=== PATIENT | male | born 1930 | race Caucasian/White ===

== ENCOUNTER 2018-09-14 14:12 | Inpatient (IN) | payer OTHER, BC ==
--- NOTE | 2018-09-14 14:16 | PDOC ---
History of Present Illness - General Chief Complaint: Injury Stated Complaint: FALL - History of Present Illness Initial Comments: The pt is a 88M w/ a history of Parkinson's disease, HTN, hx of bladder cancer , HTN who presents s/p fall down stairs yesterday. The pt reports falling down a portion of flight of stairs yesterday. Per the son, he tried calling the pt last night and this AM and since there was not answer he drove over to investigate. The pt was found on the floor and has urinated on himself. 09/14/18 16:19 Past History - Past Medical History Allergies/Adverse Reactions: Allergies Allergy/AdvReac Type Severity Reaction Status Date / Time No Known Drug Allergies Allergy Verified 09/14/18 14:38 Home Medications: Ambulatory Orders Alpha Lipoic Acid 200 mg PO DAILY 09/14/18 Carbidopa/Levodopa [Carbidopa-Levodopa 25-250 Tab] 1 each PO QID 09/14/18 Cyanocobalamin [Vitamin B12 -] 1,000 mcg PO DAILY 09/14/18 Furosemide [Lasix] 20 mg PO DAILY 09/14/18 Gabapentin [Neurontin] 200 mg PO BID 09/14/18 Nabumetone 500 mg PO PRN 09/14/18 Tamsulosin HCl 0.4 mg PO DAILY 09/14/18 Ubidecarenone/Vit E Acet [Co Q-10 100 mg Softgel] 1 each PO DAILY 09/14/18 Anemia: No Asthma: No Cancer: Yes (bladder-SURGICAL REMOVAL) Cardiac Disorders: No CVA: No COPD: No CHF: No Dementia: No Diabetes: No GI Disorders: No Disorders: Yes (STARTED ON FLOMAX 2 WEEKS AGO) HTN: No Hypercholesterolemia: No Liver Disease: No Seizures: No Thyroid Disease: No - Surgical History Abdominal Surgery: No Appendectomy: No Cardiac Surgery: No Cholecystectomy: No Lung Surgery: No Neurologic Surgery: No Orthopedic Surgery: Yes (RIGHT TIBIA PLATEAU SX 1995) - Suicide/Smoking/Psychosocial Hx Smoking History: Never smoked Have you smoked in the past 12 months: No Hx Alcohol Use: Yes (OCCAS) Drug/Substance Use Hx: No Substance Use Type: Alcohol Hx Substance Use Treatment: No Review of Systems - Review of Systems Able to Perform ROS?: Yes Comments:: GENERAL/CONSTITUTIONAL: No fever or chills HEAD, EYES, EARS, NOSE AND THROAT: No change in vision. No ear pain or discharge. No sore throat CARDIOVASCULAR: No chest pain or shortness of breath RESPIRATORY: Denies cough, hemoptysis GASTROINTESTINAL: No nausea, vomiting, diarrhea or constipation GENITOURINARY: No dysuria, frequency, or change in urination MUSCULOSKELETAL: No joint or muscle swelling or pain. No neck or back pain SKIN: No rash NEUROLOGIC: No headache, vertigo, loss of consciousness, or change in strength/ sensation ENDOCRINE: No increased thirst. No abnormal weight change ALLERGIC/IMMUNOLOGIC: No hives or skin allergy 09/15/18 16:21 Is the patient limited Citizen Of [place] proficient: No *Physical Exam - Vital Signs Vital Signs Temp Pulse Resp BP Pulse Ox 98.5 F 77 20 120/69 100 09/14/18 14:15 09/14/18 16:34 09/14/18 16:34 09/14/18 16:34 09/14/18 16:34 09/14/18 16:35 - Physical Exam Comments: GENERAL: Awake, alert, and oriented to person/place/time, in no acute distress HEAD: No signs of trauma, normocephalic, atraumatic EYES: PERRLA, EOMI, sclera anicteric, conjunctiva clear ENT: Hearing grossly normal, nares patent, oropharynx clear without exudates. Moist mucosa LUNGS: No distress, speaks full sentences, clear to auscultation bilaterally HEART: Regular rate and rhythm, normal S1 and S2, no murmurs appreciated, peripheral pulses normal and equal bilaterally BACK: L lateral lumbar ecchymosis w/o underlying hematoma (approx 2.5cm x 1.5cm) ; No C/T/L spine TTP ABDOMEN: Soft, nontender, normoactive bowel sounds. No guarding, no rebound EXTREMITIES: LUE relative to RUE weakness; LLE > RLE weakness but reported BLE weakness at baseline; moves all extremities independently; R should pain with PROM NEUROLOGICAL: Cranial nerves II through XII grossly intact. Normal speech, no focal sensorimotor deficits SKIN: occipital abrasion; b/l elbow abrasion; b/l knee abrasions; R lateral ankle abrasion; L lateral lumbar ecchymosis w/o underlying hematoma 09/14/18 15:40 ED Treatment Course - LABORATORY CBC & Chemistry Diagram: 09/15/18 05:50 09/15/18 05:50 Medical Decision Making - Medical Decision Making The pt is an 88M w/ a history of Parkinson's disease, HTN, bladder cancer who presents for evaluation s/p fall from standing and being stuck on the floor for 1 day. ED Course Labs sent CXR CT head and c-spine Boostrix Troponinemia to 0.22 [address] CK pending 09/14/18 16:39 CK 2400s Plan for admission to Tele -Syncope v mechanical fall -Troponinemia -Will obtain CT A&P w/o contrast to evaluate for bony abnormality and gross intra-abdominal pathology 09/14/18 17:10 *DC/Admit/Observation/Transfer Diagnosis at time of Disposition: Elevated troponin Fall Qualifiers: Encounter type: initial encounter Qualified Code(s): W19.XXXA - Unspecified fall, initial encounter Syncope Qualifiers: Syncope type: unspecified Qualified Code(s): R55 - Syncope and collapse - Discharge Dispostion Condition at time of disposition: Good Decision to Admit order: Yes - Referrals - Patient Instructions - Post Discharge Activity
[2018-09-14 14:38] VITALS: BMI 30.1
--- NOTE | 2018-09-14 15:32 | PDOC ---
Documentation entered by Tash Bajwa SCRIBE, acting as scribe for Loreto Cueva MD. Loreto Ceuva MD: This documentation has been prepared by the Garett stein Daisy, SCRIBE, under my direction and personally reviewed by me in its entirety. I confirm that the documentation accurately reflects all work, treatment, procedures, and medical decision making performed by me. Attending Attestation - Resident Resident Name: Chau Martinez - ED Attending Attestation I have performed the following: I have examined & evaluated the patient, The case was reviewed & discussed with the resident, I agree w/resident's findings & plan - HPI HPI: 09/14/18 14:42 The patient is a 88 YOM with a PMH of Parkinson's disease, HTN, bladder cancer, spinal stenosis brought in for evaluation s/p fall yesterday. The patient was brought in by his son after calling the patient this morning and receiving no answer. Patient's son found him at the bottom of the stairs and soiled, which is not normal for him. Patient has abrasions to the posterior head, forehead, elbows, and knees as well as ecchymosis to the left mid upper back. Patient lives alone for the past 4 years. Patient remembers falling a third of the flight, but is unable to provide further history. Denies any prodromal symptoms. He states he also had another fall 2 days ago, but was able to stand up after that fall. Allergies: NKDA - Physicial Exam PE: 09/14/18 15:27 awake alert mild superficial abrasion right lateral forhead. posterior scalp superficial abrasions . moist mucous membranes. lungs clear bilaterally no chest wall tenderness. no crepitus no step off. heart rrr no mrg abd soft nt nd ext wwp . no edema. no calf tenderness. pelvis stable. nontender ext. from. right knee with superifical abrasion, already scabbed over. left knee inner side with superficial abrasions. nuero resting tremor, left upper ext rigidity, weakness noted 4/5. left leg 3/5 ( cant lift against gravity) . sensation intact. speech clear. 09/14/18 17:30 - Medical Decision Making 09/14/18 15:30 88 yo male ho parkinsons, htn bph ho right knee relacement, spinal stenosis here s/p fall down stairs, states he had fall 2 days ago, then a second fall yesterday down stairs, was stuck at bottom until son came from [place] because wasnt answering phone. differential mi synncope, cva ( unclear if h/o prior cva) infection such as uti , pna, rhabdo from fall. dehydration, anemia, electrolyte abnoramlity. plan ct head cervical spine. albs cxr ua iv hydration. due to ho recurrent falls pt lives alone will require admission for pt assessment and unsafe discharge. 09/14/18 15:43 Imaging: Head CT Impression: No evidence of acute intracranial pathology Reported by: Dr. Moeller Imaging: c-spine CT Impression: Moderately severe degenerative arthritis with no fracture or acute bony abnormalities Reported by: Dr. Moeller 09/14/18 17:30 pt with mild rhabdomyolisis. mild creatinine elevation. pt with nontender abdomen. ct ap lumbar spine ordered. held iv contrast due to low suspciion for intrabdominal injury and concerns for rhabdomyolysis and renal injury. repeat exam of abd remains nontender. cxr very rotated,no infiltrate. 09/14/18 18:23 Heart Score/ECG Review #1 General ECG Interpretation: Sinus Rhythm, Normal Rate (80), Normal Intervals, No acute ischemic changes Compared to previous ECG there are: No significant change (comparison 10/20/15 TWI III< AVF)
[2018-09-14 15:37] LABS: BASO % 0.2 % (0-2.0); HEMATOCRIT 39.6 % (35.4-49); HEMOGLOBIN 13.3 GM/dL (11.7-16.9); LYMPH % 5.9 % (8-40); MCH 35.8 pg (25.7-33.7); MCHC 33.5 g/dl (32.0-35.9); MEAN CELL VOLUME 106.7 fl (80-96); MEAN PLT VOLUME 7.1 fl (7.5-11.1); MONO % 8.3 % (3.8-10.2); NEUT % 85.6 % (42.8-82.8); PLATELET COUNT 308 K/MM3 (134-434); RBC 3.71 M/mm3 (4.00-5.60); RDW 13.4 % (11.9-15.9); WHITE BLOOD COUNT 13.5 K/mm3 (4.0-10.0)
[2018-09-14] MEDS ORDERED: DIPHTH,PERTUSS(ACELL),TET 0.5 ML DISP.SYRIN IM ONE ×2 (15:40→15:56)
[2018-09-14] MEDS ORDERED: BACITRACIN 0.9 GM PACKET ONE (15:42)
[2018-09-14 15:53] LABS: INR 1.26 (0.83-1.09); PROTHROMBIN TIME (PATIENT) 14.9 SEC (9.7-13.0)
[2018-09-14 15:56] LABS: ACTIVATED PTT 26.9 SECONDS (25.2-36.5)
[2018-09-14 16:08] LABS: ALK PHOS 133 U/L (45-117); ANION GAP 7 MMOL/L (8-16); BLOOD UREA NITROGEN 26 mg/dL (7-18); CALCIUM 8.8 mg/dL (8.5-10.1); CHLORIDE 102 mmol/L (98-107); CO2 24 mmol/L (21-32); CREATININE 1.5 mg/dL (0.55-1.3); GLUCOSE,RANDOM 115 mg/dL (74-106); POTASSIUM 4.8 mmol/L (3.5-5.1); SGOT/AST 113 U/L (15-37); SGPT/ALT 40 U/L (13-61); SODIUM 134 mmol/L (136-145); TOT PROT 7.4 g/dl (6.4-8.2)
[2018-09-14] MEDS ORDERED: SODIUM CHLORIDE 0.9% 500 ML INFUS.BAG IV ONE (16:12)
[2018-09-14] MEDS ORDERED: ASPIRIN 81 MG CHEWABLE TABLETS PO ONE (16:13)
[2018-09-14] MEDS ORDERED: ASPIRIN 81 MG CHEWABLE TABLETS ONE (16:21)
[2018-09-14] MEDS ORDERED: SODIUM CHLORIDE 0.9% 1000 ML INFUS.BAG IV ONE (17:23)
[2018-09-14 17:42] LABS: ANISOCYTOSIS 1+; MACROCYTOSIS 1+; OVALOCYTE 1+; PLATELET ESTIMATE NORMAL
--- NOTE | 2018-09-14 18:09 | HP ---
CHIEF COMPLAINT: fall down stairs, found on floor by son PCP: Dr. Blair HISTORY OF PRESENT ILLNESS: 88 yom with PMhx of Parkinson's disease, spinal stenosis, HTN, B12 deficiency, bladder ca, BPH, chronic leg weakness, using walker, living alone was in his [facility] yesterday when tried to get up the stair, had his shoe stuck on the carpet on the stairs, lost his balance and fell down the stairs (8-9 flight of stairs) . Denies any chest pain, palpitaitons, dizziness, dyspnea, visual or speech disturbances around the fall. Reports was able to get up and walk up the stairs , came down and had another fall from 2 flights of stairs. Reports got up and sat on couch to watch TV. Unsure of the events after that and if he had passed out or how he landed on the floor where the son found him. Per charts, son called the patient who did not respond and came over today, found on floor, and had urinated on himself, brought him to the ED. Currently patient reports some right shoulder pain, though able to move better than yesterday. Also able to move and lift his legs better than before. 12 point ROS done, neg for pain otherwise, no headache, visual or speech disturbances, abdominal or new back pain, urinary symptoms or new concerns. 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 Lives alone, uses a walker Family History: Allergies No Known Drug Allergies Allergy (Verified 09/14/18 14:38) HOME MEDICATIONS: Home Medications Medication Instructions Recorded Alpha Lipoic Acid 200 mg PO DAILY 09/14/18 Carbidopa/Levodopa 1 each PO QID 09/14/18 [Carbidopa-Levodopa 25-250 Tab] Cyanocobalamin [Vitamin B12 -] 1,000 mcg PO DAILY 09/14/18 Furosemide [Lasix] 20 mg PO DAILY 09/14/18 Gabapentin [Neurontin] 200 mg PO BID 09/14/18 Nabumetone 500 mg PO PRN 09/14/18 Tamsulosin HCl 0.4 mg PO DAILY 09/14/18 Ubidecarenone/Vit E Acet [Co Q-10 1 each PO DAILY 09/14/18 100 mg Softgel] REVIEW OF SYSTEMS 12 point ROS done, per HPI PHYSICAL EXAMINATION GENERAL: Awake, alert, and oriented to person/place/time, in no acute distress HEAD: occipital abrasion, normocephalic EYES: PERRLA, EOMI, sclera anicteric, conjunctiva clear ENT: Hearing grossly normal, nares patent, oropharynx clear without exudates. Moist mucosa LUNGS: No distress, speaks full sentences, clear to auscultation bilaterally HEART: Regular rate and rhythm, normal S1 and S2, no murmurs appreciated, BACK: L lateral lumbar ecchymosis w/o underlying hematoma (approx 2.5cm x 1.5cm) ; No C/T/L spine TTP ABDOMEN: Soft, nontender, normoactive bowel sounds. No guarding, no rebound, no CVA tenderness EXTREMITIES:able to raise Left shoulder upto 50 degrees, Left shoulder movements limited by pain, no point tenderness, peripheral pules, Right knee surgical scar, swelling and skin discoloration MUSCULOSKELETAL: no spinal tenderness, SLR bilateral LE upt 30 degrees (reports able to move better than yesterday), no pain on passive movements bilateral hips /knees, Right shoulder movements limited by pain, no visible swelling or point tenderness NEUROLOGICAL: AAOX3, exam limited given pain as above, moves all extremities except RUE limited by pain, LLE weakness (Charted in 2013), increased tone, normal speech, sensation grossly intact and symmetric to light touch, Cranial nerves II through XII grossly intact. SKIN: occipital abrasion; b/l elbow abrasion; b/l knee abrasions; R lateral ankle abrasion; L lateral lumbar ecchymosis w/o underlying hematoma Vital Signs - 24 hr 09/14/18 09/14/18 09/14/18 14:15 15:00 16:34 Temperature 98.5 F Pulse Rate 88 Pulse Rate [ 68 77 Apical] Respiratory 18 18 20 Rate Blood Pressure 136/110 H Blood Pressure 127/67 120/69 [Right Arm] O2 Sat by Pulse 98 99 100 Oximetry (%) Laboratory Results - last 24 hr 09/14/18 09/14/18 09/14/18 15:15 15:15 15:15 WBC 13.5 H RBC 3.71 L Hgb 13.3 Hct 39.6 MCV 106.7 H MCH 35.8 H MCHC 33.5 RDW 13.4 Plt Count 308 D MPV 7.1 L D Absolute Neuts (auto) 11.6 H Neutrophils % 85.6 H D Lymphocytes % 5.9 L D Monocytes % 8.3 Eosinophils % 0.0 D Basophils % 0.2 Nucleated RBC % 0 Hypochromia 0 Platelet Estimate Normal Platelet Comment Present Polychromasia 0 Poikilocytosis 1+ Anisocytosis 1+ Microcytosis 1+ Macrocytosis 1+ Spherocytes 1+ Ovalocytes 1+ PT with INR 14.90 H INR 1.26 H PTT (Actin FS) 26.9 Sodium 134 L Potassium 4.8 Chloride 102 Carbon Dioxide 24 Anion Gap 7 L BUN 26 H Creatinine 1.5 H Creat Clearance w eGFR 44.37 Random Glucose 115 H Calcium 8.8 Total Bilirubin 2.0 H AST 113 H ALT 40 Alkaline Phosphatase 133 H Creatine Kinase Creatine Kinase Index CK-MB (CK-2) Troponin I Total Protein 7.4 Albumin 3.0 L 09/14/18 15:15 WBC RBC Hgb Hct MCV MCH MCHC RDW Plt Count MPV Absolute Neuts (auto) Neutrophils % Lymphocytes % Monocytes % Eosinophils % Basophils % Nucleated RBC % Hypochromia Platelet Estimate Platelet Comment Polychromasia Poikilocytosis Anisocytosis Microcytosis Macrocytosis Spherocytes Ovalocytes PT with INR INR PTT (Actin FS) Sodium Potassium Chloride Carbon Dioxide Anion Gap BUN Creatinine Creat Clearance w eGFR Random Glucose Calcium Total Bilirubin AST ALT Alkaline Phosphatase Creatine Kinase 2480 H Creatine Kinase Index 1.7 CK-MB (CK-2) 42.8 H Troponin I 0.22 H Total Protein Albumin EKG: NSR, artifactual baseline, RBBB(present on prior EKG), no acute ST-T changes but limited CT brain and C-spine results reviewed Right shoulder xray/CT A/P/CT L spine results pending ASSESSMENT/PLAN: 88 yom with PMHx of Parkinson's disease, spinal stenosis, HTN, B12 deficiency, bladder ca, BPH, chronic leg weakness admitted with fall down the stairs, rhabdomyolysis, and elevated trop. -Mechanical fall down the stairs, -?Syncope post event -Traumatic rhabdomyolysis -Elevated troponin, suspect demand type II MS given absence of symptoms or EKG changes, r/o ACS -HALEY, suspect from hypovolumia -Leucocytosis, suspect from stress/hemeconcentration, r/o infection -Parkinson's disease -HTN -SPinal stenosis -Osteoarthritis -HTN -B12 deficiency -BPH -h/o Bladder cancer Plan: Follow up right shoulder xray/CT A/P/CT LS Spine Orthopedic input and PT eval accordingly. Pain control with tylenol. Telemetry, cycle trop, 2D echo. Low suspicion for syncope. ASA Neuro checks. Fall precautions. IVF, hold lasix, trend CPK Fields cath x 24 hours, Screen for infection, check ua. Continue sinemet/gabapentin DVTPPX heparin pending above studies. Anticipate will need SNF, Dispo admit to inpatient tele Plan discussed with patient in detail, all questions answered Care co-ordination with ED Total admit time spent 65 min. Visit type - Emergency Visit Emergency Visit: Yes ED Registration Date: 09/14/18 Care time: The patient presented to the Emergency Department on the above date and was hospitalized for further evaluation of their emergent condition. - New Patient This patient is new to me today: Yes Date on this admission: 09/14/18 - Critical Care Critical Care patient: No
[2018-09-14] MEDS ORDERED: ACETAMINOPHEN 325 MG TABLET (FP) PO PRN (18:32)
[2018-09-14] MEDS ORDERED: SODIUM CHLORIDE 1,000 ML IV SCH (18:45)
[2018-09-14] MEDS ORDERED: NABUMETONE 500 MG TABLET PO SCH (18:45)
[2018-09-14] MEDS ORDERED: GABAPENTIN 100 MG CAPSULE (FP) ONE (22:21)
[2018-09-14] MEDS: GABAPENTIN 100 MG CAPSULE (FP) PO SCH (22:33)
[2018-09-14] MEDS: CARBIDOPA/LEVODOPA 25/250 TABLET (FP) PO SCH (23:23)
[2018-09-15] MEDS ORDERED: HEPARIN NA (PORCINE) 5,000 UNITS/ML 1ML VIAL ONE (06:20)
[2018-09-15] MEDS: HEPARIN NA (PORCINE) 5,000 UNITS/ML 1ML VIAL SQ SCH ×3 (06:24→22:27)
[2018-09-15 06:51] LABS: BASO % 0.3 % (0-2.0); EOS % 0.5 % (0-4.5); HEMATOCRIT 36.2 % (35.4-49); HEMOGLOBIN 12.3 GM/dL (11.7-16.9); LYMPH % 7.9 % (8-40); MCH 36.4 pg (25.7-33.7); MEAN CELL VOLUME 107.1 fl (80-96); MEAN PLT VOLUME 7.1 fl (7.5-11.1); MONO % 7.9 % (3.8-10.2); NEUT % 83.4 % (42.8-82.8); PLATELET COUNT 269 K/MM3 (134-434); RBC 3.38 M/mm3 (4.00-5.60)
[2018-09-15 07:39] LABS: ALBUMIN 2.6 g/dl (3.4-5.0); ALK PHOS 111 U/L (45-117); ANION GAP 9 MMOL/L (8-16); BILIRUBIN,TOTAL 1.2 mg/dL (0.2-1); BLOOD UREA NITROGEN 27 mg/dL (7-18); CHLORIDE 110 mmol/L (98-107); CHOLESTEROL 107 mg/dL (50-200); CO2 22 mmol/L (21-32); CREATININE 1.3 mg/dL (0.55-1.3); GLUCOSE,RANDOM 99 mg/dL (74-106); HDL CHOLESTEROL 40 mg/dL (40-60); MAGNESIUM 1.8 mg/dL (1.8-2.4); PHOSPHOROUS 2.9 mg/dL (2.5-4.9); POTASSIUM 4.4 mmol/L (3.5-5.1); SGOT/AST 97 U/L (15-37); SGPT/ALT 12 U/L (13-61); SODIUM 141 mmol/L (136-145); TOT PROT 6.2 g/dl (6.4-8.2); TRIGLYCERIDES 61 mg/dL (0-150)
[2018-09-15 08:08] LABS: PH,URINE 5.5 (5.0-8.0); URINE APPEARANCE Clear; URINE BILIRUBIN 1+ (NEGATIVE); URINE COLOR Yellow; URINE GLUCOSE (UA) Negative (NEGATIVE); URINE KETONE 1+ (NEGATIVE); URINE LEUK ESTERASE Negative (NEGATIVE); URINE NITRITE Negative (NEGATIVE); URINE PROTEIN 1+ (NEGATIVE)
--- NOTE | 2018-09-15 08:28 | PN ---
Physical Exam: SUBJECTIVE: Patient seen and examined, forgetful, denies pain. reports some right shoulder discomfort while moving the arm. No chest pain, dizziness. Does recall falling from 8-9 flight of stairs and being on a it 'for a long time' before his son came and brought him to the hospital, unsure if passed out. OBJECTIVE: Vital Signs Period Temp Pulse Resp BP Sys/Velazco Pulse Ox Last 24 Hr 98.5 F 68-88 18-20 120-139/65-110 97-100 Intake & Output 09/12/18 09/13/18 09/14/18 09/15/18 23:59 23:59 23:59 23:59 Weight 204 lb GENERAL: Awake, alert, and oriented to person/place, forgetful, in no acute distress HEAD: occipital abrasion, normocephalic EYES: PERRLA, EOMI, sclera anicteric, conjunctiva clear ENT: Hearing grossly normal, nares patent, oropharynx clear without exudates. Moist mucosa LUNGS: No distress, speaks full sentences, clear to auscultation bilaterally HEART: Regular rate and rhythm, normal S1 and S2, no murmurs appreciated, BACK: L lateral lumbar ecchymosis w/o underlying hematoma (approx 2.5cm x 1.5cm) ; No C/T/L spine TTP ABDOMEN: Soft, nontender, normoactive bowel sounds. No guarding, no rebound, no CVA tenderness EXTREMITIES:able to raise right shoulder upto 50 degrees, Left shoulder movements limited by pain, no point tenderness, peripheral pules, Right knee surgical scar, swelling and skin discoloration MUSCULOSKELETAL: no spinal tenderness, SLR bilateral LE upt 30 degrees (reports able to move better than yesterday), no pain on passive movements bilateral hips /knees, Right shoulder movements limited by pain, no visible swelling or point tenderness NEUROLOGICAL: AAOX2, exam limited given pain as above, moves all extremities except RUE limited by pain, LLE weakness (Charted in 2013), increased tone, normal speech, sensation grossly intact and symmetric to light touch, Cranial nerves II through XII grossly intact. SKIN: occipital abrasion; b/l elbow abrasion; b/l knee abrasions; R lateral ankle abrasion; L lateral lumbar ecchymosis w/o underlying hematoma Laboratory Results - last 24 hr 09/14/18 09/14/18 09/14/18 15:15 15:15 15:15 WBC 13.5 H RBC 3.71 L Hgb 13.3 Hct 39.6 MCV 106.7 H MCH 35.8 H MCHC 33.5 RDW 13.4 Plt Count 308 D MPV 7.1 L D Absolute Neuts (auto) 11.6 H Neutrophils % 85.6 H D Lymphocytes % 5.9 L D Monocytes % 8.3 Eosinophils % 0.0 D Basophils % 0.2 Nucleated RBC % 0 Hypochromia 0 Platelet Estimate Normal Platelet Comment Present Polychromasia 0 Poikilocytosis 1+ Anisocytosis 1+ Microcytosis 1+ Macrocytosis 1+ Spherocytes 1+ Ovalocytes 1+ PT with INR 14.90 H INR 1.26 H PTT (Actin FS) 26.9 Sodium 134 L Potassium 4.8 Chloride 102 Carbon Dioxide 24 Anion Gap 7 L BUN 26 H Creatinine 1.5 H Creat Clearance w eGFR 44.37 Random Glucose 115 H Calcium 8.8 Phosphorus Magnesium Total Bilirubin 2.0 H AST 113 H ALT 40 Alkaline Phosphatase 133 H Creatine Kinase Creatine Kinase Index CK-MB (CK-2) Troponin I Total Protein 7.4 Albumin 3.0 L Triglycerides Cholesterol Total LDL Cholesterol HDL Cholesterol Urine Color Urine Appearance Urine pH Ur Specific [place] Urine Protein Urine Glucose (UA) Urine Ketones Urine Blood Urine Nitrite Urine Bilirubin Urine Urobilinogen Ur Leukocyte Esterase 09/14/18 09/15/18 09/15/18 15:15 02:17 05:50 WBC 14.0 H RBC 3.38 L Hgb 12.3 Hct 36.2 MCV 107.1 H MCH 36.4 H MCHC 34.0 RDW 13.0 Plt Count 269 MPV 7.1 L Absolute Neuts (auto) 11.7 H Neutrophils % 83.4 H Lymphocytes % 7.9 L D Monocytes % 7.9 Eosinophils % 0.5 D Basophils % 0.3 Nucleated RBC % 0 Hypochromia Platelet Estimate Platelet Comment Polychromasia Poikilocytosis Anisocytosis Microcytosis Macrocytosis Spherocytes Ovalocytes PT with INR INR PTT (Actin FS) Sodium Potassium Chloride Carbon Dioxide Anion Gap BUN Creatinine Creat Clearance w eGFR Random Glucose Calcium Phosphorus Magnesium Total Bilirubin AST ALT Alkaline Phosphatase Creatine Kinase 2480 H Creatine Kinase Index 1.7 CK-MB (CK-2) 42.8 H Troponin I 0.22 H 0.20 H Total Protein Albumin Triglycerides Cholesterol Total LDL Cholesterol HDL Cholesterol Urine Color Urine Appearance Urine pH Ur Specific [place] Urine Protein Urine Glucose (UA) Urine Ketones Urine Blood Urine Nitrite Urine Bilirubin Urine Urobilinogen Ur Leukocyte Esterase 09/15/18 09/15/18 05:50 06:37 WBC RBC Hgb Hct MCV MCH MCHC RDW Plt Count MPV Absolute Neuts (auto) Neutrophils % Lymphocytes % Monocytes % Eosinophils % Basophils % Nucleated RBC % Hypochromia Platelet Estimate Platelet Comment Polychromasia Poikilocytosis Anisocytosis Microcytosis Macrocytosis Spherocytes Ovalocytes PT with INR INR PTT (Actin FS) Sodium 141 Potassium 4.4 Chloride 110 H Carbon Dioxide 22 Anion Gap 9 BUN 27 H Creatinine 1.3 Creat Clearance w eGFR 52.34 Random Glucose 99 Calcium 8.0 L Phosphorus 2.9 Magnesium 1.8 Total Bilirubin 1.2 H AST 97 H ALT 12 L Alkaline Phosphatase 111 Creatine Kinase 1577 H Creatine Kinase Index CK-MB (CK-2) Troponin I 0.16 H Total Protein 6.2 L Albumin 2.6 L Triglycerides 61 Cholesterol 107 Total LDL Cholesterol 65 HDL Cholesterol 40 Urine Color Yellow Urine Appearance Clear Urine pH 5.5 Ur Specific [place] 1.025 Urine Protein 1+ H Urine Glucose (UA) Negative Urine Ketones 1+ H Urine Blood Trace-lysed Urine Nitrite Negative Urine Bilirubin 1+ H Urine Urobilinogen 1.0 Ur Leukocyte Esterase Negative Active Medications Generic Name Dose Route Start Last Admin Trade Name Freq PRN Reason Stop Dose Admin Acetaminophen 650 mg 09/14/18 18:32 Tylenol - PO Q6H PRN PAIN LEVEL 1-5 Carbidopa/Levodopa 1 each 09/14/18 23:00 09/14/18 23:23 Sinemet 25/250 - PO 1 each 0900,1300,1800,2300 MIKE Administration Cyanocobalamin 1,000 mcg 09/15/18 10:00 Vitamin B12 - PO DAILY MIKE Gabapentin 200 mg 09/14/18 22:00 09/14/18 22:33 Neurontin - PO 200 mg BID MIKE Administration Heparin Sodium (Porcine) 5,000 unit 09/15/18 06:00 09/15/18 06:24 Heparin - SQ 5,000 unit TID MIKE Administration Sodium Chloride 1,000 mls @ 100 mls/hr 09/14/18 18:45 09/14/18 20:36 Normal Saline - IV 100 mls/hr ASDIR MIKE Administration Nabumetone 500 mg 09/14/18 18:45 Relafen - PO PRN MIKE Tamsulosin HCl 0.4 mg 09/15/18 08:30 Flomax - PO DAILY@0830 [facility] ASSESSMENT/PLAN: 88 yom with PMHx of Parkinson's disease, spinal stenosis, HTN, B12 deficiency, bladder ca, BPH, chronic leg weakness admitted with fall down the stairs, rhabdomyolysis, and elevated trop. -Mechanical fall down the stairs, -?Syncope post event -Traumatic rhabdomyolysis -Elevated troponin, suspect demand type II MO given absence of symptoms or EKG changes, unlikely ACS -HALEY, suspect from hypovolumia -Leucocytosis, suspect from stress/hemeconcentration, r/o infection -?pancreatic mass -1.4 Cm obstructive stone with hydronephrosis -Parkinson's disease -HTN -SPinal stenosis -Osteoarthritis -HTN -B12 deficiency -BPH -h/o Bladder cancer Plan: Telemetry with no events, tn flat, follow up 2D echo/cardiology input. CT A/P prelim with incidental findings of ?pancreatic mass and obstructive uropathy. GI/Urology consult. Renal function improved, Monitor for retention. Renal/bladder US. Continue IVF, trend CPK PT eval. Pain control with tylenol No focal evidence concerning for infection, trend WBC. Continue sinemet/gabapentin DVTPPX heparin Anticipate will need SNF, Dispo pending clinical improvement. Plan discussed with patient in detail, oriented again about the hospital admission and events overnight, all questions answered Visit type - Emergency Visit Emergency Visit: Yes ED Registration Date: 09/14/18 Care time: The patient presented to the Emergency Department on the above date and was hospitalized for further evaluation of their emergent condition. - New Patient This patient is new to me today: No - Critical Care Critical Care patient: No - Discharge Referral Referred to [facility] Med [facility] No
[2018-09-15 08:48] LABS: URINE RBC 2.4 /hpf (0-4); URINE WBC 2.5 /hpf (0-5)
[2018-09-15 08:49] LABS: EPI CELLS 0.3 /HPF (0-5/HPF); URINE BACTERIA 0.3 /hpf (NEGATIVE); URINE CASTS 0.35 /lpf (0-8)
--- NOTE | 2018-09-15 09:30 | CON.CARD ---
Consult Consult Specialty:: cardio - History of Present Illness Chief Complaint: fall History of Present Illness: 88 M here with falls, and ? syncope. per ER notes: pt lives alone. at home he tried to walk up the stairs and his shoe stuck on the carpet on the stairs, lost his balance and fell down the stairs. Reports was able to get up and walk up the stairs, came down and had another fall down stairs. Reports got up and sat on couch to watch TV. Unsure of the events after that and if he had passed out or how he landed on the floor where the son found him. Per charts, son called the patient who did not respond and came over today, found on floor, and had urinated on himself, brought him to the ED. currently appears mildly disoriented. "probably" passed out at some point. but also providing unreliable history and not following commands briskly at all times PMH: Parkinson's disease, spinal stenosis, HTN, B12 deficiency, bladder ca, BPH , chronic leg weakness using walker - Past Medical History Gastrointestinal: Yes: Other (? recent dysphagia) Renal/: Yes: Cancer (Bladder Ca RX in past; Saw MD recently Also BPH) Musculoskeletal: Yes: Chronic low back pain, Other (weakness both legs) - Alcohol/Substance Use Hx Alcohol Use: Yes (OCCAS) - Smoking History Smoking history: Never smoked Have you smoked in the past 12 months: No - Social History Occupation: retired History of Recent Travel: No Home Medications - Allergies Allergies/Adverse Reactions: Allergies Allergy/AdvReac Type Severity Reaction Status Date / Time No Known Drug Allergies Allergy Verified 09/14/18 14:38 - Home Medications Home Medications: Ambulatory Orders Alpha Lipoic Acid 200 mg PO DAILY 09/14/18 Carbidopa/Levodopa [Carbidopa-Levodopa 25-250 Tab] 1 each PO QID 09/14/18 Cyanocobalamin [Vitamin B12 -] 1,000 mcg PO DAILY 09/14/18 Furosemide [Lasix] 20 mg PO DAILY 09/14/18 Gabapentin [Neurontin] 200 mg PO BID 09/14/18 Nabumetone 500 mg PO PRN 09/14/18 Tamsulosin HCl 0.4 mg PO DAILY 09/14/18 Ubidecarenone/Vit E Acet [Co Q-10 100 mg Softgel] 1 each PO DAILY 09/14/18 Family Disease History - Family Disease History Family Disease History: CA: Father (Gall bladder), Other: Mother (old age 96) Review of Systems Unable to obtain ROS, reason: pt disorientation Vital Signs: Vital Signs Temperature 98.5 F 09/14/18 14:15 Pulse Rate 86 09/15/18 07:37 Respiratory Rate 18 09/15/18 07:37 Blood Pressure 124/65 09/15/18 07:37 O2 Sat by Pulse Oximetry (%) 98 09/15/18 07:37 - Other Data Labs, Other Data: CBC, BMP 09/15/18 05:50 09/15/18 05:50 INR, PTT INR 1.26 (0.83-1.09) H 09/14/18 15:15 Troponin, BNP 09/14/18 09/15/18 09/15/18 15:15 02:17 05:50 Troponin I 0.22 H 0.20 H 0.16 H Troponin, BNP 09/14/18 09/15/18 09/15/18 15:15 02:17 05:50 Troponin I 0.22 H 0.20 H 0.16 H Laboratory Tests 09/14/18 09/15/18 09/15/18 15:15 02:17 05:50 WBC 14.0 H Hgb 12.3 Plt Count 269 Sodium Potassium Carbon Dioxide BUN Creatinine AST ALT Creatine Kinase 2480 H Troponin I 0.22 H 0.20 H 09/15/18 05:50 WBC Hgb Plt Count Sodium 141 Potassium 4.4 Carbon Dioxide 22 BUN 27 H Creatinine 1.3 AST 97 H ALT 12 L Creatine Kinase 1577 H Troponin I 0.16 H Assessment/Plan ECG: NSR, RBBB, nonsp ST-T inferior leads--no change vs prior CXR: clear lungs, slight blunting R c-p angle falls, ? syncope, elevated skeletal muscle CPK: -parkinson's and spinal stenosis--? mechanical falls -pt unable to provide meaningful history--cannot exclude syncope (possibly multifactorial) -telemetry monitoring -echo, carotids -r/o sandy fabian autonomic insufficiency: check orthostatic VSs once pt can stand elevated trop: -indeterminate range, flat trend (0.2 x 2-->0.1) not c/w ACS -no ischemia signs/sx's, ecg unremarkable -check echo -no further ischemia w/u indicated if echo ok HTN: -bp's controlled -same plan renal insuff -creat 1.5, improving -fluids per hospitalist
[2018-09-15] MEDS: CYANOCOBALAMIN 1,000 MCG TABLET (FP) PO SCH (11:00)
[2018-09-15] MEDS: CARBIDOPA/LEVODOPA 25/250 TABLET (FP) PO SCH ×4 (11:00→22:27)
--- NOTE | 2018-09-15 11:00 | EKG ---
Test Reason : Blood Pressure : / mmHG Vent. Rate : 080 BPM Atrial Rate : 080 BPM P-R Int : 178 ms QRS Dur : 126 ms QT Int : 430 ms P-R-T Axes : 017 005 -16 degrees QTc Int : 495 ms NORMAL SINUS RHYTHM WITH SINUS ARRHYTHMIA RIGHT BUNDLE BRANCH BLOCK ABNORMAL ECG WHEN COMPARED WITH ECG OF 20-OCT-2015 08:57, NO SIGNIFICANT CHANGE WAS FOUND Confirmed by MELODY MCCALLUM MD ([id number]) on 09/15/2018 10:59:29 AM Referred By: Confirmed By:MELODY MCCALLUM MD
[2018-09-15] MEDS: TAMSULOSIN HCL 0.4 MG CAP PO SCH (11:05)
[2018-09-15] MEDS: GABAPENTIN 100 MG CAPSULE (FP) PO SCH ×2 (11:05→22:27)
[2018-09-15] MEDS ORDERED: CARBIDOPA/LEVODOPA 25/250 TABLET (FP) ONE (15:45)
--- NOTE | 2018-09-15 16:11 | ECHO ---
Name: CARLOTTARONNELL Exam:Adult Echocardiogram Study Date: 09/15/2018 11:55 AM Age: 88 yrs Reason For Study: LV Function Height: 69 in Weight: 204 lb BSA: 2.1 m2 MMode/2D Measurements & Calculations Ao root diam: 3.9 cm LVOT diam: 2.0 cm Doppler Measurements & Calculations MV E max grayson: 69.8 cm/sec Ao V2 max: 211.7 cm/sec MV A max grayson: 113.0 cm/sec Ao max P.9 mmHg MV E/A: 0.62 Ao V2 mean: 120.7 cm/sec MV dec time: 0.15 sec Ao mean P.7 mmHg Ao V2 VTI: 32.3 cm RIVERA(V,D): 2.0 cm2 LV V1 max P.8 mmHg PA V2 max: 93.7 cm/sec LV V1 max: 130.0 cm/sec PA max P.5 mmHg Med Peak E' Grayson: 3.5 cm/sec Med E/e': 20.1 Lat Peak E' Grayson: 5.8 cm/sec Lat E/e': 12.1 Procedure A complete two-dimensional transthoracic echocardiogram was performed (2D, M-mode, Doppler and color flow Doppler). Technically limited study. Left Ventricle The left ventricle is normal in size. Left ventricular systolic function is normal. Diastolic dysfunc tion, Grade II, consistent with elevated left atrial pressure. Ratio E/E'= 20. No regional wall motion abno rmalities noted. Right Ventricle The right ventricle is not well visualized. Atria The left atrial size is normal. Right atrium not well visualized. Mitral Valve There is mild mitral annular calcification. There is no mitral regurgitation noted. Tricuspid Valve The tricuspid valve is not well visualized. Aortic Valve There is moderate aortic sclerosis.;. Mild aortic regurgitation. Pulmonic Valve The pulmonic valve is not well visualized. Great Vessels Mild aortic root dilatation. Pericardium/Pleura There is no pericardial effusion. Interpretation Summary Technically limited study The left ventricle is normal in size. Left ventricular systolic function is normal. No regional wall motion abnormalities noted. Diastolic dysfunction, Grade II, consistent with elevated left atrial pressure. Ratio E/E'= 20 The right ventricle is not well visualized. The left atrial size is normal. Right atrium not well visualized. There is mild mitral annular calcification. There is moderate aortic sclerosis. Mild aortic regurgitation. Mild aortic root dilatation. There is no pericardial effusion. Previous study is not available for comparison Masood Fajardo MD 09/15/2018 04:11 PM
--- NOTE | 2018-09-15 16:13 | CON.GI ---
Consult Consult Specialty:: GI , Pancreatic mass Referred by:: DR Kristian Del Rio Reason for Consultation:: Pancreatic mass - History of Present Illness Chief Complaint: S.p Fall History of Present Illness: 88 yom with PMhx of Parkinson's disease, spinal stenosis, B12 deficiency, BPH, chronic leg weakness, using walker, living alone was in his [facility] yesterday when tried to get up the stair, had his shoe stuck on the carpet on the stairs, lost his balance and fell down the stairs (8-9 flight of stairs). Denies any chest pain, palpitaitons, dizziness, dyspnea, visual or speech disturbances around the fall. Reports was able to get up and walk up the stairs , came down and had another fall from 2 flights of stairs. Reports got up and sat on couch to watch TV. Unsure of the events after that and if he had passed out or how he landed on the floor where the son found him. Per charts, son called the patient who did not respond and came over today, found on floor, and had urinated on himself, brought him to the ED. Currently patient reports some right shoulder pain, though able to move better than yesterday. Also able to move and lift his legs better than before. pt son reports 20 pound weight loss during last year but state that his father was trying to loose some weight after his knee surgery pt son reports decrease appetite but pt live on his own. pt denies any fever , chills, N/V/D/C , he usually has daily BM denies any abdominal pain or GERD denies any dypepsia or difficulty swallowing . family history positive for lung cancer in his mother and colon cancer in his son. 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 recent dysphagia) Renal/: Yes: BPH, Cancer (Bladder Ca RX in past; Saw MD recently Also BPH) , Renal Calculi Heme/Onc: Yes: B12 Deficiency Psych: Yes: Other (some agitation and is asking to go home ) Musculoskeletal: Yes: Chronic low back pain, Other (weakness both legs) - Past Surgical History Additional Surgical History: knee replacement - Alcohol/Substance Use Hx Alcohol Use: No (OCCAS) History of Substance Use: reports: None - Smoking History Smoking history: Never smoked Have you smoked in the past 12 months: No - Social History Usual Living Arrangement: Alone ADL: Independent Occupation: retired Place of : [facility] History of Recent Travel: No <Bebo Gloria - Last Filed: 09/15/18 18:18> Home Medications <Bebo Gloria - Last Filed: 09/15/18 18:18> <Neema Mao - Last Filed: 09/15/18 19:12> - Allergies Allergies/Adverse Reactions: Allergies Allergy/AdvReac Type Severity Reaction Status Date / Time No Known Drug Allergies Allergy Verified 09/14/18 14:38 - Home Medications Home Medications: Ambulatory Orders Alpha Lipoic Acid 200 mg PO DAILY 09/14/18 Carbidopa/Levodopa [Carbidopa-Levodopa 25-250 Tab] 1 each PO QID 09/14/18 Cyanocobalamin [Vitamin B12 -] 1,000 mcg PO DAILY 09/14/18 Furosemide [Lasix] 20 mg PO DAILY 09/14/18 Gabapentin [Neurontin] 200 mg PO BID 09/14/18 Nabumetone 500 mg PO PRN 09/14/18 Tamsulosin HCl 0.4 mg PO DAILY 09/14/18 Ubidecarenone/Vit E Acet [Co Q-10 100 mg Softgel] 1 each PO DAILY 09/14/18 Family Disease History - Family Disease History Family Disease History: CA: Father (Gall bladder), Other: Mother (old age 96) Other Family History: mother lung cancer. son colon cancer <Bebo Gloria - Last Filed: 09/15/18 18:18> Review of Systems - Review of Systems Constitutional: reports: Lethargy, Loss of Appetite, Weakness HENT: denies: Difficult Swallowing, Gingival Bleeding, Mouth Swelling Neck: reports: Pain on Movement Cardiovascular: denies: Chest Pain, Palpitations Gastrointestinal: denies: Abdominal Pain, Bloating, Constipation, Diarrhea, Dysphagia, Melena, Nausea, Rectal Bleeding, Vomiting Genitourinary: denies: Burning, Discharge, Dysuria Neurological: reports: Change in LOC, Confusion Endocrine: reports: Unexplained Weight Loss (20 pound within one year) <Bebo Gloria - Last Filed: 09/15/18 18:18> Physical Exam-GI Vital Signs: Vital Signs Temperature 98.5 F 09/14/18 14:15 Pulse Rate 94 H 09/15/18 15:38 Respiratory Rate 18 09/15/18 15:38 Blood Pressure 158/83 09/15/18 15:38 O2 Sat by Pulse Oximetry (%) 96 09/15/18 15:38 Constitutional: Yes: Well Nourished, No Distress, Anxious Eyes: Yes: Conjunctiva Clear, EOM Intact HENT: Yes: Other (head trauma on parietal side withut laceration) Neck: Yes: Supple Cardiovascular: Yes: Regular Rate and Rhythm, Murmur (2/6 systolic murmure RUSB) , S1, S2 Respiratory: Yes: CTA Bilaterally Gastrointestinal Inspection: Yes: Other (+BS ALl 4 Q). No: Ascites, Distention , Scars ...Auscultate: Yes: Normoactive Bowel Sounds ...Palpate: Yes: Soft. No: Tenderness, Tenderness, Rebound ...Rectal Exam: Yes: Deferred (pt refuse) Musculoskeletal: Yes: Muscle Weakness Edema: LUE: Trace, RUE: Trace Labs: CBC, [facility] 09/15/18 05:50 09/15/18 05:50 INR, PTT INR 1.26 (0.83-1.09) H 09/14/18 15:15 <Dedrick Gloriai - Last Filed: 09/15/18 18:18> Vital Signs: Vital Signs Temperature 98.7 F 09/15/18 17:30 Pulse Rate 100 H 09/15/18 17:30 Respiratory Rate 18 09/15/18 17:30 Blood Pressure 158/91 09/15/18 17:30 O2 Sat by Pulse Oximetry (%) 98 09/15/18 17:30 Labs: CBC, [facility] 09/15/18 05:50 09/15/18 05:50 INR, PTT INR 1.26 (0.83-1.09) H 09/14/18 15:15 <Neema Mao - Last Filed: 09/15/18 19:12> Assessment/Plan # Pancreatic mass , Asymptomatic , noticed incidentally on CT A/P , denies any fever, night sweats but reports loss of appetite and 20 pound weight loss within one year , will follow up MRCP and dicuss goal of care with the family , . pt health care proxy is his daughter Selma Portillo [phone] wants pt to be full code for now and will meet with family after MRCP and discuss further diagnosis test and treatment. cont fluids and pain control lfts , Bili direct and CK trending doen will cont to monitor pt was seen with Dr Mayco Baker and agree with the plan. 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 <Bebo Gloria - Last Filed: 09/15/18 18:18> I have seen/examined this patient with Dr. Gloria and agree with the above assessment and plan. 88 yo male h/o parkinsons disease presenting after a fall with CT imaging revealing a pancreatic head mass. Pt denies abdominal pain though 20lb weight loss noted over 1 year. Recommend MRCP for further evaluation. Pts son is planning to discuss further with their family. Pending results and goals of care discussion, pt may require EGD/EUS for definitive diagnosis. <Neema Mao - Last Filed: 09/15/18 19:12>
[2018-09-15] MEDS ORDERED: SODIUM CHLORIDE 1,000 ML IV SCH (16:47)
--- NOTE | 2018-09-15 18:19 | PN ---
Progress Note (short form) - Note Progress Note: I contacted his neurology MD's office today. They reported he is on his Sinemet generic tid; order changed. It might be of benefit to ask Dr. Moran to consult on the patient for his Parkinson's and his fall.
--- NOTE | 2018-09-15 19:17 | PN ---
Progress Note (short form) - Note Progress Note: Please refer to full GI consult note per Dr. Gloria. Briefly, 88 yo male h/o Parkinsons disease presenting after a fall with CT imaging incidentally revealing a pancreatic head mass. Pt denies complaints, no abdominal pain, n/v, though 20lb weight loss noted over 1 year. No jaundice or fever/chills. On examination: Pt slightly agitated, asking to leave Abd soft, nt, nd Labs reviewed. LFTs mildly elevated, downtrending T bili 1.2 Recommendations: -Obtain MRCP for further evaluation -Continue to monitor LFT trend -Syncope workup per cardio -Pending results and goals of care discussion pt would require EGD/EUS for more definitive diagnosis. Pts son states he will be discussing further amongst their family. Further recommendations pending above.
[2018-09-15] MEDS ORDERED: PT OWN MED DRAWER 7, Y5N ONE (20:49)
[2018-09-16] MEDS: HEPARIN NA (PORCINE) 5,000 UNITS/ML 1ML VIAL SQ SCH ×3 (05:37→22:19)
[2018-09-16 05:52] LABS: BASO % 0.6 % (0-2.0); EOS % 0.1 % (0-4.5); HEMATOCRIT 34.4 % (35.4-49); HEMOGLOBIN 11.5 GM/dL (11.7-16.9); LYMPH % 5.4 % (8-40); MCH 35.7 pg (25.7-33.7); MCHC 33.6 g/dl (32.0-35.9); MEAN CELL VOLUME 106.4 fl (80-96); NEUT % 88.9 % (42.8-82.8); PLATELET COUNT 295 K/MM3 (134-434); RBC 3.23 M/mm3 (4.00-5.60); RDW 13.2 % (11.9-15.9); WHITE BLOOD COUNT 22.2 K/mm3 (4.0-10.0)
[2018-09-16 06:34] LABS: ALBUMIN 2.3 g/dl (3.4-5.0); ALK PHOS 109 U/L (45-117); ANION GAP 8 MMOL/L (8-16); BILIRUBIN,TOTAL 1.4 mg/dL (0.2-1); BLOOD UREA NITROGEN 33 mg/dL (7-18); CALCIUM 7.9 mg/dL (8.5-10.1); CHLORIDE 108 mmol/L (98-107); CO2 21 mmol/L (21-32); CREATININE 1.4 mg/dL (0.55-1.3); GLUCOSE,RANDOM 109 mg/dL (74-106); MAGNESIUM 1.8 mg/dL (1.8-2.4); POTASSIUM 4.2 mmol/L (3.5-5.1); SGOT/AST 161 U/L (15-37); SGPT/ALT 23 U/L (13-61); SODIUM 138 mmol/L (136-145); TOT PROT 5.8 g/dl (6.4-8.2)
[2018-09-16] MEDS ORDERED: SODIUM CHLORIDE 500 ML IV STA (07:43)
[2018-09-16] MEDS: TAMSULOSIN HCL 0.4 MG CAP PO SCH (09:22)
[2018-09-16] MEDS: CARBIDOPA/LEVODOPA 25/250 TABLET (FP) PO SCH ×3 (09:30→22:19)
[2018-09-16 09:42] LABS: ANISOCYTOSIS 1+; MACROCYTOSIS 1+; PLATELET ESTIMATE NORMAL
[2018-09-16] MEDS ORDERED: PT OWN MED DRAWER 7, Y5N ONE ×2 (10:17→22:08)
[2018-09-16] MEDS: CYANOCOBALAMIN 1,000 MCG TABLET (FP) PO SCH (10:22)
[2018-09-16] MEDS: GABAPENTIN 100 MG CAPSULE (FP) PO SCH ×2 (10:22→22:19)
--- NOTE | 2018-09-16 10:56 | CONSULT ---
Admitting History and Physical - Primary Care Physician PCP: Nancy Townsend - Admission History of Present Illness: 88 yo male h/o parkinsons disease presenting after a fall . He had fall 2 days before admission, then a second fall again the next day, down the stairs, was stuck at bottom until son came from [place] because wasnt answering phone. Patient with some difficulty swallowing, cough noted post med administration. He reports coughing occasionally while drinking at home, tolerating reg diet. He denies h/o PNA. 20lb weight loss noted over [address] imaging revealing a pancreatic head mass. MRCP rec by GI Selected Entries 09/15/18 09/15/18 09/15/18 17:30 19:00 22:00 Diet Tolerated Poor Poor Supper 25% Temperature 98.7 F 97.8 F 98.0 F 09/16/18 09/16/18 01:27 06:00 Diet Tolerated Supper Temperature 99.4 F 98.4 F Laboratory Tests 09/14/18 09/15/18 09/16/18 15:15 05:50 05:30 WBC 13.5 H 14.0 H 22.2 H Patient with some difficulty swallowing, cough noted post med administration. Pt on reg diet/thin liquids, unable to bring hand to mouth and feed himself. Premorbidy to fall, he was ambulatory with a cane, and said he cooked and shopped for himself. 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 recent dysphagia) Renal/: Yes: BPH, Cancer (Bladder Ca RX in past; Saw MD recently Also BPH) , Renal Calculi Heme/Onc: Yes: B12 Deficiency Psych: Yes: Other (some agitation and is asking to go home ) Musculoskeletal: Yes: Chronic low back pain, Other (weakness both legs) - Smoking History Smoking history: Never smoked Have you smoked in the past 12 months: No - Alcohol/Substance Use Hx Alcohol Use: No (OCCAS) History of Substance Use: reports: None - Social History ADL: Independent Occupation: retired History of Recent Travel: No History - Admission Reason For Visit: SYNCOPE/ELEVATED TROPONIN LEVEL/PARKINSON'S - Diagnostics X-ray: Report Reviewed CT Scan: Report Reviewed - General Mental Status: Alert and Oriented, Awake and Alert, Able to Follow Commands Attention: Intact Ability to Follow Directions: Excellent Head/Neck Control: WFL - Hearing Hearing: Normal Hearing Aide: No With Patient: No Speech Evaluation - Communication Primary Language: MALAGASY Communication: Yes: Within Normal Limits - Speech Production Dysarthria: Yes: Hypokinetic (Mild with occasional difficulty initiating speech. ) Able to Make Needs Known: Yes: WNL Intelligibility: Yes: WNL - Speech Characteristics Voice Loudness: Normal Voice Pitch: Yes: Normal Voice Phonatory-based Quality: Yes: Normal Speech Pattern: Normal Speech Clarity: < 100% Nasal Resonance: Normal Articulation: Yes: Precise Dysfluency: Yes: Clonic - Language/Auditory Comprehension Follows: Yes: 1 Stage Simple Commands Observation: Able to respond to yes/no queries: Yes, Yes/No Confusion: No, Comprehends Conversational Speech: Yes - Language/Verbal Expression Able to Communicate Wants and Needs: Yes: WNL Functional Communication Status: Yes: WNL - Swallow Evaluation/Bedside Assessment Current Nutritional Intake: Regular, Thin Liquids Oral Secretions: Yes: Pooling (saliva. slight) Dentition: Yes: Adequate Facial Symmetry at Rest: Symmetrical Facial Symmetry on Retraction: Symmetrical (weak/reduced excursion. Masked facies) Against Resistance Opening: Weak Against Resistance Closing: Weak Pucker Lips: Weak Smile: Weak (weak/reduced excursion. Masked facies) Lingual Movement: Symmetric Lingual Speed of Movement: Normal Lingual Movement Strgth Against Opposition: Reduced Velopharyngeal Movement: Normal Laryngeal Movement: Labored,delay initiation Rate of Intake: Slow/Holding Bolus Size: Small Labial Seal: WFL Chewing: Impaired (Reduced efficiency) Oral Prep Time: Increased Timing of Swallow: Delayed Coughing/Throat Clear: Yes (on water and small piece of bread) Recommendations - Speech Evaluation, Impression/Plan Impression: Pt with h/o Parkinson's and s/p fall, hit his head. CT head (-). Aspiration on thin water, possibly bread. Case reviewed with Dr. Hale, his PMD. Change in functional status. - Disposition Discharge to: Rehabilitation Center, Detention Facility, To be Determined - Dysphagia Impressions/Plan Swallowing Skills: Impaired Dysphagia Impressions: Moderate Impairment, Suspect Aspiration *Silent aspiration: cannot be R/O at bedside Dysphagia Treatment Plan: Small Bites, Clear Pocket Food, Safe Rate, 1/2 tsp. at a time, Elevate HOB during feed, Other (Assist with meals) Recommendations: Neuro Consult (As discussed with Dr. Hale. Pt is known to Dr. Galvez.), Modified Barium Swallow, Other (Monitor tolerance) - Recommendations Diet Consistency: Dysphagia Minced Medication Administration: Crushed with applesauce Liquids: [place] Thick (Pt prefers Cranberry and water. Dislikes milk and OJ.) Supplement: Magic Cup, Ensure Pudding
--- NOTE | 2018-09-16 11:57 | PN ---
Teaching Attending Note Name of Resident: Sharyn Nazario ATTENDING PHYSICIAN STATEMENT I saw and evaluated the patient. I reviewed the resident's note and discussed the case with the resident. I agree with the resident's findings and plan as documented with exceptions below. SUBJECTIVE: patient seen and examined, opens eyes, minimal conversation, falls back to sleep. c/o right shoulder pain. Daughter at bedside, concerned about poor oral intake without assistance. OBJECTIVE: Vital Signs Period Temp Pulse Resp BP Sys/Velazco Pulse Ox Last 24 Hr 97.8 F-99.4 F 81-100 18-20 121-158/67-91 96-98 Intake & Output 09/13/18 09/14/18 09/15/18 09/16/18 23:59 23:59 23:59 23:59 Intake Total 485 Output Total 1000 300 Balance -515 -300 Weight 204 lb 204 lb General: lying in bed, in no acute distress Chest; basilar rales, poor effort, Extermities: decreased ROM right shoulder, no point tenderness or swelling noted unable to lift both lower extremities at hip, power at feet 5/5, Abdomen:Soft, NT throughout, pos albarran's sign. HEENT: occipital abrasion Musculoskeletal: extremities as above, no spinal tenderness, left lateral lumbar abrasion Neuro: Awake, minimal participation, oriented to place, person, facial symmetry , RUE movement limited by pain, Bilateral lower extremities above, patient not fully participatory in the sensory exam Home Medications Medication Instructions Recorded Alpha Lipoic Acid 200 mg PO DAILY 09/14/18 Carbidopa/Levodopa 1 each PO QID 09/14/18 [Carbidopa-Levodopa 25-250 Tab] Cyanocobalamin [Vitamin B12 -] 1,000 mcg PO DAILY 09/14/18 Furosemide [Lasix] 20 mg PO DAILY 09/14/18 Gabapentin [Neurontin] 200 mg PO BID 09/14/18 Nabumetone 500 mg PO PRN 09/14/18 Tamsulosin HCl 0.4 mg PO DAILY 09/14/18 Ubidecarenone/Vit E Acet [Co Q-10 1 each PO DAILY 09/14/18 100 mg Softgel] Active Medications Acetaminophen (Tylenol -) 650 mg PO Q6H PRN PRN Reason: PAIN LEVEL 1-5 Carbidopa/Levodopa (Sinemet 25/250 -) 1 each PO 0900,1300,2000 [facility] Last Admin: 09/15/18 22:27 Dose: 1 each Cyanocobalamin (Vitamin B12 -) 1,000 mcg PO DAILY [facility] Last Admin: 09/16/18 10:22 Dose: 1,000 mcg Gabapentin (Neurontin -) 200 mg PO BID [facility] Last Admin: 09/16/18 10:22 Dose: 200 mg Heparin Sodium (Porcine) (Heparin -) 5,000 unit SQ TID [facility] Last Admin: 09/16/18 05:37 Dose: 5,000 unit Sodium Chloride (Normal Saline -) 1,000 mls @ 125 mls/hr IV ASDIR [facility] Azithromycin 500 mg/ Dextrose 250 mls @ 250 mls/hr IVPB DAILY [facility] Ceftriaxone Sodium 1 gm/ (Dextrose) 100 mls @ 200 mls/hr IVPB DAILY [facility]; Protocol Tamsulosin HCl (Flomax -) 0.4 mg PO DAILY@0830 [facility] Last Admin: 09/16/18 09:22 Dose: 0.4 mg Laboratory Results - last 24 hr 09/16/18 09/16/18 05:30 05:30 WBC 22.2 H RBC 3.23 L Hgb 11.5 L Hct 34.4 L MCV 106.4 H MCH 35.7 H MCHC 33.6 RDW 13.2 Plt Count 295 MPV 7.0 L Absolute Neuts (auto) 19.7 H Neutrophils % 88.9 H Neutrophils % (Manual) 85.7 H Band Neutrophils % 0.9 Lymphocytes % 5.4 L D Lymphocytes % (Manual) 4.8 L Monocytes % 5.0 Monocytes % (Manual) 9 Eosinophils % 0.1 Eosinophils % (Manual) 0.0 Basophils % 0.6 Basophils % (Manual) 0.0 Myelocytes % (Man) 0 Promyelocytes % (Man) 0 Blast Cells % (Manual) 0 Nucleated RBC % 0 Metamyelocytes 0 Hypochromia 0 Platelet Estimate Normal Polychromasia 0 Poikilocytosis 0 Anisocytosis 1+ Microcytosis 0 Macrocytosis 1+ Sodium 138 Potassium 4.2 Chloride 108 H Carbon Dioxide 21 Anion Gap 8 BUN 33 H Creatinine 1.4 H Creat Clearance w eGFR 48.05 Random Glucose 109 H Calcium 7.9 L Phosphorus 3.0 Magnesium 1.8 Total Bilirubin 1.4 H AST 161 H ALT 23 Alkaline Phosphatase 109 Creatine Kinase 3054 H Creatine Kinase Index 0.5 CK-MB (CK-2) 17.2 H Total Protein 5.8 L Albumin 2.[address] chest/Abdominal US results reviewed ASSESSMENT AND PLAN: 88 yom with PMHx of Parkinson's disease, spinal stenosis, HTN, B12 deficiency, bladder ca, BPH, chronic leg weakness admitted with fall down the stairs, rhabdomyolysis, and elevated trop. -Mechanical fall down the stairs, -?Syncope post event -Traumatic rhabdomyolysis -Traumatic right 6th/7th rib fracture -Elevated troponin, suspect demand type II HI given absence of symptoms or EKG changes, unlikely ACS -HALEY, suspect from hypovolumia -Leucocytosis, suspect from stress/hemeconcentration, vs PNA -Bibasilar/LML atelectasis vs aspiration, r/o PNA -Right shoulder pain -?pancreatic mass -1.4 Cm obstructive stone with hydronephrosis -Parkinson's disease -HTN -Spinal stenosis -Osteoarthritis -HTN -B12 deficiency -BPH -h/o Bladder cancer Plan: CPK rising, increase IVF. Trend. patient with poor participation with PT today. Unclear if from deconditioning/rhabdomyolysis. Right shoulder ROM limited, Orthopedic input. CT chest rib fracture. Pain control Incentive spirometry. Known spinal stenosis, minimal LE movements at the hip. Dr. Pollard consult recommends, MRI LS Spine. Given rising WBC, emperic Ceftriaxone/azithromycin for now. Blood cx. Telemetry with no events, tn flat, follow up 2D echo/cardiology input. GI input noted, for MRCP. Urology consult. Renal function improved, Monitor for retention. Renal/bladder US noted. PT eval. Pain control with tylenol, add tramadol prn. Continue sinemet/gabapentin DVTPPX heparin Anticipate will need SNF, Dispo pending clinical improvement. Current findings and plan of care discussed in detail with daughter at bedside, all questions answered Plan discussed with patient in detail, oriented again about the hospital admission and events overnight, all questions answered
--- NOTE | 2018-09-16 12:03 | PN ---
Physical Exam: SUBJECTIVE: Patient seen and examined, felling good. No overnight events. OBJECTIVE: Vital Signs Period Temp Pulse Resp BP Sys/Velazco Pulse Ox Last 24 Hr 97.8 F-99.4 F 81-100 18-20 121-158/67-91 96-98 GENERAL: The patient is awake, alert, and fully oriented, in no acute distress, lying in bed. HEAD: abrasionans and ecchymosis on the top of his scalp, no active bleeding, no tenderness to palpation. EYES: PERRL, extraocular movements intact. ENT: Oropharynx clear without exudates, moist mucous membranes. NECK: Trachea midline, full range of motion, supple. LUNGS: Breath sounds equal, clear to auscultation bilaterally, no wheezes, no crackles. HEART: Regular rate and rhythm, S1, S2 without murmur, rub or gallop. ABDOMEN: Soft, nontender, normoactive bowel sounds. EXTREMITIES: 2+ pulses, warm, no edema. NEUROLOGICAL: Non focal. Normal speech, gait not observed. PSYCH: Normal mood, normal affect. SKIN: Warm, dry, normal turgor, no rashes, abrasions and bruising in multiple locations, elbows, left shoulder. Laboratory Results - last 24 hr 09/16/18 09/16/18 05:30 05:30 WBC 22.2 H RBC 3.23 L Hgb 11.5 L Hct 34.4 L MCV 106.4 H MCH 35.7 H MCHC 33.6 RDW 13.2 Plt Count 295 MPV 7.0 L Absolute Neuts (auto) 19.7 H Neutrophils % 88.9 H Neutrophils % (Manual) 85.7 H Band Neutrophils % 0.9 Lymphocytes % 5.4 L D Lymphocytes % (Manual) 4.8 L Monocytes % 5.0 Monocytes % (Manual) 9 Eosinophils % 0.1 Eosinophils % (Manual) 0.0 Basophils % 0.6 Basophils % (Manual) 0.0 Myelocytes % (Man) 0 Promyelocytes % (Man) 0 Blast Cells % (Manual) 0 Nucleated RBC % 0 Metamyelocytes 0 Hypochromia 0 Platelet Estimate Normal Polychromasia 0 Poikilocytosis 0 Anisocytosis 1+ Microcytosis 0 Macrocytosis 1+ Sodium 138 Potassium 4.2 Chloride 108 H Carbon Dioxide 21 Anion Gap 8 BUN 33 H Creatinine 1.4 H Creat Clearance w eGFR 48.05 Random Glucose 109 H Calcium 7.9 L Phosphorus 3.0 Magnesium 1.8 Total Bilirubin 1.4 H AST 161 H ALT 23 Alkaline Phosphatase 109 Creatine Kinase 3054 H Creatine Kinase Index 0.5 CK-MB (CK-2) 17.2 H Total Protein 5.8 L Albumin 2.3 L Active Medications Generic Name Dose Route Start Last Admin Trade Name Freq PRN Reason Stop Dose Admin Acetaminophen 650 mg 09/14/18 18:32 Tylenol - PO Q6H PRN PAIN LEVEL 1-5 Carbidopa/Levodopa 1 each 09/15/18 20:00 09/15/18 22:27 Sinemet 25/250 - PO 1 each 0900,1300,2000 [facility] Administration Cyanocobalamin 1,000 mcg 09/15/18 10:00 09/16/18 10:22 Vitamin B12 - PO 1,000 mcg DAILY [facility] Administration Gabapentin 200 mg 09/14/18 22:00 09/16/18 10:22 Neurontin - PO 200 mg BID [facility] Administration Heparin Sodium (Porcine) 5,000 unit 09/15/18 06:00 09/16/18 05:37 Heparin - SQ 5,000 unit TID [facility] Administration Sodium Chloride 1,000 mls @ 125 mls/hr 09/16/18 08:59 Normal Saline - IV ASDIR [facility] Azithromycin 500 mg/ Dextrose 250 mls @ 250 mls/hr 09/16/18 12:00 IVPB DAILY [facility] Ceftriaxone Sodium 1 gm/ 100 mls @ 200 mls/hr 09/16/18 12:00 Dextrose IVPB DAILY [facility] Protocol Tamsulosin HCl 0.4 mg 09/15/18 08:30 09/16/18 09:22 Flomax - PO 0.4 mg DAILY@0830 [facility] Administration ASSESSMENT/PLAN: The patient is a 88 year old with PMHx of Parkinson's disease, spinal stenosis, HTN, B12 deficiency, bladder ca, BPH, chronic leg weakness admitted s/p fall, rhabdomyolysis, and elevated troponin. s/p fall: -most likely mechanical fell down the stairs, less likely acs -imaging positive for rib fracture on right side -pain control with Tylenol -fall risk precautions, bed alarm -continue cardiac monitoring rhabdomyolysis -CPK levated, continue IVF NS at 125 cc/hr -Elevated troponin, -likely demand ischemia HALEY -suspect from hypovolumia Leukocytosis r/o infection, stress induced blood cultures, urine cultures continue empiric Azithromycin and Ceftriaxone Parkinson's disease -cont Sinemet HTN -cont home meds Pancreatic mass: -f/u as outpatient -GI consulted BPH -cont Flomax DVT PPX; Heparin sq Dispo: telemetry monitoring Problem List - Problems (1) Fall Code(s): W19.XXXA - UNSPECIFIED FALL, INITIAL ENCOUNTER (2) Elevated troponin Code(s): R74.8 - ABNORMAL LEVELS OF OTHER SERUM ENZYMES (3) B12 deficiency Code(s): E53.8 - DEFICIENCY OF OTHER SPECIFIED B GROUP VITAMINS (4) Back pain Code(s): M54.9 - DORSALGIA, UNSPECIFIED (5) Bladder malignancy Code(s): C67.9 - MALIGNANT NEOPLASM OF BLADDER, UNSPECIFIED Visit type - Emergency Visit Emergency Visit: Yes ED Registration Date: 09/14/18 Care time: The patient presented to the Emergency Department on the above date and was hospitalized for further evaluation of their emergent condition. - New Patient This patient is new to me today: Yes Date on this admission: 09/16/18 - Critical Care Critical Care patient: No - Discharge Referral Referred to [facility] Med P.C.: No
[2018-09-16] MEDS ORDERED: cefTRIAXone SODIUM 1 GM VIAL ONE (14:10)
[2018-09-16] MEDS ORDERED: DEXTROSE 5%-WATER - 50 ML IVPB ONE (14:10)
[2018-09-16] MEDS: CEFTRIAXONE 1 GM in DEXTROSE 5%-WATER - 50 ML IVPB SCH (14:24)
[2018-09-16] MEDS: AZITHROMYCIN IVPB 500 MG/250 ML BAG IVPB SCH (15:15)
--- NOTE | 2018-09-16 16:01 | PN ---
Progress Note (short form) - Note Progress Note: NEUROSURGERY CONSULT DICTATED Chart reviewed CT reviewed h/o Parkinson's disease, lumbar spinal stenosis, HTN, B12 deficiency, bladder CA ,BPH using walker at baseline, fell down stairs (8-9 flight of stairs). Denies any chest pain, dyspnea, H/A, visual or speech disturbances. Son reportedly called the patient who did not respond and son found him on floor with urinary incontinence. Now with prox > distal LE weakness PE: AF, VSS HEENT-some abrasions;Neck-supple; Cor- RRR; Lungs- CTA;Abd- benign; Ext- edema and abrasion CN- intact; Motor- increased tone with rigidity throughout, UE and distal LE 2-3 ; proximally L 1/5 and R 2/5; Sensory- intact to LT; DTR- hyporeflexia WBC 22.2, INR 1.26, Cr 1.4, BUN 33; CK 3054; UA- leuckocyte esterase negative; blood culture pending Head CT- mild atrophy, calcified falx, no bleed or fx, no obvious ischemia LS spine CT- multilevel DDD, L2-3 and L3-4 moderate stenosis and moderate to marked L4-5 stenosis, mild T12 wedging Known moderate to marked lumbar stenosis, previously responded to EPSI MRI LS spine to assess upper lumbar and T12 level given prox LE weakness Leukocytosis, on ceftriaxone prophylactically Rhabdomyolysis s/p fall Maintain adequate hydration and nutritional support Prox weakness likely combination of trauma/fall, rhabdomyolysis, ? infection, Parkinsonism and not acute spine pathology
--- NOTE | 2018-09-16 16:38 | PN ---
Progress Note (short form) - Note Progress Note: s: no cp sob palps dizzy o: Vital Signs Period Temp Pulse Resp BP Sys/Velazco Pulse Ox Last 24 Hr 97.8 F-99.4 F 81-100 18-20 121-158/67-91 96-98 nad no jvd rrr s1s2 no mrg cta bl nl eff awake alert abd nt nd pos bs no jaundice diaphoreis pos dp pt Current Medications Generic Name Dose Route Start Last Admin Trade Name Freq PRN Reason Stop Dose Admin Acetaminophen 650 mg 09/14/18 18:32 Tylenol - PO Q6H PRN PAIN LEVEL 1-5 Carbidopa/Levodopa 1 each 09/15/18 20:00 09/16/18 14:30 Sinemet 25/250 - PO 1 each 0900,1300,2000 [facility] Administration Cyanocobalamin 1,000 mcg 09/15/18 10:00 09/16/18 10:22 Vitamin B12 - PO 1,000 mcg DAILY [facility] Administration Gabapentin 200 mg 09/14/18 22:00 09/16/18 10:22 Neurontin - PO 200 mg BID [facility] Administration Heparin Sodium (Porcine) 5,000 unit 09/15/18 06:00 09/16/18 14:15 Heparin - SQ 5,000 unit TID [facility] Administration Sodium Chloride 1,000 mls @ 125 mls/hr 09/16/18 08:59 Normal Saline - IV ASDIR [facility] Azithromycin 500 mg in 250 mls @ 250 mls/hr 09/16/18 12:00 09/16/18 15:15 Zithromax 500mg Ivpb (Pre-Docked) IVPB 250 mls/hr DAILY [facility] Administration Ceftriaxone Sodium 1 gm/ 50 mls @ 100 mls/hr 09/16/18 12:00 09/16/18 14:24 Dextrose IVPB 100 mls/hr DAILY [facility] Administration Protocol Tamsulosin HCl 0.4 mg 09/15/18 08:30 09/16/18 09:22 Flomax - PO 0.4 mg DAILY@0830 [facility] Administration CBC, BMP 09/16/18 05:30 09/16/18 05:30 Assessment/Plan ECG: NSR, RBBB, nonsp ST-T inferior leads--no change vs prior CXR: clear lungs, slight blunting R c-p angle tele: sr echo 08/2018: nl lv, rv tds, mild ar, mild ao root dil carotids 08/2018: no sig stenosis falls, ? syncope, elevated skeletal muscle CPK: -parkinson's and spinal stenosis--? mechanical falls -pt unable to provide meaningful history--cannot exclude syncope (possibly multifactorial) -telemetry, echo, carotids all unremarkable -r/o sandy fabian autonomic insufficiency: check orthostatic VSs once pt can stand elevated trop: -indeterminate range, flat trend (0.2 x 2-->0.1) not c/w ACS -no ischemia signs/sx's, ecg unremarkable -echo benign -no further ischemia w/u indicated at this time HTN: -cont current meds renal insuff -creat improving -fluids per hospitalist
--- NOTE | 2018-09-16 17:59 | CONSULT ---
Consult - text type - Consultation Consultation Note: ORTHOPEDIC SURGERY CONSULTATION NOTE Department of Orthopedic Surgery HISTORY OF PRESENT ILLNESS Mr. Wells is an 88 year old left-hand dominant male with a pmhx of Parkinson' s disease, spinal stenosis, HTN, B12 deficiency, bladder ca, BPH, chronic leg weakness, who presents to [facility] with right shoulder pain after his shoe got stuck on the carpet on the stairs, he lost his balance and fell down the stairs (8-9 flight of stairs). The patient was found by his son at the bottom of the stairs, and the patient was brought to the hospital. The orthopedic service was consulted for right shoulder pain. The patient states he did not have right shoulder pain before the injury. The patient notes difficulty raising his shoulder or moving it in external or internal rotation. Denies any other injuries, but cannot be sure he didn't lose consciousness during his fall. Denies numbness, tingling or other constitutional complaints. The patient lives at his home alone. Denies tobacco use, drug use, alcohol abuse. He uses a walker as assistive devices at baseline. FAMILY HISTORY non-contributory REVIEW OF SYMPTOMS A twelve-point review of systems was performed and was negative except as noted in HPI. PHYSICAL EXAM Constitutional: Alert and oriented to person, place, and time. Appears well- developed and well-nourished. No acute distress, appropriate mood and affect. Right Upper Extremity: Skin warm, dry, and intact; no lesions, rashes or ulcers noted. Muscle mass equal and symmetric to contralateral side. No atrophy noted. No masses or effusions noted. Tender to palpation at greater tuberosity; nontender throughout rest of extremity. LROM of the shoulder in active and passive flexion, external, and internal rotation secondary to pain. All other joints otherwise stable with no pathologic laxity. M/R/U/MSK/AX motor intact; SILT distally; 2+ radial pulses; Cap refill brisk. Left Upper Extremity: Skin warm, dry, and intact; no lesions, rashes or ulcers noted. Muscle mass equal and symmetric to contralateral side. No atrophy noted. No masses or effusions noted. No tenderness to palpation of the shoulder, elbow , or wrist.; nontender throughout rest of extremity. Full passive ROM of the shoulder, elbow and wrist, free from pain. LROM (active) of the left shoulder, however passively he is able to flex to approximately 120 degrees, ER with elbow at side to 30 degrees, and internal rotation to neutral with no pain. Joints otherwise stable with no pathologic laxity. M/R/U/MSK/AX motor intact; SILT distally; 2+ radial pulses; Cap refill brisk. Tone and reflexes normal. Right Lower Extremity: Skin warm, dry, and intact; no lesions, rashes or ulcers noted. Muscle mass equal and symmetric to contralateral side. No atrophy noted. No masses or effusions noted. No tenderness to palpation all joints; nontender throughout rest of extremity. No cords or calf tenderness No significant calf/ankle edema. Full passive ROM of the knee and hip, free from pain. Unable to SLR secondary to weakness. Joints stable with no pathologic laxity. EHL/TA/GS motor firing; SILT distally; 2+ DP pulses; Cap refill brisk. Tone and reflexes normal. No calf tenderness. Left Lower Extremity: Skin warm, dry, and intact; no lesions, rashes or ulcers noted. Muscle mass equal and symmetric to contralateral side. No atrophy noted. No masses or effusions noted. No tenderness to palpation all joints; nontender throughout rest of extremity. No cords or calf tenderness No significant calf/ankle edema. Full passive ROM of knee and hip in flexion and extension, free from pain. Unable to SLR secondary to weakness. Joints stable with no pathologic laxity. EHL/TA/GS motor firing; SILT distally; 2+ DP pulses; Cap refill brisk. Tone and reflexes normal. Compartments soft and compressible. Active Problems Problem Status Category Onset Adrenal mass Acute Medical Elevated troponin Acute Medical Fall Acute Medical Fall Acute Medical Syncope Acute Medical Past Medical History [employer] Parkinson's Cardio/Vascular Murmur Gastrointestinal Other Renal/ BPH,Cancer,Renal Calculi Heme/Onc B12 Deficiency Psych Other Social History Smoking history Never smoked Hx Alcohol Use No: OCCAS History of Substance Use None Usual Living Arrangement Alone ADL Independent Occupation retired History of Recent Travel No Allergies Allergy/AdvReac Type Severity Reaction Status Date / Time No Known Drug Allergies Allergy Verified 09/14/18 14:38 Active Medications Generic Name Dose Route Start Last Admin Trade Name Freq PRN Reason Stop Dose Admin Acetaminophen 650 mg 09/14/18 18:32 Tylenol - PO Q6H PRN PAIN LEVEL 1-5 Carbidopa/Levodopa 1 each 09/15/18 20:00 09/16/18 14:30 Sinemet 25/250 - PO 1 each 0900,1300,2000 [facility] Administration Cyanocobalamin 1,000 mcg 09/15/18 10:00 09/16/18 10:22 Vitamin B12 - PO 1,000 mcg DAILY [facility] Administration Gabapentin 200 mg 09/14/18 22:00 09/16/18 10:22 Neurontin - PO 200 mg BID [facility] Administration Heparin Sodium (Porcine) 5,000 unit 09/15/18 06:00 09/16/18 14:15 Heparin - SQ 5,000 unit TID [facility] Administration Sodium Chloride 1,000 mls @ 125 mls/hr 09/16/18 08:59 Normal Saline - IV ASDIR [facility] Azithromycin 500 mg in 250 mls @ 250 mls/hr 09/16/18 12:00 09/16/18 15:15 Zithromax 500mg Ivpb (Pre-Docked) IVPB 250 mls/hr DAILY [facility] Administration Ceftriaxone Sodium 1 gm/ 50 mls @ 100 mls/hr 09/16/18 12:00 09/16/18 14:24 Dextrose IVPB 100 mls/hr DAILY [facility] Administration Protocol Tamsulosin HCl 0.4 mg 09/15/18 08:30 09/16/18 09:22 Flomax - PO 0.4 mg DAILY@0830 [facility] Administration Vital Signs (last) Temp Pulse Resp BP Pulse Ox 98.4 F 81 20 129/71 96 09/16/18 06:00 09/16/18 06:00 09/16/18 06:00 09/16/18 06:00 09/15/18 21:00 Intake and Output 09/14/18 09/15/18 09/16/18 23:59 23:59 23:59 Intake Total 485 200 Output Total 1000 500 Balance -515 -300 Intake: IV 375 Normal Saline - 1,000 ml 375 @ 75 mls/hr IV ASDIR [facility] Rx#:[id number] Oral 60 200 Oral Supplement 50 Output: Urine 1000 500 Fields 1000 500 Other: Voiding Method Indwelling Catheter Indwelling Catheter Bowel Movement No Yes # Bowel Movements 1 Weight 204 lb 204 lb Height 5 ft 9 in 5 ft 9 in Body Mass Index (BMI) 30.1 30.1 Laboratory 09/16/18 05:30 09/16/18 05:30 PT with INR 14.90 SEC (9.7-13.0) H 09/14/18 15:15 PTT (Actin FS) 26.9 SECONDS (25.2-36.5) 09/14/18 15:15 IMAGING I personally reviewed all radiographs, CT, and other imaging. They demonstrate no fractures or dislocations of the right shoulder. There is rotator cuff arthropathy of the right shoulder. ASSESSMENT AND PLAN Mr. Wells is an 88 year old male presenting status post unwitnessed fall at home with right shoulder rotator cuff arthropathy. We have reviewed the imaging and clinical findings in detail, as well as their potential implications. We agreed on the following plan: - Pain Control - DVT Prophylaxis - Physical therapy - Appreciate Neurology and Neurosurgery consults for further spine workup. - Continue medical / cardiology treatment - No further orthopedic surgical intervention at this time. All questions were answered. Thank you for involving our team in the care of this patient. Please have patient follow up in our office in 1-2 weeks [phone].
--- NOTE | 2018-09-16 18:07 | CON.NEURO ---
Consult Consult Specialty:: Dean Referred by:: Alexia Reason for Consultation:: Fall - History of Present Illness History of Present Illness: Fantasma is a very pleasant 88-year-old right-handed man Douglas with history of coronary artery disease, osteoarthritis, chronic low back pain, spinal stenosis and Parkinson's disease who presents to the hospital status post fall. No report of any loss of consciousness seizure-like activity chest pain palpitation. Patient lost his balance and fell down the stairs. Patient is very independent for the degree and the advancement of his Parkinson's disease patient has been complaining of lower back pain patient received trigger point injection in my office with mild relief patient completed courses of physical therapy. No report of any hallucination on the carbidopa. 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 recent dysphagia) Renal/: Yes: BPH, Cancer (Bladder Ca RX in past; Saw MD recently Also BPH) , Renal Calculi Psych: Yes: Other (some agitation and is asking to go home ) Musculoskeletal: Yes: Chronic low back pain, Other (weakness both legs) - Past Surgical History Additional Surgical History: knee replacement - Alcohol/Substance Use Hx Alcohol Use: No (OCCAS) History of Substance Use: reports: None - Smoking History Smoking history: Never smoked Have you smoked in the past 12 months: No - Social History Usual Living Arrangement: Alone ADL: Independent Occupation: retired History of Recent Travel: No Home Medications - Allergies Allergies/Adverse Reactions: Allergies Allergy/AdvReac Type Severity Reaction Status Date / Time No Known Drug Allergies Allergy Verified 09/14/18 14:38 - Home Medications Home Medications: Ambulatory Orders Alpha Lipoic Acid 200 mg PO DAILY 09/14/18 Carbidopa/Levodopa [Carbidopa-Levodopa 25-250 Tab] 1 each PO QID 09/14/18 Cyanocobalamin [Vitamin B12 -] 1,000 mcg PO DAILY 09/14/18 Furosemide [Lasix] 20 mg PO DAILY 09/14/18 Gabapentin [Neurontin] 200 mg PO BID 09/14/18 Nabumetone 500 mg PO PRN 09/14/18 Tamsulosin HCl 0.4 mg PO DAILY 09/14/18 Ubidecarenone/Vit E Acet [Co Q-10 100 mg Softgel] 1 each PO DAILY 09/14/18 Family Disease History - Family Disease History Family History: Denies (CVA) Family Disease History: CA: Father (Gall bladder), Other: Mother (old age 96) Other Family History: mother lung cancer. son colon cancer Review of Systems - Review of Systems Constitutional: reports: No Symptoms Eyes: reports: No Symptoms Neurological: reports: No Symptoms, Headache, Incoordination Physical Exam-Neuro Vital Signs: Vital Signs Temperature 98.4 F 09/16/18 06:00 Pulse Rate 81 09/16/18 06:00 Respiratory Rate 20 09/16/18 06:00 Blood Pressure 129/71 09/16/18 06:00 O2 Sat by Pulse Oximetry (%) 96 09/15/18 21:00 Constitutional: Yes: Well Nourished Neck: Yes: WNL Labs: CBC, BMP 09/16/18 05:30 09/16/18 05:30 INR, PTT INR 1.26 (0.83-1.09) H 09/14/18 15:15 - Neuro Exam Level Of Consciousness: Yes: Oriented to Person, Oriented to Place, Oriented to Time Eyes: Yes: PERRLA Speech: WNL Dominant Hand: Right Cranial Nerves II-XII Intact: Yes Gag: Present DTR's: 1+ Left Bicep, 1+ Right Bicep, 1+ Left Brachioradialis, 1+ Right Brachioradialis Response to light touch: Normal Response to pain prick: Normal Response to temperature: Normal Motor Strength: 3/5: Left Arm, Right Arm, Left Leg, Right Leg Gait: Deferred Imaging - Results Cat Scan: Image Reviewed Problem List - Problems (1) Fall Assessment/Plan: questionable syncope associated with autonomic dysfunction with Parkinson's disease Rule out cardiac arrhythmia Spinal stenosis Mechanical fall 1. Continue carbidopa the same. 2. Physical therapy. 3. Fall precautions. 4. Increase by mouth fluid intake. 5. Check orthostasis every shift. 6. DVT prophylaxis. 7. Add [place] trial 8. CT C Spine Thank you for allowing me to be part of this patient's neurological care Code(s): W19.XXXA - UNSPECIFIED FALL, INITIAL ENCOUNTER Qualifiers: Encounter type: initial encounter Qualified Code(s): W19.XXXA - Unspecified fall, initial encounter
--- NOTE | 2018-09-16 19:49 | PN.GI ---
GI Progress Note Subjective: Denies abdominal pain No acute events - Objective Vital Signs: Vital Signs Temperature 98.3 F 09/16/18 10:00 Pulse Rate 83 09/16/18 10:00 Respiratory Rate 18 09/16/18 10:00 Blood Pressure 125/71 09/16/18 10:00 O2 Sat by Pulse Oximetry (%) 94 L 09/16/18 09:00 Constitutional: Calm Eyes: No: Sclera Icterus Cardiovascular: Yes: Regular Rate and Rhythm, Murmur Respiratory: Yes: Diminished (at bases bilaterally with poor insp effort) Gastrointestinal Inspection: No: Distention ...Auscultate: Yes: Normoactive Bowel Sounds ...Palpate: Yes: Soft. No: Hepatomegaly, Splenomegaly, Tenderness Edema: No (No LE edema) Neurological: Yes: Alert Labs: CBC, BMP 09/16/18 05:30 09/16/18 05:30 INR, PTT INR 1.26 (0.83-1.09) H 09/14/18 15:15 Hepatic Panel Total Bilirubin 1.4 mg/dL (0.2-1) H 09/16/18 05:30 AST 161 U/L (15-37) H 09/16/18 05:30 ALT 23 U/L (13-61) 09/16/18 05:30 Alkaline Phosphatase 109 U/L (45-117) 09/16/18 05:30 Albumin 2.3 g/dl (3.4-5.0) L 09/16/18 05:30 Problem List - Problems (1) Pancreatic mass Assessment/Plan: Awaiting MRCP. Stable LFTs with ehabdomyolysis likely contributing to elevated transaminases Code(s): K86.9 - DISEASE OF PANCREAS, UNSPECIFIED
--- NOTE | 2018-09-16 20:55 | CONS ---
DATE OF CONSULTATION: DATE OF DICTATION: 09/16/2018 REQUESTING PHYSICIAN: Nancy Townsend MD HOSPICE CARE TRANSITIONS COORDINATOR: Paul Zambrano MD, Neurosurgery CHIEF COMPLAINT: Lower extremity weakness. HISTORY OF PRESENT ILLNESS: The patient is an 88-year-old, right-handed male with history of idiopathic Parkinson disease, lumbar spinal stenosis with neurogenic claudication, hypertension, vitamin B12 deficiency, bladder CA, and BPH, who sustained a fall at home 2 days ago. He had fallen down 8-9 flights of stairs after he lost footing. He did not lose consciousness. He has increasing generalized pain. He denies headache, nausea, vomiting. No visual disturbance. The patient's son had called and could not get ahold of him and came to the house and found him down with urinary incontinence. Presently, the patient is found to have lower extremity weakness, proximal greater than distal. He has Fields catheter in place. He has some pain of his joints throughout. He denies headache at this time. PAST MEDICAL HISTORY: Significant for idiopathic Parkinson disease, lumbar spinal stenosis status post prior lumbar epidural steroid injection, hypertension, vitamin B12 deficiency, bladder CA, and BPH. CURRENT MEDICATIONS: Include Flomax, Tylenol, Zithromax, ceftriaxone, subcutaneous heparin, Neurontin, Sinemet. ALLERGIES: There is no known drug allergy. FAMILY HISTORY: Noncontributory. SOCIAL HISTORY: He does not smoke or drink. He lives alone at home. He is retired. REVIEW OF SYSTEMS: Otherwise negative for major constitutional, head and neck, cardiovascular, pulmonary, gastrointestinal, genitourinary, endocrinological, neurological, and psychological problems except for the above. PHYSICAL EXAMINATION: Vital Signs: Temperature is 98.4. Blood pressure is 129/71. Pulse rate of 81. O2 saturation is 96% on 2 L. HEENT: Examination shows him to have facial and scalp abrasions. Neck: Supple. Coronary: Examination demonstrated a regular rhythm. Lungs: Clear bilaterally. Abdomen: Benign. Extremities: Examination shows edema of bilateral lower extremities. It is 1+ to 2+ and symmetric. Neurologic: He is drowsy, but easily arousable. Cranial nerve examination is nonfocal. Motor examination shows upper extremity strength to be 2/5. He has increased rigidity. Proximal lower extremity strength is 2/5 and 1 on the left. Distal lower extremity strength is 2-3/5. Sensory examination is intact to light touch. The deep tendon reflexes are hyporeflexic throughout. Gait cannot be tested for safety reasons. LABORATORY: Examination shows white blood cell count 22.2, initially was 13.5. Hemoglobin is 11.5, and platelet count is 295,000. INR is 1.26 and PTT 26.9. Serum sodium is 138, and potassium is 4.2. BUN is 33 and creatinine 1.4. Initially, it was 26 and 1.5. Alkaline phosphatase is 109. Creatinine kinase is 3054. Initially, it was 2480. Troponin is 0.22, 0.20, and 0.16. Albumin was 2.3. Urinalysis shows 1+ ketones and 1+ protein. There are 2.5 wbc's and 2.4 rbc's. Leukocyte esterase was negative. Blood cultures are pending. CT scan of the head shows mild cerebral atrophy. There is no skull fracture or bleed. CT scan of the cervical spine showed the rpxeazhx-jg-[id number] degenerative disk disease with bridging osteophytes. There is facet hypertrophy. There is no acute fracture or dislocation. CT scan of the lumbar spine demonstrated multi-level marked degenerative disk disease with spondylosis. There is xilhocnp-tc-dlysmz stenosis at L4-5 and moderate stenosis at L3-4 and L2-3. There is facet hypertrophy at multiple levels. There is no fracture or dislocation. IMPRESSION: 1. History of lumbar spinal stenosis, toeaevoj-wi-spsijd at L4-5 and moderate at L3-4. 2. Idiopathic Parkinson disease. 3. Probable rhabdomyolysis. 4. Hypertension. 5. Vitamin B12 deficiency. 6. Bladder cancer. 7. Benign prostatic hypertrophy. 8. Rule out bacteremia/urinary tract infection. RECOMMENDATIONS: The patient presents with a mechanical fall 2 days ago. He has baseline Parkinson disease with gait difficulty. He also has increased rigidity. The patient has known trnhiwla-bo-zcyela L4-5 spinal stenosis and moderate stenosis at L3-4 level. He had previously undergone epidural steroid injection with some improvement in his symptoms. Presently, he exhibits upper extremity and proximal lower extremity weakness. There is no significant new lumbar spine pathology. There might be a T12 vertebral compression deformity, but the canal does not appear to be involved at that level. An MRI of the lumbar spine is recommended to assess the lumbar stenosis which is known to be present, but this is also to rule out acute T12 fracture. The weakness is likely the combination of Parkinson disease, recent trauma, and rhabdomyolysis, and possible concurrent infection. I doubt there is significant compressive pathology. Additionally, at his age and with his associated medical conditions, any surgical intervention would not be appropriate anyway. The above was discussed with the patient at bedside. All questions were answered. PAUL ZAMBRANO M.D. KELVIN/[id number]
[2018-09-16] MEDS: AMANTADINE HCL 100 MG TABLET PO SCH (22:19)
[2018-09-16] MEDS: SODIUM CHLORIDE 1,000 ML IV SCH (22:19)
[2018-09-17] MEDS: SODIUM CHLORIDE 1,000 ML IV SCH ×2 (05:16→12:27)
[2018-09-17] MEDS: HEPARIN NA (PORCINE) 5,000 UNITS/ML 1ML VIAL SQ SCH ×3 (05:30→21:24)
[2018-09-17 06:12] LABS: BASO % 0.6 % (0-2.0); EOS % 3.1 % (0-4.5); HEMATOCRIT 29.7 % (35.4-49); LYMPH % 12.4 % (8-40); MCH 35.6 pg (25.7-33.7); MCHC 33.7 g/dl (32.0-35.9); MEAN CELL VOLUME 105.8 fl (80-96); MEAN PLT VOLUME 7.1 fl (7.5-11.1); MONO % 7.1 % (3.8-10.2); NEUT % 76.8 % (42.8-82.8); PLATELET COUNT 274 K/MM3 (134-434); RDW 13.2 % (11.9-15.9); WHITE BLOOD COUNT 13.4 K/mm3 (4.0-10.0)
[2018-09-17 06:55] LABS: ALK PHOS 95 U/L (45-117); ANION GAP 8 MMOL/L (8-16); BILIRUBIN,DIRECT 0.4 mg/dL (0.0-0.2); BILIRUBIN,TOTAL 0.8 mg/dL (0.2-1); BLOOD UREA NITROGEN 32 mg/dL (7-18); CALCIUM 7.1 mg/dL (8.5-10.1); CHLORIDE 113 mmol/L (98-107); CO2 23 mmol/L (21-32); CREATININE 1.4 mg/dL (0.55-1.3); GLUCOSE,RANDOM 98 mg/dL (74-106); SGOT/AST 95 U/L (15-37); SGPT/ALT 16 U/L (13-61); SODIUM 143 mmol/L (136-145)
[2018-09-17] MEDS ORDERED: ACETAMINOPHEN 1000 MG/100 ML VIAL (NON FORMULARY) IVPB PRN (08:49)
--- NOTE | 2018-09-17 08:54 | PN ---
Progress Note (short form) - Note Progress Note: Hospitalist to document today. Pain increased right chest wall: 2 new Fxs. To order IV Tylenol for better relief without DIRECTOR OF FIELD COORDINATION effects.
[2018-09-17] MEDS ORDERED: cefTRIAXone SODIUM 1 GM VIAL ONE (09:45)
[2018-09-17] MEDS ORDERED: DEXTROSE 5%-WATER - 50 ML IVPB ONE (09:46)
[2018-09-17] MEDS: TAMSULOSIN HCL 0.4 MG CAP PO SCH (10:02)
[2018-09-17] MEDS: CYANOCOBALAMIN 1,000 MCG TABLET (FP) PO SCH (10:02)
[2018-09-17] MEDS: CARBIDOPA/LEVODOPA 25/250 TABLET (FP) PO SCH ×3 (10:02→21:23)
[2018-09-17] MEDS: GABAPENTIN 100 MG CAPSULE (FP) PO SCH ×2 (10:02→21:24)
[2018-09-17] MEDS: AMANTADINE HCL 100 MG TABLET PO SCH ×2 (10:03→21:24)
[2018-09-17] MEDS: CEFTRIAXONE 1 GM in DEXTROSE 5%-WATER - 50 ML IVPB SCH (10:03)
[2018-09-17 10:21] LABS: ANISOCYTOSIS 0; MACROCYTOSIS 0; PLATELET ESTIMATE NORMAL
--- NOTE | 2018-09-17 11:01 | PN.GI ---
GI Progress Note Subjective: Pt seen/examined at bedside, reporting pain at right anterior chest wall at site of rib fracture, primary team ordering analgesia. Pt denies abdominal pain , n/v, fever/chills. Tolerating diet. - Objective Vital Signs: Vital Signs Temperature 97.8 F 09/17/18 06:00 Pulse Rate 62 09/17/18 06:00 Respiratory Rate 20 09/17/18 06:00 Blood Pressure 129/62 09/17/18 06:00 O2 Sat by Pulse Oximetry (%) 94 L 09/16/18 21:00 Constitutional: Well Nourished, No Distress Cardiovascular: Yes: WNL, Regular Rate and Rhythm Respiratory: Yes: WNL, CTA Bilaterally Gastrointestinal Inspection: Yes: WNL ...Palpate: Yes: Other (Abd soft, nt, nd) Labs: CBC, BMP 09/17/18 05:30 09/17/18 05:30 INR, PTT INR 1.26 (0.83-1.09) H 09/14/18 15:15 Problem List - Problems (1) Pancreatic mass Assessment/Plan: 88yo male h/o parkinsons disease presents after a fall with CT imaging revealing a pancreatic head mass. AST and CK elevated in setting of rhabdo, now improving. T bili normal. -Await MRCP today -Further discussion regarding additional testing and GOC pending results Code(s): K86.9 - DISEASE OF PANCREAS, UNSPECIFIED
--- NOTE | 2018-09-17 12:10 | PN ---
Teaching Attending Note Name of Resident: Sharyn Nazario ATTENDING PHYSICIAN STATEMENT I saw and evaluated the patient. I reviewed the resident's note and discussed the case with the resident. I agree with the resident's findings and plan as documented with exceptions below. SUBJECTIVE: Patient seen and examined. Reports is sore, and not able to move much. Denies any chest pain, dyspnea, abdominal or urinary symptoms. OBJECTIVE: Vital Signs Period Temp Pulse Resp BP Sys/Velazco Pulse Ox Last 24 Hr 97.4 F-98.6 F 62-82 18-20 111-129/53-71 94 Intake & Output 09/14/18 09/15/18 09/16/18 09/17/18 23:59 23:59 23:59 23:59 Intake Total 485 3565 875 Output Total 1000 900 Balance -515 2665 875 Weight 204 lb 204 lb General:lying in bed in no acute distress, oriented, appropriate and conversant HEENT: occipital abrasion CVS:S1S2 regular Chest: decreased effort, no rales or wheezing appreciated, but limited exam Abdomen:Soft, obese, NT Extremities: bilateral abrasions, right knee/tibia, left knee area Musculoskeletal: right shoulder ROM improved, still with proximal weakness bilateral lower extremities, able to move knee and both ankles better, no spinal tenderness, left lumbar ecchymosis Neuro: AA, oriented, appropriate, mask like face, extremities movements as above limiting exam, no new change today Home Medications Medication Instructions Recorded Alpha Lipoic Acid 200 mg PO DAILY 09/14/18 Carbidopa/Levodopa 1 each PO QID 09/14/18 [Carbidopa-Levodopa 25-250 Tab] Cyanocobalamin [Vitamin B12 -] 1,000 mcg PO DAILY 09/14/18 Furosemide [Lasix] 20 mg PO DAILY 09/14/18 Gabapentin [Neurontin] 200 mg PO BID 09/14/18 Nabumetone 500 mg PO PRN 09/14/18 Tamsulosin HCl 0.4 mg PO DAILY 09/14/18 Ubidecarenone/Vit E Acet [Co Q-10 1 each PO DAILY 09/14/18 100 mg Softgel] Active Medications Acetaminophen (Tylenol -) 650 mg PO Q6H PRN PRN Reason: PAIN LEVEL 1-5 Acetaminophen (Ofirmev Injection -) 1,000 mg IVPB Q6H PRN PRN Reason: FOR CHEST PAIN Last Admin: 09/17/18 09:27 Dose: 1,000 mg Amantadine HCl (Symmetrel -) 100 mg PO BID [facility] Last Admin: 09/17/18 10:03 Dose: 100 mg Carbidopa/Levodopa (Sinemet 25/250 -) 1 each PO 0900,1300,2000 [facility] Last Admin: 09/17/18 10:02 Dose: 1 each Cyanocobalamin (Vitamin B12 -) 1,000 mcg PO DAILY [facility] Last Admin: 09/17/18 10:02 Dose: 1,000 mcg Gabapentin (Neurontin -) 200 mg PO BID [facility] Last Admin: 09/17/18 10:02 Dose: 200 mg Heparin Sodium (Porcine) (Heparin -) 5,000 unit SQ TID [facility] Last Admin: 09/17/18 05:30 Dose: 5,000 unit Azithromycin (Zithromax 500mg Ivpb (Pre-Docked)) 500 mg in 250 mls @ 250 mls/ hr IVPB DAILY [facility] Last Admin: 09/16/18 15:15 Dose: 250 mls/hr Ceftriaxone Sodium 1 gm/ (Dextrose) 50 mls @ 100 mls/hr IVPB DAILY [facility]; Protocol Last Admin: 09/17/18 10:03 Dose: 100 mls/hr Sodium Chloride (Normal Saline -) 1,000 mls @ 75 mls/hr IV ASDIR [facility] Tamsulosin HCl (Flomax -) 0.4 mg PO DAILY@0830 [facility] Last Admin: 09/17/18 10:02 Dose: 0.4 mg Laboratory Results - last 24 hr 09/17/18 09/17/18 05:30 05:30 WBC 13.4 H RBC 2.80 L Hgb 10.0 L Hct 29.7 L MCV 105.8 H MCH 35.6 H MCHC 33.7 RDW 13.2 Plt Count 274 MPV 7.1 L Absolute Neuts (auto) 10.3 H Neutrophils % 76.8 Neutrophils % (Manual) 74.0 Band Neutrophils % 0.0 Lymphocytes % 12.4 D Lymphocytes % (Manual) 10.0 D Monocytes % 7.1 Monocytes % (Manual) 8 Eosinophils % 3.1 D Eosinophils % (Manual) 5.0 H D Basophils % 0.6 Basophils % (Manual) 1.0 D Myelocytes % (Man) 1 D Promyelocytes % (Man) 0 Blast Cells % (Manual) 0 Nucleated RBC % 0 Metamyelocytes 0 Hypochromia 0 Platelet Estimate Normal Polychromasia 0 Poikilocytosis 0 Anisocytosis 0 Microcytosis 0 Macrocytosis 0 Sodium 143 Potassium 4.0 Chloride 113 H Carbon Dioxide 23 Anion Gap 8 BUN 32 H Creatinine 1.4 H Creat Clearance w eGFR 48.05 Random Glucose 98 Calcium 7.1 L Total Bilirubin 0.8 Direct Bilirubin 0.4 H AST 95 H ALT 16 Alkaline Phosphatase 95 Creatine Kinase 1407 H Creatine Kinase Index 0.2 CK-MB (CK-2) 3.8 H Total Protein 5.0 L Albumin 2.0 L ASSESSMENT AND PLAN: 88 yom with PMHx of Parkinson's disease, spinal stenosis, HTN, B12 deficiency, bladder ca, BPH, chronic leg weakness admitted with fall down the stairs, rhabdomyolysis, and elevated trop. -Mechanical fall down the stairs, -?Syncope post event -Traumatic rhabdomyolysis -Traumatic right 6th/7th rib fracture -Elevated troponin, suspect demand type II WV given absence of symptoms or EKG changes, unlikely ACS -HALEY, suspect from hypovolumia -Leucocytosis, suspect from stress/hemeconcentration, vs PNA -Bibasilar/LML atelectasis vs aspiration, r/o PNA -Right shoulder arthropathy/pain post fall -Spinal stenosis with LE proximal muscle weakness/inability to ambulate -?pancreatic mass -1.4 Cm obstructive stone with hydronephrosis -Parkinson's disease -HTN -Osteoarthritis -HTN -B12 deficiency -BPH -h/o Bladder cancer Plan: CPK improved, decreased IVF. WBC better, emperic Ceftriaxone/Azithromycin day [address] chest[address] repeat CXR in 24 hours, stop abx if no new concerns over 24-48 hours. Poor participation with PT, Unclear if from deconditioning/rhabdomyolysis.. LE proximal muscle weakness with known spinal stenosis. Dr. Pollard input appreciated, follow up MRI LS Spine, PT as girma. Right shoulder symptoms improved, orthopedic input appreciated Incentive spirometry/Pain control. Telemetry with no events, Tn flat, 2D echo results/Cardiology input noted. D/c tele. GI input noted, for MRCP. Further plan based on patient/family wishes and MRCP findings. Renal bladder US noted, Cr stable, await urology input. neurology consulted by PCP, recs noted. Ongoing PT, pain control with tylenol, add tramadol prn. Continue sinemet/gabapentin. Amantadine added. Speech/swallow input noted, MBS, and aspiration precautions. DVTPPX heparin Anticipate will need SNF, Dc tele Dispo pending clinical improvement. Plan discussed with patient in detail,and nursing in detail, all questions answered.
--- NOTE | 2018-09-17 12:24 | PN ---
Progress Note (short form) - Note Progress Note: - Note Progress Note: s: no cp sob palps dizzy o: Vital Signs Period Temp Pulse Resp BP Sys/Velazco Pulse Ox Last 24 Hr 97.4 F-98.6 F 62-82 18-20 111-129/53-71 94 nad no jvd rrr s1s2 no mrg cta bl nl eff awake alert abd nt nd pos bs no jaundice diaphoreis pos dp pt Current Medications Acetaminophen (Tylenol -) 650 mg PO Q6H PRN PRN Reason: PAIN LEVEL 1-5 Acetaminophen (Ofirmev Injection -) 1,000 mg IVPB Q6H PRN PRN Reason: FOR CHEST PAIN Last Admin: 09/17/18 09:27 Dose: 1,000 mg Amantadine HCl (Symmetrel -) 100 mg PO BID [facility] Last Admin: 09/17/18 10:03 Dose: 100 mg Carbidopa/Levodopa (Sinemet 25/250 -) 1 each PO 0900,1300,2000 [facility] Last Admin: 09/17/18 10:02 Dose: 1 each Cyanocobalamin (Vitamin B12 -) 1,000 mcg PO DAILY [facility] Last Admin: 09/17/18 10:02 Dose: 1,000 mcg Gabapentin (Neurontin -) 200 mg PO BID [facility] Last Admin: 09/17/18 10:02 Dose: 200 mg Heparin Sodium (Porcine) (Heparin -) 5,000 unit SQ TID [facility] Last Admin: 09/17/18 05:30 Dose: 5,000 unit Azithromycin (Zithromax 500mg Ivpb (Pre-Docked)) 500 mg in 250 mls @ 250 mls/ hr IVPB DAILY [facility] Last Admin: 09/16/18 15:15 Dose: 250 mls/hr Ceftriaxone Sodium 1 gm/ (Dextrose) 50 mls @ 100 mls/hr IVPB DAILY [facility]; Protocol Last Admin: 09/17/18 10:03 Dose: 100 mls/hr Sodium Chloride (Normal Saline -) 1,000 mls @ 75 mls/hr IV ASDIR [facility] Tamsulosin HCl (Flomax -) 0.4 mg PO DAILY@0830 [facility] Last Admin: 09/17/18 10:02 Dose: 0.4 mg Assessment/Plan ECG: NSR, RBBB, nonsp ST-T inferior leads--no change vs prior CXR: clear lungs, slight blunting R c-p angle tele: sr echo 08/2018: nl lv, rv tds, mild ar, mild ao root dil carotids 08/2018: no sig stenosis falls, ? syncope, elevated skeletal muscle CPK: -parkinson's and spinal stenosis--? mechanical falls -pt unable to provide meaningful history--cannot exclude syncope (possibly multifactorial) -telemetry, echo, carotids all unremarkable -r/o shy drager autonomic insufficiency: check orthostatic VSs once pt can stand - dc tele elevated trop: -indeterminate range, flat trend (0.2 x 2-->0.1) not c/w ACS -no ischemia signs/sx's, ecg unremarkable -echo benign -no further ischemia w/u indicated at this time HTN: -cont current meds renal insuff -creat improving -fluids per hospitalist pancreatic mass - workup per GI
[2018-09-17] MEDS ORDERED: traMADol HCL 50 MG TABLET PO PRN ×2 (12:25→12:26)
[2018-09-17] MEDS: AZITHROMYCIN IVPB 500 MG/250 ML BAG IVPB SCH (12:31)
--- NOTE | 2018-09-17 12:35 | PN ---
Progress Note, Physician History of Present Illness: events noted chart reviewed just came back from the MRI Alert awake oriented follows commands normally Complains of chest pain on the right side Blood work showed the creatinine 1.4 and the white count is 13 - Current Medication List Current Medications: Active Medications Acetaminophen (Tylenol -) 650 mg PO Q6H PRN PRN Reason: PAIN LEVEL 1-5 Amantadine HCl (Symmetrel -) 100 mg PO BID [facility] Last Admin: 09/17/18 10:03 Dose: 100 mg Carbidopa/Levodopa (Sinemet 25/250 -) 1 each PO 0900,1300,2000 [facility] Last Admin: 09/17/18 10:02 Dose: 1 each Cyanocobalamin (Vitamin B12 -) 1,000 mcg PO DAILY [facility] Last Admin: 09/17/18 10:02 Dose: 1,000 mcg Gabapentin (Neurontin -) 200 mg PO BID [facility] Last Admin: 09/17/18 10:02 Dose: 200 mg Heparin Sodium (Porcine) (Heparin -) 5,000 unit SQ TID [facility] Last Admin: 09/17/18 05:30 Dose: 5,000 unit Azithromycin (Zithromax 500mg Ivpb (Pre-Docked)) 500 mg in 250 mls @ 250 mls/ hr IVPB DAILY [facility] Last Admin: 09/17/18 12:31 Dose: 250 mls/hr Ceftriaxone Sodium 1 gm/ (Dextrose) 50 mls @ 100 mls/hr IVPB DAILY [facility]; Protocol Last Admin: 09/17/18 10:03 Dose: 100 mls/hr Sodium Chloride (Normal Saline -) 1,000 mls @ 75 mls/hr IV ASDIR [facility] Last Admin: 09/17/18 12:27 Dose: 75 mls/hr Tamsulosin HCl (Flomax -) 0.4 mg PO DAILY@0830 [facility] Last Admin: 09/17/18 10:02 Dose: 0.4 mg Tramadol HCl (Ultram -) 50 mg PO Q6H PRN PRN Reason: PAIN LEVEL 6-10 - Objective Vital Signs: Vital Signs Temperature 97.6 F 09/17/18 10:00 Pulse Rate 86 09/17/18 10:00 Respiratory Rate 20 09/17/18 10:00 Blood Pressure 101/56 L 09/17/18 10:00 O2 Sat by Pulse Oximetry (%) 94 L 09/17/18 09:00 Constitutional: Yes: Well Nourished Eyes: Yes: WNL Neurological: Yes: Alert, Oriented, Babinski negative ...Motor Strength: WNL Labs: CBC, BMP 09/17/18 05:30 09/17/18 05:30 INR, PTT INR 1.26 (0.83-1.09) H 09/14/18 15:15 Problem List - Problems (1) Fall Assessment/Plan: 1. physical therapy. 2. DVT prophylaxis. 3. Continue the combination of the carbidopa and the amantadine. 4. Follow-up with gastroenterology regarding the MRI results. 5. Follow-up the Holter monitor results. Code(s): W19.XXXA - UNSPECIFIED FALL, INITIAL ENCOUNTER Qualifiers: Encounter type: initial encounter Qualified Code(s): W19.XXXA - Unspecified fall, initial encounter
--- NOTE | 2018-09-17 13:20 | PN ---
Progress Note, CASTINGS DRAFTER - Note Progress Note: Selected Entries 09/17/18 09/17/18 09/17/18 02:00 06:00 10:00 Breakfast 50% Diet Tolerated Fair Lunch Temperature 98.6 F 97.8 F 97.6 F 09/17/18 12:41 Breakfast Diet Tolerated Fair Lunch 50% Temperature Laboratory Tests 09/14/18 09/15/18 09/16/18 15:15 05:50 05:30 WBC 13.5 H 14.0 H 22.2 H 09/17/18 05:30 WBC 13.4 H Pt on Dys chopped diet/nectar thick liquids. Delayed godfrey-pharyngeal transfer, with stasis, requiring repeat, effortful swallows 2-3 x's to clear residue. Alternate with sip of liquid, again with chin tuck, hard swallow x 2. Pt/Family educated on above. RD consult re dietary preferences (dislikes hot cereal, likes scr eggs-needs to be moist, maybe egg custard) Trial 2 calHN, magic cup. STR placement being considered- excellent candidate for rehab. Recalled my rec from yesterday. Motivated. Was somewhat independent premorbidly, walking with cane/driving. Consider [facility]?
--- NOTE | 2018-09-17 14:59 | PN ---
Progress Note (short form) - Note Progress Note: NEUROSURGERY CONSULT DICTATED Chart reviewed CT reviewed h/o Parkinson's disease, lumbar spinal stenosis, HTN, Vit B12 deficiency, bladder CA, BPH using walker at baseline, fell down stairs (8-9 flight of stairs ). Denies any chest pain, dyspnea, H/A, visual or speech disturbances. Now with prox > distal LE weakness PE: AF, VSS HEENT-some abrasions;Neck-supple; Cor- RRR; Lungs- CTA;Abd- benign; Ext- edema and abrasion CN- intact; Motor- increased tone with rigidity throughout, UE and distal LE 2-3 ; proximally L 1/5 and R 2/5; Sensory- intact to LT; DTR- hyporeflexia WBC 13.4; blood culture pending Head CT- mild atrophy, calcified falx, no bleed or fx, no obvious ischemia LS spine CT- multilevel DDD, L2-3 and L3-4 moderate stenosis and moderate to marked L4-5 stenosis, mild T12 wedging MRI LS spine- multiple DDD, facet hypertrophy, moderate canal and moderate- marked lateral recess stenosis L4-5 and L3-4 > L2-3, endplate sclerosis, degenerative spondylolisthesis L3-4; thoracic canal open up to T10 level Moderate to marked lumbar stenosis, previously responded to EPSI Leukocytosis, trending down on ceftriaxone Rhabdomyolysis s/p fall Maintain adequate hydration and nutritional support Prox weakness likely combination of trauma/fall, rhabdomyolysis, systemic infection, Parkinsonism and not from acute spine pathology DVT prophylaxis
--- NOTE | 2018-09-17 15:47 | PN ---
Physical Exam: SUBJECTIVE: Patient seen and examined, complaining of right shoulder pain. OBJECTIVE: Vital Signs Period Temp Pulse Resp BP Sys/Velazco Pulse Ox Last 24 Hr 97.4 F-98.6 F 62-87 18-20 101-148/53-71 94-94 GENERAL: The patient is awake, alert, and fully oriented, in no acute distress, lying in bed. HEAD: abrasions and and ecchymosis on the top of his scalp, no active bleeding, no tenderness to palpation. EYES: PERRL, extraocular movements intact. ENT: moist mucous membranes. NECK: Trachea midline, supple. LUNGS: Breath sounds equal, clear to auscultation bilaterally, no wheezes, no crackles. HEART: Regular rate and rhythm, S1, S2 without murmur, rub or gallop. ABDOMEN: Soft, non tender, normoactive bowel sounds. EXTREMITIES: 2+ pulses, warm, no edema, limited ROM in right shoulder NEUROLOGICAL: Non focal. Normal speech, gait not observed. PSYCH: Normal mood, normal affect. SKIN: Warm, dry, abrasions and bruising in multiple locations, elbows, left shoulder. Laboratory Results - last 24 hr 09/17/18 09/17/18 05:30 05:30 WBC 13.4 H RBC 2.80 L Hgb 10.0 L Hct 29.7 L MCV 105.8 H MCH 35.6 H MCHC 33.7 RDW 13.2 Plt Count 274 MPV 7.1 L Absolute Neuts (auto) 10.3 H Neutrophils % 76.8 Neutrophils % (Manual) 74.0 Band Neutrophils % 0.0 Lymphocytes % 12.4 D Lymphocytes % (Manual) 10.0 D Monocytes % 7.1 Monocytes % (Manual) 8 Eosinophils % 3.1 D Eosinophils % (Manual) 5.0 H D Basophils % 0.6 Basophils % (Manual) 1.0 D Myelocytes % (Man) 1 D Promyelocytes % (Man) 0 Blast Cells % (Manual) 0 Nucleated RBC % 0 Metamyelocytes 0 Hypochromia 0 Platelet Estimate Normal Polychromasia 0 Poikilocytosis 0 Anisocytosis 0 Microcytosis 0 Macrocytosis 0 Sodium 143 Potassium 4.0 Chloride 113 H Carbon Dioxide 23 Anion Gap 8 BUN 32 H Creatinine 1.4 H Creat Clearance w eGFR 48.05 Random Glucose 98 Calcium 7.1 L Total Bilirubin 0.8 Direct Bilirubin 0.4 H AST 95 H ALT 16 Alkaline Phosphatase 95 Creatine Kinase 1407 H Creatine Kinase Index 0.2 CK-MB (CK-2) 3.8 H Total Protein 5.0 L Albumin 2.0 L Active Medications Generic Name Dose Route Start Last Admin Trade Name Freq PRN Reason Stop Dose Admin Acetaminophen 650 mg 09/14/18 18:32 Tylenol - PO Q6H PRN PAIN LEVEL 1-5 Amantadine HCl 100 mg 09/16/18 22:00 09/17/18 10:03 Symmetrel - PO 100 mg BID MIKE Administration Bacitracin 1 applic 09/17/18 15:00 Bacitracin - TP DAILY MIKE Carbidopa/Levodopa 1 each 09/15/18 20:00 09/17/18 13:20 Sinemet 25/250 - PO 1 each 0900,1300,2000 MIKE Administration Cyanocobalamin 1,000 mcg 09/15/18 10:00 09/17/18 10:02 Vitamin B12 - PO 1,000 mcg DAILY MIKE Administration Gabapentin 200 mg 09/14/18 22:00 09/17/18 10:02 Neurontin - PO 200 mg BID MIKE Administration Heparin Sodium (Porcine) 5,000 unit 09/15/18 06:00 09/17/18 14:21 Heparin - SQ 5,000 unit TID MIKE Administration Azithromycin 500 mg in 250 mls @ 250 mls/hr 09/16/18 12:00 09/17/18 12:31 Zithromax 500mg Ivpb (Pre-Docked) IVPB 250 mls/hr DAILY MIKE Administration Ceftriaxone Sodium 1 gm/ 50 mls @ 100 mls/hr 09/16/18 12:00 09/17/18 10:03 Dextrose IVPB 100 mls/hr DAILY MIKE Administration Protocol Sodium Chloride 1,000 mls @ 75 mls/hr 09/17/18 12:07 09/17/18 12:27 Normal Saline - IV 75 mls/hr ASDIR MIKE Administration Tamsulosin HCl 0.4 mg 09/15/18 08:30 09/17/18 10:02 Flomax - PO 0.4 mg DAILY@0830 MIKE Administration Tramadol HCl 50 mg 09/17/18 12:26 Ultram - PO Q6H PRN PAIN LEVEL 6-10 ASSESSMENT/PLAN: The patient is a 88 year old with PMHx of Parkinson's disease, spinal stenosis, HTN, B12 deficiency, bladder ca, BPH, chronic leg weakness admitted s/p fall, rhabdomyolysis, and elevated troponin. s/p fall: -most likely mechanical fell down the stairs but syncope can't be excluded -imaging positive for rib fracture on right side, MRI lumosacral spine noted -pain control with Tylenol, Ultram -fall risk precautions, bed alarm -continue cardiac monitoring -consulted Neurology, will f/u recommendations -Consulted also Neurosurgery, no need for surgical evaluation -will continue with PT everyday rhabdomyolysis -CPK levated, continue IVF NS at 75 cc/hr -Elevated troponin, -likely demand ischemia HALEY -suspect from hypovolumia Leukocytosis r/o infection, stress induced blood cultures, urine cultures continue empiric Azithromycin and Ceftriaxone Parkinson's disease -cont Sinemet and Amantadine -f/u Neurology recommendations HTN -cont home meds Pancreatic mass: -GI consulted -g/u MRI BPH -cont Flomax DVT PPX; Heparin sq Dispo: transferred to med surg Problem List - Problems (1) Fall Code(s): W19.XXXA - UNSPECIFIED FALL, INITIAL ENCOUNTER (2) Elevated troponin Code(s): R74.8 - ABNORMAL LEVELS OF OTHER SERUM ENZYMES (3) B12 deficiency Code(s): E53.8 - DEFICIENCY OF OTHER SPECIFIED B GROUP VITAMINS (4) Back pain Code(s): M54.9 - DORSALGIA, UNSPECIFIED (5) Bladder malignancy Code(s): C67.9 - MALIGNANT NEOPLASM OF BLADDER, UNSPECIFIED Visit type - Emergency Visit Emergency Visit: Yes ED Registration Date: 09/14/18 Care time: The patient presented to the Emergency Department on the above date and was hospitalized for further evaluation of their emergent condition. - New Patient This patient is new to me today: No - Critical Care Critical Care patient: No - Discharge Referral Referred to [facility] No
[2018-09-17] MEDS: BACITRACIN 15 GM TUBE TOPICAL OINTMENT TP SCH (17:30)
[2018-09-17] MEDS ORDERED: PT OWN MED DRAWER 7, Y5N ONE (21:19)
[2018-09-18 05:54] LABS: BASO % 0.6 % (0-2.0); EOS % 4.2 % (0-4.5); HEMATOCRIT 30.6 % (35.4-49); HEMOGLOBIN 10.2 GM/dL (11.7-16.9); LYMPH % 14.4 % (8-40); MCH 35.5 pg (25.7-33.7); MCHC 33.3 g/dl (32.0-35.9); MEAN CELL VOLUME 106.7 fl (80-96); MEAN PLT VOLUME 6.7 fl (7.5-11.1); MONO % 6.8 % (3.8-10.2); PLATELET COUNT 273 K/MM3 (134-434); RBC 2.87 M/mm3 (4.00-5.60); RDW 13.2 % (11.9-15.9); WHITE BLOOD COUNT 12.1 K/mm3 (4.0-10.0)
[2018-09-18] MEDS: HEPARIN NA (PORCINE) 5,000 UNITS/ML 1ML VIAL SQ SCH ×3 (05:58→21:10)
[2018-09-18 06:26] LABS: ALBUMIN 1.9 g/dl (3.4-5.0); ALK PHOS 113 U/L (45-117); ANION GAP 5 MMOL/L (8-16); BILIRUBIN,TOTAL 0.6 mg/dL (0.2-1); BLOOD UREA NITROGEN 28 mg/dL (7-18); CALCIUM 7.4 mg/dL (8.5-10.1); CHLORIDE 112 mmol/L (98-107); CO2 23 mmol/L (21-32); CREATININE 1.3 mg/dL (0.55-1.3); GLUCOSE,RANDOM 104 mg/dL (74-106); SGOT/AST 79 U/L (15-37); SGPT/ALT 17 U/L (13-61); SODIUM 140 mmol/L (136-145); TOT PROT 5.1 g/dl (6.4-8.2)
--- NOTE | 2018-09-18 08:47 | PN ---
Progress Note (short form) - Note Progress Note: Hospitalist to document today. More aware and trying to exercise his arms on his own. CA19-9 :25 WNL.
[2018-09-18 09:58] LABS: BASO % 0.5 % (0-2.0); EOS % 2.5 % (0-4.5); HEMATOCRIT 32.6 % (35.4-49); HEMOGLOBIN 10.9 GM/dL (11.7-16.9); LYMPH % 12.5 % (8-40); MCH 35.6 pg (25.7-33.7); MCHC 33.5 g/dl (32.0-35.9); MEAN CELL VOLUME 106.4 fl (80-96); MEAN PLT VOLUME 6.9 fl (7.5-11.1); MONO % 6.2 % (3.8-10.2); NEUT % 78.3 % (42.8-82.8); PLATELET COUNT 282 K/MM3 (134-434); RBC 3.06 M/mm3 (4.00-5.60); RDW 13.6 % (11.9-15.9); WHITE BLOOD COUNT 12.2 K/mm3 (4.0-10.0)
[2018-09-18] MEDS ORDERED: cefTRIAXone SODIUM 1 GM VIAL ONE (10:15)
[2018-09-18] MEDS ORDERED: PT OWN MED DRAWER 7, Y5N ONE ×2 (10:15→21:02)
[2018-09-18] MEDS ORDERED: DEXTROSE 5%-WATER - 50 ML IVPB ONE (10:15)
[2018-09-18] MEDS: AZITHROMYCIN IVPB 500 MG/250 ML BAG IVPB SCH (10:32)
[2018-09-18] MEDS: AMANTADINE HCL 100 MG TABLET PO SCH ×2 (10:32→21:10)
[2018-09-18] MEDS: CARBIDOPA/LEVODOPA 25/250 TABLET (FP) PO SCH ×3 (10:33→21:13)
[2018-09-18] MEDS: BACITRACIN 15 GM TUBE TOPICAL OINTMENT TP SCH (10:33)
[2018-09-18] MEDS: TAMSULOSIN HCL 0.4 MG CAP PO SCH (10:33)
[2018-09-18] MEDS: GABAPENTIN 100 MG CAPSULE (FP) PO SCH ×2 (10:33→21:09)
[2018-09-18] MEDS: CEFTRIAXONE 1 GM in DEXTROSE 5%-WATER - 50 ML IVPB SCH (10:33)
[2018-09-18] MEDS: CYANOCOBALAMIN 1,000 MCG TABLET (FP) PO SCH (10:33)
[2018-09-18 11:06] LABS: ANISOCYTOSIS 0; MACROCYTOSIS 1+; PLATELET ESTIMATE NORMAL
[2018-09-18 11:31] LABS: ANISOCYTOSIS 1+; MACROCYTOSIS 1+; PLATELET ESTIMATE NORMAL
--- NOTE | 2018-09-18 11:32 | PN ---
Teaching Attending Note Name of Resident: Sharyn Nazario ATTENDING PHYSICIAN STATEMENT I saw and evaluated the patient. I reviewed the resident's note and discussed the case with the resident. I agree with the resident's findings and plan as documented. SUBJECTIVE: Mr Wells says he is feeling good and is without complaint. Denies cp, sob, n/v. OBJECTIVE: Last Vital Signs Temp Pulse Resp BP Pulse Ox 37.2 C 58 L 20 126/54 L 96 09/18/18 17:52 09/18/18 17:52 09/18/18 17:52 09/18/18 17:52 09/18/18 10:00 Gen: nad Pulm: ctab w/o w/r/r CV: rrr w/o m/r/g Abd: +bs, s/nt/nd Ext: no c/c/e CBC, BMP 09/18/18 09:40 09/18/18 05:30 ASSESSMENT AND PLAN: Problem List - Problems (1) Rhabdomyolysis Assessment/Plan: -continue IVF -check CPK in am -? if can transition to oral fluid if improved Code(s): M62.82 - RHABDOMYOLYSIS Qualifiers: Rhabdomyolysis type: traumatic Encounter type: initial encounter Qualified Code(s): T79.6XXA - Traumatic ischemia of muscle, initial encounter (2) Pancreatic mass Assessment/Plan: -appreciate GI assistance -MRCP pending -CEA normal Code(s): K86.9 - DISEASE OF PANCREAS, UNSPECIFIED (3) Elevated troponin Assessment/Plan: -cardiology note reviewed -not ACS -stable Code(s): R74.8 - ABNORMAL LEVELS OF OTHER SERUM ENZYMES (4) Fall Assessment/Plan: -PT following -will need SNF placement Code(s): W19.XXXA - UNSPECIFIED FALL, INITIAL ENCOUNTER Qualifiers: Encounter type: initial encounter Qualified Code(s): W19.XXXA - Unspecified fall, initial encounter (5) Syncope Assessment/Plan: -ECHO and carotid ultrasound performed -? fall vs syncope -worked up, has not recurred -SNF placement Code(s): R55 - SYNCOPE AND COLLAPSE Qualifiers: Syncope type: unspecified Qualified Code(s): R55 - Syncope and collapse (6) HALEY (acute kidney injury) Assessment/Plan: -resolved Code(s): N17.9 - ACUTE KIDNEY FAILURE, UNSPECIFIED (7) HTN (hypertension) Assessment/Plan: -well controlled Code(s): I10 - ESSENTIAL (PRIMARY) HYPERTENSION (8) BPH (benign prostatic hyperplasia) Assessment/Plan: -continue flomax Code(s): N40.0 - BENIGN PROSTATIC HYPERPLASIA WITHOUT LOWER URINRY TRACT SYMP (9) Pneumonia Assessment/Plan: -? if has pneumonia -with atelectasis and leukocytosis, will continue treatment -can change to po on discharge Code(s): J18.9 - PNEUMONIA, UNSPECIFIED ORGANISM
--- NOTE | 2018-09-18 11:56 | PN ---
Progress Note (short form) - Note Progress Note: s: no cp sob palps dizzy o: Vital Signs Period Temp Pulse Resp BP Sys/Velazco Pulse Ox Last 24 Hr 98.6 F-99 F 60-87 18-20 114-148/63-66 97 nad no jvd rrr s1s2 no mrg cta bl nl eff awake alert abd nt nd pos bs no jaundice diaphoreis pos dp pt Current Medications Generic Name Dose Route Start Last Admin Trade Name Freq PRN Reason Stop Dose Admin Acetaminophen 650 mg 09/14/18 18:32 Tylenol - PO Q6H PRN PAIN LEVEL 1-5 Amantadine HCl 100 mg 09/16/18 22:00 09/18/18 10:32 Symmetrel - PO 100 mg BID MIKE Administration Bacitracin 1 applic 09/17/18 15:00 09/18/18 10:33 Bacitracin - TP 1 applic DAILY MIKE Administration Carbidopa/Levodopa 1 each 09/15/18 20:00 09/18/18 10:33 Sinemet 25/250 - PO Not Given 0900,1300,2000 MIKE Cyanocobalamin 1,000 mcg 09/15/18 10:00 09/18/18 10:33 Vitamin B12 - PO 1,000 mcg DAILY MIKE Administration Gabapentin 200 mg 09/14/18 22:00 09/18/18 10:33 Neurontin - PO 200 mg BID MIKE Administration Heparin Sodium (Porcine) 5,000 unit 09/15/18 06:00 09/18/18 05:58 Heparin - SQ 5,000 unit TID MIKE Administration Azithromycin 500 mg in 250 mls @ 250 mls/hr 09/16/18 12:00 09/18/18 10:32 Zithromax 500mg Ivpb (Pre-Docked) IVPB 250 mls/hr DAILY MIKE Administration Ceftriaxone Sodium 1 gm/ 50 mls @ 100 mls/hr 09/16/18 12:00 09/18/18 10:33 Dextrose IVPB 100 mls/hr DAILY MIKE Administration Protocol Sodium Chloride 1,000 mls @ 75 mls/hr 09/17/18 12:07 09/17/18 12:27 Normal Saline - IV 75 mls/hr ASDIR MIKE Administration Tamsulosin HCl 0.4 mg 09/15/18 08:30 09/18/18 10:33 Flomax - PO 0.4 mg DAILY@0830 MIKE Administration Tramadol HCl 50 mg 09/17/18 12:26 Ultram - PO Q6H PRN PAIN LEVEL 6-10 CBC, BMP 09/18/18 09:40 09/18/18 05:30 Assessment/Plan ECG: NSR, RBBB, nonsp ST-T inferior leads--no change vs prior CXR: clear lungs, slight blunting R c-p angle echo 08/2018: nl lv, rv tds, mild ar, mild ao root dil carotids 08/2018: no sig stenosis falls, ? syncope, elevated skeletal muscle CPK: -parkinson's and spinal stenosis--? mechanical falls -pt unable to provide meaningful history--cannot exclude syncope (possibly multifactorial) -telemetry, echo, carotids all unremarkable -r/o shalex fabian autonomic insufficiency: check orthostatic VSs once pt can stand elevated trop: -indeterminate range, flat trend (0.2 x 2-->0.1) not c/w ACS -no ischemia signs/sx's, ecg unremarkable -echo benign -no further ischemia w/u indicated at this time HTN: -cont current meds renal insuff -creat improving -fluids per hospitalist cardiac barillas remains stable
--- NOTE | 2018-09-18 12:19 | PN ---
Progress Note, SOFTWARE TEST MANAGER - Note Progress Note: Selected Entries 09/17/18 09/17/18 09/17/18 02:00 06:00 10:00 Breakfast 50% Lunch Supper Temperature 98.6 F 97.8 F 97.6 F 09/17/18 09/17/18 09/17/18 12:41 14:00 17:28 Breakfast Lunch 50% Supper Temperature 98.6 F 99 F 09/17/18 09/17/18 09/18/18 21:00 21:58 05:45 Breakfast Lunch Supper 50% Temperature 98.6 F 98.6 F 09/18/18 08:45 Breakfast 75% Lunch Supper Temperature Laboratory Tests 09/17/18 09/18/18 05:30 05:30 WBC 13.4 H 12.1 H Did well with breakfast this am. Had two magic cup yesterday and Ensure pudding this am. Picky about lunch received. Will try 2cal HN afterwards. Swallowing exercises reviewed withb pt and daughter for self practice b/n meals Suggested they purchase EMST for improved and maintained speech and swallowing function. Pt's daughter was appreciative and will follow through.
[2018-09-18] MEDS: SODIUM CHLORIDE 1,000 ML IV SCH (15:12)
--- NOTE | 2018-09-18 17:43 | PN ---
Physical Exam: SUBJECTIVE: Patient seen and examined. He is feeling better, working with PT. OBJECTIVE: Vital Signs Period Temp Pulse Resp BP Sys/Velazco Pulse Ox Last 24 Hr 97.8 F-98.6 F 58-83 18-18 99-133/50-68 96-97 GENERAL: The patient is awake, alert, and fully oriented, in no acute distress, lying in bed. HEAD: abrasions and and ecchymosis on the top of his scalp, no active bleeding, no tenderness to palpation. EYES: PERRL, extraocular movements intact. ENT: moist mucous membranes. NECK: Trachea midline, supple. LUNGS: Breath sounds equal, clear to auscultation bilaterally, no wheezes, no crackles. HEART: Regular rate and rhythm, S1, S2 without murmur, rub or gallop. ABDOMEN: Soft, non tender, normoactive bowel sounds. EXTREMITIES: 2+ pulses, warm, no edema, limited ROM in right shoulder NEUROLOGICAL: Non focal. Normal speech, gait not observed. PSYCH: Normal mood, normal affect. SKIN: Warm, dry, abrasions and bruising in multiple locations, elbows, left shoulder. Laboratory Results - last 24 hr 09/17/18 09/18/18 09/18/18 05:30 05:30 05:30 WBC 12.1 H RBC 2.87 L Hgb 10.2 L Hct 30.6 L MCV 106.7 H MCH 35.5 H MCHC 33.3 RDW 13.2 Plt Count 273 MPV 6.7 L Absolute Neuts (auto) 8.9 H Neutrophils % 74.0 Neutrophils % (Manual) 73.0 Band Neutrophils % 0.0 Lymphocytes % 14.4 Lymphocytes % (Manual) 15.0 D Monocytes % 6.8 Monocytes % (Manual) 5 Eosinophils % 4.2 Eosinophils % (Manual) 5.0 H Basophils % 0.6 Basophils % (Manual) 0.0 Myelocytes % (Man) 1 Promyelocytes % (Man) 0 Blast Cells % (Manual) 0 Nucleated RBC % 0 Metamyelocytes 0 Hypochromia 0 Platelet Estimate Normal Polychromasia Poikilocytosis Anisocytosis 0 Microcytosis Macrocytosis 1+ Sodium 140 Potassium 4.0 Chloride 112 H Carbon Dioxide 23 Anion Gap 5 L BUN 28 H Creatinine 1.3 Creat Clearance w eGFR 52.34 Random Glucose 104 Calcium 7.4 L Total Bilirubin 0.6 AST 79 H ALT 17 Alkaline Phosphatase 113 Total Protein 5.1 L Albumin 1.9 L CA 19-9 Antigen 25 09/18/18 09:40 WBC 12.2 H RBC 3.06 L Hgb 10.9 L Hct 32.6 L MCV 106.4 H MCH 35.6 H MCHC 33.5 RDW 13.6 Plt Count 282 MPV 6.9 L Absolute Neuts (auto) 9.6 H Neutrophils % 78.3 Neutrophils % (Manual) 79.2 Band Neutrophils % 0.0 Lymphocytes % 12.5 Lymphocytes % (Manual) 10.9 Monocytes % 6.2 Monocytes % (Manual) 3 L Eosinophils % 2.5 Eosinophils % (Manual) 2.0 Basophils % 0.5 Basophils % (Manual) 0.0 Myelocytes % (Man) 1 Promyelocytes % (Man) 0 Blast Cells % (Manual) 0 Nucleated RBC % 0 Metamyelocytes 1 D Hypochromia 0 Platelet Estimate Normal Polychromasia 0 Poikilocytosis 0 Anisocytosis 1+ Microcytosis 0 Macrocytosis 1+ Sodium Potassium Chloride Carbon Dioxide Anion Gap BUN Creatinine Creat Clearance w eGFR Random Glucose Calcium Total Bilirubin AST ALT Alkaline Phosphatase Total Protein Albumin CA 19-9 Antigen Active Medications Generic Name Dose Route Start Last Admin Trade Name Freq PRN Reason Stop Dose Admin Acetaminophen 650 mg 09/14/18 18:32 Tylenol - PO Q6H PRN PAIN LEVEL 1-5 Amantadine HCl 100 mg 09/16/18 22:00 09/18/18 10:32 Symmetrel - PO 100 mg BID MIKE Administration Bacitracin 1 applic 09/17/18 15:00 09/18/18 10:33 Bacitracin - TP 1 applic DAILY MIKE Administration Carbidopa/Levodopa 1 each 09/15/18 20:00 09/18/18 12:08 Sinemet 25/250 - PO 1 each 0900,1300,2000 MIKE Administration Cyanocobalamin 1,000 mcg 09/15/18 10:00 09/18/18 10:33 Vitamin B12 - PO 1,000 mcg DAILY MIKE Administration Gabapentin 200 mg 09/14/18 22:00 09/18/18 10:33 Neurontin - PO 200 mg BID MIKE Administration Heparin Sodium (Porcine) 5,000 unit 09/15/18 06:00 09/18/18 15:12 Heparin - SQ Not Given TID MIKE Azithromycin 500 mg in 250 mls @ 250 mls/hr 09/16/18 12:00 09/18/18 10:32 Zithromax 500mg Ivpb (Pre-Docked) IVPB 250 mls/hr DAILY MIKE Administration Ceftriaxone Sodium 1 gm/ 50 mls @ 100 mls/hr 09/16/18 12:00 09/18/18 10:33 Dextrose IVPB 100 mls/hr DAILY MIKE Administration Protocol Sodium Chloride 1,000 mls @ 75 mls/hr 09/17/18 12:07 09/18/18 15:12 Normal Saline - IV Not Given ASDIR MIKE Tamsulosin HCl 0.4 mg 09/15/18 08:30 09/18/18 10:33 Flomax - PO 0.4 mg DAILY@0830 MIKE Administration Tramadol HCl 50 mg 09/17/18 12:26 Ultram - PO Q6H PRN PAIN LEVEL 6-10 ASSESSMENT/PLAN: The patient is a 88 year old with PMHx of Parkinson's disease, spinal stenosis, HTN, B12 deficiency, bladder ca, BPH, chronic leg weakness admitted s/p fall, rhabdo, and elevated troponin. s/p fall: -most likely mechanical fell down the stairs but syncope can't be excluded -imaging positive for rib fracture on right side, MRI lumosacral spine noted -pain control with Tylenol, Ultram -fall risk precautions, bed alarm -continue cardiac monitoring -consulted Neurology, will f/u recommendations -Consulted also Neurosurgery, no need for surgical evaluation -will continue with PT everyday rhabdomyolysis -CPK levated, continue IVF NS at 75 cc/hr -Elevated troponin, -likely demand ischemia HALEY -resolved Leukocytosis r/o infection, stress induced blood cultures, urine cultures continue empiric Azithromycin and Ceftriaxone Parkinson's disease -cont Sinemet and Amantadine -f/u Neurology recommendations HTN -cont home meds Pancreatic mass: -GI consulted -f/u MRI with contrast BPH -cont Flomax DVT PPX; Heparin sq Dispo: med surg, waiting for SNFapproval Problem List - Problems (1) Fall Code(s): W19.XXXA - UNSPECIFIED FALL, INITIAL ENCOUNTER (2) Elevated troponin Code(s): R74.8 - ABNORMAL LEVELS OF OTHER SERUM ENZYMES (3) B12 deficiency Code(s): E53.8 - DEFICIENCY OF OTHER SPECIFIED B GROUP VITAMINS (4) Back pain Code(s): M54.9 - DORSALGIA, UNSPECIFIED (5) Bladder malignancy Code(s): C67.9 - MALIGNANT NEOPLASM OF BLADDER, UNSPECIFIED Visit type - Emergency Visit Emergency Visit: Yes ED Registration Date: 09/14/18 Care time: The patient presented to the Emergency Department on the above date and was hospitalized for further evaluation of their emergent condition. - New Patient This patient is new to me today: No - Critical Care Critical Care patient: No - Discharge Referral Referred to [facility] No
--- NOTE | 2018-09-18 19:21 | PN ---
Progress Note, Physician History of Present Illness: Events noted Chart revowed Alert awake Confused rolandoiut jovana ,eds oN AB Started PT On puree - Current Medication List Current Medications: Active Medications Acetaminophen (Tylenol -) 650 mg PO Q6H PRN PRN Reason: PAIN LEVEL 1-5 Amantadine HCl (Symmetrel -) 100 mg PO BID [facility] Last Admin: 09/18/18 10:32 Dose: 100 mg Bacitracin (Bacitracin -) 1 applic TP DAILY [facility] Last Admin: 09/18/18 10:33 Dose: 1 applic Carbidopa/Levodopa (Sinemet 25/250 -) 1 each PO 0900,1300,2000 [facility] Last Admin: 09/18/18 12:08 Dose: 1 each Cyanocobalamin (Vitamin B12 -) 1,000 mcg PO DAILY [facility] Last Admin: 09/18/18 10:33 Dose: 1,000 mcg Gabapentin (Neurontin -) 200 mg PO BID [facility] Last Admin: 09/18/18 10:33 Dose: 200 mg Heparin Sodium (Porcine) (Heparin -) 5,000 unit SQ TID [facility] Last Admin: 09/18/18 15:12 Dose: Not Given Azithromycin (Zithromax 500mg Ivpb (Pre-Docked)) 500 mg in 250 mls @ 250 mls/ hr IVPB DAILY [facility] Last Admin: 09/18/18 10:32 Dose: 250 mls/hr Ceftriaxone Sodium 1 gm/ (Dextrose) 50 mls @ 100 mls/hr IVPB DAILY [facility]; Protocol Last Admin: 09/18/18 10:33 Dose: 100 mls/hr Sodium Chloride (Normal Saline -) 1,000 mls @ 75 mls/hr IV ASDIR [facility] Last Admin: 09/18/18 15:12 Dose: Not Given Tamsulosin HCl (Flomax -) 0.4 mg PO DAILY@0830 [facility] Last Admin: 09/18/18 10:33 Dose: 0.4 mg Tramadol HCl (Ultram -) 50 mg PO Q6H PRN PRN Reason: PAIN LEVEL 6-10 - Objective Vital Signs: Vital Signs Temperature 99 F 09/18/18 17:52 Pulse Rate 58 L 09/18/18 17:52 Respiratory Rate 20 09/18/18 17:52 Blood Pressure 126/54 L 09/18/18 17:52 O2 Sat by Pulse Oximetry (%) 96 09/18/18 10:00 Constitutional: Yes: Well Nourished Eyes: Yes: WNL HENT: Yes: WNL Neurological: Yes: Alert, Oriented, Babinski negative ...Motor Strength: WNL Labs: CBC, BMP 09/18/18 09:40 09/18/18 05:30 INR, PTT INR 1.26 (0.83-1.09) H 09/14/18 15:15 Problem List - Problems (1) Fall Assessment/Plan: 1. Subacutre PT 2. Amanttadine 3. Carbidopa jovana same four times a day 4. Fall precautions Code(s): W19.XXXA - UNSPECIFIED FALL, INITIAL ENCOUNTER Qualifiers: Encounter type: initial encounter Qualified Code(s): W19.XXXA - Unspecified fall, initial encounter
[2018-09-19] MEDS: HEPARIN NA (PORCINE) 5,000 UNITS/ML 1ML VIAL SQ SCH ×2 (05:57→14:18)
[2018-09-19 05:59] LABS: BASO % 1.1 % (0-2.0); EOS % 3.4 % (0-4.5); HEMOGLOBIN 10.4 GM/dL (11.7-16.9); LYMPH % 16.7 % (8-40); MCH 35.8 pg (25.7-33.7); MCHC 33.5 g/dl (32.0-35.9); MEAN CELL VOLUME 106.9 fl (80-96); MEAN PLT VOLUME 6.8 fl (7.5-11.1); MONO % 6.3 % (3.8-10.2); NEUT % 72.5 % (42.8-82.8); PLATELET COUNT 281 K/MM3 (134-434); RDW 13.3 % (11.9-15.9); WHITE BLOOD COUNT 10.6 K/mm3 (4.0-10.0)
[2018-09-19] MEDS: SODIUM CHLORIDE 1,000 ML IV SCH ×2 (06:00→14:19)
[2018-09-19 06:51] LABS: ALBUMIN 1.9 g/dl (3.4-5.0); ALK PHOS 117 U/L (45-117); ANION GAP 6 MMOL/L (8-16); BILIRUBIN,TOTAL 0.5 mg/dL (0.2-1); BLOOD UREA NITROGEN 25 mg/dL (7-18); CALCIUM 7.2 mg/dL (8.5-10.1); CHLORIDE 112 mmol/L (98-107); CO2 24 mmol/L (21-32); CREATININE 1.3 mg/dL (0.55-1.3); GLUCOSE,RANDOM 104 mg/dL (74-106); POTASSIUM 4.1 mmol/L (3.5-5.1); SGOT/AST 57 U/L (15-37); SGPT/ALT 19 U/L (13-61); SODIUM 143 mmol/L (136-145); TOT PROT 5.1 g/dl (6.4-8.2)
--- NOTE | 2018-09-19 08:59 | PN ---
Progress Note, Physician Chief Complaint: seen/ examined No CP or SOB TELE: SR, APCs - Current Medication List Current Medications: Active Medications Acetaminophen (Tylenol -) 650 mg PO Q6H PRN PRN Reason: PAIN LEVEL 1-5 Amantadine HCl (Symmetrel -) 100 mg PO BID [facility] Last Admin: 09/18/18 21:10 Dose: 100 mg Bacitracin (Bacitracin -) 1 applic TP DAILY [facility] Last Admin: 09/18/18 10:33 Dose: 1 applic Carbidopa/Levodopa (Sinemet 25/250 -) 1 each PO 0900,1300,2000 [facility] Last Admin: 09/18/18 21:13 Dose: 1 each Cyanocobalamin (Vitamin B12 -) 1,000 mcg PO DAILY [facility] Last Admin: 09/18/18 10:33 Dose: 1,000 mcg Gabapentin (Neurontin -) 200 mg PO BID [facility] Last Admin: 09/18/18 21:09 Dose: 200 mg Heparin Sodium (Porcine) (Heparin -) 5,000 unit SQ TID [facility] Last Admin: 09/19/18 05:57 Dose: 5,000 unit Azithromycin (Zithromax 500mg Ivpb (Pre-Docked)) 500 mg in 250 mls @ 250 mls/ hr IVPB DAILY [facility] Last Admin: 09/18/18 10:32 Dose: 250 mls/hr Ceftriaxone Sodium 1 gm/ (Dextrose) 50 mls @ 100 mls/hr IVPB DAILY [facility]; Protocol Last Admin: 09/18/18 10:33 Dose: 100 mls/hr Sodium Chloride (Normal Saline -) 1,000 mls @ 75 mls/hr IV ASDIR [facility] Last Admin: 09/19/18 06:00 Dose: 75 mls/hr Tamsulosin HCl (Flomax -) 0.4 mg PO DAILY@0830 [facility] Last Admin: 09/18/18 10:33 Dose: 0.4 mg Tramadol HCl (Ultram -) 50 mg PO Q6H PRN PRN Reason: PAIN LEVEL 6-10 - Objective Vital Signs: Vital Signs Temperature 97.6 F 09/19/18 05:00 Pulse Rate 58 L 09/19/18 05:00 Respiratory Rate 18 09/19/18 05:00 Blood Pressure 122/57 L 09/19/18 05:00 O2 Sat by Pulse Oximetry (%) 96 09/18/18 21:00 Constitutional: Yes: No Distress Cardiovascular: Yes: Regular Rate and Rhythm Respiratory: Yes: Other (decreased basilar breath sounds, no wheezing.) Gastrointestinal: Yes: Soft Edema: No Neurological: Yes: Alert, Oriented ...Motor Strength: WNL Labs: CBC, BMP 09/19/18 05:30 INR, PTT INR 1.26 (0.83-1.09) H 09/14/18 15:15 Laboratory Tests 09/18/18 09/19/18 09/19/18 09:40 05:30 05:30 WBC 12.2 H Pending Hgb 10.9 L Pending Plt Count 282 Pending Sodium 143 Potassium 4.1 BUN 25 H Creatinine 1.3 - ....Imaging EKG: Image Reviewed Assessment/Plan Assessment/Plan ECG: NSR, RBBB, nonsp ST-T inferior leads--no change vs prior CXR: clear lungs, slight blunting R c-p angle echo 08/2018: nl lv, rv tds, mild ar, mild ao root dil carotids 08/2018: no sig stenosis 1. Falls, ? syncope, elevated skeletal muscle CPK: -parkinson's and spinal stenosis--? mechanical falls -pt unable to provide meaningful history--cannot exclude syncope (possibly multifactorial) -telemetry, echo, carotids all unremarkable -r/o shy drager autonomic insufficiency: check orthostatic VSs once pt can stand 2. Elevated trop: -indeterminate range, flat trend (0.2 x 2-->0.1) not c/w ACS, patient without chest pain -no ischemia signs/sx's, ecg unremarkable -echo benign -no further ischemia w/u indicated at this time 3. HTN: -cont current meds 4. Renal insuff: -creat improving
[2018-09-19] MEDS ORDERED: PT OWN MED DRAWER 7, Y5N ONE (09:47)
[2018-09-19] MEDS ORDERED: DEXTROSE 5%-WATER - 50 ML IVPB ONE (09:48)
[2018-09-19] MEDS ORDERED: cefTRIAXone SODIUM 1 GM VIAL ONE (09:48)
[2018-09-19] MEDS: CEFTRIAXONE 1 GM in DEXTROSE 5%-WATER - 50 ML IVPB SCH (10:30)
[2018-09-19] MEDS: AMANTADINE HCL 100 MG TABLET PO SCH (10:32)
[2018-09-19] MEDS: TAMSULOSIN HCL 0.4 MG CAP PO SCH ×2 (10:32→10:50)
[2018-09-19] MEDS: GABAPENTIN 100 MG CAPSULE (FP) PO SCH (10:32)
[2018-09-19] MEDS: CYANOCOBALAMIN 1,000 MCG TABLET (FP) PO SCH (10:32)
[2018-09-19] MEDS: BACITRACIN 15 GM TUBE TOPICAL OINTMENT TP SCH (10:32)
[2018-09-19] MEDS: CARBIDOPA/LEVODOPA 25/250 TABLET (FP) PO SCH (10:36)
[2018-09-19 10:47] VITALS: PULSE 75
[2018-09-19] MEDS: AZITHROMYCIN IVPB 500 MG/250 ML BAG IVPB SCH (10:48)
--- NOTE | 2018-09-19 11:14 | PN ---
Progress Note (short form) - Note Progress Note: Hospitalist to document today. Dr. Moran's office had said he was on Sinemet TID but Dr. Moran wrote in today's note QID so the order was changed. CK still high and yesterday's PT note was noted that he is still struggling.
[2018-09-19 11:32] LABS: ANISOCYTOSIS 0; MACROCYTOSIS 1+; OVALOCYTE 1+; PLATELET ESTIMATE NORMAL
--- NOTE | 2018-09-19 12:45 | PN ---
Progress Note, [employer] - Note Progress Note: Selected Entries 09/18/18 09/18/18 09/18/18 05:45 08:45 10:00 Breakfast 75% Lunch Supper Temperature 98.6 F 97.8 F 09/18/18 09/18/18 09/18/18 14:35 17:52 21:00 Breakfast Lunch 75% Supper Temperature 97.8 F 99 F 98.3 F 09/18/18 09/19/18 09/19/18 21:55 05:00 10:45 Breakfast Lunch Supper 50% Temperature 97.6 F 97.8 F Laboratory Tests 09/17/18 09/18/18 09/19/18 05:30 05:30 05:30 WBC 13.4 H 12.1 H 10.6 H Pt sleeping. Pending decision regarding Dino. Accepted by Jinny.
[2018-09-19] MEDS ORDERED: CARBIDOPA/LEVODOPA 25/250 TABLET (FP) PO SCH (13:00)
--- NOTE | 2018-09-19 15:07 | DS ---
Physical Exam: SUBJECTIVE: Patient seen and examined, feelin much better today. No overnight events. OBJECTIVE: Vital Signs Period Temp Pulse Resp BP Sys/Velazco Pulse Ox Last 24 Hr 97.6 F-99 F 58-75 18-20 113-126/54-70 96-97 PHYSICAL EXAM GENERAL: The patient is awake, alert, and fully oriented, in no acute distress, lying in bed. HEAD: abrasions and and ecchymosis on the top of his scalp, no active bleeding, no tenderness to palpation. EYES: Extraocular movements intact. ENT: moist mucous membranes. NECK: Trachea midline, supple. LUNGS: Breath sounds equal, clear to auscultation bilaterally, no wheezes, no crackles. HEART: Regular rate and rhythm, S1, S2 without murmur, rub or gallop. ABDOMEN: Soft, non tender, normoactive bowel sounds. EXTREMITIES: 2+ pulses, warm, no edema, limited ROM in right shoulder NEUROLOGICAL: Non focal. Normal speech, gait not observed. PSYCH: Normal mood, normal affect. SKIN: Warm, dry, abrasions and bruising in multiple locations, elbows, left shoulder. LABS Laboratory Results - last 24 hr 09/19/18 09/19/18 05:30 05:30 WBC 10.6 H RBC 2.90 L Hgb 10.4 L Hct 31.0 L MCV 106.9 H MCH 35.8 H MCHC 33.5 RDW 13.3 Plt Count 281 MPV 6.8 L Absolute Neuts (auto) 7.7 Neutrophils % 72.5 Neutrophils % (Manual) 67.6 Band Neutrophils % 0.9 Lymphocytes % 16.7 D Lymphocytes % (Manual) 19.0 D Monocytes % 6.3 Monocytes % (Manual) 5 Eosinophils % 3.4 Eosinophils % (Manual) 3.8 D Basophils % 1.1 Basophils % (Manual) 0.0 Myelocytes % (Man) 2 D Promyelocytes % (Man) 0 Blast Cells % (Manual) 0 Nucleated RBC % 0 Metamyelocytes 1 Hypochromia 0 Platelet Estimate Normal Polychromasia 0 Poikilocytosis 0 Anisocytosis 0 Microcytosis 0 Macrocytosis 1+ Ovalocytes 1+ Sodium 143 Potassium 4.1 Chloride 112 H Carbon Dioxide 24 Anion Gap 6 L BUN 25 H Creatinine 1.3 Creat Clearance w eGFR 52.34 Random Glucose 104 Calcium 7.2 L Total Bilirubin 0.5 AST 57 H ALT 19 Alkaline Phosphatase 117 Creatine Kinase 493 H Creatine Kinase Index 0.3 CK-MB (CK-2) 1.9 Total Protein 5.1 L Albumin 1.9 L Vitamin B12 1958 H Serum Folate 8 HOSPITAL COURSE: 88 year old male with PMHx of Parkinson's disease, spinal stenosis, HTN, B12 deficiency, bladder ca, BPH, chronic leg weakness, using walker, living alone lost his balance and fell down the stairs (8-9 flight of stairs). Denies any chest pain, palpitaitons, dizziness, dyspnea, visual or speech disturbances around the fall. Reports was able to get up and walk up the stairs, came down and had another fall from 2 flights of stairs. Reports got up and sat on couch to watch TV. Unsure of the events after that and if he had passed out or how he landed on the floor where the son found him. Patient reports some right shoulder pain and not able to move and lift his legs better than before. 12 point ROS done, neg for pain otherwise, no headache, visual or speech disturbances, abdominal or new back pain, urinary symptoms or new concerns. The patient was admitted to telemetry for possible syncope. During the hospital course he was seen by cardiology, had ECHO and we trended his troponins. He was found to have leukocytosis, rhabdomyolysis and also complaining of back pain and shoulder pain. We consulted Neurosurgery and Orthopedic surgery. No surgical intervention was recommended. We also found pancreatic head mass on abdominal CT. GI was consulted and recommended MRCP. The patient was also found to have renal calculus and Urology was consulted. We treated the patient with IV fluids, empiric antibiotics. Cardiology followed the patient, no acute events were noted, he remained stable, we DC telemetry. Neurology started Amantadine and recommended to cont Sinemet. He was working with physical therapy and clinically improved. We discharged the patient to rehab with recommendation to follow up with Urology, GI, Neurology, do physical therapy and use fall risk precautions. He was given Augumentin for three more days. Date of Admission:09/14/18 Date of Discharge: 09/19/18 Minutes to complete discharge: 35 Discharge Summary Reason For Visit: SYNCOPE/ELEVATED TROPONIN LEVEL/PARKINSON'S Current Active Problems HALEY (acute kidney injury) (Acute) Adrenal mass (Acute) BPH (benign prostatic hyperplasia) (Acute) Elevated troponin (Acute) Fall (Acute) Fall (Acute) HTN (hypertension) (Acute) Pancreatic mass (Acute) Pneumonia (Acute) Rhabdomyolysis (Acute) Syncope (Acute) Condition: Good - Instructions Diet, Activity, Other Instructions: Mr Wells, lisa were admitted to the hospital after you fell. We monitored you on telemetry for possible syncope. You were seen by Neurology, Neurosurgery, Cardiology and Urology, GI. We treated you with empirically with antibiotics. You were also treated with fluids and medications for Parkinson's. We also found pancreatic mass and recommend follow up with GI doctor and possible MRCP. You were also found to have kidney stone, please see Urologist after the discharge. MEDICATIONS: Please continue to Augumentin twice a day for 3 more days. Please continue to take Amantadine (Symmetrel) 100 mg twice a day. Please continue to take Sinemet 4 times a day as prescribed. Continue to take all other medications as you were taking before coming to the hospital. REFERRAL: Please see your primary care physician in a week. Please see Neurologist in 1-2 weeks. Please follow up with [facility] in 1-2 weeks. Please follow up with Urologist in 1-2 weeks. DIET: Dysphagia chopped diet/nectar thick liquids. Please swallow 2-3 times to clear residue. Alternate with sip of liquid, again with chin tuck. Please work with physical therapy and use support like cane/walker when ambulating. If you have dizziness, gait instability, chest pain, shortness of breath or worsening of any of your symptoms, call 911 or come to Emergency Room as soon as possible. Referrals: Basilio Concepcion DO [Staff Physician] - Kleber Garcia MD [Staff Physician] - Paul Hale MD [Primary Care Provider] - Brittani Moran MD [Staff Physician] - Disposition: [facility] - Home Medications Comprehensive Discharge Medication List: Ambulatory Orders Alpha Lipoic Acid 200 mg PO DAILY 09/14/18 Carbidopa/Levodopa [Carbidopa-Levodopa 25-250 Tab] 1 each PO QID 09/14/18 Cyanocobalamin [Vitamin B12 -] 1,000 mcg PO DAILY 09/14/18 Furosemide [Lasix] 20 mg PO DAILY 09/14/18 Gabapentin [Neurontin] 200 mg PO BID 09/14/18 Nabumetone 500 mg PO PRN 09/14/18 Tamsulosin HCl 0.4 mg PO DAILY 09/14/18 Ubidecarenone/Vit E Acet [Co Q-10 100 mg Softgel] 1 each PO DAILY 09/14/18 Acetaminophen [Tylenol .Regular Strength -] 650 mg PO Q6H PRN tablet 09/19/18 Amantadine HCl [Symmetrel -] 100 mg PO BID 30 Days #60 tab 09/19/18 Amoxicillin/Potassium Clav [Augmentin 875-125 Tablet] 1 each PO BID 3 Days #6 tablet 09/19/18 Problem List - Problems (1) Fall Code(s): W19.XXXA - UNSPECIFIED FALL, INITIAL ENCOUNTER (2) Elevated troponin Code(s): R74.8 - ABNORMAL LEVELS OF OTHER SERUM ENZYMES (3) B12 deficiency Code(s): E53.8 - DEFICIENCY OF OTHER SPECIFIED B GROUP VITAMINS (4) Back pain Code(s): M54.9 - DORSALGIA, UNSPECIFIED (5) Bladder malignancy Code(s): C67.9 - MALIGNANT NEOPLASM OF BLADDER, UNSPECIFIED This patient is new to me today: No Emergency Visit: Yes ED Registration Date: 09/14/18 Care time: The patient presented to the Emergency Department on the above date and was hospitalized for further evaluation of their emergent condition. Critical Care patient: No - Discharge Referral Referred to [facility] No
[2018-09-19 15:36] VITALS: BP 109/60; TEMP 98.3
== END 2018-09-19 15:43 | DRG 56 ==
LOC: JER 14:12 → JERBED 16:14 → J4S 09-15 17:03
PROVIDERS: ADMIT Hospitalist; ATTEND Internal Medicine
DX: G20 Parkinson's disease (principal); J18.9 Pneumonia, unspecified organism; S22.41XA Multiple fractures of ribs, right side, initial encounter for closed fracture; M62.82 Rhabdomyolysis; N17.9 Acute kidney failure, unspecified; N13.2 Hydronephrosis with renal and ureteral calculous obstruction; J98.11 Atelectasis; R55 Syncope and collapse; I10 Essential (primary) hypertension; S00.01XA Abrasion of scalp, initial encounter; M48.00 Spinal stenosis, site unspecified; N40.0 Benign prostatic hyperplasia without lower urinary tract symptoms; M12.811 Other specific arthropathies, not elsewhere classified, right shoulder; E53.8 Deficiency of other specified B group vitamins; Z96.659 Presence of unspecified artificial knee joint; S50.312A Abrasion of left elbow, initial encounter; S50.311A Abrasion of right elbow, initial encounter; S80.212A Abrasion, left knee, initial encounter; S80.211A Abrasion, right knee, initial encounter; S90.511A Abrasion, right ankle, initial encounter; S30.0XXA Contusion of lower back and pelvis, initial encounter; M54.9 Dorsalgia, unspecified; I25.10 Atherosclerotic heart disease of native coronary artery without angina pectoris; I45.10 Unspecified right bundle-branch block; M48.061 Spinal stenosis, lumbar region without neurogenic claudication; R01.1 Cardiac murmur, unspecified; M51.37 Other intervertebral disc degeneration, lumbosacral region; N28.9 Disorder of kidney and ureter, unspecified; R74.8 Abnormal levels of other serum enzymes; E27.9 Disorder of adrenal gland, unspecified; K86.9 Disease of pancreas, unspecified; M54.5 Low back pain; D72.829 Elevated white blood cell count, unspecified; Y92.098 Other place in other non-institutional residence as the place of occurrence of the external cause; W17.89XA Other fall from one level to another, initial encounter; Z85.51 Personal history of malignant neoplasm of bladder
CPT/HCPCS: 36415; 70450-TC; 71045-TC-FY; 71250-TC; 72125-TC; 72131-TC; 72148-TC; 73030-TC-RT-FY; 74176-TC; 74230-TC-FY; 76705-TC; 76775-TC; 76856-TC; 80053; 80061; 80076; 81003; 82550; 82553; 82607; 82746; 83721; 83735; 84100; 84484; 85025; 85610; 85730; 86301; 87040; 87899; 90715; 92611-GN; 93005; 93010; 93306-TC; 93880-TC; 93971-TC; 97116-GP; 97161-GP; 99284-25; J0131; J1644; J7030

== ENCOUNTER 2019-02-10 12:15 | Day surgery (SDC) | payer OTHER, BC ==
[2019-02-09 18:56] VITALS: BMI 27.3
[~2019-02-10 12:15] MED LIST: ceFAZolin SODIUM 1 GM VIAL IVPB ONE
--- NOTE | 2019-02-10 13:36 | HP ---
History & Physical Update - History History: No Change - Physical Physical: No Change - Assessment Assessment: No Change - Plan Plan: No Change
[2019-02-10] MEDS ORDERED: ACETAMINOPHEN 1000 MG/100 ML VIAL (NON FORMULARY) IVPB ONE (13:37)
[2019-02-10] MEDS ORDERED: DEXTROSE 5%-0.45% SALINE 1,000 ML IV SCH (13:45)
[2019-02-10] MEDS ORDERED: IBUPROFEN 800 MG/8 ML IJ IVPB SCH (13:45)
[2019-02-10] MEDS ORDERED: ceFAZolin SODIUM 1 GM VIAL IVPB ONE (14:07)
[2019-02-10] MEDS ORDERED: KETOROLAC TROMETHAMINE 30 MG/1 ML VIAL ONE (14:14)
[2019-02-10 15:29] VITALS: TEMP 97.5
[2019-02-10 16:28] VITALS: BP 123/65; PULSE 61
--- NOTE | 2019-02-10 21:15 | OP ---
DATE OF OPERATION: 02/10/2019 PREOPERATIVE DIAGNOSIS: Left renal calculus. POSTOPERATIVE DIAGNOSIS: Left renal calculus. PROCEDURE: Left extracorporeal shock wave lithotripsy. SURGEON: Paul Huerta MD QI SPECIALIST: None. SPECIMEN: None. DRAINS: None. FINDINGS: A 12 x 10 mm stone in the left renal pelvis. PREOPERATIVE INDICATIONS: Patient is an 88-year-old male with chronic kidney stone disease. On most recent exam, he was found to have a 12 x 10 mm stone in the renal pelvis. He comes for ESWL. OPERATION: Patient brought to the OR, placed on table in the supine position. Stone was then localized in 3 planes with fluoroscopy and ultrasound. He was given anesthesia, and 2400 shocks were applied to the stone. Patient was then woken up. PAUL HUERTA M.D. [id number]
== END 2019-02-10 16:15 | disposition home or self-care (01) ==
LOC: JASU-SURG 12:15
PROVIDERS: ATTEND Urology
PROC: 0TF4XZZ Fragmentation in Left Kidney Pelvis, External Approach (ICD-10-PCS; principal; 2019-02-10 13:45)
DX: N20.0 Calculus of kidney (principal); N40.0 Benign prostatic hyperplasia without lower urinary tract symptoms; G20 Parkinson's disease

== ENCOUNTER 2020-02-12 18:07 | Inpatient (IN) | payer OTHER, BC ==
[2020-02-12 18:40] VITALS: BMI 27.6
--- OUTSIDE RECORDS SUMMARY | 2020-02-12 18:53 | XMS ---
:1930 Author Organization [facility] Care Team Providers Name Role Phone NESHEIWAT, OGLEH Unavailable NESHEIWAT, OGLEH Unavailable NESHEIWAT, OGLEH Unavailable NESHEIWAT, OGLEH Unavailable NESHEIWAT, OGLEH Unavailable NESHEIWAT, OGLEH Unavailable NESHEIWAT, OGLEH Unavailable NESHEIWAT, OGLEH Unavailable NESHEIWAT, OGLEH Unavailable NESHEIWAT, OGLEH Unavailable NESHEIWAT, OGLEH Unavailable NESHEIWAT, OGLEH Unavailable NESHEIWAT, OGLEH Unavailable NESHEIWAT, OGLEH Unavailable NESHEIWAT, OGLEH Unavailable NESHEIWAT, OGLEH Unavailable NESHEIWAT, OGLEH Unavailable NESHEIWAT, OGLEH Unavailable NESHEIWAT, OGLEH Unavailable NESHEIWAT, OGLEH Unavailable NESHEIWAT, OGLEH Unavailable NESHEIWAT, OGLEH Unavailable NESHEIWAT, OGLEH Unavailable SUAREZ, DEEPESH Unavailable Unavailable SUAREZ, DEEPESH Unavailable SUAREZ, DEEPESH Unavailable SUAREZ, DEEPESH Unavailable SUAREZ, DEEPESH Unavailable SUAREZ, DEEPESH Unavailable SUAREZ, DEEPESH Unavailable SUAREZ, DEEPESH Unavailable SUAREZ, DEEPESH Unavailable SUAREZ, DEEPESH Unavailable SUAREZ, DEEPESH Unavailable SUAREZ, DEEPESH Unavailable SUAREZ, DEEPESH Unavailable SUAREZ, DEEPESH Unavailable SUAREZ, DEEPESH Unavailable SUAREZ, DEEPESH Unavailable SUAREZ, DEEPESH Unavailable SUAREZ, DEEPESH Unavailable SUAREZ, DEEPESH Unavailable Ishkanian, Uziel Unavailable Unavailable Ishkanian, Uziel Unavailable Unavailable Ishkanian, Uziel Unavailable Unavailable Ishkanian, Uziel Unavailable Unavailable Ishkanian, Uziel Unavailable Unavailable Re-disclosure Warning The records that you are about to access may contain information from federally- assisted alcohol or drug abuse programs. If such information is present, then the following federally mandated warning applies: This information has been disclosed to you from records protected by federal confidentiality rules (42 CFR part 2). The federal rules prohibit you from making any further disclosure of this information unless further disclosure is expressly permitted by the written consent of the person to whom it pertains or as otherwise permitted by 42 CFR part 2. A general authorization for the release of medical or other information is NOT sufficient for this purpose. The Federal rules restrict any use of the information to criminally investigate or prosecute any alcohol or drug abuse patient.The records that you are about to access may contain highly sensitive health information, the redisclosure of which is protected by Article 27-F of the [facility] Public Health law. If you continue you may haveaccess to information: Regarding HIV / AIDS; Provided by facilities licensed or operated by the [facility] Office of Mental Health; or Provided by the [facility] Office for People With Developmental Disabilities. If such information is present, then the following [facility] mandated warning applies: This information has been disclosed to you from confidential records which are protected by state law. State law prohibits you from making any further disclosure of this information without the specific written consent of the person to whom it pertains, or as otherwise permitted by law. Any unauthorized further disclosure in violation of state law may result in a fine or longterm sentence or both. A general authorization for the release of medical or other information is NOT sufficient authorization for further disclosure. 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 Observation Data S ource(s) Description CPR Yazidism Care [facility] ed) Allergies and Adverse Reactions Type Description Substance Reaction Status Data Source(s ) 9 N/A N/A SIGMACARE ([facility] [place] [facility]) 9 N/A N/A SIGMACARE ([place] [facility]) Encounters Encounter Providers Location Date Indications Data Source(s ) Outpatient Attender: MALIKA 11/21/2018 [facility] SUAREZ 06:34:00 AM Hospital - [facility] EDT [facility] [place] 11/11/2018 SIGM ACARE (Yazidism NESHEIWATAttender 11:50:00 AM Center at : MALIKA SUAREZ EDT - [place] 11/24/2018 [employer]) 12:31:00 PM EDT Patient admitted. Inpatient Attender: Uziel Berger [address] 09/19/2018 05:00:00 SIGMACARE ([facility]T - 10/23/2018 [place] [facility] the 12:28:00 PM EDT [facility]ido al [facility]) Patient discharged. Medications Medication Brand Start Product Dose Route Administrative Pharmacy [facility] Indications Reaction Description Data Name Date Form Instructions Instructions Source(s) ProMod 228096 complet ProMod SIGM ACARE Protein 76022 2019 ed Protein oral (Janett theran (protein 06:03: liquid Center at supplement) 12 AM [place] oral liquid EDT ie Incorporat ed) aspirin 81 Aspiri 11/12/ complet aspirin 81 SIGMACARE mg n 81 2019 ed mg (Yazidism tablet,nancy MG 07:30: tablet,nancy y Center at yed release Delaye 48 AM ed release [place] EDT ie Releas Incorporat e Oral ed) Tablet Solosite 337709 11/11/ complet Solosite SIGMACARE (gel 83901 2019 ed topical gel ([place] an dressing) 06:01: Center a t topical gel 24 AM [place] EDT ie Incorporat ed) Multiple 677503 11/11/ complet Multiple SIGMACARE Vitamin-Min 71169 2019 ed Vitamin-Mine (Yazidism erals 04:16: rals tablet Cente r at (multivitam 03 AM [place] in with EDT ie minerals) Incorporat tablet ed) gabapentin gabape 11/11/ complet gabapen tin SIGMACARE 100 mg ntin 2019 ed 100 mg (Yazidism capsule 100 MG 04:16: capsule Cente r at Oral 03 AM [place] Capsul EDT ie e Incorporat ed) carbidopa Carbid 11/11/ complet carbidop a ER SIGMACARE ER 50 opa 50 2019 ed 50 (Yazidism mg-levodopa MG / 04:16: mg-levodopa Center at 200 mg Levodo 03 AM 200 mg [place] tablet,exte pa 200 EDT tablet,exte n ie nded MG ded release Incorpor at release Extend ed) ed Releas e Oral Tablet tamsulosin Tamsul 11/11/ complet tamsulo sin SIGMACARE 0.4 mg osin 2019 ed 0.4 mg (Yazidism capsule hydroc 04:16: capsule Cente r at hlorid 03 AM [place] 0.4 EDT ie MG Incorporat Oral ed) Capsul e Vitamin Vitami 11/11/ complet Vitamin B- 12 SIGMACARE B-12 n B 12 2019 ed 1,000 mcg (Luthera n (cyanocobal 1 MG 04:16: tablet Cent er at cardenas Oral 03 AM [place] (vitamin Tablet EDT ie b-12)) Incorporat 1,000 mcg ed) tablet Tubersol Purifi 11/11/ complet Tubersol 5 SIGMACARE (tuberculin ed 2019 ed tub. (L[place]ra n ppd) 5 tub. Protei 04:16: unit/0.1 mL Center at unit/0.1 mL n 02 AM intradermal [place] intradermal Deriva EDT injection i e injection tive solution Incorp orat solution of ed) Tuberc ulin 50 UNT/ML Inject able Soluti on [Tuber víctor] Skin Prep 866140 11/11/ complet Skin Pre p SIGMACARE Wipes 2018 ed Wipes (Yazidism (ostomy 04:16: Center at supplies) 02 AM [place] EDT ie Incorporat ed) carbidopa 415624 11/11/ complet carbidop a 25 SIGMACARE 25 82473 2018 ed mg-levodopa ([place] an mg-levodopa 04:16: 250 mg Cent er at 250 mg 02 AM disintegrati [place] disintegrat EDT ng tablet ie ing tablet Incorpora t ed) amantadine 278563 11/11/ complet amantad ine SIGMACARE HCl 100 mg 14693 2019 ed HCl 100 mg (L utheran capsule 04:16: capsule Center at 02 AM [place] EDT ie Incorporat ed) lactulose Lactul 11/11/ complet lactulos e 20 SIGMACARE 20 gram/30 ose 2019 ed gram/30 mL (Janett theran mL oral 667 04:16: oral Center at solution MG/ML 02 AM solution [place] Oral EDT ie Soluti Incorporat on ed) Dulcolax Bisaco 11/11/ complet Dulcolax SIGMACARE (bisacodyl) dyl 10 2019 ed (bisacodyl) (Yazidism (bisacodyl) MG 04:16: 10 mg recta l Center at 10 mg Rectal 02 AM suppository [place] rectal Suppos EDT ie suppository itory Incorpo rat [Dulco ed) lax] acetaminoph Acetam 11/11/ complet acetam inophe SIGMACARE en 325 mg inophe 2019 ed n 325 mg (Lut heran tablet n 325 04:11: tablet Center a t MG 37 AM [place] Oral EDT ie Tablet Incorporat ed) acetaminoph Acetam 11/11/ complet acetam inophe SIGMACARE en 325 mg inophe 2019 ed n 325 mg (Lut heran tablet n 325 04:11: tablet Center a t MG 37 AM [place] Oral EDT ie Tablet Incorporat ed) Fleet Enema Sodium complet Fleet Enema SIGMACARE (sodium Phosph 2019 ed 19 gram-7 (Luth chasity phosphates) ate, 04:11: gram/118 mL Center at 19 gram-7 Dibasi 37 AM [place] gram/118 mL c 59.3 EDT ie MG/ML Incorporat / ed) Sodium Phosph ate, Monoba sic 161 MG/ML Enema [Fleet Enema] Miralax POLYET 11/11/ complet Miralax 17 SIGMACARE (polyethyle HYLENE 2019 ed gram/dose ( Yazidism ne glycol GLYCOL 04:11: oral powder Center at 3350) 17 3350 37 AM [place] gram/dose 39765 EDT ie oral powder MG Incorpor at Powder ed) for Oral Soluti on [Amina ax] multivitami 789633 multiv itamin SIGMACARE n with 89359 2018 ed with (The minerals 05:57: minerals [place] tablet 46 AM tablet Home of EDT the Dial2Do) Ensure Plus 525909 Ensure Plus SIGMACARE (food [id number] ed oral liquid (The supplemt, 05:43: [place] lactose-red 04 AM Home of uced) oral EDT the liquid Dial2Do) carbidopa Carbid 10/03/ complet carbidop a 25 SIGMACARE 25 opa 25 2019 ed mg-levodopa (The mg-levodopa MG / 07:19: 250 mg [place] 250 mg Levodo 36 AM disintegrati Ho me of disintegrat pa 250 EDT ng tablet t he ing tablet MG Evangelic a Disint Yazidism [facility]) ng Oral Tablet carbidopa Carbid 10/03/ complet carbidop a 25 SIGMACARE 25 opa 25 2019 ed mg-levodopa (The mg-levodopa MG / 07:19: 250 mg [place] 250 mg Levodo 36 AM disintegrati Ho me of disintegrat pa 250 EDT ng tablet t he ing tablet MG Evangelic [facility] ng Oral Tablet Vitamin Vitami 10/03/ complet Vitamin B- 12 SIGMACARE B-12 n B 2018 ed 1,000 mcg (The (cyanocobal 1 MG 07:07: tablet [place] cardenas Oral 05 AM Home of (vitamin Tablet EDT the b-12)) Evangelica 1,000 mcg l Yazidism tablet Judaism) Vitamin Vitami 10/03/ complet Vitamin B- 12 SIGMACARE B-12 n B 12 2018 ed 1,000 mcg (The (cyanocobal 1 MG 07:07: tablet [place] cardenas Oral 05 AM Home of (vitamin Tablet EDT the b-12)) [facility] 1,000 mcg l Yazidism tablet Judaism) tramadol 50 tramad 10/03/ complet tramad ol 50 SIGMACARE mg tablet ol 2019 ed mg tablet (The hydroc 07:04: [place] hlorid 49 AM Home of e 50 EDT the MG [facility] Oral l Yazidism Tablet Judaism) tramadol 50 tramad 10/03/ complet tramad ol 50 SIGMACARE mg tablet ol 2019 ed mg tablet (The hydroc 07:04: [place] hlorid 49 AM Home of e 50 EDT the MG [facility] Oral l Yazidism Tablet Judaism) gabapentin gabape 10/03/ complet gabapen tin SIGMACARE 100 mg ntin 2019 ed 100 mg (The capsule 100 MG 07:01: capsule [place] Oral 57 AM Home of Capsul EDT the e Evangelica l Yazidism Judaism) gabapentin gabape 10/03/ complet gabapen tin SIGMACARE 100 mg ntin 2019 ed 100 mg (The capsule 100 MG 07:01: capsule [place] Oral 57 AM Home of Capsul EDT the e Evangelica l Yazidism Judaism) amantadine Amanta complet amantad ine SIGMACARE HCl 100 mg dine 2018 ed HCl 100 mg (Th e tablet Hydroc 07:00: tablet [place] hlor[place] 42 AM Home of e 100 EDT the MG [facility] Judaism) amantadine [place] complet amantad ine SIGMACARE HCl 100 mg dine 2018 ed HCl 100 mg (Th e tablet Hydroc 07:00: tablet [place] hlor[place] 42 AM Home of e 100 EDT the MG Lydiaangelica Oral [facility] Tablet Judaism) acetaminoph 854574 complet acetam inophe SIGMACARE en 325 mg 2018 ed n 325 mg (The tablet 06:57: tablet [place] 12 AM Home of EDT the [facility]) acetaminoph 765880 complet acetam inophe SIGMACARE en 325 mg 2018 ed n 325 mg (The tablet 06:57: tablet [place] 12 AM Home of EDT [facility]) Hydrogel 206387 complet Hydrogel SIGMACARE (gel base 73062 2018 ed (The no.41 03:26: [place] (bulk)) 48 AM Home of EDT the [facility]) Hydrogel 259148 complet Hydrogel SIGMACARE (gel base 10334 2018 ed (The no.41 03:26: [place] (bulk)) 48 AM Home of EDT [facility]) Pro-Stat 726455 complet Pro-Stat SIGMACARE Sugar Free 93340 2018 ed Sugar Free (T he (amino 07:09: 15 gram-100 [place] acids-prote 57 AM kcal/30 mL H ome of in EDT oral liquid the hydrolys) Evangelica 15 gram-100 l Jeffery an kcal/30 mL Judaism) oral liquid Pro-Stat 460485 10/01/ complet Pro-Stat SIGMACARE Sugar Free 81501 2018 ed Sugar Free (T he (amino 07:09: 15 gram-100 [place] acids-prote 57 AM kcal/30 mL H ome of in EDT oral liquid the hydrolys) [facility] 15 gram-100 l [place] kcal/30 mL Judaism) oral liquid bacitracin Bacitr 05/03/ complet bacitra sharona SIGMACARE 500 acin 2019 ed 500 (The unit/gram 0.5 03:19: unit/gram [place] topical UNT/MG 53 PM topical Home o f packet Topica EDT packet the l Evangelica Ointme l Yazidism nt Judaism) bacitracin Bacitr 09/19/ complet bacitra sharona SIGMACARE 500 acin 2019 ed 500 (The unit/gram 0.5 03:19: unit/gram [place] topical UNT/MG 53 PM topical Home o f packet Topica EDT packet the l Evangelica Ointme l Yazidism nt Judaism) Silvadene silver 05/03/ complet Silvaden e 1 SIGMACARE (silver sulfad 2019 ed % topical (The sulfadiazin iazine 03:19: cream [place] e) 1 % 10 52 PM Home of topical MG/ML EDT the cream Topica Evangelica l l Yazidism Cream Judaism) [Bangura dene] Silvadene silver 05/03/ complet Silvaden e 1 SIGMACARE (silver sulfad 2019 ed % topical (The sulfadiazin iazine 03:19: cream [place] e) 1 % 10 52 PM Home of topical MG/ML EDT the cream Topica Evangelica l l Yazidism Cream Judaism) [Bangura dene] Silvadene silver 05/03/ complet Silvaden e 1 SIGMACARE (silver sulfad 2019 ed % topical (The sulfadiazin iazine 03:19: cream [place] e) 1 % 10 52 PM Home of topical MG/ML EDT the cream Topica Evangelica l l Yazidism Cream Judaism) [Bangura dene] bacitracin Bacitr // complet bacitra sharona SIGMACARE 500 acin 2019 ed 500 (The unit/gram 0.5 03:19: unit/gram [place] topical UNT/MG 52 PM topical Home o f packet Topica EDT packet the l Evangelica Ointme l Yazidism nt Judaism) bacitracin Bacitr // complet bacitra sharona SIGMACARE 500 acin 2019 ed 500 (The unit/gram 0.5 03:19: unit/gram [place] topical UNT/MG 52 PM topical Home o f packet Topica EDT packet the l Evangelica Ointme [facility]) bacitracin Bacitr 09/19/ complet bacitra sharona SIGMACARE 500 acin 2019 ed 500 (The unit/gram 0.5 03:19: unit/gram [place] topical UNT/MG 52 PM topical Home o f packet Topica EDT packet the l Evangelica Ointme [facility]) bacitracin Bacitr 09/19/ complet bacitra sharona SIGMACARE 500 acin 2019 ed 500 (The unit/gram 0.5 03:19: unit/gram [place] topical UNT/MG 52 PM topical Home o f packet Topica EDT packet the l Evangelica Ointme [facility]) bacitracin Bacitr 09/19/ complet bacitra sharona SIGMACARE 500 acin 2019 ed 500 (The unit/gram 0.5 03:19: unit/gram [place] topical UNT/MG 52 PM topical Home o f packet Topica EDT packet the l Evangelica Ointme [facility]) bacitracin Bacitr 09/19/ complet bacitra sharona SIGMACARE 500 acin 2019 ed 500 (The unit/gram 0.5 03:19: unit/gram [place] topical UNT/MG 52 PM topical Home o f packet Topica EDT packet the [facility] Oint[facility]) tamsulosin Tamsul 09/19/ complet tamsulo sin SIGMACARE 0.4 mg osin 2019 ed 0.4 mg (The capsule hydroc 02:39: capsule [place] h[place] 48 PM Home of e 0.4 EDT the MG [facility] Caps[facility] Judaism) e tramadol 50 tramad tramad ol 50 SIGMACARE mg tablet ol 2019 ed mg tablet (The hydroc 02:39: [place] hlorid 48 PM Home of e 50 EDT the MG Evangel[facility] Oral [facility] Tablet Judaism) acetaminoph 428199 acetam inophe SIGMACARE en 325 mg 46179 2018 ed n 325 mg (The tablet 02:39: tablet [place] 48 PM Home of EDT the Evangelica [facility]) tamsulosin Tamsul 09/19/ tamsulo sin SIGMACARE 0.4 mg osin 2019 ed 0.4 mg (The capsule hydroc 02:39: capsule [place]lor[place] 48 PM Home of e 0.4 EDT the MG Evangel[facility] Oral l Yazidism Capsul Judaism) e gabapentin gabape gabapen tin SIGMACARE 100 mg ntin 2019 ed 100 mg (The capsule 100 MG 02:39: capsule [place] Oral 47 PM Home of Capsul EDT the e Evangelica l Yazidism Judaism) heparin hepari 09/19/ heparin SI GMACARE (porcine) n 2019 ed (porcine) (The 5,000 sodium 02:39: 5,000 [place] unit/mL , 47 PM unit/mL Home of injection porcin EDT injection the solution e 5000 solution Evang elica UNT/ML [facility] Inject Judaism) able Soluti on heparin hepari 09/19/ heparin SI GMACARE (porcine) n 2019 ed (porcine) (The 5,000 sodium 02:39: 5,000 [place] unit/mL , 47 PM unit/mL Home of injection porcin EDT injection the solution e 5000 solution Evang elica UNT/ML [facility] Inject Judaism) able Soluti on Vitamin Vitami 09/19/ Vitamin B- 12 SIGMACARE B-12 n B 12 2018 ed 1,000 mcg (The (cyanocobal 1 MG 02:39: tablet [place] cardenas Oral 46 PM Home of (vitamin Tablet EDT the b-12)) [facility] 1,000 mcg l Yazidism tablet Judaism) carbidopa Carbid carbidop a 25 SIGMACARE 25 opa 25 2019 ed mg-levodopa (The mg-levodopa MG / 02:39: 250 mg [place] 250 mg Levodo 45 PM tablet Home of tablet pa 250 EDT the MG Evangelica Oral Yazidism Tablet Judaism) amantadine [place] amantad ine SIGMACARE HCl 100 mg dine 2019 ed HCl 100 mg (Th e tablet Hydroc 02:39: tablet [place] 45 PM Home of e 100 EDT the MG Evangelica Oral l Yazidism Tablet Judaism) Tuberculin 066760 Tubercu tad SIGMACARE Syringe 72959 2018 ed Syringe 1 mL (Th e (syringe 02:39: [place] (disposable 43 PM Home of )) 1 mL EDT [facility] Tuberculin 929829 Tubercu tad SIGMACARE Syringe 05940 2019 ed Syringe 1 mL (Th e (syringe 02:39: [place] (disposable 43 PM Home of )) 1 mL EDT [facility] Y[facility]id[facility] Judaism) Insurance Providers Payer name Policy type Policy ID Covered Covered democrat's Policy P anastacia / Coverage democrat ID relationship to [place] Inf ormation type la BC PPO [id number] SP [id number] MEDICARE [id number] SP [id number] BC PPO [id number] SP [id number] MEDICARE [id number] SP [id number] 64 4 MCR Medicare [id number] Dependent RONNELL [id number] A Part A [place] MCA Medicare [id number] Part A 4 Medicare Medicare [id number] Self [id number] Part B Part B 4 Blue Cross Blue Cross / [id number] Dependent RONNELL [id number] Blue Shield Blue Shield 15 [place] Federal Employee Program Blue Cross / Blue Cross / [id number] Self [id number] Blue Shield Blue Shield 15 Medicare 2 [id number] Self [id number] Part B 4 [facility] 18 [id number] 4 MCR 18 [id number] Self [id number] A Blue Cross 6 [id number] Self [id number] Blue Shield 15 Federal Employee Program Blue Cross / 6 [id number] Self [id number] Blue Shield 15 [facility] Medicare [id number] Dependent RONNELL [id number] A Part A [place] [facility] Medicare [id number] Part A 4 MCR 18 [id number] Self [id number] A [facility] 18 [id number] 64 4 MCR 18 [id number] Self [id number] A [facility] 18 [id number] A Medicare 2 [id number] Self [id number] A Part B [facility] 18 [id number] A Medicare Medicare [id number] Self [id number] A Part B Part B MCA Medicare [id number] A Part A Blue Cross 6 [id number] Self [id number] Blue Shield 15 Federal Employee Program Medicare Medicare [id number] Self [id number] 64 Part A Part A 4 Blue Cross / Blue Cross / [id number] Self [id number] Blue Shield Blue Shield 15 Medicare Medicare [id number] Self [id number] Part B Part B 4 Medicare Medicare [id number] Self [id number] Part A Part A 4 Blue Cross / 6 [id number] Self [id number] Blue Shield 15 Medicare 2 [id number] Self [id number] Part B 4 Medicare 18 [id number] Self [id number] Part A 4 Problems, Conditions, and Diagnoses Code Display Name Description Problem Type Effective Data Sour ce(s) Dates N39.0 Urinary tract Urinary tract Diagnosis 11/20/2018 SIGMACAR E infection, site infection, site 12:00:00 AM (Janett theran Center not specified not specified EDT at Work4 [facility] [employer]) Z41.8 Encounter for Encntr for oth Diagnosis 11/13/2018 SIGMACA RE other procedures proc for purpose 12:00:00 AM ( Yazidism Center for purposes oth than remedy EDT at [facility] other than health state [employer]orporated ) remedying health state R23.8 Other skin Other skin Diagnosis 11/12/2018 SIGMACARE changes changes 12:00:00 AM (Yazidism [facility] EDT at [employer]) T81.30XA Disruption of Disruption of Diagnosis 11/11/2018 SIGMACAR E wound, wound, 12:00:00 AM (Yazidism [facility] unspecified, unspecified, EDT at [employer] [facility] initial encounter initial encounter [employer]) D51.3 Other dietary Other dietary Diagnosis 11/11/2018 SIGMACAR E vitamin B12 vitamin B12 12:00:00 AM (Yazidism C enter deficiency anemia deficiency anemia EDT at [employer] [facility]) 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 SIGMACARE cognitive decline cognitive decline 12:00:00 AM ([facility]az[facility]ism [facility]) I10 Essential Essential Diagnosis 11/11/2018 SIGMACARE (primary) (primary) 12:00:00 AM (Yazidism [address] [facility] hypertension hypertension EDT at [facility] [facility]) J18.9 Pneumonia, Pneumonia, Diagnosis 11/11/2018 SIGMACARE unspecified unspecified 12:00:00 AM (Yazidism C enter organism organism [facility] [employer] [facility]) R13.10 Dysphagia, Dysphagia, Diagnosis 11/11/2018 SIGMACARE unspecified unspecified 12:00:00 AM (Yazidism C enter EDT at [facility]) L89.312 Pressure ulcer of Pressure ulcer of Diagnosis 11/11/2018 SIGMACARE right buttock, right buttock, 12:00:00 AM ([facility] stage 2 stage 2 EDT at [facility] [employer] [facility]) Z41.9 Encounter for Encntr for proc Diagnosis 10/01/2018 SIGMAC ARE (The procedure for for purpose oth 12:00:00 AM [place] of purposes other than remedy hlth EDT the Islam than remedying formerly [facility] health state, unspecified R13.12 Dysphagia, Dysphagia, Diagnosis 09/23/2018 SIGMACARE (The oropharyngeal oropharyngeal 12:00:00 AM [place] Home of phase phase EDT the Evangelica l Yazidism [facility] h) L08.89 Other specified Oth local Diagnosis 09/20/2018 SIGMACARE (The local infections infections of the 12:00:00 AM [place] Home of of the skin and skin and EDT the Evang elical subcutaneous subcutaneous Yazidism C [facility]urch) tissue tissue L08.9 Local infection Local infection Diagnosis 09/20/2018 SIGM ACARE (The of the skin and of the skin and 12:00:00 AM [place] Home of subcutaneous subcutaneous EDT the Evange lical tissue, tissue, unsp [facility]) unspecified R26.2 Difficulty in Difficulty in Diagnosis 09/20/2018 SIGMACAR E (The walking, not walking, not 12:00:00 AM [facility] elsewhere elsewhere EDT the Emily disla classified classified [facility]azidism [facility]) M62.81 Muscle weakness Muscle weakness Diagnosis 09/20/2018 SIGM ACARE (The (generalized) (generalized) 12:00:00 AM [facility] EDT the Emily Basurto ) J17 Pneumonia in Pneumonia in Diagnosis 09/19/2018 SIGMACARE (The diseases diseases 12:00:00 AM [facility] classified classified EDT the Emily disla elsewhere elsewhere [facility]azidism [facility]) R52 Pain, unspecified Pain, unspecified Diagnosis 09/19/2018 SIGMACARE (The 12:00:00 AM [facility] EDT the [facility]) N40.1 Benign prostatic Benign prostatic Diagnosis 09/19/2018 SI GMACARE (The hyperplasia with hyperplasia with 12:00:00 AM [place] [facility] lower urinary lower urinary EDT the Haile gelical tract symptoms tract symp [facility]ismandrew varner) D51.9 Vitamin B12 Vitamin B12 Diagnosis 09/19/2018 SIGMACARE (T he deficiency deficiency 12:00:00 AM [facility] anemia, anemia, EDT the Emily disla unspecified unspecified [facility]) R13.10 Dysphagia, Dysphagia, Diagnosis 09/19/2018 SIGMACARE (The unspecified unspecified 12:00:00 AM [place] [facility] EDT the [facility]) Z11.1 Encounter for Encounter for Diagnosis 09/19/2018 SIGMACAR E (The screening for screening for 12:00:00 AM [facility] respiratory respiratory EDT the Kelvin venecia tuberculosis tuberculosis Yazidism [facility]) Z85.51 Personal history Personal history Diagnosis 09/19/2018 SI GMACARE (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) K59.00 Constipation, Constipation, Diagnosis 09/19/2018 SIGMACAR E (The unspecified unspecified 12:00:00 AM [place] [facility] EDT the Emily Dhillon [facility]) N40.0 Benign prostatic Benign prostatic Diagnosis 09/19/2018 SI GMACARE (The hyperplasia hyperplasia 12:00:00 AM [place] [facility] without lower without lower EDT the Haile gelical urinary tract urinry tract [facility]) symptoms J98.11 Atelectasis Atelectasis Diagnosis 09/19/2018 SIGMACARE (T he 12:00:00 AM [facility] of EDT the Emily Dhillon [facility]) H53.9 Unspecified Unspecified Diagnosis 09/19/2018 SIGMACARE (T he visual visual 12:00:00 AM [facility] disturbance disturbance EDT the Kelvin cuadra Yazidism 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) M19.90 Unspecified Unspecified Diagnosis 09/19/2018 SIGMACARE (T he osteoarthritis, osteoarthritis, 12:00:00 AM [place] [facility] unspecified site unspecified site EDT th e Islam Yazidism [facility]) J18.9 Pneumonia, Pneumonia, Diagnosis 09/19/2018 SIGMACARE (The unspecified unspecified 12:00:00 AM [place] [facility] organism organism EDT the Emily Dhillon [facility]) G20 Parkinson's Parkinson's Diagnosis 09/19/2018 SIGMACARE (T he disease disease 12:00:00 AM [facility] [facility] of EDT the Emily Dhillon [facility]) T79.6XXD Traumatic Traumatic Diagnosis 09/19/2018 SIGMACARE (The ischemia of ischemia of 12:00:00 AM [place] [facility] muscle, muscle, EDT the Emily disla subsequent subsequent [facility]azidism [facility]) encounter encounter R26.2 Difficulty in Difficulty in Diagnosis 12/27/2015 SIGMACAR E walking, not walking, not 12:00:00 AM ([facility] elsewhere elsewhere EDT at [facility]) M62.81 Muscle weakness Muscle weakness Diagnosis 12/27/2015 SIGM ACARE (generalized) (generalized) 12:00:00 AM ([facility] EDT at [facility]) Z11.1 Encounter for Encounter for Diagnosis 12/26/2015 SIGMACAR E screening for screening for 12:00:00 AM ([facility] respiratory respiratory EDT at [facility] tuberculosis tuberculosis [facility]) R52 Pain, unspecified Pain, unspecified Diagnosis 12/26/2015 SIGMACARE 12:00:00 AM ([facility] ter EDT at [facility]) R50.9 Fever, Fever, Diagnosis 12/26/2015 SIGMACARE unspecified unspecified 12:00:00 AM ([facility] C enter EDT at [facility]) E16.4 Increased Increased Diagnosis 12/26/2015 SIGMACARE secretion of secretion of 12:00:00 AM ([facility] gastrin gastrin EDT at [facility]) 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, fungoides, 12:00:00 AM ([facility] ter unspecified site unspecified site EDT at [facility]) G25.0 Essential tremor Essential tremor Diagnosis 12/26/2015 SI GMACARE 12:00:00 AM ([facility] EDT at [facility]) K59.09 Other Other Diagnosis 12/26/2015 SIGMACARE constipation constipation 12:00:00 AM ([facility] EDT at [facility]) E55.9 Vitamin D Vitamin D Diagnosis 12/26/2015 SIGMACARE deficiency, deficiency, 12:00:00 AM ([facility]ism C enter unspecified unspecified EDT at [facility]) Z47.1 Aftercare Aftercare Diagnosis 12/26/2015 SIGMACARE following joint following joint 12:00:00 AM ([facility] replacement replacement EDT at [facility] surgery surgery [facility]) Z48.01 Encounter for Encounter for Diagnosis 12/26/2015 SIGMACAR E change or removal change or removal 12:00:00 AM ([facility] [place] of surgical wound of surgical wound EDT at [place] dressing dressing [facility]) N40.0 Benign prostatic Enlarged prostate Diagnosis 12/26/2015 S IGMACARE hyperplasia without lower 12:00:00 AM ([facility] without lower urinary tract EDT at [facility] urinary tract symptoms [employer]) symptoms M48.00 Spinal stenosis, Spinal stenosis, Diagnosis 12/26/2015 SI GMACARE site unspecified site unspecified 12:00:00 AM ( [facility] EDT at [facility]) R32 Unspecified Unspecified Diagnosis 12/26/2015 SIGMACARE urinary urinary 12:00:00 AM ([facility] incontinence incontinence EDT at [facility]) M19.90 Unspecified Unspecified Diagnosis 12/26/2015 SIGMACARE osteoarthritis, osteoarthritis, 12:00:00 AM ([facility] unspecified site unspecified site EDT at [facility]) Z85.51 Personal history Personal history Diagnosis 12/26/2015 SI GMACARE of malignant of malignant 12:00:00 AM ([facility] neoplasm of neoplasm of EDT at [facility] bladder bladder [employer]) 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 artificial knee artificial knee 12:00:00 AM ([facility] [place] joint joint EDT at [facility]) Z51.89 Encounter for Encounter for Diagnosis 12/26/2015 SIGMACAR E other specified other specified 12:00:00 AM ([facility] aftercare aftercare EDT at [facility]) G20 Parkinson's Parkinson's Diagnosis 12/26/2015 SIGMACARE disease disease 12:00:00 AM ([facility] EDT at [facility]) N40.1 Benign prostatic Enlarged prostate Diagnosis 12/26/2015 S IGMACARE hyperplasia with with lower 12:00:00 AM ([facility] lower urinary urinary tract EDT at [facility] tract symptoms symptoms [employer]) Results ID Date Data Source [id number] 11/21/2018 02:55:00 PM EDT [facility] Name Value Range Interpretation Code Description Data Christina rce(s) Supporting Document(s ) GLUCOSE 82 mg/dL 74-106 [facility] BUN 16 mg/dL 7-18 [facility] 0.970 EST.GLOMERULAR FILTRATION RATE 73.28 mL/min >=60.0 [facility] EST.GFR 88.67 mL/min >=60.0 [facility] PHARMACY COCKCROFT-GAULT CRCLR 37.50 mL/min >=60.00 [facility] 0.970 BUN/CREAT RATIO 16.4 6.0-20.0 [facility] SODIUM 138 mmol/L 135-145 [facility] POTASSIUM 4.5 mmol/L 3.5-5.1 [facility] CHLORIDE 105 mmol/L 98-107 [facility] CO2 23 mmol/L 23-33 [facility] ANION GAP 10.0 mmol/L 8-20 [facility] AST 29 U/L 15-37 [facility] ALK PHOS 171 U/L 45-117 Above high normal [facility] TOTAL BILIRUBIN 0.8 mg/dL 0.2-1.2 [facility] TOTAL PROTEIN 6.7 g/dL 6.4-8.3 [facility] ALBUMIN 2.8 g/dL 3.4-5.0 Below low normal [facility] GLOBULIN 3.9 g/dL 2.6-3.8 Above high normal [facility] A/G RATIO CALCULATION 0.7 1.0-5.0 Below low normal [facility] CALCIUM 8.8 mg/dL 8.5-10.1 [facility] ALTI 17 U/L 16-61 [facility] OSMOLALITY CALCULATION 276 mos/kg 273-304 [facility] ID Date Data Source [id number] 11/21/2018 12:54:00 PM EDT [facility] Name Value Range Interpretation Code Description Data Christina rce(s) Supporting Document(s ) WBC 5.89 K/uL 4.00-10.00 [facility] RBC 3.46 M/uL 4.63-6.08 Below low normal [facility] HGB 12.0 g/dL 13.7-17.5 Below low normal [facility] HCT 36.7 % 40.1-51.0 Below low normal [facility] MCV 106.1 fL 80.0-96.0 Above high normal [facility] MCH 34.7 pg 27.0-33.2 Above high normal [facility] MCHC 32.7 g/dL 32.2-35.5 [facility] RDW 13.8 % 11.6-14.4 [facility] PLT 256 K/uL 150-450 [facility] MPV 9.5 fL 8.5-11.8 [facility] ID Date Data Source [id number] 11/21/2018 02:09:00 PM EDT [facility] Name Value Range Interpretation Description Data Sup porting Code Source(s) Document(s ) COLOR IQ LIGHT-YELL YELLOW [facility] OW [facility] CLARITY IQ CLEAR CLEAR [facility] SPECIFIC 1.013 1.001-1.03 St kes GRAVITY IQ 5 [facility] pH IQ 6.0 4.6-8.0 [facility] LEUKOCYTES IQ NEGATIVE NEGATIVE [facility] Ml/uL [facility] NITRITE IQ NEGATIVE Negative [facility] PROTEIN IQ NEGATIVE Negative [facility] mg/dL [facility] GLUCOSE IQ NEGATIVE Negative [facility] mg/dL [facility] KETONES IQ NEGATIVE Negative [facility] mg/dL [facility] UROBILINOGEN NEGATIVE Negative [facility] IQ E.U./dL [facility] BILIRUBIN IQ NEGATIVE NEGATIVE [facility] mg/dL [facility] BLOOD IQ NEGATIVE NEGATIVE [facility] ID Date Data Source [id number] 09/20/2018 08:28:53 AM EDT SIGMACARE (Th e [facility] the [facility]) Name Value Range Interpretation Description Data Sup porting Code Source(s) Document(s ) WBC ([id number]) 10.25K/u 3.80-10. <td SIGMACARE L 50 ID="Observati (The [place] wf-Nsdz-z1lkf Home of the di0-7dpn-99of [facility]60[facility] Y[facility]idism [address]">([address] [place] [address]) WBC ([id number])</td ><td ID="Observati rs-Fhouw-i6oy qiz0-5jch-78z p-f06h-77s422 884355">10.25 </td><td ID="Observati yg-Cfok-e3ekh sf7-1zzb-70aa -g49q-83d0864 ">K/uL</ td><td ID="Observati yi-PowRzsir-a 5zlenh5-5wqq- 40xr-j86k-07b [id number]">3. 80-10.50</td> <td ID="Observati gn-Axesccfv-h 2ndyuv9-9hxt- 60uy-g89j-51u [id number]"></ td><td ID="Observati yt-Ufpika-z8g vzcc5-5vju-90 kv-l23k-28f98 1645429">Ann-Marie l</td> RBC 3.29M/uL 4.20-5.8 Below low normal <td SIGMACARE 0 ID="Observati (The [place] gc-Tfwl-8jkv0 Home of the 2x2-8n35-1kw4 Islam -k3s0-6i9p592 Yazidism 52b79">([address]2019 Judaism) 20) RBC</td><td ID="Observati vo-Uswuo-9fsm 80i8-8t12-5lj 5-u0v9-5f2e63 752b79">3.29< /td><td ID="Observati lm-Lllw-6sxx8 4o2-4s07-7mp4 -d0d9-1c6c434 52b79">M/uL</ td><td ID="Observati gi-AvlSugxk-0 kvq29z8-4n16- 7ee0-i3w5-8y8 i20529q95">4. 20-5.80</td>< td ID="Observati by-Qbrcqqhz-2 zlt71b3-1a83- 7pl8-t3u9-4c8 f86201l49">L< /td><td ID="Observati lu-Tbdddm-0rk m67h1-4n45-7l u4-u0f7-7g5z5 4040w70">Ann-Marie l</td> Hemoglobin 11.5g/dL 13.0-17. Below low normal <td SIGMACARE ([id number]) 0 ID="Observati (The [place] zt-Hrbc-5u95i Home of the 81w-nxjr-2ru7 Islam -bdfd-l7x8mk1 Yazidism ade80">([address] Judaism) 25) Hemoglobin ([id number])</td ><td ID="Observati sf-Hptel-7a83 n77a-ydxp-6lt 4-tyag-r7n0rh 2ade80">11.5< /td><td ID="Observati za-Yrng-6l97j 46d-zpal-8vv5 -bdfd-g1k8zt5 ade80">g/dL</ td><td ID="Observati je-GmeMgzod-5 k91g34o-jwvl- 5yt2-xuoo-h8z 3wz2aix24">13 .0-17.0</td>< td ID="Observati rz-Cvnvthgf-6 c57q35j-gjey- 8wi9-gqfh-u2r 6fo6tzz14">L< /td><td ID="Observati vv-Umdobr-9p3 9d38r-fhif-8e h8-pnrr-q0p9f z5zzn25">Ann-Marie l</td> Hematocrit 35.0% 39.0-50. Below low normal <td SIGMACARE ([id number]) 0 ID="Observati ([facility] mj-Khsl-6ityl Home of the 3s9-ljf6-5c35 Islam -d56z-vmwr4t6 Yazidism b6aaa">([address] Judaism) 30) Hematocrit ([id number])</td ><td ID="Observati lf-Qfchp-7uqg y3t2-rkf8-9a9 6-q20i-abbd2z 3b6aaa">35.0< /td><td ID="Observati aw-Qysw-6ilxt 7b8-ndu5-4u54 -n03j-ipth5r9 b6aaa">%</td> <td ID="Observati ji-YqnZxqky-6 lmhz4b1-lox6- 3i89-v62m-nbm g0a4c7vkm">39 .0-50.0</td>< td ID="Observati fe-Zmrtrwik-3 hwyr0e5-qqp3- 6m47-i30l-fwc u7h0c3mon">L< /td><td ID="Observati fq-Bxhyqx-4qt xj0g7-gad4-1f 20-b76l-dguh0 c0a3gec">Ann-Marie l</td> MCV 106.4fl 80.0-100 Above high normal <td SIGMACARE .0 ID="Observati (The [place] le-Yttr-0b41h Home of the swr-c2z3-14g4 Islam -906e-l14505e Yazidism 50[address]">([address] Judaism) 35) MCV</td><td ID="Observati nw-Sbaxa-4m86 wrqz-y8e3-04i 4-788c-x61467 h24224">106.4 </td><td ID="Observati nl-Yqhm-9s60k hvr-y2k2-85l6 -906e-i19015m 18105">fl</td ><td ID="Observati rk-BkuQmsmi-8 n95bhol-q8q6- 15x7-784l-i51 316n87333">80 .0-100.0</td> <td ID="Observati uw-Lvjcrsto-9 q07vnuk-h7d7- 16n2-708y-o88 775n79792">H< /td><td ID="Observati vc-Kyiwrw-3p6 3vxds-q6m3-75 q5-111z-d5670 2y43039">Ann-Marie l</td> MCH 35.0pg 27.0-34. Above high normal <td SIGMACARE 0 ID="Observati (The [place] kc-Iian-w6097 Home of the 61f-4o02-8gh0 Islam -8fed-n34o7s9 Yazidism 62428">([address] Judaism) 40) MCH</td><td ID="Observati tw-Jkbjp-r729 748w-2p88-9gu 9-6zdq-t95f0z 823469">35.0< /td><td ID="Observati wr-Ntqp-x1288 78p-3x10-8oe9 -8fed-w41w3n3 93794">pg</td ><td ID="Observati ax-PxcWjtuk-v 183488x-5p85- 5dn1-4tsy-o30 m7d112347">27 .0-34.0</td>< td ID="Observati fr-Ysqmovmw-z 469806p-0f47- 1hp8-3uan-w59 j9f932938">H< /td><td ID="Observati tp-Iyrxlr-h29 6479c-9v56-5g u1-7lfd-p99f4 f812188">Ann-Marie l</td> MCHC 32.9gm/d 32.0-36. <td SIGMACARE L 0 ID="Observati (The [place] ap-Qivw-161gz Home of the 248-12i0-27by Islam -8828-0zih157 Yazidism 776b6">([address] Judaism) 45) MCHC</td><td ID="Observati pr-Ubpot-991z m512-48v0-91g g-8752-7mpb96 0776b6">32.9< /td><td ID="Observati ic-Gevf-005ac 410-41q4-54xd -8828-2mbl082 776b6">gm/dL< /td><td ID="Observati mm-UgsIooxu-2 01rm221-75v5- 19mp-8520-8ml u696676a1">32 .0-36.0</td>< td ID="Observati mi-Qqniwtch-2 39ha329-73t2- 60gw-0025-6wb d539028b6"></ td><td ID="Observati dt-Iaques-459 zn017-79a5-59 eg-5181-2vru5 41493s4">Ann-Marie l</td> RDW 12.8% 10.3-14. <td SIGMACARE 5 ID="Observati (The [place] fp-Mcwe-b29x9 Home of the 9c6-200z-6cs6 Islam -8742-15th2jf Yazidism 46309">([address] Judaism) 60) RDW</td><td ID="Observati pw-Pdyww-b13b 63j0-418b-8vs 5-7410-95el5q b16638">12.8< /td><td ID="Observati ig-Qabc-n70j6 9h8-484h-8ni3 -8742-69mc6kr 51546">%</td> <td ID="Observati dj-LrjAzcqg-z 02z54s7-947d- 5fx0-1911-12r a9ek39381">10 .3-14.5</td>< td ID="Observati sg-Ficadodw-k 35o78q0-549u- 1bi6-2494-51u k6sj76434"></ td><td ID="Observati lz-Vbznfu-i10 u83e2-617y-8d k6-2712-20yo3 ec04245">Ann-Marie l</td> Platelet 329K/uL 150-400 <td SIGMACARE Count ID="Observati (The [place] ([id number]) qm-Fgmf-ewlj5 Home of the 29m-46v5-17n9 Islam -89aa-t63sb28 Yazidism 49cd4">([address] Judaism) 50) Platelet Count ([id number])</td ><td ID="Observati ii-Umzem-mubs 337n-83j0-57a 2-76oe-u11bv7 749cd4">329</ td><td ID="Observati tj-Gdtz-xoqi8 45o-24l0-93y3 -89aa-c76fj30 49cd4">K/uL</ td><td ID="Observati in-OogQpktp-d ece091k-67q7- 50h1-66pg-k26 fz4739kt6">15 0-400</td><td ID="Observati he-Dnpcefrf-i jcm279b-19j1- 25f5-93zu-j43 ww9178je6"></ td><td ID="Observati bh-Iuhreu-wkt w450v-98g0-60 i7-34qm-n44ch 9452re5">Ann-Marie l</td> NEUT% 86.8% 43.0-77. Above high normal <td SIGMACARE 0 ID="Observati (The [place] nb-Vhvn-296s8 Home of the 1x2-2e7m-2m79 Islam -3fb7-763o451 Yazidism 781b4">([address] Depgzb) 65) NEUT%</td><td ID="Observati tl-Djkhk-731q 19w6-2s3c-4v2 7-9ag3-458r00 1781b4">86.8< /td><td ID="Observati ez-Ytmy-766p7 8c3-1h5y-5l89 -8he6-619p137 781b4">%</td> <td ID="Observati mb-HuzZspmg-4 74n70n7-6f7t- 5h57-8zf4-928 p792005k6">43 .0-77.0</td>< td ID="Observati jw-Bnzzdwlp-8 24r43f1-5s9c- 0w16-5nn2-412 h059249g1">H< /td><td ID="Observati eu-Czjuau-354 f05u9-3b2q-9u 33-7fj5-985c9 63721r7">Ann-Marie l</td> LYMPH% 6.1% 13.0-44.0 Below <td ID="Cpruoglcbax-Yjcj-c18e14oxz03i38ur-7g25-4680-ymb2-3ex14653n1o2">[id number]) [facility] low LYMPH%</td><td (The normal ID="Naqlfahceva-Kngaj-n32a12ktp95o75js-8z72-0477-lcd1-2kt57186p6g0">6.1</td><td [place] ID="Xmhemcmcotr-Nuhj-y34z 34mz-3m21-05034b03-1163-dzt0-5at63427q2i2">%</td><td Home of the ID="Txxbeetvfvl-UnlGbdll-c39o03ppd55p65ma-0n98-4850-lma0-6ov78439s3t3">13.0-44.0</td><td Islam ID="Observation-Abnormal- u14h53nt-1y43-3711-zcj6-8wn24179s5m6">L</td><td Yazidism ID="Fwjhobnapml-Yntswn-d8 9i66jb-9q20-6691-yiq3-6vl94805t8b3">Final</td> Judaism) MONO% 1.8% 2.0-14.0 Below <td ID="Dyqbwfngasg-Iofx-55583o6553325q64-2712-8s23-1138-8655410pk520">([id number]) [facility] low MONO%</td><td (The normal ID="Sbfgcmjfncn-Bdkow-35095w5698424a66-4923-0u30-1163-9185480qz225">1.8</td><td [place] ID="Sfievugfjho-Hjsy-8419 4n08-4401-0x95-0221-3514166fh890">%</td><td Home of the ID="Gkjkusmunzf-HgrNrjlh-74934c0617748e48-5352-4c55-1938-6804384ld792">2.0-14.0</td><td Islam ID="Observation-Abnormal- 54778r15-7796-7p22-0623-4747967bt358">L</td><td Yazidism ID="Niyujlngzwi-Wdgvug-15 044f22-1656-2w45-7791-7120237vf937">Final</td> Judaism) EOS% 1.8% 0.0-6.0 <td ID="Mmwaaudmstb-Ebrt-g12668ibz42631mw-708y-99ve-366m-34nwnf08c141">(9336812) [facility] EOS%</td><td (The ID="Tlaqyeeunmf-Prjlu-t93 998eb-865z-99ty-986c-57ijmy36z008">1.8</td><td [place] ID="Olueydnfuto-Uddd-m523 79qi-343o-33vs-986c-80vdzk29f875">%</td><td Home of the ID="Qzmvhfwdvfq-UuoKzama-t29917xnc55340tq-113f-42dt-824x-81frdm68k810">0.0-6.0</td><td Islam ID="Observation-Abnormal- [id number]-76fv-396k-41eezl97t121"></td><td Yazidism ID="Aepfyblwxws-Nkkvyc-h0 7625mx-709l-35aa-986c-87baag97h766">Final</td> Judaism) BASO% 0.9% 0.0-2.0 <td ID="Akwqynbwrsd-Ccod-5m1059506i899555-0988-95ce-a84l-g863d237j61w">([id number]) [facility] BASO%</td><td (The ID="Qgxfppoupdf-Uvufh-8x5 42854-3604-94av-d86u-p258p307m75w">0.9</td><td [place] ID="Dcdpqhgeddm-Qntr-7l73 0522-3256-70by-g98x-m913c920s60u">%</td><td Home of the ID="Zfmwwfivjwq-VsnAoaft-4f9168555y170316-6254-53jg-y59h-s434z792g96j">0.0-2.0</td><td Islam ID="Observation-Abnormal- [id number]-e87h-t803u411y95k"></td><td Yazidism ID="Tcamupcnmir-Opvubu-6o [id number]-j55m-f180g169p75t">Final</td> Judaism) NEUT# 8.90K 1.80-7.40 Above <td ID="Yngzfqlywuy-Wlxo-0tpt89186hdk9812-9731-5dj3-06h9-430p856c5a8m">([id number]) [facility] /uL high NEUT#</td><td (The normal ID="Hjphmjlbsir-Eljkd-0fmk13350qfy4521-8464-0qv4-99q0-652d631l7j5a">8.90</td><td [place] ID="Wneehtcquht-Clbg-2okq 6850-7856-2im47jx6-14p0-050n852x0p1m">K/uL</td><td Home of the ID="Yjxoospqfay-VtrMunnb-2qan61282igj2966-3424-8vj4-76y5-233u938b8k9f">1.80-7.40</td><td Islam ID="Observation-Abnormal- 1she5694-9310-6lu1-20g0-170x072t2y2k">H</td><td Yazidism ID="Vqdjiysfsvi-Nyomlv-2k ec6288-0705-1je2-19c9-195d995j5c8j">Final</td> Judaism) LYMPH# 0.63K 1.00-3.30 Below <td ID="Adrmdhtvchl-Hkmq-99g43smr87s67pfl-5347-865g-a3g0-h660nj7uz331">([id number]) [facility] /uL low LYMPH#</td><td (The normal ID="Ltvmjlffyfi-Nsqsk-63w41dey26g98ral-2408-954z-v4i9-x733dh1ua774">0.63</td><td [place] ID="Imwwztuhwsx-Fkti-19i4 2iqo-5744-107x-o2v6-x207ql6dg299">K/uL</td><td Home of the ID="Rsoityoegur-MpyUtatf-34p88ypn40m61otk-1181-447o-f8a2-d113qy7fl702">1.00-3.30</td><td Islam ID="Observation-Abnormal- 54o83obp-4464-788k-f2i8-l038cb0vp052">L</td><td Yazidism ID="Pegpaclrfyo-Cxqalu-81 w41ojw-5530-790t-b8p4-f167oq3gi147">Final</td> Judaism) MONO# 0.18K 0.00-0.90 <td ID="Vfjpnmhtmop-Jbej-w82929l7y23606f5-nt03-23em-3w4c-7c96qvg21h20">([id number]) [facility] /uL MONO#</td><td (The ID="Ospmrttashp-Ldtkx-c92 565h9-vs85-68ic-3h3k-8y22paw23v09">0.18</td><td [place] ID="Utqkqeazqgz-Xuyp-z094 75h3-xi57-51gq-0c5q-7h79cpj75j54">K/uL</td><td Home of the ID="Zcicaijoghv-EwlEbwsu-h55896i5o11740r2-ck61-17um-4u5m-6a46rsu66m34">0.00-0.90</td><td Islam ID="Observation-Abnormal- [id number]-jn74-12ne-5w4h-1l51htn90r20"></td><td Yazidism ID="Nmvfowmrftg-Uowphx-t8 0251k5-ab25-86st-6y1h-1q76uxp30y53">Final</td> Judaism) EOS# 0.18K 0.00-0.50 <td ID="Ffkrfmgxcpz-Zzpa-c982e666o620a457-a962-9840-1cc1-x7395wlb9483">([id number]) [facility] /uL EOS#</td><td (The ID="Xamqirfhyrp-Irxae-l05 3i738-d737-8576-9kc0-s5321wvz3957">0.18</td><td [place] ID="Ixvmmyssord-Ovgu-o717 v876-m812-2505-3vd2-g6892sjh4643">K/uL</td><td Home of the ID="Ztehzxbjdrs-QgxUotoi-d168h932i142u655-h360-0034-0ic5-q3530qln7309">0.00-0.50</td><td Islam ID="Observation-Abnormal- u729s234-t032-4338-5tq7-u9415gsq9901"></td><td Yazidism ID="Jhuyrjonfnj-Mdrzhs-u6 80t640-o239-7388-8pg5-k9012utu9792">Final</td> Judaism) BASO# 0.09K 0.00-0.20 <td ID="Tdfmqqpjbcy-Uaxt-r23zbl5ld45ftt8a-2td7-7343-2kk7-52382t9017j0">([id number]) [facility] /uL BASO#</td><td (The ID="Nvyzaumzcag-Oixmn-e46 dle4k-6zv1-8798-7dh1-53055y3450k6">0.09</td><td [place] ID="Xrlgkhgfslq-Zkay-k95k de9m-1mz2-3911-1nk8-71277p8624t4">K/uL</td><td Home of the ID="Igabxzzeeid-LjbUpalo-a55qqp5dj56bav5i-5mo5-4660-2jf5-62464m0763s2">0.00-0.20</td><td Islam ID="Observation-Abnormal- t64mrl7q-5qz8-8610-5cr8-36747j4954g0"></td><td Yazidism ID="Ixtfqpmebly-[place]-b5 6kaj4b-5dk5-5049-9nn9-59201m0867d4">Final</td> Judaism) ID Date Data Source [id number] 09/20/2018 08:28:35 AM EDT [facility] ([facility] [place] [facility]) Name Value Range Interpretation Description Data Sup porting Code Source(s) Document(s ) RBC MORPH Abnormal Normal Abnormal (applies <td [facility] to non-numeric ID="Observati (The [place] results) no-Lles-856tx Home of the w6x-38ab-9lj8 Islam -bb-13781p1 Yazidism cc5bd">(16917 Judaism) 42) RBC MORPH</td><td ID="Observati co-Wexjf-102e hn4p-86go-2vm 1-41ng-70831q 9cc5bd">Abnor mal</td><td ID="Observati zj-Psmz-917ci x4u-81kk-9nk7 -91bb-84079v4 cc5bd"></td>< td ID="Observati hq-ZqoXgfkp-9 76xym1v-64xp- 0bs3-57nb-965 08x8eo5na">No rmal</td><td ID="Observati mr-Kzqkidda-3 13dgs2w-49wv- 5dq1-74zn-452 20k2al8cj">A< /td><td ID="Observati tp-Zycgtd-661 pfj6b-81qf-4g v4-41pa-12309 h0kz2rl">Ann-Marie l</td> PLT MORPH Normal Normal <td [facility] ID="Observati ([facility] ii-Miqb-221n5 [facility] 72j-095t-7nw6 Islam -aabb-312f696 Yazidism 2cdbe">([address] [place] [address]) 46) PLT MORPH</td><td ID="Observati ea-Iauel-429a 062q-348o-4jo 9-qeyu-711s13 32cdbe">[facility] l</td><td ID="Observati rx-Dpbi-078x6 43n-029p-5qt8 -aabb-143u859 2cdbe"></td>< td ID="Observati et-NukQwrdc-3 56v963l-380g- 1jx2-bgge-657 r7678ihqp">No rmal</td><td ID="Observati rh-Qhxjqebp-9 91u170x-376i- 3tp6-nlyw-664 c4083efrq"></ td><td ID="Observati vv-Wzcbov-512 t480c-728f-3z k6-nooz-122m7 532cdbe">Ann-Marie l</td> MYELO% 2.6% 0.0-0.0 Above high normal <td [facility] ID="Observati ([facility] tz-Hcts-i761i [facility] w86-040w-47ho Islam -09n6-770y0jr Yazidism 2496f">([address] [place] [address]) 20) MYELO%</td><t d ID="Observati pq-Nqibl-n417 re02-287t-32n u-10d1-438t5v o3946d">2.6</ td><td ID="Observati rc-Swsm-l354b z26-590o-77qe -30v3-785e4oy 2496f">%</td> <td ID="Observati ed-JtiDquzg-x 739so48-202z- 23pw-74h0-042 h9lj4150q">0. 0-0.0</td><td ID="Observati pc-Rasozbpn-i 406ew76-958l- 67ei-91v6-687 z6qf9451f">H< /td><td ID="Observati du-Mdsyds-j35 4mo53-281d-05 wy-26p0-911s1 wg1497q">Ann-Marie l</td> ANISO Slight <td [facility] ID="Observati ([facility] qc-Gjne-554v1 [facility] 4g8-4818-1kvn Islam -hr97-73om28b Yazidism ecfab">([address] [place] [address]) 40) ANISO</td><td ID="Observati hu-Gvedf-322b 87o4-6367-6ew d-dl58-92dp37 eecfab">Sligh t</td><td ID="Observati dj-Vkoz-233x9 5r9-3630-9ymo -kc79-48ix78j ecfab"></td>< td ID="Observati fn-HfaHtvqw-5 16c74y7-3324- 5vsv-yh11-76y y65kaqcrw"></ td><td ID="Observati ds-Azzguoxg-0 11r38p3-8763- 7fdy-ja62-20u t22toxijp"></ td><td ID="Observati hx-Buidaa-238 n33e3-7444-6x an-yx38-09ob5 0eecfab">Ann-Marie l</td> MACROCYTES Slight <td [facility] ID="Observati ([facility] ul-Ftay-227k2 [facility] t51-7033-51k9 Islam -b74f-8601gi1 Yazidism 5bbbd">([address] [place] [address]) 60) MACROCYTES</t d><td ID="Observati id-Cfspr-861x 5l52-2197-01v 8-y07e-4537ro 45bbbd">Sligh t</td><td ID="Observati kv-Qhcu-256c3 g92-8096-80h1 -a14j-8583re1 5bbbd"></td>< td ID="Observati rp-GxmJrhsg-9 59w9g72-5728- 38o3-m20h-556 0fd50uhqx"></ td><td ID="Observati bw-Grjhxkdu-2 52i7b35-6872- 89y8-v96z-747 3tb36qfcd"></ td><td ID="Observati en-Sepjfh-873 m7h57-2241-04 r2-m21t-7280a k71ierf">Ann-Marie l</td> SMUDGE Present <td [facility] ID="Observati ([facility] ex-Juyw-p29q1 [facility] 386-5584-82p5 Islam -954b-83554p8 Yazidism df753">([address] Judaism 25) SMUDGE</td><t d ID="Observati ld-Fcdmt-r74i 5497-1960-79r 4-138e-91042q 5pc058">Prese nt</td><td ID="Observati wr-Vexg-u37x5 130-9950-43l9 -954b-47983k3 df753"></td>< td ID="Observati hd-PkvOzvqr-g 35d6494-2187- 64c4-205e-615 55l1vl176"></ td><td ID="Observati ed-Lbyzyzel-e 28l5946-0708- 32d1-226i-765 11f8xx218"></ td><td ID="Observati yz-Qntjzy-f60 o4414-7971-52 v9-745i-72037 h4qo095">Ann-Marie l</td> MSMEAR Performed <td [facility] ID="Observati ([facility] rf-Ofet-935fh [facility] uo4-55x2-15fj Islam -g460-86r23r2 Yazidism c5790">([address] Judaism) 11) MSMEAR</td><t d ID="Observati ir-Wxeby-560i urn0-54u3-39d q-x446-21f49o 6m4730">Perfo rmed</td><td ID="Observati yv-Odxk-070yn qr4-54y4-34zy -t014-70n20w6 c5790"></td>< td ID="Observati kt-LaaEjkpe-0 52jcbb6-87c3- 85rh-d978-21s 04a1f0877"></ td><td ID="Observati lr-Ksywawmc-4 17dhjv3-49p3- 01xt-m239-62r 42v0k9530"></ td><td ID="Observati zg-Ghilzq-637 znaw5-51v7-75 zx-t670-18u81 r1e2519">Ann-Marie l</td> ID Date Data Source [id number] 09/20/2018 08:09:43 AM EDT [facility] ([facility]) Name Value Range Interpretation Description Data Sup porting Code Source(s) Document(s ) Sodium Serum 139mmol/ 135-145 <td [facility] (9129160) L ID="Observatio ([facility] h-Selt-7d9p252 [facility] 9-tzw6-64wz-84 Islam 2c-2547ff88u17 Yazidism a">(0072511) Judaism) Sodium Serum (6465717)</td> <td ID="Observatio x-Cmnis-0g3h17 28-qdm9-78wu-8 42c-2207rr66t3 1a">139</td><t d ID="Observatio z-Lrol-2u1u743 5-odt7-76hp-84 2c-8816qs34n59 a">mmol/L</td> <td ID="Observatio r-PoaJsemv-0u9 v0051-wlu2-18l k-390i-0576wp6 6f71a">135-145 </td><td ID="Observatio v-Bmzeqkte-7o5 p8268-ktv5-08g u-070g-3129sq8 6f71a"></td><t d ID="Observatio l-Asxzhw-4n5i7 461-zxr1-60oq- 842c-1638zy04p 71a">Final</td > Potassium 5.2mmol/ 3.5-5.3 <td [facility] Serum L ID="Observatio ([facility] (9305931) t-Pqlb-8t1m9r1 [facility] of the f-4014-2o7s-80 Islam 4c-oi39uw09775 Yazidism 0">(8585022) Judaism) Potassium Serum (6108201)</td> <td ID="Observatio k-Tyeuz-9x5g2r 8w-6696-1u9b-8 04c-hc56rh2210 10">5.2</td><t d ID="Observatio n-Hliw-6s0j2m3 t-0950-5o6o-80 4c-dj79zt62137 0">mmol/L</td> <td ID="Observatio q-ZozMreba-7w0 e1m0m-4845-1p0 v-786a-fb11yo5 68090">3.5-5.3 </td><td ID="Observatio e-Fujnstij-0a3 l2p4s-1409-4f4 f-997d-ma70ha7 23279"></td><t d ID="Observatio c-Ghkbnm-8q2w4 o0b-1747-8v2p- 804c-hv29bu636 010">Final</td > Chloride 107mmol/L 96-108 <td ID="Xfepyfisjoy-Ydgl-707n5773152t8207-ko79-12e6-sjp1-u3104b4x8bv5">(5659910) [facility] Serum Chloride Serum (3880183)</td>< td (The (5597640) ID="Izfuknvwzhy-Brmgm-941u5377589g7609-pk44-66d1-ewg9-n9479o1c7ks5">107</td><td [place] ID="Shnpdwpvagn-Lcjl-489w 7019-yg29-58b6on45-35c4-pxe2-p6185y7a6or0">mmol/L</td><td Home of the ID="Yzvchhaenqz-WawCqsvt-107n8151257e8461-fl61-16l9-ttz2-m4201k1k0xd6">96-108</td><td Islam ID="Observation-Abnormal- 880m6970-kq04-40w4-wnn5-e0073t5y0cu2"></td><td Yazidism ID="Yzvfyfgbtbr-Mlkefp-04 6p0370-yr01-92v6-nau6-t7133j0q6as7">Final</td> Judaism) CO2- Serum 20mmol/L 22-31 B <td ID="Foixjuabyyg-Bpxc-jg2kwidxod8qyjig-3u85-726i-7tt5-9478yn933g49">(9396706) CO2- [facility] (7528817) e Serum (2917667)</td><td (The l ID="Rqvfuhfnxnc-Mjyec-hp6 jdnls-7p75-086q1w24-004w-3oo9-0344wo456r43">20</td><td [place] o ID="Silxkudmtry-Nued-xh1x ldaz-8z34-736h1o20-385z-1kb5-5743tv915k80">mmol/L</td><td Home of the w ID="Nljwqjghhey-QibRoqsa-my2lojvmtq6durds-6m53-572o-9mr2-5047nv461b39">22-31</td><td Islam l ID="Observation-Abnormal- ag7btttp-6k18-905w-8ny5-7798qz777i07">L</td><td Yazidism o ID="Aylgnhpupby-Avgxjh-pl 7qcabl-3f65-213l8v55-052o-6ix5-5894wj135z33">Final</td> Judaism) w n o r m a l Anion Gap 12mmol/L 5-17 <td ID="Zorpomsfgmc-Bved-vzb41j06uve45b68-45x6-71p8-v5e4-ow3hc442750q">(5255841) Anion [facility] Gap</td><td (The ID="Tikygtmlyzt-Cmbge-zkm 09z67-76g4-46f7-i2m5-wd4sr243200i">12</td><td [place] ID="Ezklheoitdg-Rzgs-wlz1 6p05-31n4-48z9-w1j8-gs5rj666298x">mmol/L</td><td Home of the ID="Observation-RefRange- xgf07b54-54w7-75x2-z4u7-et7vr415290u">5-17</td><td Islam ID="Observation-Abnormal- qug13t24-69z4-38g3-s7x0-qq3wb743275q"></td><td Yazidism ID="Ukshxommegz-Cexccy-xx x72b01-05w0-08n1-v8k1-yb5qc332680l">Final</td> Judaism) Glucose 108mg/dL 70-99 A <td ID="Jvbqhqvimms-Qsks-54mu7b8593xf3g01-2us2-5527-3c21-68j13r9o4029">(5337614) [facility] (0570441) b Glucose (7712633)</td><td (The o ID="Bphwlyvsvtq-Rirxj-65u d0v77-3hp2-2923-9r46-29h82b2y2379">108</td><td [place] v ID="Skznnnrccjw-Enln-86al 3e53-0vy7-1367-1b03-59x23m5d9144">mg/dL</td><td Home of the e ID="Vysosombjko-AhwHapfn-76ks7p7900yh5l04-3rf5-8294-8b15-86e07w8n5058">70-99</td><td Islam h ID="Observation-Abnormal- 69op4m59-5kp5-8291-0z92-46g83m5q4680">H</td><td Yazidism i ID="Lwfgyehhlgv-Hbdnct-95 dx2h27-0xb0-2547-7s64-71i20j2p5428">Final</td> Judaism) g h n o r m a l Blood Urea 22mg/dL 7-23 <td ID="Owsfwqwemxr-Dslo-g942q6mim221r5gm-oeo8-7291-q569-y0c8rq57q91d">(5212214) Blood [facility] Nitrogen Urea Nitrogen (5815137)</td><t d (The (8629415) ID="Chblbhrbpcz-Hyuhs-x106d6geq128q3yb-vzq6-8949-y128-l4i2rn99v22l">22</td><td [place] ID="Xjjwzhvsxue-Tgwj-o014 k7ip-lhh1-7882-w022-t9o9do07a89z">mg/dL</td><td Home of the ID="Observation-RefRange- z783f6jo-aww4-2919-s059-t1l4lw81j05p">7-23</td><td Islam ID="Observation-Abnormal- u144c1it-hpe5-1353-d119-r5v8jj42g21w"></td><td Yazidism ID="Xhhycnoodij-Locyax-n4 08b1kf-zsf9-1962-l037-s9z6ws84g13k">Final</td> Judaism) Creatinine 1.09mg/dL 0.50-1. <td ID="Iiygdvwcvnr-Hift-e35usr42h81jpi57-w727-20bq-u033-17286k70291k">(7560630) [facility] - Serum 30 Creatinine- Serum (1699449)</t d><td (The (7049188) ID="Xdrgjizfyum-Fvgpe-w13wur21r40kjz24-b485-55sw-p917-78879c19314g">1.09</td><td [place] ID="Uwsumnspxlg-Ulkf-s97f qd44-q585-67ym-w113-21742k27874k">mg/dL</td><td Home of the ID="Nyxvhzbtxha-WpwMfjvv-c70gis19u13fdg26-n883-70yg-b152-00050j87853t">0.50-1.30</td>< Islam td ID="Observation-Abnorm mm-l17sjw02-z298g41fcn38-g231-94sc-r037-64787y28930y"></td><td Yazidism ID="Knrsgthytjy-Kkklpx-s2 8jdx40-s395-16po-e971-59932r08315v">Final</td> Judaism) Calcium- 7.9mg/dL 8.4-10. B <td ID="Xnoyxuqeycu-Osgi-6804597n7577661f-7538-5458-br3n-ru81to40u5u2">(2564572) [facility] Serum 5 e Calcium- Serum (5605893)</td>< td (The (7109626) l ID="Cbkedoveofc-Iircp-5677053h6972509b-4712-3945-hx3a-ie06uy49n4u9">7.9</td><td [place] o ID="Mbkqczadyib-Nfix-3035 199k-9441-7135-yr8g-hb19vn73n9y0">mg/dL</td><td [facility] of [facility] w ID="Gihkfhzyzxx-GuxLuwys-5489920k9371233t-5176-6121-ze7f-um18yj56r6m6">8.4-10.5</td><t Islam l d ID="Observation-Abnorma o-4935990v-92438894277x-8482-1048-hg0q-yp15ll06z4v6">L</td><td Yazidism o ID="Nsmrtmguwty-Bnnvuy-18 47388a-6621-1539-qo8k-nn59xg34r6k9">Final</td> Judaism) w n o r m a l Protein 5.8g/dL 6.0-8.3 B <td ID="Ujgjsijvzuc-Dpei-r286120ny699258b-n994-2238-0427-4z9g4300e8lw">(8144081) [facility] Total e Protein Total Serum (5802909)< /td><td (The Serum l ID="Ugxwyqofzgx-Jytso-h841864ln626940p-e155-7635-7806-9g7f9027k5cm">5.8</td><td [place] (5834661) o ID="Datqoxaukar-Snie-a542787vj960625a-c154-7224-3153-1c3u7565r4rd">g/dL</td><td Home of the w ID="Yymxcnfrijt-PmoWotxj-p144417fr446094g-r143-8328-7902-6v1i9033w6ja">6.0-8.3</td><td Islam l ID="Observation-Abnormal- d041243q-e007-7590-5834-8f0j3501w2ol">L</td><td Yazidism o ID="Dxfwwuatqdw-Qvilyr-p7 47769c-u292-7383-5706-0k2c5926b3sz">Final</td> Judaism) w n o r m a l Albumin- 2.6g/dL 3.3-5.0 B <td ID="Pheryhipfrm-Hbgp-50i2zgnl04j6wlde-q919-5vb8-8c95-3054uwm81a12">(7466844) [facility] Serum e Albumin- Serum (3175951)</td>< td (The (2998014) l ID="Ubszjadmbvh-Sbyzw-69i8ntpt63m3vgph-a357-8nt7-9f73-2580cgl31n67">2.6</td><td [place] o ID="Wrzzzpkdeme-Qvui-42a4 wlbb-b874-3qi7h732-3qb5-7l54-6112rrc67p45">g/dL</td><td Home of the w ID="Gpuccquqrsb-HyyBttxs-38m3vutj69n7fxog-a412-6bz1-3a95-4031erh36q38">3.3-5.0</td><td Islam l ID="Observation-Abnormal- 08y8alod-a485-5eu0-1k06-1882cds41t95">L</td><td Yazidism o ID="Mcvirwemzqc-Uenrmp-67 k6gppe-q042-4fz7-1n37-2975xgl56x28">Final</td> Judaism) w n o r m a l Bilirubin 0.7mg/dL 0.2-1.2 <td ID="Hrdexbsffet-Vxmp-54k30ke083g21zk2-2k84-9487-0ve9-g03n185u60f8">(4944164) [facility] Total Bilirubin Total (5275685)</td> <td (The (5745471) ID="Ljjfkeahrbp-Melpm-36z56xp359e52ru5-3e45-8764-6ef4-b46m921z91n4">0.7</td><td [place] ID="Dxhvwnaalcv-Naks-00t8 1mx7-6i73-0598-0zt4-o43u666l76z7">mg/dL</td><td Home of the ID="Thrajieratz-CisKxals-58o81om310y34rg0-2f24-8532-0sf1-e91t519w71u8">0.2-1.2</td><td Islam ID="Observation-Abnormal- 17b46fp8-9o35-5954-7ts7-j55y951v70i7"></td><td Yazidism ID="Ymsmzggnmvh-Dptfwq-96 f84ic9-8f19-6687-0vu8-z20z479t62j6">Final</td> Judaism) Aspartate 48U/L 10-40 A <td ID="Mscjmdlcaju-Bwdv-h7277q00s8347a97-s55p-3174-1415-38r131m126wu">(3002538) [facility] Aminotrans b Aspartate Aminotransferase (5 164729)</td><td (The ferase o ID="Zujaptnyxil-Ntjtb-k9856n87j0912e47-z97w-4810-9658-92u527q407ii">48</td><td [place] (7663568) v ID="Glplkmzuhtp-Mobn-y6781t51h5338s70-p77y-4108-6639-58p559p148lf">U/L</td><td Home of the e ID="Bjnromuwoco-NudZozri-o1324h91w8805n31-a16f-5516-7772-66g768t377ca">10-40</td><td Islam h ID="Observation-Abnormal- m5652e44-m28i-2307-1062-82s688g715wi">H</td><td Yazidism i ID="Rcgjgicojmw-Pfecib-l4 534s84-q87w-8616-6374-07c069u339ca">Final</td> Judaism) g h n o r m a l Alanine 40U/L 10-45 <td ID="Ulsnomvaqrj-Maqq-m1451199s1275496-15ad-5863-74c3-26kqpzvo2864">(4083196) [facility] Aminotransferase Alanine Aminotransferas e (1702120)</td><td (The (5575529) ID="Qxoeinswbhv-Uoxyp-i0224794y2466187-23wj-8431-20h4-00kbpbjj6578">40</td><td [place] ID="Lnwggdnyfff-Eslw-y733 2586-22pq-6992-49z8-54rhcgiv6462">U/L</td><td Home of the ID="Observation -CtmZkdsy-c0608950-12our5927294-72bt-2358-65k8-33sctmac7403">10-45</td><td Islam ID="Observation-Abnormal- t4428059-78lg-4726-85j6-04xujqff4743"></td><td Yazidism ID="Bpebzwpnsgd-Znfsje-g7 788571-60tw-2116-31p6-07qndxfe1129">Final</td> Judaism) Alkaline 136U/L 40-120 Above <td ID="Glalsnuelif-Jvyl-422134tg085370ur-e946-44e1-818n-328sl1nm47g5">(0321533) [facility] Phosphatase- high Alkaline Phosphatase- Serum (3947244)</td><td (The Serum normal ID="Zjkziajihni-Jwkpf-224645kc930208yl-s692-67k3-738k-550ht1wa27n9">136</td><td [place] (8379668) ID="Kmqlkhsbcdr-Dids-597354ss718827dr-n694-46k9-871a-547dr7bz80t0">U/L</td><td Home of the ID="Zlymicjenhc-AroYlbcn-611279nb380273ss-r170-39x0-593t-375ic6bi46m4">40-120</td><td Islam ID="Observation-Abnormal- 632252et-z385-71b6-460y-412ze9jd61x5">H</td><td Yazidism ID="Bycdackcthy-Vnffhh-35 1545ka-x276-00y3y346-99l5-137n-505ut0qm26v7">Final</td> Judaism) eGFR, 71mL/mi >=60 <td ID="Klyjnqewizj-Exmc-308w9643044q6806-1a64-9142-v757-6650r87t2ju9">(4783890) eGFR, [facility] -Ameri n/1.73M -[place]</td><td ( The can 2 ID="Pphcrcczwfq-Csxim-662 g8298-8b16-1071-v026-5976n59g0xn3">71</td><td [place] ID="Nypskojuvjd-Slbj-974m1840592l1995-7i04-1828-u001-5196u44v8lm6">mL/min/1.73M2</td>< Home of the td ID="Fykzswwiwxn-DooOomtk-514j1244652j6326-9l06-5915-h664-8210x22f1ya1">>=60</td><td Islam ID="Observation-Abnormal- 402p9756-5a14-9083-t403-1930r72v7jd1"></td><td Yazidism ID="Mwqysfemaip-Cypjcj-36 3k6990-6c83-8035-u647-7207n22w8qh6">Final</td> Judaism) eGFR, Non 61mL/mi >=60 <td ID="Onqbnixqgqi-Nzsp-9755717z5648165o-1557-2fzr-a6dr-70aeqc98m578">(3039027) eGFR, [facility] -Ameri n/1.73M Non -[place]</td>< td (The can 2 ID="Griiojvqpyc-Jfekn-071 1667f-2230-3drn-u9kj-01uzgk88d260">61</td><td [place] ID="Vgrotnzdzke-Imiv-6913567b4019591c-9676-0wtf-h9dk-73dufh09n891">mL/min/1.73M2</td>< Home of the td ID="Luutfymckeb-DwyCmxtl-0903651f4053752u-7237-8ckm-k0tl-95lbnw75h514">>=60</td><td Islam ID="Observation-Abnormal- 5008097u-3054-3mrp-q9nq-16rcho38m747"></td><td Yazidism ID="Orbfjaytsad-Mleons-36 54675g-8734-8sua-a6oe-07vwlv97d373">Final</td> Judaism) <td colspan="6"><list><item>Type: Lab, Date: 09/20/2018 06:35 PM, User: N/A</item><item>Interpretative commentTh e units for eGFR are mL/min/1.73M2 (normalized body surface area). The eGFR is calculated from a serum creatinine using the CKD-EPI equation. Other variables re quired for calculation are race, age and sex. Among patients with chronic kidney disea se (CKD), the eGFR is useful in determining the stage of disease according to KDOQI CKD classification. All eGFR results are reported numerically with the following interpretation. GFR With Without (m l/min/1.73 m2) Kidney Damage Kidney Damage >= 90 Sta ge 1 Normal 60-89 Stage 2 Decreased GFR 30-59 Stage 3 Stage 3 15-29 Stage 4 Stage 4 < 15 Stage 5 Stage 5Each stage of CKD assumes that the asso ciated GFR level has been in effect for at least 3 months. Determination of stages one and two (with eGFR > 59 ml/min/m2) requires estimation of kidney damage for at least 3 months as defined by structural or functional abnormalities.Limitations: All estimates of GFR will be less accurate for patients at extremes of muscle mass (including but not limited to frail elderly, critically ill, or cancer patients), tho se with unusual diets, and those with conditions associated with reduced secre tion or extrarenal elimination of creatinine. The eGFR equation is not recommended for use in patients with unstable creatinine levels.Lab formed at: [facility], [address] [place] [address], [place], [address], D onelia Joshi MD</item></list></td> Procedure Vital Signs ID Date Data Source [id number] 10/23/2018 12:32:05 PM EDT [facility] (Th e [place] [facility]) Name Value Range Interpretation Code Description Data Source(s) TEMPERATURE 98.4 F 98.4 F [facility] ( e [place] [facility]) RESPIRATION 20 rpm 20 rpm [facility] PULSE 71 bpm 71 bpm [facility] (The [facility] [facility]) PAIN LEVEL 0 0 [facility] ([facility] [place] [facility]) DIASTOLIC BLOOD 64 mmHg 64 mmHg [facility] (The [facility] [facility]) SYSTOLIC BLOOD 128 mmHg 128 mmHg [facility] (The [facility] [facility]) TEMPERATURE 97.9 F 97.9 F [facility] ( e [place] [facility]) DIASTOLIC BLOOD 60 mmHg 60 mmHg [facility] (The [facility] [facility]) SYSTOLIC BLOOD 118 mmHg 118 mmHg [facility] (The [facility] [facility]) PAIN LEVEL 0 0 [facility] ([facility] [facility]) WEIGHT 192.2 lbs 192.2 lbs [facility] ([facility] [place] [facility]) PULSE 72 bpm 72 bpm [facility] ([facility] [facility]) TEMPERATURE 97 F 97 F [facility] ([facility] [place] [facility]) TEMPERATURE 97.5 F 97.5 F [facility] ([facility] [place] [facility]) RESPIRATION 20 rpm 20 rpm [facility] ([facility] [place] [facility] PULSE 67 bpm 67 bpm [facility] ([facility] [facility]) PAIN LEVEL 0 0 [facility] ([facility] [facility]) DIASTOLIC BLOOD 58 mmHg 58 mmHg [facility] (The [facility] [facility]) SYSTOLIC BLOOD 101 mmHg 101 mmHg [facility] (The [facility] [facility]) PAIN LEVEL 0 0 [facility] ([facility] [facility]) DIASTOLIC BLOOD 68 mmHg 68 mmHg [facility] (The [facility] [facility]) SYSTOLIC BLOOD 132 mmHg 132 mmHg [facility] (The [facility] [facility]) TEMPERATURE 97.5 F 97.5 F [facility] (Th [facility] [facility]) TEMPERATURE 97.9 F 97.9 F [facility] ([facility] [place] [facility]) TEMPERATURE 97.6 F 97.6 F [facility] ([facility] [place] [facility]) RESPIRATION 18 rpm 18 rpm [facility] (Th [facility] [facility] PULSE 60 bpm 60 bpm [facility] ([facility] [facility]) PAIN LEVEL 0 0 [facility] ([facility] [facility]) DIASTOLIC BLOOD 59 mmHg 59 mmHg [facility] (The [facility] [facility]) SYSTOLIC BLOOD 107 mmHg 107 mmHg [facility] (The [facility] [facility]) DIASTOLIC BLOOD 70 mmHg 70 mmHg [facility] (The [facility] [facility]) SYSTOLIC BLOOD 132 mmHg 132 mmHg [facility] (The [facility] [facility]) PAIN LEVEL 0 0 [facility] ([facility] [place] [facility]) WEIGHT 206.7 lbs 206.7 lbs [facility] ([facility] [place] [facility] TEMPERATURE 98.7 F 98.7 F [facility] (Th [facility] [place] [facility]) TEMPERATURE 97.4 F 97.4 F [facility] ([facility] [place] [facility] TEMPERATURE 98.2 F 98.2 F [facility] ([facility] [place] [facility]) RESPIRATION 20 rpm 20 rpm [facility] ([facility] [place] [facility] PULSE 76 bpm 76 bpm [facility] ([facility] [place] [facility]) DIASTOLIC BLOOD 72 mmHg 72 mmHg [facility] (The [facility] [facility]) SYSTOLIC BLOOD 127 mmHg 127 mmHg [facility] ([facility] [facility] PAIN LEVEL 0 0 [facility] ([facility] [place] [facility] DIASTOLIC BLOOD 66 mmHg 66 mmHg [facility] (The [facility] [facility]) SYSTOLIC BLOOD 109 mmHg 109 mmHg [facility] ([facility] [facility]) TEMPERATURE 98.6 F 98.6 F [facility] ([facility] [place] [facility]) PAIN LEVEL 0 0 [facility] ([facility] [place] [facility]) WEIGHT 216.4 lbs 216.4 lbs [facility] ([facility] [place] [facility] PULSE 64 bpm 64 bpm [facility] ([facility] [place] [facility]) OXYGEN SATURATION 91 % 91 % SIG[facility]A RE ([facility] [place] [facility] HEIGHT 69 in 69 in [facility] ([facility] [place] [facility]) BLOOD SUGAR 103 mg/dL 103 mg/dL [facility] ([facility] [place] [facility] TEMPERATURE 97.1 F 97.1 F [facility] ([facility] [place] [facility] RESPIRATION 18 rpm 18 rpm [facility] ( [facility] [place] [facility]) DIASTOLIC BLOOD 68 mmHg 68 mmHg [facility] (The [facility] [facility]) SYSTOLIC BLOOD 142 mmHg 142 mmHg [facility] ([facility] [place] [facility] DIASTOLIC BLOOD 68 mmHg 68 mmHg [facility] ([facility] [facility] SYSTOLIC BLOOD 142 mmHg 142 mmHg [facility] (The [facility] [facility]) DIASTOLIC BLOOD 68 mmHg 68 mmHg [facility] (The [facility] [place] [facility] SYSTOLIC BLOOD 142 mmHg 142 mmHg [facility] ([facility] [facility]
--- NOTE | 2020-02-12 19:43 | PDOC ---
History of Present Illness - General Chief Complaint: RX Refill Stated Complaint: HALLUCINATIONS Time Seen by Provider: 02/12/20 19:09 - History of Present Illness Initial Comments: 02/12/20 19:42 89yo M with history of Parkinon's and bladder CA presents to the ED three days after ED discharge for hallucinations/AMS. Patient states he has been having hallucinations, he came the ER three days ago, his tests were negative, and he saw his neurologist two days ago for med adjustment. Does not know how he ended up in the hospital today. Called the patient's daughter, who states that patient called 911 today because he thought the PROJECT GEOPHYSICIST was stealling all his money. Per the daughter, he has been unable to ambulate for 5 days now and has had hallucinations for 2 weeks. She states his right leg is chronically swollen, he was negative for DVT, but has not been on antibiotics. She states that the ulcer on his right heal is two days old. PMH: as above PSH: right knee replacement ROS GENERAL/CONSTITUTIONAL: No fever or chills. No weakness. HEAD, EYES, EARS, NOSE AND THROAT: No change in vision. No ear pain or discharge. No sore throat. CARDIOVASCULAR: No chest pain or shortness of breath RESPIRATORY: No cough, wheezing, or hemoptysis. GASTROINTESTINAL: No nausea, vomiting, diarrhea or constipation. GENITOURINARY: No dysuria, frequency, or change in urination. MUSCULOSKELETAL: No joint or muscle swelling or pain. No neck or back pain. SKIN: No rash NEUROLOGIC: No headache, vertigo, loss of consciousness, or change in strength/sensation. hallucinations ENDOCRINE: No increased thirst. No abnormal weight change HEMATOLOGIC/LYMPHATIC: No anemia, easy bleeding, or history of blood clots. ALLERGIC/IMMUNOLOGIC: No hives or skin allergy. PE GENERAL: AAOx3, in no acute distress HEAD: No signs of trauma, normocephalic, atraumatic EYES: PERRLA, EOMI, sclera anicteric, conjunctiva clear ENT: Auricles normal inspection, hearing grossly normal, nares patent, oropharyn x clear without exudates. Moist mucosa NECK: Normal ROM, supple, no lymphadenopathy, JVD, or masses LUNGS: No distress, speaks full sentences, clear to auscultation bilaterally HEART: Regular rate and rhythm, normal S1 and S2, no murmurs, rubs or gallops, peripheral pulses normal and equal bilaterally. ABDOMEN: Soft, nontender, normoactive bowel sounds. No guarding, no rebound. No masses EXTREMITIES : Ulcer on right heal. right foot and leg are erythemetous and have 2+pitting edema to the knees NEUROLOGICAL: Normal speech, no focal sensorimotor deficits. gait not assessed Vital Signs Temp Pulse Resp BP Pulse Ox 97.1 F L 94 H 18 115/62 99 02/12/20 18:31 02/12/20 18:31 02/12/20 18:31 02/12/20 18:31 02/12/20 18: MDM: 89yo M with history of Parkinon's and bladder CA presents to the ED three days after ED discharge for hallucinations/AMS, and has an ulcer on right heal with erythema and 2+pitting edema to the knees. DDx includes ACS secondary to infection (from cellulitic right leg or elsewhere), metabolic derangement, toxic ingestion. Low concern for septic right knee given full passive range of motion, lack of erythema or swelling. -EKG -CXR -CBC, CMP, cardiac enzymes, coags, lactate, tylenol/alcohol/salicylates, UA/UC, blood cultures, wound culture 02/12/20 22:09 EKG: CXR: no acute pathology Labs: notable for WBC 14.7 with 79% neutrophils, BUN/Cr 25.4/1.0, total bili 1.7 (up from 1.5 three days prior, and 0.5 previously), AST/ALT 68/28, trop 0.14 (baseline), CK 527 Will treat for cellulitis with vanc/ceftriaxone given hardware in right knee. 02/12/20 23:41 Signed out to admitting team Past History - Medical History Allergies/Adverse Reactions: Allergies Allergy/AdvReac Type Severity Reaction Status Date / Time No Known Drug Allergies Allergy Verified 02/12/20 18:25 Home Medications: Ambulatory Orders Carbidopa/Levodopa [Carbidopa-Levodopa 25-250 Tab] 1 each PO TID 09/14/18 Cyanocobalamin [Vitamin B12 -] 1,000 mcg PO DAILY 09/14/18 Gabapentin [Neurontin] 200 mg PO HS 09/14/18 Brinzolamide/Brimonidine Tart [Simbrinza 1%-0.2% Eye Drops] 8 ml OP DAILY 02/12/20 Furosemide 20 mg PO DAILY 02/12/20 Gabapentin 300 mg PO AM 02/12/20 Anemia: No Asthma: No Cancer: No Cardiac Disorders: No CVA: No COPD: No CHF: No Dementia: No Diabetes: No GI Disorders: No Disorders: Yes (STARTED ON FLOMAX 2 WEEKS AGO) HTN: No Hypercholesterolemia: No Liver Disease: No Seizures: No Thyroid Disease: No - Surgical History Abdominal Surgery: No Appendectomy: No Cardiac Surgery: No Cholecystectomy: No Lung Surgery: No Neurologic Surgery: No Orthopedic Surgery: Yes (RIGHT TIBIA PLATEAU SX 1995) - Psycho-Social/Smoking History Smoking History: Smoker current status UNK Have you smoked in the past 12 months: No Information on smoking cessation initiated: No - Substance Abuse Hx (Audit-C & DAST Scrn) How often the patient has a drink containing alcohol: Never Score: In Men: 4 or > Positive; In Women: 3 or > Positive: 0 Screen Result (Pos requires Nsg. Audit-10AR): Negative In the last yr the pt used illegal drug/Rx for NonMed reason: No Score: Yes response is considered Positive: 0 Screen Result (Positive result requires Nsg. DAST-10): Negative *Physical Exam - Vital Signs Last Vital Signs Temp Pulse Resp BP Pulse Ox 97.1 F L 94 H 18 115/62 99 02/12/20 18:31 02/12/20 18:31 02/12/20 18:31 02/12/20 18:31 02/12/20 18:31 ED Treatment Course - LABORATORY CBC & Chemistry Diagram: 02/12/20 19:46 02/12/20 19:46 Discharge - Discharge Information Problems reviewed: Yes Clinical Impression/Diagnosis: AMS (altered mental status) Qualifiers: Altered mental status type: unspecified Qualified Code(s): R41.82 - Altered mental status, unspecified Cellulitis Qualifiers: Site of cellulitis of extremity: lower extremity Laterality: right - Follow up/Referral - Patient Discharge Instructions - Post Discharge Activity
[2020-02-12 20:03] LABS: BASO % 0.3 % (0-2.0); EOS % 0.1 % (0-4.5); HEMATOCRIT 37.7 % (35.4-49); HEMOGLOBIN 12.8 GM/dL (11.7-16.9); LYMPH % 10.8 % (8-40); MCH 37.4 pg (25.7-33.7); MCHC 33.9 g/dl (32.0-35.9); MEAN CELL VOLUME 110.4 fl (80-96); MEAN PLT VOLUME 7.9 fl (7.5-11.1); MONO % 9.8 % (3.8-10.2); PLATELET COUNT 211 K/MM3 (134-434); RBC 3.41 M/mm3 (4.00-5.60); RDW 14.1 % (11.9-15.9); WHITE BLOOD COUNT 14.7 K/mm3 (4.0-10.0)
[2020-02-12 20:15] LABS: INR 1.29 (0.83-1.09); PROTHROMBIN TIME (PATIENT) 15.3 SEC (9.7-13.0)
[2020-02-12 20:18] LABS: ACTIVATED PTT 25.3 SECONDS (25.2-36.5)
[2020-02-12] MEDS ORDERED: ACETAMINOPHEN 1000 MG/100 ML VIAL (NON FORMULARY) IVPB ONE (20:30)
[2020-02-12] MEDS ORDERED: SODIUM CHLORIDE 1,000 ML IV STA (20:30)
[2020-02-12 20:33] LABS: ANISOCYTOSIS 1+; MACROCYTOSIS 2+; PLATELET ESTIMATE ADEQUATE
[2020-02-12 20:36] LABS: ALBUMIN 3.2 g/dl (3.4-5.0); ALK PHOS 102 U/L (45-117); ANION GAP 7 MMOL/L (8-16); BILIRUBIN,TOTAL 1.7 mg/dL (0.2-1); BLOOD UREA NITROGEN 25.4 mg/dL (7-18); CALCIUM 8.8 mg/dL (8.5-10.1); CHLORIDE 103 mmol/L (98-107); CO2 27 mmol/L (21-32); GLUCOSE,RANDOM 111 mg/dL (74-106); POTASSIUM 4.4 mmol/L (3.5-5.1); SGOT/AST 68 U/L (15-37); SODIUM 137 mmol/L (136-145); TOT PROT 7.2 g/dl (6.4-8.2)
--- NOTE | 2020-02-12 20:38 | PDOC ---
Attending Attestation - Resident Resident Name: GabriellaKole - ED Attending Attestation I have performed the following: I have examined & evaluated the patient, The case was reviewed & discussed with the resident, I agree w/resident's findings & plan - HPI HPI: 02/12/20 20:37 Pt has been having hallucinations for the past several days as per his daughter and he fears that his HHAide is stealing his stuff. Pt is alert here. He has a pressure sore and ulcer on the right heel. Pt has warmth redness and cellulitis of the right leg. R leg is swollen and possible DVT Pt may have a UTI also, causing hallucinations. Pt's son at bedside and daughter called. - Physicial Exam PE: 02/12/20 20:59 Pt warm to the temp. Pt has heart S1S2 RRR lungs CTA B abd soft NT ND right leg 2+ pitting edema up to the calf. Knee has old hardware TKR old scars; now knee is hot, but nontender thru FROM left leg no swelling. - Medical Decision Making 02/12/20 21:03 WBC is elevated; trop is always elevated CPK pending Tbili slight elevation; however LFTs normal BUN/Cr normal 02/12/20 21:04 R foot XR shows normal; soft tissues; no gas and no sign of osteomyelitis; pt has rheumatoid arthritic changes of the toes. 02/12/20 22:08 CPK is 527; likely due to pt's sedentary condition. Discharge - Discharge Information Problems reviewed: Yes Clinical Impression/Diagnosis: AMS (altered mental status) Qualifiers: Altered mental status type: unspecified Qualified Code(s): R41.82 - Altered mental status, unspecified Cellulitis Qualifiers: Site of cellulitis of extremity: lower extremity Laterality: right - Follow up/Referral - Patient Discharge Instructions - Post Discharge Activity
[2020-02-12] MEDS ORDERED: ACETAMINOPHEN INJECTION 100 ML IVPB ONE (20:42)
[2020-02-12 20:55] LABS: SGPT/ALT 28 U/L (13-61)
[2020-02-12] MEDS ORDERED: VANCOMYCIN 1 GM in D5W (PRE-DOCKED) 1,000 MG/250 ML IVPB ONE (21:02)
[2020-02-12] MEDS ORDERED: CEFTRIAXONE 1,000 MG in DEXTROSE 5%-WATER - 50 ML IVPB ONE (21:03)
[2020-02-12 21:16] LABS: BILIRUBIN,DIRECT 0.5 mg/dL (0.0-0.2)
[2020-02-12] MEDS ORDERED: VANCOMYCIN 1 GRAM (PRE-DOCKED) 1,000 MG/250 ML BAG IVPB ONE (21:16)
--- NOTE | 2020-02-12 22:45 | HP ---
CHIEF COMPLAINT: PCP: HISTORY OF PRESENT ILLNESS: Collateral information obtained by the daughter (healthcare proxy) over the phone with consent. Mr. Wells is an 89 year old male with a past medical history of parkinsons disease, bladder cancer, glaucoma, and new onset hallucinations presenting to the emergency department for altered mental status. The patient was noted to have multiple episodes of calling life alert for falling out of bed and hallucinations of seeing children for the past week. On saturday a small ulcer was noted on his right foot by the daughter. The patient was seen by Dr. Galvez for an emergency visit for new onset hallucinations where his medications were managed. His pcp (supriya) have been manipulating his lasix due to increased swelling and weeping of his right leg. The daughter notes that the right leg is chronically swollen and was evaluated at [facility] for DVT study that was ultimately negative. Upon interview, the patient is awake and alert, he is oriented to time, and place. He acknowledges he has hallucinations and attributes it to his medications. The patient also endorses difficulty walking and difficulty drinking fluids causing him to cough. ER course was notable for: (1) Elevated trope (appears to be baseline troponin) (2) Right heel ulcer Grade II/III (3) Recent Travel: no PAST MEDICAL HISTORY: as above PAST SURGICAL HISTORY: as above Social History: Smoking: no Alcohol: no Drugs: no Allergies No Known Drug Allergies Allergy (Verified 02/12/20 18:25) HOME MEDICATIONS: Home Medications Medication Instructions Recorded Carbidopa/Levodopa 1 each PO TID 09/14/18 [Carbidopa-Levodopa 25-250 Tab] Cyanocobalamin [Vitamin B12 -] 1,000 mcg PO DAILY 09/14/18 Gabapentin [Neurontin] 200 mg PO HS 09/14/18 Brinzolamide/Brimonidine Tart 8 ml OP DAILY 02/12/20 [Simbrinza 1%-0.2% Eye Drops] Furosemide 20 mg PO DAILY 02/12/20 Gabapentin 300 mg PO AM 02/12/20 REVIEW OF SYSTEMS CONSTITUTIONAL: Absent: fever, chills, diaphoresis, generalized weakness, malaise, loss of appetite, weight change HEENT: Absent: rhinorrhea, nasal congestion, throat pain, throat swelling, difficulty swallowing, mouth swelling, ear pain, eye pain, visual changes CARDIOVASCULAR: Absent: chest pain, syncope, palpitations, irregular heart rate, lightheadedness, peripheral edema RESPIRATORY: Absent: cough, shortness of breath, dyspnea with exertion, orthopnea, wheezing, stridor, hemoptysis GASTROINTESTINAL: Absent: abdominal pain, abdominal distension, nausea, vomiting, diarrhea, constipation, melena, hematochezia GENITOURINARY: decreased urinrary flow PHYSICAL EXAMINATION Vital Signs - 24 hr 02/12/20 18:31 Temperature 97.1 F L Pulse Rate 94 H Respiratory 18 Rate Blood Pressure 115/62 O2 Sat by Pulse 99 Oximetry (%) GENERAL: Awake, alert, and fully oriented, in no acute distress. HEAD: Normal with no signs of trauma. EYES: Pupils equal, round and reactive to light, extraocular movements intact, sclera anicteric, conjunctiva clear. No lid lag. EARS, NOSE, THROAT: Ears normal, nares patent, oropharynx clear without exudates. Moist mucous membranes. NECK: Normal range of motion, supple without lymphadenopathy, JVD, or masses. LUNGS: Breath sounds equal, clear to auscultation bilaterally. No wheezes, and no crackles. No accessory muscle use. HEART: Regular rate and rhythm, normal S1 and S2 without murmur, rub or gallop. ABDOMEN: Soft, nontender, not distended, normoactive bowel sounds, no guarding, no rebound, no masses. No hepatomegaly or splenomegaly. MUSCULOSKELETAL: Normal range of motion at all joints. No bony deformities or tenderness. No CVA tenderness. UPPER EXTREMITIES: 2+ pulses, warm, well-perfused. No cyanosis. No clubbing. No peripheral edema. LOWER EXTREMITIES: 2+ pulses, warm, well-perfused. No calf tenderness. No perip heral edema. NEUROLOGICAL: Cranial nerves II-XII intact. Normal speech. Normal gait. PSYCHIATRIC: Cooperative. Good eye contact. Appropriate mood and affect. SKIN: Warm, dry, normal turgor, no rashes or lesions noted, normal capillary refill. Laboratory Results - last 24 hr 02/12/20 02/12/20 02/12/20 19:46 19:46 19:46 WBC 14.7 H RBC 3.41 L Hgb 12.8 Hct 37.7 MCV 110.4 H MCH 37.4 H MCHC 33.9 RDW 14.1 Plt Count 211 MPV 7.9 Absolute Neuts (auto) 11.6 H Neutrophils % 79.0 D Lymphocytes % 10.8 D Monocytes % 9.8 Eosinophils % 0.1 D Basophils % 0.3 Nucleated RBC % 0 Platelet Estimate Adequate Platelet Comment No clumping noted Anisocytosis 1+ Macrocytosis 2+ PT with INR INR PTT (Actin FS) Sodium 137 Potassium 4.4 Chloride 103 Carbon Dioxide 27 Anion Gap 7 L BUN 25.4 H Creatinine 1.0 Est GFR (CKD-EPI)AfAm 78.08 Est GFR (CKD-EPI)NonAf 67.37 POC Glucometer Random Glucose 111 H Lactic Acid Calcium 8.8 Total Bilirubin 1.7 H Direct Bilirubin AST 68 H ALT 28 Alkaline Phosphatase 102 Creatine Kinase Creatine Kinase Index CK-MB (CK-2) Troponin I Total Protein 7.2 Albumin 3.2 L Vitamin B12 1821 H Salicylates < 1.7 L Acetaminophen < 2.0 Alcohol, Quantitative < 3 02/12/20 02/12/20 02/12/20 19:46 19:46 19:55 WBC RBC Hgb Hct MCV MCH MCHC RDW Plt Count MPV Absolute Neuts (auto) Neutrophils % Lymphocytes % Monocytes % Eosinophils % Basophils % Nucleated RBC % Platelet Estimate Platelet Comment Anisocytosis Macrocytosis PT with INR 15.30 H INR 1.29 H PTT (Actin FS) 25.3 Sodium Potassium Chloride Carbon Dioxide Anion Gap BUN Creatinine Est GFR (CKD-EPI)AfAm Est GFR (CKD-EPI)NonAf POC Glucometer Random Glucose Lactic Acid 1.6 Calcium Total Bilirubin Direct Bilirubin 0.5 H AST ALT Alkaline Phosphatase Creatine Kinase 527 H Creatine Kinase Index 1.1 CK-MB (CK-2) 5.9 H Troponin I 0.14 H Total Protein Albumin Vitamin B12 Salicylates Acetaminophen Alcohol, Quantitative 02/12/20 19:58 WBC RBC Hgb Hct MCV MCH MCHC RDW Plt Count MPV Absolute Neuts (auto) Neutrophils % Lymphocytes % Monocytes % Eosinophils % Basophils % Nucleated RBC % Platelet Estimate Platelet Comment Anisocytosis Macrocytosis PT with INR INR PTT (Actin FS) Sodium Potassium Chloride Carbon Dioxide Anion Gap BUN Creatinine Est GFR (CKD-EPI)AfAm Est GFR (CKD-EPI)NonAf POC Glucometer 110 Random Glucose Lactic Acid Calcium Total Bilirubin Direct Bilirubin AST ALT Alkaline Phosphatase Creatine Kinase Creatine Kinase Index CK-MB (CK-2) Troponin I Total Protein Albumin Vitamin B12 Salicylates Acetaminophen Alcohol, Quantitative ASSESSMENT/PLAN: Mr. Wells is an 89 year old male with a past medical history of parkinsons disease, bladder cancer, glaucoma, and new onset hallucinations presenting to the emergency department for altered mental status. #acute toxic metabolic encephalopathy telemetry head CT neuro consult - dr galvez Likely a result of carvidopa and levodopa side effects - medications managed by neurologist #Possibly Infected foot ucler Grade II-III ulcer Consult for Dr. Smith/podiatry Check A1C topical abx - ceftriaxone vascular study - dopplar study #Elevated troponin previous 2.0 chronically elevated troponin Repeat tropnin in the morning #Elevated LFT/ transaminitis etiology unclear elevated bilirubin repeat bilirubin right upper quadrant u/s check ammonia level #FEN full diet Aspiration precaution Normal saline #DVTppx sq lovenox #Advanced directive Full code Family Medical History Family History: As Documented Visit type - Medication Review Med list reviewed for High Risk Meds patients 65 and older: Yes - Emergency Visit Emergency Visit: Yes ED Registration Date: 02/12/20 Care time: The patient presented to the Emergency Department on the above date and was hospitalized for further evaluation of their emergent condition. - New Patient This patient is new to me today: Yes Date on this admission: 02/13/20 - Critical Care Critical Care patient: No ATTENDING PHYSICIAN STATEMENT I saw and evaluated the patient. I reviewed the resident's note and discussed the case with the resident. I agree with the resident's findings and plan as documented. SUBJECTIVE: OBJECTIVE: ASSESSMENT AND PLAN:
--- NOTE | 2020-02-12 23:27 | PN ---
Teaching Attending Note Name of Resident: Mynor Samuel ATTENDING PHYSICIAN STATEMENT I saw and evaluated the patient. I reviewed the resident's note and discussed the case with the resident. I agree with the resident's findings and plan as documented. SUBJECTIVE: Patient is an 89 year old with a PMH of Parkinson's disease, Glaucoma, Right knee replacement and Bladder cancer who presents to the ER three days after ED discharge for hallucinations/AMS. Patient states he has been having hallucinations, he came the ER three days ago, his tests were negative, and he saw his neurologist two days ago for medication adjustment. Does not know how he ended up in the hospital today. Called the patient's daughter, who states that patient called 911 today because he thought the FAST FOOD MANAGER was stealing all his money. Per the daughter, he has been unable to ambulate for 5 days now and has had hallucinations for 2 weeks. She states his right leg is chronically swollen, was negative for DVT, but he has not been on antibiotics. She states that the ulcer on his right heal is two days old. Patient denies chest pain, shortness of breath, abdominal pain, headache, palpitations, dizziness, fever, chills, nausea, vomiting, diarrhea, constipation, dysuria, frequency, urgency, melena, hematochezia or hematuria. Denies alcohol, tobacco or illicit drug use. No sick contacts or recent travels. Family history is unremarkable. OBJECTIVE: Alert Vital Signs Period Temp Pulse Resp BP Sys/Velazco Pulse Ox Last 24 Hr 97.1 F 94 18 115/62 99 HEENT: No Jaundice, eye redness or discharge, PERRLA, EOMI. Normocephalic, atraumatic. External ears are normal and hearing is grossly intact. No nasal discharge. Neck: Supple, nontender. No palpable adenopathy or thyromegaly. No JVD Chest: Good effort. Clear to auscultation and percussion. Heart: Regular. No S3, rub or murmur Abdomen: Not distended, soft, nontender and no HSM. No rebound or guarding. Normal bowel sounds. Ext: Peripheral pulses intact. Stage 3 necrotic ulcer on right heel; right foot and leg are erythematous and have 2+pitting edema to the knees. Skin: Warm and dry. No petechiae, rash or ecchymosis. Neuro: Alert. Oriented x3. CN 2-12 grossly intact. Sensation grossly intact in all four extremities and DTR are symmetric. Psych: Appropriate mood and affect. Visual hallucinations. Home Medications Medication Instructions Recorded Carbidopa/Levodopa 1 each PO TID 09/14/18 [Carbidopa-Levodopa 25-250 Tab] Cyanocobalamin [Vitamin B12 -] 1,000 mcg PO DAILY 09/14/18 Gabapentin [Neurontin] 200 mg PO HS 09/14/18 Brinzolamide/Brimonidine Tart 8 ml OP DAILY 02/12/20 [Simbrinza 1%-0.2% Eye Drops] Furosemide 20 mg PO DAILY 02/12/20 Gabapentin 300 mg PO AM 02/12/20 Abnormal Lab Results 02/12/20 02/12/20 02/12/20 19:46 19:46 19:46 WBC 14.7 H RBC 3.41 L MCV 110.4 H MCH 37.4 H Absolute Neuts (auto) 11.6 H PT with INR INR Anion Gap 7 L BUN 25.4 H Random Glucose 111 H Total Bilirubin 1.7 H Direct Bilirubin AST 68 H Creatine Kinase CK-MB (CK-2) Troponin I Albumin 3.2 L Vitamin B12 1821 H Salicylates < 1.7 L 02/12/20 02/12/20 19:46 19:46 WBC RBC MCV MCH Absolute Neuts (auto) PT with INR 15.30 H INR 1.29 H Anion Gap BUN Random Glucose Total Bilirubin Direct Bilirubin 0.5 H AST Creatine Kinase 527 H CK-MB (CK-2) 5.9 H Troponin I 0.14 H Albumin Vitamin B12 Salicylates Current Medications Generic Name Dose Route Start Last Admin Trade Name Freq PRN Reason Stop Dose Admin Ceftriaxone Sodium 1,000 mg 02/13/20 10:00 Rocephin - IVPUSH 02/13/20 10:01 ONCE ONE Enoxaparin Sodium 40 mg 02/13/20 10:00 Lovenox - SQ DAILY MIKE ASSESSMENT AND PLAN: 1. Right heel ulcer/RLE Cellulitis/Altered mental status - Right foot xray does not show any fracture or gas collection. Sepsis workup done and being treated with IV Ceftriaxone and IV Vancomycin. Will hydrate with IV NS, provide daily wound care, elevate leg when supine, apply heel guard, get vascular study to rule out DVT, head CT scan (?history of falls), consult Wound care service, Podiatry and ID. Consult Psychiatry and Neurology. Viral testing for COVID-19 ordered and patient placed on airborne, droplet and contact isolation. EKG shows NSR at 92/minute, PVCs, RBBB and QTc 502 and inferior infarct of undetermined age. Not significantly changed compared to prior EKG. Will avoid drugs that may prolong QTc. Initial troponin is 0.14. Troponin elevation may signal demand ischemia or reduced clearance. Will admit to telemetry, trend troponin, repeat EKG, get ECHO and Consult Cardiology. Will trend bilirubin, get RUQ sonogram. Will continue comprehensive care for all of patients comorbid conditions including Sinemet for Parkinson's disease. 2. Hypoalbuminemia - Possibly due to combined effects of malnutrition and inflammation associated with comorbid conditions. Will ensure adequate dietary protein intake and also consult sub assembly team worker. Urinalysis pending. 3. DVT prophylaxis - Lovenox 40 mg SQ q 24 hours. 4. Advance directives - Full code
--- NOTE | 2020-02-13 08:32 | CONSULT ---
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 recent dysphagia) Renal/: Yes: BPH, Cancer (Bladder Ca RX in past; Saw recently Also B PH), Renal Calculi Psych: Yes: Other (some agitation and is asking to go home ) Musculoskeletal: Yes: Chronic low back pain, Other (weakness both legs) - Alcohol/Substance Use Hx Alcohol Use: Yes (OCCAS) History of Substance Use: reports: None - Smoking History Smoking history: Smoker current status UNK Have you smoked in the past 12 months: No - Social History Usual Living Arrangement: Alone ADL: Independent Occupation: retired History of Recent Travel: No Home Medications - Allergies Allergies/Adverse Reactions: Allergies Allergy/AdvReac Type Severity Reaction Status Date / Time No Known Drug Allergies Allergy Verified 02/12/20 18:25 - Home Medications Home Medications: Ambulatory Orders Carbidopa/Levodopa [Carbidopa-Levodopa 25-250 Tab] 1 each PO TID 09/14/18 Cyanocobalamin [Vitamin B12 -] 1,000 mcg PO DAILY 09/14/18 Gabapentin [Neurontin] 200 mg PO HS 09/14/18 Brinzolamide/Brimonidine Tart [Simbrinza 1%-0.2% Eye Drops] 8 ml OP DAILY 02/12/20 Furosemide 20 mg PO DAILY 02/12/20 Gabapentin 300 mg PO AM 02/12/20 Physical Exam Vital Signs: Vital Signs Temperature 97.5 F L 02/13/20 05:56 Pulse Rate 68 02/13/20 05:56 Respiratory Rate 17 02/13/20 05:56 Blood Pressure 125/58 L 02/13/20 05:56 O2 Sat by Pulse Oximetry (%) 99 02/13/20 05:56 Wound/Incision: Yes: Other (+grade 2-3 wound right foot heel, +drainage, -mal odor,+localized cellulitis) Labs: CBC, BMP 02/12/20 19:46 02/12/20 19:46 Assessment/Plan heel decubitis right cellulitis om? Betadine dressing change to dry wound area out. Elevate heels with a pillow. Abx as per ID. Wound culture done. Will follow. May need debridement.
[2020-02-13 09:04] LABS: BASO % 0.5 % (0-2.0); EOS % 0.9 % (0-4.5); HEMATOCRIT 34.6 % (35.4-49); HEMOGLOBIN 11.8 GM/dL (11.7-16.9); LYMPH % 11.3 % (8-40); MCH 37.8 pg (25.7-33.7); MCHC 34.2 g/dl (32.0-35.9); MEAN CELL VOLUME 110.6 fl (80-96); MONO % 9.5 % (3.8-10.2); NEUT % 77.8 % (42.8-82.8); PLATELET COUNT 178 K/MM3 (134-434); RBC 3.13 M/mm3 (4.00-5.60); RDW 13.9 % (11.9-15.9); WHITE BLOOD COUNT 10.8 K/mm3 (4.0-10.0)
[2020-02-13 09:41] LABS: ALBUMIN 2.8 g/dl (3.4-5.0); BILIRUBIN,DIRECT 0.5 mg/dL (0.0-0.2); BILIRUBIN,TOTAL 1.2 mg/dL (0.2-1); CALCIUM 8.5 mg/dL (8.5-10.1); CREATININE 0.9 mg/dL (0.55-1.3); MAGNESIUM 1.8 mg/dL (1.8-2.4); PHOSPHOROUS 2.7 mg/dL (2.5-4.9); POTASSIUM 4.1 mmol/L (3.5-5.1); TOT PROT 6.3 g/dl (6.4-8.2)
[2020-02-13] MEDS ORDERED: CEFTRIAXONE 1 GM in DEXTROSE 5%-WATER - 50 ML IVPB ONE (10:00)
[2020-02-13] MEDS ORDERED: ENOXAPARIN NA (PORCINE) 40 MG/0.4 ML DISP.SYRIN SQ ONE (10:44)
[2020-02-13] MEDS ORDERED: CEFTRIAXONE 1 GM/50 ML BAG ONE (10:45)
[2020-02-13] MEDS: ENOXAPARIN NA (PORCINE) 40 MG/0.4 ML DISP.SYRIN SQ SCH (11:06)
[2020-02-13 11:33] LABS: EPI CELLS 36 /uL (0-25.1); HYALINE CASTS 0 /uL (0-3.1); PH,URINE 5.5 (5.0-8.0); URINE APPEARANCE CLEAR; URINE BACTERIA 4 /uL (0-1359); URINE BILIRUBIN NEGATIVE (NEGATIVE); URINE COLOR YELLOW; URINE GLUCOSE (UA) NEGATIVE (NEGATIVE); URINE KETONE TRACE (NEGATIVE); URINE LEUK ESTERASE NEGATIVE (NEGATIVE); URINE NITRITE NEGATIVE (NEGATIVE); URINE PROTEIN 1+ (NEGATIVE); URINE RBC 34 /uL (0-23.9); URINE WBC 8 /uL (0-25.8)
--- NOTE | 2020-02-13 11:52 | PN ---
Teaching Attending Note Name of Resident: Jaylene Handley ATTENDING PHYSICIAN STATEMENT I saw and evaluated the patient. I reviewed the resident's note and discussed the case with the resident. I agree with the resident's findings and plan as documented. SUBJECTIVE: Feels okay, complains of pain R heel. No fever/chills. OBJECTIVE: Afebrile, Hemodynamically Stable. AAO x 2 (not oriented to place) Last Vital Signs Temp Pulse Resp BP Pulse Ox 97.6 F 54 L 17 109/57 L 98 02/13/20 09:00 02/13/20 09:00 02/13/20 05:56 02/13/20 09:00 02/13/20 09:00 HEENT - Atraumatic, Normocephalic. Heart - S1, S2, RRR Lungs - clear to auscultation Abdomen- Soft, non-tender. Bowel Sounds normal. Extremities - mild edema, erythema/tenderness surrounding Grade 2/3 heel ulcer R foot. Neuro - AAO x 2. Increased rigidity/decreased power bilateral LEs. Laboratory Results - last 24 hr 02/12/20 02/12/20 02/12/20 19:46 19:46 19:46 WBC 14.7 H RBC 3.41 L Hgb 12.8 Hct 37.7 MCV 110.4 H MCH 37.4 H MCHC 33.9 RDW 14.1 Plt Count 211 MPV 7.9 Absolute Neuts (auto) 11.6 H Neutrophils % 79.0 D Lymphocytes % 10.8 D Monocytes % 9.8 Eosinophils % 0.1 D Basophils % 0.3 Nucleated RBC % 0 Platelet Estimate Adequate Platelet Comment No clumping noted Anisocytosis 1+ Macrocytosis 2+ PT with INR INR PTT (Actin FS) Sodium 137 Potassium 4.4 Chloride 103 Carbon Dioxide 27 Anion Gap 7 L BUN 25.4 H Creatinine 1.0 Est GFR (CKD-EPI)AfAm 78.08 Est GFR (CKD-EPI)NonAf 67.37 POC Glucometer Random Glucose 111 H Hemoglobin A1c % Lactic Acid Calcium 8.8 Phosphorus Magnesium Total Bilirubin 1.7 H Direct Bilirubin AST 68 H ALT 28 Alkaline Phosphatase 102 Ammonia Creatine Kinase Creatine Kinase Index CK-MB (CK-2) Troponin I Total Protein 7.2 Albumin 3.2 L Vitamin B12 1821 H Urine Color Urine Appearance Urine pH Ur Specific [place] Urine Protein Urine Glucose (UA) Urine Ketones Urine Blood Urine Nitrite Urine Bilirubin Urine Urobilinogen Ur Leukocyte Esterase Urine WBC (Auto) Urine RBC (Auto) Urine Casts (Auto) U Epithel Cells (Auto) Urine Bacteria (Auto) Salicylates < 1.7 L Acetaminophen < 2.0 Alcohol, Quantitative < 3 Syphilis Serology 02/12/20 02/12/20 02/12/20 19:46 19:46 19:55 WBC RBC Hgb Hct MCV MCH MCHC RDW Plt Count MPV Absolute Neuts (auto) Neutrophils % Lymphocytes % Monocytes % Eosinophils % Basophils % Nucleated RBC % Platelet Estimate Platelet Comment Anisocytosis Macrocytosis PT with INR 15.30 H INR 1.29 H PTT (Actin FS) 25.3 Sodium Potassium Chloride Carbon Dioxide Anion Gap BUN Creatinine Est GFR (CKD-EPI)AfAm Est GFR (CKD-EPI)NonAf POC Glucometer Random Glucose Hemoglobin A1c % Lactic Acid 1.6 Calcium Phosphorus Magnesium Total Bilirubin Direct Bilirubin 0.5 H AST ALT Alkaline Phosphatase Ammonia Creatine Kinase 527 H Creatine Kinase Index 1.1 CK-MB (CK-2) 5.9 H Troponin I 0.14 H Total Protein Albumin Vitamin B12 Urine Color Urine Appearance Urine pH Ur Specific [place] Urine Protein Urine Glucose (UA) Urine Ketones Urine Blood Urine Nitrite Urine Bilirubin Urine Urobilinogen Ur Leukocyte Esterase Urine WBC (Auto) Urine RBC (Auto) Urine Casts (Auto) U Epithel Cells (Auto) Urine Bacteria (Auto) Salicylates Acetaminophen Alcohol, Quantitative Syphilis Serology 02/12/20 02/13/20 02/13/20 19:58 02:19 08:45 WBC 10.8 H RBC 3.13 L Hgb 11.8 Hct 34.6 L MCV 110.6 H MCH 37.8 H MCHC 34.2 RDW 13.9 Plt Count 178 MPV 8.0 Absolute Neuts (auto) 8.4 H Neutrophils % 77.8 Lymphocytes % 11.3 Monocytes % 9.5 Eosinophils % 0.9 D Basophils % 0.5 Nucleated RBC % 0 Platelet Estimate Platelet Comment Anisocytosis Macrocytosis PT with INR INR PTT (Actin FS) Sodium Potassium Chloride Carbon Dioxide Anion Gap BUN Creatinine Est GFR (CKD-EPI)AfAm Est GFR (CKD-EPI)NonAf POC Glucometer 110 Random Glucose Hemoglobin A1c % Lactic Acid Calcium Phosphorus Magnesium Total Bilirubin Direct Bilirubin AST ALT Alkaline Phosphatase Ammonia Creatine Kinase Creatine Kinase Index CK-MB (CK-2) Troponin I 0.14 H Total Protein Albumin Vitamin B12 Urine Color Urine Appearance Urine pH Ur Specific [place] Urine Protein Urine Glucose (UA) Urine Ketones Urine Blood Urine Nitrite Urine Bilirubin Urine Urobilinogen Ur Leukocyte Esterase Urine WBC (Auto) Urine RBC (Auto) Urine Casts (Auto) U Epithel Cells (Auto) Urine Bacteria (Auto) Salicylates Acetaminophen Alcohol, Quantitative Syphilis Serology 02/13/20 02/13/20 02/13/20 08:45 08:45 08:45 WBC RBC Hgb Hct MCV MCH MCHC RDW Plt Count MPV Absolute Neuts (auto) Neutrophils % Lymphocytes % Monocytes % Eosinophils % Basophils % Nucleated RBC % Platelet Estimate Platelet Comment Anisocytosis Macrocytosis PT with INR INR PTT (Actin FS) Sodium 139 Potassium 4.1 Chloride 104 Carbon Dioxide 29 Anion Gap 6 L BUN 24.0 H Creatinine 0.9 Est GFR (CKD-EPI)AfAm 88.69 Est GFR (CKD-EPI)NonAf 76.52 POC Glucometer Random Glucose 106 Hemoglobin A1c % Lactic Acid Calcium 8.5 Phosphorus 2.7 Magnesium 1.8 Total Bilirubin 1.2 H Direct Bilirubin 0.5 H AST 51 H ALT 35 Alkaline Phosphatase 96 Ammonia 20.80 Creatine Kinase Creatine Kinase Index CK-MB (CK-2) Troponin I Total Protein 6.3 L Albumin 2.8 L Vitamin B12 Urine Color Urine Appearance Urine pH Ur Specific [place] Urine Protein Urine Glucose (UA) Urine Ketones Urine Blood Urine Nitrite Urine Bilirubin Urine Urobilinogen Ur Leukocyte Esterase Urine WBC (Auto) Urine RBC (Auto) Urine Casts (Auto) U Epithel Cells (Auto) Urine Bacteria (Auto) Salicylates Acetaminophen Alcohol, Quantitative Syphilis Serology Non-reactive 02/13/20 02/13/20 08:45 11:00 WBC RBC Hgb Hct MCV MCH MCHC RDW Plt Count MPV Absolute Neuts (auto) Neutrophils % Lymphocytes % Monocytes % Eosinophils % Basophils % Nucleated RBC % Platelet Estimate Platelet Comment Anisocytosis Macrocytosis PT with INR INR PTT (Actin FS) Sodium Potassium Chloride Carbon Dioxide Anion Gap BUN Creatinine Est GFR (CKD-EPI)AfAm Est GFR (CKD-EPI)NonAf POC Glucometer Random Glucose Hemoglobin A1c % 5.6 Lactic Acid Calcium Phosphorus Magnesium Total Bilirubin Direct Bilirubin AST ALT Alkaline Phosphatase Ammonia Creatine Kinase Creatine Kinase Index CK-MB (CK-2) Troponin I Total Protein Albumin Vitamin B12 Urine Color Yellow Urine Appearance Clear Urine pH 5.5 Ur Specific [place] 1.024 Urine Protein 1+ H Urine Glucose (UA) Negative Urine Ketones Trace H Urine Blood Trace Urine Nitrite Negative Urine Bilirubin Negative Urine Urobilinogen 1.0 Ur Leukocyte Esterase Negative Urine WBC (Auto) 8 Urine RBC (Auto) 34 Urine Casts (Auto) 0 U Epithel Cells (Auto) 36 Urine Bacteria (Auto) 4 Salicylates Acetaminophen Alcohol, Quantitative Syphilis Serology Current Medications Generic Name Dose Route Start Last Admin Trade Name Jose PRN Reason Stop Dose Admin Enoxaparin Sodium 40 mg 02/13/20 10:00 02/13/20 11:06 Lovenox - SQ 40 mg DAILY MIKE Administration Home Medications Medication Instructions Recorded Carbidopa/Levodopa 1 each PO TID 09/14/18 [Carbidopa-Levodopa 25-250 Tab] Cyanocobalamin [Vitamin B12 -] 1,000 mcg PO DAILY 09/14/18 Gabapentin [Neurontin] 200 mg PO HS 09/14/18 Brinzolamide/Brimonidine Tart 8 ml OP DAILY 02/12/20 [Simbrinza 1%-0.2% Eye Drops] Furosemide 20 mg PO DAILY 02/12/20 Gabapentin 300 mg PO AM 02/12/20 ASSESSMENT AND PLAN: 89 year old male with history of Parkinson's Disease, Bladder cancer, Glaucoma, sent to the ED for increasing confusion/hallucinations and worsening ulcer R heel. 1. Acute Encephalopathy ?toxic due to recent change in PD medications vs progression of PD with Dementia. CT Head - no acute intracranial findings. Urine Cx pending. On Carbidopa/Levodopa Neurology consult. 2. Infected RLE heel ulcer/cellulitis Foot Xray - no suggestion of OM Wound and Blood Cx pending. Leukocytosis improving. Duplex LEs - negative for DVT. Podiatry/Vascular/ID consulted - dressings as suggested by Podiatry. Empiric Ceftriaxone pending ID eval. 3. Troponin Egression - baseline elevation in Troponin. No CP or ECG changes Prior Troponin levels 0.16, 0.2 Evaluated by Cardio 09/06 - no need for ischemic work-up. 4. Elevated LFTs TBil 1.7, DBil 0.5, AST 68 Abdo US - cholelithosis Clinically no evidence of cholecystitis. Will monitor. 5. Parkinson;s Disease - on Carbidopa/Levodopa Mental Status changes after recent change in dosages Neurology consult requested. 6. Macrocytosis - etiology unclear. MCV 110, B12 levels wnl. Folate levels requested. Hematology consult. 7. Chronic Diastolic CHF - no evidence of acute exacerbation - Continue Lasix. DVT Px - Lovenox SQ
[2020-02-13 12:00] LABS: YEAST NON SEEN (NEGATIVE)
--- NOTE | 2020-02-13 12:53 | PN ---
Physical Exam: SUBJECTIVE: Patient seen and examined at bedside this morning. Patient is AAOx2. Reports right foot pain. Denies any fevers, chills, headache, nausea, vomiting, chest pain, shortness of breath, abdominal pain, diarrhea, urinary symptoms. OBJECTIVE: Vital Signs Temperature 98.3 F 02/13/20 12:00 Pulse Rate 54 L 02/13/20 09:00 Respiratory Rate 18 02/13/20 12:00 Blood Pressure 118/56 L 02/13/20 12:00 O2 Sat by Pulse Oximetry (%) 99 02/13/20 12:00 GENERAL: The patient is awake, alert, and oriented to person and time, in no acute distress. HEAD: Normal with no signs of trauma. EYES:PERRLA, EOMI, sclera anicteric, conjunctiva clear. ENT: moist mucous membranes. NECK: supple. LUNGS: Breath sounds equal, clear to auscultation bilaterally. HEART: Regular rate and rhythm, S1, S2 ABDOMEN: Soft, nontender, nondistended, normoactive bowel sounds EXTREMITIES: 2+ pulses, warm, well-perfused, +2 RLE pitting edema. +RLE gr 2/3 heel ulcer NEUROLOGICAL: AAO x 2. Increased rigidity/decreased power bilateral LEs. PSYCH: Normal mood, normal affect. SKIN: Warm, dry, normal turgor Laboratory Results - last 24 hr 02/12/20 02/12/20 02/12/20 19:46 19:46 19:46 WBC 14.7 H RBC 3.41 L Hgb 12.8 Hct 37.7 MCV 110.4 H MCH 37.4 H MCHC 33.9 RDW 14.1 Plt Count 211 MPV 7.9 Absolute Neuts (auto) 11.6 H Neutrophils % 79.0 D Lymphocytes % 10.8 D Monocytes % 9.8 Eosinophils % 0.1 D Basophils % 0.3 Nucleated RBC % 0 Platelet Estimate Adequate Platelet Comment No clumping noted Anisocytosis 1+ Macrocytosis 2+ PT with INR INR PTT (Actin FS) Sodium 137 Potassium 4.4 Chloride 103 Carbon Dioxide 27 Anion Gap 7 L BUN 25.4 H Creatinine 1.0 Est GFR (CKD-EPI)AfAm 78.08 Est GFR (CKD-EPI)NonAf 67.37 POC Glucometer Random Glucose 111 H Hemoglobin A1c % Lactic Acid Calcium 8.8 Phosphorus Magnesium Total Bilirubin 1.7 H Direct Bilirubin AST 68 H ALT 28 Alkaline Phosphatase 102 Ammonia Creatine Kinase Creatine Kinase Index CK-MB (CK-2) Troponin I Total Protein 7.2 Albumin 3.2 L Vitamin B12 1821 H Urine Color Urine Appearance Urine pH Ur Specific [place] Urine Protein Urine Glucose (UA) Urine Ketones Urine Blood Urine Nitrite Urine Bilirubin Urine Urobilinogen Ur Leukocyte Esterase Urine WBC (Auto) Urine RBC (Auto) Urine Casts (Auto) U Epithel Cells (Auto) Urine Bacteria (Auto) Urine Yeast (Auto) Salicylates < 1.7 L Acetaminophen < 2.0 Alcohol, Quantitative < 3 Syphilis Serology 02/12/20 02/12/20 02/12/20 19:46 19:46 19:55 WBC RBC Hgb Hct MCV MCH MCHC RDW Plt Count MPV Absolute Neuts (auto) Neutrophils % Lymphocytes % Monocytes % Eosinophils % Basophils % Nucleated RBC % Platelet Estimate Platelet Comment Anisocytosis Macrocytosis PT with INR 15.30 H INR 1.29 H PTT (Actin FS) 25.3 Sodium Potassium Chloride Carbon Dioxide Anion Gap BUN Creatinine Est GFR (CKD-EPI)AfAm Est GFR (CKD-EPI)NonAf POC Glucometer Random Glucose Hemoglobin A1c % Lactic Acid 1.6 Calcium Phosphorus Magnesium Total Bilirubin Direct Bilirubin 0.5 H AST ALT Alkaline Phosphatase Ammonia Creatine Kinase 527 H Creatine Kinase Index 1.1 CK-MB (CK-2) 5.9 H Troponin I 0.14 H Total Protein Albumin Vitamin B12 Urine Color Urine Appearance Urine pH Ur Specific [place] Urine Protein Urine Glucose (UA) Urine Ketones Urine Blood Urine Nitrite Urine Bilirubin Urine Urobilinogen Ur Leukocyte Esterase Urine WBC (Auto) Urine RBC (Auto) Urine Casts (Auto) U Epithel Cells (Auto) Urine Bacteria (Auto) Urine Yeast (Auto) Salicylates Acetaminophen Alcohol, Quantitative Syphilis Serology 02/12/20 02/13/20 02/13/20 19:58 02:19 08:45 WBC 10.8 H RBC 3.13 L Hgb 11.8 Hct 34.6 L MCV 110.6 H MCH 37.8 H MCHC 34.2 RDW 13.9 Plt Count 178 MPV 8.0 Absolute Neuts (auto) 8.4 H Neutrophils % 77.8 Lymphocytes % 11.3 Monocytes % 9.5 Eosinophils % 0.9 D Basophils % 0.5 Nucleated RBC % 0 Platelet Estimate Platelet Comment Anisocytosis Macrocytosis PT with INR INR PTT (Actin FS) Sodium Potassium Chloride Carbon Dioxide Anion Gap BUN Creatinine Est GFR (CKD-EPI)AfAm Est GFR (CKD-EPI)NonAf POC Glucometer 110 Random Glucose Hemoglobin A1c % Lactic Acid Calcium Phosphorus Magnesium Total Bilirubin Direct Bilirubin AST ALT Alkaline Phosphatase Ammonia Creatine Kinase Creatine Kinase Index CK-MB (CK-2) Troponin I 0.14 H Total Protein Albumin Vitamin B12 Urine Color Urine Appearance Urine pH Ur Specific [place] Urine Protein Urine Glucose (UA) Urine Ketones Urine Blood Urine Nitrite Urine Bilirubin Urine Urobilinogen Ur Leukocyte Esterase Urine WBC (Auto) Urine RBC (Auto) Urine Casts (Auto) U Epithel Cells (Auto) Urine Bacteria (Auto) Urine Yeast (Auto) Salicylates Acetaminophen Alcohol, Quantitative Syphilis Serology 02/13/20 02/13/20 02/13/20 08:45 08:45 08:45 WBC RBC Hgb Hct MCV MCH MCHC RDW Plt Count MPV Absolute Neuts (auto) Neutrophils % Lymphocytes % Monocytes % Eosinophils % Basophils % Nucleated RBC % Platelet Estimate Platelet Comment Anisocytosis Macrocytosis PT with INR INR PTT (Actin FS) Sodium 139 Potassium 4.1 Chloride 104 Carbon Dioxide 29 Anion Gap 6 L BUN 24.0 H Creatinine 0.9 Est GFR (CKD-EPI)AfAm 88.69 Est GFR (CKD-EPI)NonAf 76.52 POC Glucometer Random Glucose 106 Hemoglobin A1c % Lactic Acid Calcium 8.5 Phosphorus 2.7 Magnesium 1.8 Total Bilirubin 1.2 H Direct Bilirubin 0.5 H AST 51 H ALT 35 Alkaline Phosphatase 96 Ammonia 20.80 Creatine Kinase Creatine Kinase Index CK-MB (CK-2) Troponin I Total Protein 6.3 L Albumin 2.8 L Vitamin B12 Urine Color Urine Appearance Urine pH Ur Specific [place] Urine Protein Urine Glucose (UA) Urine Ketones Urine Blood Urine Nitrite Urine Bilirubin Urine Urobilinogen Ur Leukocyte Esterase Urine WBC (Auto) Urine RBC (Auto) Urine Casts (Auto) U Epithel Cells (Auto) Urine Bacteria (Auto) Urine Yeast (Auto) Salicylates Acetaminophen Alcohol, Quantitative Syphilis Serology Non-reactive 02/13/20 02/13/20 08:45 11:00 WBC RBC Hgb Hct MCV MCH MCHC RDW Plt Count MPV Absolute Neuts (auto) Neutrophils % Lymphocytes % Monocytes % Eosinophils % Basophils % Nucleated RBC % Platelet Estimate Platelet Comment Anisocytosis Macrocytosis PT with INR INR PTT (Actin FS) Sodium Potassium Chloride Carbon Dioxide Anion Gap BUN Creatinine Est GFR (CKD-EPI)AfAm Est GFR (CKD-EPI)NonAf POC Glucometer Random Glucose Hemoglobin A1c % 5.6 Lactic Acid Calcium Phosphorus Magnesium Total Bilirubin Direct Bilirubin AST ALT Alkaline Phosphatase Ammonia Creatine Kinase Creatine Kinase Index CK-MB (CK-2) Troponin I Total Protein Albumin Vitamin B12 Urine Color Yellow Urine Appearance Clear Urine pH 5.5 Ur Specific [place] 1.024 Urine Protein 1+ H Urine Glucose (UA) Negative Urine Ketones Trace H Urine Blood Trace Urine Nitrite Negative Urine Bilirubin Negative Urine Urobilinogen 1.0 Ur Leukocyte Esterase Negative Urine WBC (Auto) 8 Urine RBC (Auto) 34 Urine Casts (Auto) 0 U Epithel Cells (Auto) 36 Urine Bacteria (Auto) 4 Urine Yeast (Auto) Non seen Salicylates Acetaminophen Alcohol, Quantitative Syphilis Serology Active Medications Generic Name Dose Route Start Last Admin Trade Name Freq PRN Reason Stop Dose Admin Carbidopa/Levodopa 1 each 02/13/20 14:00 Sinemet 25/250 - PO TID MIKE Cyanocobalamin 1,000 mcg 02/14/20 10:00 Vitamin B12 - PO DAILY MIKE Enoxaparin Sodium 40 mg 02/13/20 10:00 02/13/20 11:06 Lovenox - SQ 40 mg DAILY MIKE Administration Furosemide 20 mg 02/14/20 10:00 Lasix - PO DAILY MIKE Gabapentin 300 mg 02/14/20 07:00 Neurontin - PO AM MIKE Gabapentin 200 mg 02/13/20 22:00 Neurontin - PO HS MIKE Non-Formulary Medication 8 ml 02/14/20 10:00 Brinzolamide/Brimonidine Tart [Simbrinza 1%-0.2% Eye Drops] OP DAILY MIKE ASSESSMENT/PLAN: Patient is an 89 year old male with history of Parkinson's Disease, Bladder cancer, Glaucoma, sent to the ED for increasing confusion/hallucinations and wor sening ulcer R heel. #Acute metabolic encephalopathy -possibly due to change in Sinemet dose? vs progression of Parkinson's vs infection -CT head - no acute intracranial findings -Neuro consulted. -IV abx for cellulitis as per ID #RLE ulcer/cellulitis -Right foot xray - soft tissue swelling, no sign of tissue ulceration -leukocytosis trending down, no fevers -Iv ceftriaxone and vancomycin given -RLE US : no DVT -wound culture, blood culture pending -ID consulted. Recommendations appreciated. -Vascular consulted. Recs appreciated. -Podiatry consulted. Recs appreciated. -Betadine dressing change to dry wound area out. -Elevate heels with a pillow. May need debridement. #Elevated Troponin -noted to be elevated in 2019 as well (flat trend 0.2) -Echo 2019 showed diastolic dysfunction -no chest pain, no EKG changes -troponin trended down to 0.14 -evaluated by cardio on previous admission and no ischemic work up recommended #Macrocytosis -MCV 110 -b12 elevated, folate pending -elevated AST noted, although RUQ US was unremarkable, normal liver with no intrahepatic masses #Leukocytosis -likely 2/2 cellulitis -WBC trending down 14 --> 10 -wound culture pending -Urine/blood cx pending -ID consulted. #Parkinson's disease -on Carbidopa/Levodopa 25/250 TID -AMS reported after changes in recent dosage of Sinemet -Neuro consulted. appreciate recs. #FEN -Not on any standing fluids -Electrolytes wnl, routine bmp monitoring -Regular diet #Prophylaxis -Lovenox 40mg sq daily #Disposition -med surg Visit type - Emergency Visit Emergency Visit: Yes ED Registration Date: 02/12/20 Care time: The patient presented to the Emergency Department on the above date and was hospitalized for further evaluation of their emergent condition. - New Patient This patient is new to me today: Yes Date on this admission: 02/13/20 - Critical Care Critical Care patient: No - Medication Review Med list reviewed for High Risk Meds patients 65 and older: Yes ATTENDING PHYSICIAN STATEMENT I saw and evaluated the patient. I reviewed the resident's note and discussed the case with the resident. I agree with the resident's findings and plan as documented. SUBJECTIVE: OBJECTIVE: ASSESSMENT AND PLAN:
--- NOTE | 2020-02-13 16:22 | CON.ID ---
Consult - History of Present Illness History of Present Illness: 89 y.o. male with PMH of Parkinson's, Bladder CA, remote history of nephrolithiasis. ? chronic RLE edema presents to the ER for RLE erythema/swelling and recently noted Rt heel ulcer/ decreased ability to ambulate, along with peristent AMS/confusion and hallucinations as reported by family member. Pt was evaluated in the ER a few days ago for his change in mental status which has been happening for the past few weeks and discharged home after no significant findings upon evaluation. He has been following with his Neurologist who has been adjusting doses of his medications for Parkinson's. In the ER this time, he was noted to have an elevated wbc with RLE edema/erythema and Rt heel ulcer. Currently pt is alert and appears to be answering questions appropriately but is AAO to name and date. States he is in [place] currently. Admits to be hallucinating, seeing his brother/sister when they were younger in his backyard. Reports less urinary flow without dysuria/hesitancy/hematuria and has no suprapubic/flank pain but states he doesn't drink enough water. No distress noted. Remains afebrile. - History Source History Provided By: Patient - Past Medical History INSIDE WIRER: Yes: Parkinson's Cardio/Vascular: Yes: Murmur (2/6 systolic murmure MICAH) Gastrointestinal: Yes: Other (? recent dysphagia) Renal/: Yes: BPH, Cancer (Bladder Ca RX in past; Saw MD recently Also BPH), Renal Calculi Psych: Yes: Other (some agitation and is asking to go home ) Musculoskeletal: Yes: Chronic low back pain, Other (weakness both legs) - Alcohol/Substance Use Hx Alcohol Use: Yes (OCCAS) History of Substance Use: reports: None - Smoking History Smoking history: Smoker current status UNK Have you smoked in the past 12 months: No - Social History Usual Living Arrangement: Alone ADL: Support Services ([employer]) Occupation: retired History of Recent Travel: No Home Medications - Allergies Allergies/Adverse Reactions: Allergies Allergy/AdvReac Type Severity Reaction Status Date / Time No Known Drug Allergies Allergy Verified 02/12/20 18:25 - Home Medications Home Medications: Ambulatory Orders Carbidopa/Levodopa [Carbidopa-Levodopa 25-250 Tab] 1 each PO TID 09/14/18 Cyanocobalamin [Vitamin B12 -] 1,000 mcg PO DAILY 09/14/18 Gabapentin [Neurontin] 200 mg PO HS 09/14/18 Brinzolamide/Brimonidine Tart [Simbrinza 1%-0.2% Eye Drops] 8 ml OP DAILY 02/12/20 Furosemide 20 mg PO DAILY 02/12/20 Gabapentin 300 mg PO AM 02/12/20 Review of Systems - Review of Systems Constitutional: reports: No Symptoms, Weakness Eyes: reports: No Symptoms HENT: reports: No Symptoms Neck: reports: No Symptoms Cardiovascular: reports: No Symptoms Respiratory: reports: No Symptoms Gastrointestinal: reports: No Symptoms Genitourinary: reports: Other (? less urine output) Integumentary: reports: Erythema (RLE), Wound (Rt heel ulceer) Neurological: reports: Confusion, Other (hallucinations) Endocrine: reports: No Symptoms Hematology/Lymphatic: reports: No Symptoms Psychiatric: reports: Hallucinations Physical Exam Vital Signs: Vital Signs Temperature 98.9 F 02/13/20 14:00 Pulse Rate 56 L 02/13/20 14:00 Respiratory Rate 18 02/13/20 14:00 Blood Pressure 121/56 L 02/13/20 14:00 O2 Sat by Pulse Oximetry (%) 98 02/13/20 14:00 Constitutional: Yes: No Distress, Calm Eyes: Yes: Conjunctiva Clear, EOM Intact HENT: Yes: Atraumatic Neck: Yes: Supple Cardiovascular: Yes: Regular Rate and Rhythm, Murmur Respiratory: Yes: CTA Bilaterally Gastrointestinal: Yes: Normal Bowel Sounds, Soft Renal/: Yes: WNL Musculoskeletal: Yes: WNL Extremities: Yes: Erythema (RLE, heel ulcer) Edema: RLE: 2+ Integumentary: Yes: Erythema, Pressure Ulcer (Rt heel) Wound/Incision: Yes: Draining (Rt heel st 2-3 ulcer with serosanguinous/mildly purulent drainage noted on dresssing, +edema/erythema extending to tamez, +RLE warmth/erythema), Other Neurological: Yes: Alert, Confusion (AAO x3) Psychiatric: Yes: Alert Labs: CBC, BMP 02/13/20 08:45 02/13/20 08:45 Laboratory Tests 02/12/20 02/12/20 02/12/20 19:46 19:46 19:46 WBC 14.7 H RBC 3.41 L Hgb 12.8 Hct 37.7 MCV 110.4 H MCH 37.4 H MCHC 33.9 RDW 14.1 Plt Count 211 MPV 7.9 Absolute Neuts (auto) 11.6 H Neutrophils % 79.0 D Lymphocytes % 10.8 D Monocytes % 9.8 Eosinophils % 0.1 D Basophils % 0.3 Nucleated RBC % 0 Platelet Estimate Adequate Platelet Comment No clumping noted Anisocytosis 1+ Macrocytosis 2+ PT with INR INR PTT (Actin FS) Sodium 137 Potassium 4.4 Chloride 103 Carbon Dioxide 27 Anion Gap 7 L BUN 25.4 H Creatinine 1.0 Est GFR (CKD-EPI)AfAm 78.08 Est GFR (CKD-EPI)NonAf 67.37 POC Glucometer Random Glucose 111 H Hemoglobin A1c % Lactic Acid Calcium 8.8 Phosphorus Magnesium Total Bilirubin 1.7 H Direct Bilirubin AST 68 H ALT 28 Alkaline Phosphatase 102 Ammonia Creatine Kinase Creatine Kinase Index CK-MB (CK-2) Troponin I Total Protein 7.2 Albumin 3.2 L Vitamin B12 1821 H Serum Folate Urine Color Urine Appearance Urine pH Ur Specific [place] Urine Protein Urine Glucose (UA) Urine Ketones Urine Blood Urine Nitrite Urine Bilirubin Urine Urobilinogen Ur Leukocyte Esterase Urine WBC (Auto) Urine RBC (Auto) Urine Casts (Auto) U Epithel Cells (Auto) Urine Bacteria (Auto) Urine Yeast (Auto) Salicylates < 1.7 L Acetaminophen < 2.0 Alcohol, Quantitative < 3 Syphilis Serology 02/12/20 02/12/20 02/12/20 19:46 19:46 19:55 WBC RBC Hgb Hct MCV MCH MCHC RDW Plt Count MPV Absolute Neuts (auto) Neutrophils % Lymphocytes % Monocytes % Eosinophils % Basophils % Nucleated RBC % Platelet Estimate Platelet Comment Anisocytosis Macrocytosis PT with INR 15.30 H INR 1.29 H PTT (Actin FS) 25.3 Sodium Potassium Chloride Carbon Dioxide Anion Gap BUN Creatinine Est GFR (CKD-EPI)AfAm Est GFR (CKD-EPI)NonAf POC Glucometer Random Glucose Hemoglobin A1c % Lactic Acid 1.6 Calcium Phosphorus Magnesium Total Bilirubin Direct Bilirubin 0.5 H AST ALT Alkaline Phosphatase Ammonia Creatine Kinase 527 H Creatine Kinase Index 1.1 CK-MB (CK-2) 5.9 H Troponin I 0.14 H Total Protein Albumin Vitamin B12 Serum Folate Urine Color Urine Appearance Urine pH Ur Specific [place] Urine Protein Urine Glucose (UA) Urine Ketones Urine Blood Urine Nitrite Urine Bilirubin Urine Urobilinogen Ur Leukocyte Esterase Urine WBC (Auto) Urine RBC (Auto) Urine Casts (Auto) U Epithel Cells (Auto) Urine Bacteria (Auto) Urine Yeast (Auto) Salicylates Acetaminophen Alcohol, Quantitative Syphilis Serology 02/12/20 02/13/20 02/13/20 19:58 02:19 08:45 WBC 10.8 H RBC 3.13 L Hgb 11.8 Hct 34.6 L MCV 110.6 H MCH 37.8 H MCHC 34.2 RDW 13.9 Plt Count 178 MPV 8.0 Absolute Neuts (auto) 8.4 H Neutrophils % 77.8 Lymphocytes % 11.3 Monocytes % 9.5 Eosinophils % 0.9 D Basophils % 0.5 Nucleated RBC % 0 Platelet Estimate Platelet Comment Anisocytosis Macrocytosis PT with INR INR PTT (Actin FS) Sodium Potassium Chloride Carbon Dioxide Anion Gap BUN Creatinine Est GFR (CKD-EPI)AfAm Est GFR (CKD-EPI)NonAf POC Glucometer 110 Random Glucose Hemoglobin A1c % Lactic Acid Calcium Phosphorus Magnesium Total Bilirubin Direct Bilirubin AST ALT Alkaline Phosphatase Ammonia Creatine Kinase Creatine Kinase Index CK-MB (CK-2) Troponin I 0.14 H Total Protein Albumin Vitamin B12 Serum Folate Urine Color Urine Appearance Urine pH Ur Specific [place] Urine Protein Urine Glucose (UA) Urine Ketones Urine Blood Urine Nitrite Urine Bilirubin Urine Urobilinogen Ur Leukocyte Esterase Urine WBC (Auto) Urine RBC (Auto) Urine Casts (Auto) U Epithel Cells (Auto) Urine Bacteria (Auto) Urine Yeast (Auto) Salicylates Acetaminophen Alcohol, Quantitative Syphilis Serology 02/13/20 02/13/20 02/13/20 08:45 08:45 08:45 WBC RBC Hgb Hct MCV MCH MCHC RDW Plt Count MPV Absolute Neuts (auto) Neutrophils % Lymphocytes % Monocytes % Eosinophils % Basophils % Nucleated RBC % Platelet Estimate Platelet Comment Anisocytosis Macrocytosis PT with INR INR PTT (Actin FS) Sodium 139 Potassium 4.1 Chloride 104 Carbon Dioxide 29 Anion Gap 6 L BUN 24.0 H Creatinine 0.9 Est GFR (CKD-EPI)AfAm 88.69 Est GFR (CKD-EPI)NonAf 76.52 POC Glucometer Random Glucose 106 Hemoglobin A1c % Lactic Acid Calcium 8.5 Phosphorus 2.7 Magnesium 1.8 Total Bilirubin 1.2 H Direct Bilirubin 0.5 H AST 51 H ALT 35 Alkaline Phosphatase 96 Ammonia 20.80 Creatine Kinase Creatine Kinase Index CK-MB (CK-2) Troponin I Total Protein 6.3 L Albumin 2.8 L Vitamin B12 Serum Folate 15 Urine Color Urine Appearance Urine pH Ur Specific [place] Urine Protein Urine Glucose (UA) Urine Ketones Urine Blood Urine Nitrite Urine Bilirubin Urine Urobilinogen Ur Leukocyte Esterase Urine WBC (Auto) Urine RBC (Auto) Urine Casts (Auto) U Epithel Cells (Auto) Urine Bacteria (Auto) Urine Yeast (Auto) Salicylates Acetaminophen Alcohol, Quantitative Syphilis Serology Non-reactive 02/13/20 02/13/20 08:45 11:00 WBC RBC Hgb Hct MCV MCH MCHC RDW Plt Count MPV Absolute Neuts (auto) Neutrophils % Lymphocytes % Monocytes % Eosinophils % Basophils % Nucleated RBC % Platelet Estimate Platelet Comment Anisocytosis Macrocytosis PT with INR INR PTT (Actin FS) Sodium Potassium Chloride Carbon Dioxide Anion Gap BUN Creatinine Est GFR (CKD-EPI)AfAm Est GFR (CKD-EPI)NonAf POC Glucometer Random Glucose Hemoglobin A1c % 5.6 Lactic Acid Calcium Phosphorus Magnesium Total Bilirubin Direct Bilirubin AST ALT Alkaline Phosphatase Ammonia Creatine Kinase Creatine Kinase Index CK-MB (CK-2) Troponin I Total Protein Albumin Vitamin B12 Serum Folate Urine Color Yellow Urine Appearance Clear Urine pH 5.5 Ur Specific [place] 1.024 Urine Protein 1+ H Urine Glucose (UA) Negative Urine Ketones Trace H Urine Blood Trace Urine Nitrite Negative Urine Bilirubin Negative Urine Urobilinogen 1.0 Ur Leukocyte Esterase Negative Urine WBC (Auto) 8 Urine RBC (Auto) 34 Urine Casts (Auto) 0 U Epithel Cells (Auto) 36 Urine Bacteria (Auto) 4 Urine Yeast (Auto) Non seen Salicylates Acetaminophen Alcohol, Quantitative Syphilis Serology Imaging - Results X-ray: Report Reviewed (foot) Cat Scan: Report Reviewed (head) Ultrasound: Report Reviewed Other: Report Reviewed (vascular) Problem List - Problems (1) AMS (altered mental status) Code(s): R41.82 - ALTERED MENTAL STATUS, UNSPECIFIED Qualifiers: Altered mental status type: unspecified Qualified Code(s): R41.82 - Altered mental status, unspecified (2) Cellulitis Code(s): L03.90 - CELLULITIS, UNSPECIFIED Qualifiers: Site of cellulitis of extremity: lower extremity Laterality: right (3) HALEY (acute kidney injury) Code(s): N17.9 - ACUTE KIDNEY FAILURE, UNSPECIFIED (4) Bladder malignancy Code(s): C67.9 - MALIGNANT NEOPLASM OF BLADDER, UNSPECIFIED (5) Confusion Code(s): R41.0 - DISORIENTATION, UNSPECIFIED (6) HTN (hypertension) Code(s): I10 - ESSENTIAL (PRIMARY) HYPERTENSION (7) Parkinson disease Code(s): G20 - PARKINSON'S DISEASE Assessment/Plan 89 y.o. male with PMH of Parkinson's, Bladder CA, remote history of nephrolithiasis. ? chronic RLE edema presents to the ER for RLE erythema/swelling and recently noted Rt heel ulcer/ decreased ability to ambulate, along with peristent AMS/confusion and hallucinations as reported by family member RLE extremity cellulitis Rt heel infected ulcer AMS/confusion/hallucinations Leukocytosis Parkinson's Hx of Bladder CA Hx of Nephrolithiasis -- continue Ceftriaxone/Vancomycin with close renal function monitoring -- obtain wound culture from Rt heel, order esr/crp -- suggest MRI of RT foot -- Podiatry following -- continue wound care/offloading -- monitor AMS, Neurology evaluation -- DVT ruled out -- wbc trending down, continue monitor Will follow up Thank you
[2020-02-13] MEDS: CARBIDOPA/LEVODOPA 25/250 TABLET (FP) PO SCH ×2 (18:04→22:50)
[2020-02-13] MEDS ORDERED: VANCOMYCIN 1 GRAM (PRE-DOCKED) 1,000 MG/250 ML BAG IVPB SCH (21:00)
[2020-02-13] MEDS ORDERED: PT OWN MED DRAWER 7, Y5N ONE (21:24)
[2020-02-13] MEDS: GABAPENTIN 100 MG CAPSULE PO SCH (22:49)
[2020-02-14] MEDS: GABAPENTIN 300 MG CAPSULE PO SCH (06:56)
[2020-02-14 07:53] LABS: BASO % 0.8 % (0-2.0); EOS % 1.9 % (0-4.5); HEMATOCRIT 33.8 % (35.4-49); HEMOGLOBIN 11.5 GM/dL (11.7-16.9); LYMPH % 20.4 % (8-40); MCH 37.2 pg (25.7-33.7); MCHC 33.9 g/dl (32.0-35.9); MONO % 9.4 % (3.8-10.2); NEUT % 67.5 % (42.8-82.8); PLATELET COUNT 198 K/MM3 (134-434); RBC 3.08 M/mm3 (4.00-5.60); WHITE BLOOD COUNT 8.3 K/mm3 (4.0-10.0)
[2020-02-14 08:24] LABS: ALBUMIN 2.5 g/dl (3.4-5.0); BILIRUBIN,TOTAL 0.9 mg/dL (0.2-1); BLOOD UREA NITROGEN 25.6 mg/dL (7-18); CALCIUM 8.3 mg/dL (8.5-10.1); CREATININE 0.8 mg/dL (0.55-1.3); MAGNESIUM 1.7 mg/dL (1.8-2.4); POTASSIUM 3.9 mmol/L (3.5-5.1); TOT PROT 5.9 g/dl (6.4-8.2)
[2020-02-14] MEDS ORDERED: DEXTROSE 5%-WATER - 50 ML IVPB ONE ×2 (08:52→18:50)
[2020-02-14] MEDS ORDERED: cefTRIAXone SODIUM 1 GM VIAL ONE (08:52)
[2020-02-14] MEDS: CYANOCOBALAMIN 1,000 MCG TABLET (FP) PO SCH (09:02)
[2020-02-14] MEDS: FUROSEMIDE 20 MG TABLET (FP) PO SCH (09:02)
[2020-02-14] MEDS: ENOXAPARIN NA (PORCINE) 40 MG/0.4 ML DISP.SYRIN SQ SCH (09:03)
[2020-02-14] MEDS: CARBIDOPA/LEVODOPA 25/250 TABLET (FP) PO SCH ×3 (09:05→21:00)
[2020-02-14] MEDS ORDERED: CEFTRIAXONE 1 GM in DEXTROSE 5%-WATER - 50 ML IVPB SCH (10:00)
[2020-02-14] MEDS ORDERED: PATIENT'S OWN MEDICATION (NON-FORMULARY) (Brinzolamide/Brimonidine Tart [Simbrinza 1%-0.2% OP SCH (10:00)
[2020-02-14] MEDS ORDERED: MAGNESIUM SULF 50% (8.12 MEQ/2 ML-1 GM VIAL) IVPB ONE (11:00)
--- NOTE | 2020-02-14 14:00 | PN ---
Progress Note (short form) - Note Progress Note: SUBJECTIVE: Feels well except for pain R heel. No fever/chills. OBJECTIVE: Afebrile, Hemodynamically Stable. AAO x 2 (not oriented to place) Last Vital Signs Temp Pulse Resp BP Pulse Ox 98.4 F 62 16 112/56 L 97 02/14/20 10:00 02/14/20 10:00 02/14/20 10:00 02/14/20 10:00 02/14/20 10:08 Heart - S1, S2, RRR Lungs - clear to auscultation Abdomen- Soft, non-tender. Bowel Sounds normal. Extremities - mild edema, erythema/tenderness surrounding Grade 2/3 heel ulcer R foot. Neuro - AAO x 2. Increased rigidity/decreased power bilateral LEs. Laboratory Results - last 24 hr 02/13/20 02/14/20 02/14/20 08:45 06:30 06:30 WBC RBC Hgb Hct MCV MCH MCHC RDW Plt Count MPV Absolute Neuts (auto) Neutrophils % Lymphocytes % Monocytes % Eosinophils % Basophils % Nucleated RBC % ESR 23 H Sodium 139 139 Potassium 4.1 3.9 Chloride 104 105 Carbon Dioxide 29 26 Anion Gap 6 L 8 BUN 24.0 H 25.6 H Creatinine 0.9 0.8 Est GFR (CKD-EPI)AfAm 88.69 93.09 Est GFR (CKD-EPI)NonAf 76.52 80.32 Random Glucose 106 94 Calcium 8.5 8.3 L Phosphorus 2.7 3.0 Magnesium 1.8 1.7 L Total Bilirubin 1.2 H 0.9 Direct Bilirubin 0.5 H AST 51 H 46 H ALT 35 21 Alkaline Phosphatase 96 95 C-Reactive Protein 9.1 H Total Protein 6.3 L 5.9 L Albumin 2.8 L 2.5 L Serum Folate 15 02/14/20 06:30 WBC 8.3 RBC 3.08 L Hgb 11.5 L Hct 33.8 L MCV 110.0 H MCH 37.2 H MCHC 33.9 RDW 14.0 Plt Count 198 MPV 8.0 Absolute Neuts (auto) 5.6 Neutrophils % 67.5 Lymphocytes % 20.4 D Monocytes % 9.4 Eosinophils % 1.9 D Basophils % 0.8 Nucleated RBC % 0 ESR Sodium Potassium Chloride Carbon Dioxide Anion Gap BUN Creatinine Est GFR (CKD-EPI)AfAm Est GFR (CKD-EPI)NonAf Random Glucose Calcium Phosphorus Magnesium Total Bilirubin Direct Bilirubin AST ALT Alkaline Phosphatase C-Reactive Protein Total Protein Albumin Serum Folate Current Medications Generic Name Dose Route Start Last Admin Trade Name Jose PRN Reason Stop Dose Admin Carbidopa/Levodopa 1 each 02/13/20 14:00 02/14/20 09:05 Sinemet 25/250 - PO 1 each TID MIKE Administration Cyanocobalamin 1,000 mcg 02/14/20 10:00 02/14/20 09:02 Vitamin B12 - PO 1,000 mcg DAILY MIKE Administration Enoxaparin Sodium 40 mg 02/13/20 10:00 02/14/20 09:03 Lovenox - SQ 40 mg DAILY MIKE Administration Furosemide 20 mg 02/14/20 10:00 02/14/20 09:02 Lasix - PO 20 mg DAILY MIKE Administration Gabapentin 300 mg 02/14/20 07:00 02/14/20 06:56 Neurontin - PO 300 mg AM MIKE Administration Gabapentin 200 mg 02/13/20 22:00 02/13/20 22:49 Neurontin - PO 200 mg HS MIKE Administration Vancomycin HCl 1,000 mg in 250 mls @ 166.667 mls/hr 02/13/20 21:00 02/13/20 20:55 Vancomycin (Pre-Docked) IVPB 166.667 mls/hr Q24H MIKE Administration Protocol Ceftriaxone Sodium 1 gm/ 50 mls @ 100 mls/hr 02/14/20 10:00 02/14/20 09:05 Dextrose IVPB 100 mls/hr DAILY MIKE Administration Protocol Non-Formulary Medication 8 ml 02/14/20 10:00 Brinzolamide/Brimonidine Tart [Simbrinza 1%-0.2% Eye Drops] OP DAILY [facility] Home Medications Medication Instructions Recorded Carbidopa/Levodopa 1 each PO TID 09/14/18 [Carbidopa-Levodopa 25-250 Tab] Cyanocobalamin [Vitamin B12 -] 1,000 mcg PO DAILY 09/14/18 Gabapentin [Neurontin] 200 mg PO HS 09/14/18 Brinzolamide/Brimonidine Tart 8 ml OP DAILY 02/12/20 [Simbrinza 1%-0.2% Eye Drops] Furosemide 20 mg PO DAILY 02/12/20 Gabapentin 300 mg PO AM 02/12/20 ASSESSMENT AND PLAN: 89 year old male with history of Parkinson's Disease, Bladder cancer, Glaucoma, sent to the ED for increasing confusion/hallucinations and worsening ulcer R heel. 1. Acute Encephalopathy secondary to foot infection vs toxic due to recent change in PD medications vs progression of PD with Dementia. CT Head - no acute intracranial findings. Urine Cx pending. On Carbidopa/Levodopa Neurology consulted 2. Infected RLE heel ulcer/cellulitis Wound Cx - polymicrobial: Staph, Pseudomonas, Proteus and Blood Cx negative. Leukocytosis improved Duplex LEs - negative for DVT. Podiatry evaluated - dressings as suggested by Podiatry. Empiric Ceftriaxone/Vanco as per ID. Further Abx tailoring based on Wound Cx ID and Sens. MRI foot report pending - to exclude OM. 3. Troponin Egression - baseline elevation in Troponin. No CP or ECG changes Prior Troponin levels 0.16, 0.2 Evaluated by Cardio 09/06 for troponin elevation - no need for ischemic work-up. 4. Elevated LFTs - resolving. Abdo US - cholelithiasis Clinically no evidence of cholecystitis. Will monitor. 5. Parkinson's Disease - on Carbidopa/Levodopa Mental Status changes after recent change in dosages Neurology consult requested. 6. Macrocytosis - etiology unclear. MCV 110, B12/Folate levels non-deficient. Hematology consulted. 7. Chronic Diastolic CHF - no evidence of acute exacerbation - Continue Lasix. 8. Hypomagnesemia - repleted. DVT Px - Lovenox SQ Visit type - Emergency Visit Emergency Visit: Yes ED Registration Date: 02/12/20 Care time: The patient presented to the Emergency Department on the above date and was hospitalized for further evaluation of their emergent condition. - New Patient This patient is new to me today: No - Critical Care Critical Care patient: No - Discharge Referral Referred to [facility] Med P.C.: No - Medication Review Med list reviewed for High Risk Meds patients 65 and older: Yes
[2020-02-14] MEDS ORDERED: PT OWN MED DRAWER 7, Y5N ONE ×2 (15:00→20:35)
--- NOTE | 2020-02-14 15:17 | CON.HO ---
Consult - text type - Consultation Consultation Note: 89 y.o. male with PMH of Parkinson's, Bladder CA, remote history of nephrolithiasis. ? chronic RLE edema presents to the ER for RLE erythema/swelling and recently noted Rt heel ulcer/ decreased ability to ambulate, along with peristent AMS/confusion and hallucinations . He has been following with his Neurologist who has been adjusting doses of his medications for Parkinson's. he was noted to have an elevated wbc with RLE edema/erythema and Rt heel ulcer. Currently pt is alert and oriented in person, place but not date. 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 recent dysphagia) Renal/: Yes: BPH, Cancer (Bladder Ca RX in past; Saw MD recently Also BPH), Renal Calculi Psych: Yes: Other (some agitation and is asking to go home ) Musculoskeletal: Yes: Chronic low back pain, Other (weakness both legs) - Alcohol/Substance Use Hx Alcohol Use: Yes (OCCAS) - Smoking History Smoking history: Smoker current status - Social History Usual Living Arrangement: Alone ADL: Support Services ([employer]) Occupation: retired Home Medications - Allergies Allergies/Adverse Reactions: Allergies Allergy/AdvReac Type Severity Reaction Status Date / Time No Known Drug Allergies Allergy Verified 02/12/20 18:25 - Home Medications Home Medications: Ambulatory Orders Carbidopa/Levodopa [Carbidopa-Levodopa 25-250 Tab] 1 each PO TID 09/14/18 Cyanocobalamin [Vitamin B12 -] 1,000 mcg PO DAILY 09/14/18 Gabapentin [Neurontin] 200 mg PO HS 09/14/18 Brinzolamide/Brimonidine Tart [Simbrinza 1%-0.2% Eye Drops] 8 ml OP DAILY 02/12/20 Furosemide 20 mg PO DAILY 02/12/20 Gabapentin 300 mg PO AM 02/12/20 Vital Signs: Vital Signs Temperature 98.9 F 02/13/20 14:00 Pulse Rate 56 L 02/13/20 14:00 Respiratory Rate 18 02/13/20 14:00 Blood Pressure 121/56 L 02/13/20 14:00 O2 Sat by Pulse Oximetry (%) 98 02/13/20 14:00 Cor: RSR, No murmurs, No gallops Lungs: Clear to P&A Abd: Soft, Normal bowel sounds, No organomegaly Ext:No significant edema Labs/Meds reviewed Imaging - Results X-ray: Report Reviewed (foot) Cat Scan: Report Reviewed (head) Ultrasound: Report Reviewed Other: Report Reviewed (vascular) Assessment/Plan 89 y.o. male with PMH of Parkinson's, Bladder CA, remote history of nephrolithiasis. ? chronic RLE edema presents to the ER for RLE erythema/swelling and recently noted Rt heel ulcer/ decreased ability to ambulate, along with peristent altered mental status /confusion and hallucinations as reported by family member RLE extremity cellulitis Rt heel infected ulcer AMS/confusion/hallucinations Leukocytosis Parkinson's Hx of Bladder CA Hx of Nephrolithiasis Macrocytosis -- B12/folate --nl check liver U/S check TSH, fT4 ? drug induced --??? sinemet ? MDS -- will check flow/FISH/cytogenetics based on TSH and U/S will follow
--- NOTE | 2020-02-14 17:18 | PN ---
Progress Note, Physician Chief Complaint: FUV right heel. Pt alert and oriented. - Current Medication List Current Medications: Active Medications Carbidopa/Levodopa (Sinemet 25/250 -) 1 each PO TID MIKE Last Admin: 02/14/20 15:07 Dose: 1 each Documented by: Cyanocobalamin (Vitamin B12 -) 1,000 mcg PO DAILY MIKE Last Admin: 02/14/20 09:02 Dose: 1,000 mcg Documented by: Enoxaparin Sodium (Lovenox -) 40 mg SQ DAILY MIKE Last Admin: 02/14/20 09:03 Dose: 40 mg Documented by: Furosemide (Lasix -) 20 mg PO DAILY MIKE Last Admin: 02/14/20 09:02 Dose: 20 mg Documented by: Gabapentin (Neurontin -) 300 mg PO AM MIKE Last Admin: 02/14/20 06:56 Dose: 300 mg Documented by: Gabapentin (Neurontin -) 200 mg PO HS MIKE Last Admin: 02/13/20 22:49 Dose: 200 mg Documented by: Vancomycin HCl (Vancomycin (Pre-Docked)) 1,000 mg in 250 mls @ 166.667 mls/hr IVPB Q24H MIKE; Protocol Last Admin: 02/13/20 20:55 Dose: 166.667 mls/hr Documented by: Ceftriaxone Sodium 1 gm/ (Dextrose) 50 mls @ 100 mls/hr IVPB DAILY MIKE; Protocol Last Admin: 02/14/20 09:05 Dose: 100 mls/hr Documented by: Non-Formulary Medication (Brinzolamide/Brimonidine Tart [Simbrinza 1%-0.2% Eye Drops]) 8 ml OP DAILY [facility] - Objective Vital Signs: Vital Signs Temperature 98.6 F 02/14/20 14:34 Pulse Rate 85 02/14/20 14:34 Respiratory Rate 18 02/14/20 14:34 Blood Pressure 101/48 L 02/14/20 14:34 O2 Sat by Pulse Oximetry (%) 97 02/14/20 10:08 Wound/Incision: Yes: Other (+grade 2-3 wound right heel, +draining, +improved cellulitis, -mal odor,) Labs: CBC, BMP 02/14/20 06:30 02/14/20 06:30 INR, PTT INR 1.29 (0.83-1.09) H 02/12/20 19:46 Assessment/Plan heel decubitis right cellulitis om? Betadine dressing change done. Continue elevate heels with a pillow. Abx as pe r ID. Will follow. No debridement at this time. Rest as per team.
--- NOTE | 2020-02-14 18:31 | PN ---
Progress Note, Physician History of Present Illness: Pt is alert, afebrile, w/o distress. No specific complaints. Culture results noted. - Current Medication List Current Medications: Active Medications Carbidopa/Levodopa (Sinemet 25/250 -) 1 each PO TID [facility] Last Admin: 02/14/20 15:07 Dose: 1 each Documented by: Cyanocobalamin (Vitamin B12 -) 1,000 mcg PO DAILY [facility] Last Admin: 02/14/20 09:02 Dose: 1,000 mcg Documented by: Enoxaparin Sodium (Lovenox -) 40 mg SQ DAILY [facility] Last Admin: 02/14/20 09:03 Dose: 40 mg Documented by: Furosemide (Lasix -) 20 mg PO DAILY [facility] Last Admin: 02/14/20 09:02 Dose: 20 mg Documented by: Gabapentin (Neurontin -) 300 mg PO AM [facility] Last Admin: 02/14/20 06:56 Dose: 300 mg Documented by: Gabapentin (Neurontin -) 200 mg PO HS [facility] Last Admin: 02/13/20 22:49 Dose: 200 mg Documented by: Vancomycin HCl (Vancomycin (Pre-Docked)) 1,000 mg in 250 mls @ 166.667 mls/hr IVPB Q24H [facility]; Protocol Last Admin: 02/13/20 20:55 Dose: 166.667 mls/hr Documented by: Ceftriaxone Sodium 1 gm/ (Dextrose) 50 mls @ 100 mls/hr IVPB DAILY [facility]; Protocol Last Admin: 02/14/20 09:05 Dose: 100 mls/hr Documented by: Non-Formulary Medication (Brinzolamide/Brimonidine Tart [Simbrinza 1%-0.2% Eye Drops]) 8 ml OP DAILY [facility] - Objective Vital Signs: Vital Signs Temperature 98.6 F 02/14/20 18:02 Pulse Rate 69 02/14/20 18:02 Respiratory Rate 18 02/14/20 18:02 Blood Pressure 100/63 02/14/20 18:02 O2 Sat by Pulse Oximetry (%) 95 02/14/20 18:02 Constitutional: Yes: No Distress, Calm Cardiovascular: Yes: Regular Rate and Rhythm Respiratory: Yes: Regular Gastrointestinal: Yes: Normal Bowel Sounds, Soft Edema: Yes Wound/Incision: Yes: Dressing Dry and Intact (Rt heel ulcer/Rt foot edema/erythema) Neurological: Yes: Alert Labs: CBC, BMP 02/14/20 06:30 02/14/20 06:30 INR, PTT INR 1.29 (0.83-1.09) H 02/12/20 19:46 Laboratory Last Values WBC 8.3 K/mm3 (4.0-10.0) 02/14/20 06:30 RBC 3.08 M/mm3 (4.00-5.60) L 02/14/20 06:30 Hgb 11.5 GM/dL (11.7-16.9) L 02/14/20 06:30 Hct 33.8 % (35.4-49) L 02/14/20 06:30 MCV 110.0 fl (80-96) H 02/14/20 06:30 MCH 37.2 pg (25.7-33.7) H 02/14/20 06:30 MCHC 33.9 g/dl (32.0-35.9) 02/14/20 06:30 RDW 14.0 % (11.9-15.9) 02/14/20 06:30 Plt Count 198 K/MM3 (134-434) 02/14/20 06:30 MPV 8.0 fl (7.5-11.1) 02/14/20 06:30 Absolute Neuts (auto) 5.6 K/mm3 (1.5-8.0) 02/14/20 06:30 Neutrophils % 67.5 % (42.8-82.8) 02/14/20 06:30 Lymphocytes % 20.4 % (8-40) D 02/14/20 06:30 Monocytes % 9.4 % (3.8-10.2) 02/14/20 06:30 Eosinophils % 1.9 % (0-4.5) D 02/14/20 06:30 Basophils % 0.8 % (0-2.0) 02/14/20 06:30 Nucleated RBC % 0 % (0-0) 02/14/20 06:30 Platelet Estimate Adequate 02/12/20 19:46 Platelet Comment No clumping noted 02/12/20 19:46 Anisocytosis 1+ 02/12/20 19:46 Macrocytosis 2+ 02/12/20 19:46 ESR 23 mm/hr (0-20) H 09/27/20 06:30 PT with INR 15.30 SEC (9.7-13.0) H 02/12/20 19:46 INR 1.29 (0.83-1.09) H 02/12/20 19:46 PTT (Actin FS) 25.3 SECONDS (25.2-36.5) 02/12/20 19:46 Sodium 139 mmol/L (136-145) 02/14/20 06:30 Potassium 3.9 mmol/L (3.5-5.1) 02/14/20 06:30 Chloride 105 mmol/L (98-107) 02/14/20 06:30 Carbon Dioxide 26 mmol/L (21-32) 02/14/20 06:30 Anion Gap 8 MMOL/L (8-16) 02/14/20 06:30 BUN 25.6 mg/dL (7-18) H 02/14/20 06:30 Creatinine 0.8 mg/dL (0.55-1.3) 02/14/20 06:30 Est GFR (CKD-EPI)AfAm 93.09 02/14/20 06:30 Est GFR (CKD-EPI)NonAf 80.32 02/14/20 06:30 POC Glucometer 110 UNITS (80-120) 02/12/20 19:58 Random Glucose 94 mg/dL (74-106) 02/14/20 06:30 Hemoglobin A1c % 5.6 % (4.2-6.3) 02/13/20 08:45 Lactic Acid 1.6 mmol/L (0.4-2.0) 02/12/20 19:55 Calcium 8.3 mg/dL (8.5-10.1) L 02/14/20 06:30 Phosphorus 3.0 mg/dL (2.5-4.9) 02/14/20 06:30 Magnesium 1.7 mg/dL (1.8-2.4) L 02/14/20 06:30 Total Bilirubin 0.9 mg/dL (0.2-1) 02/14/20 06:30 Direct Bilirubin 0.5 mg/dL (0.0-0.2) H 02/13/20 08:45 AST 46 U/L (15-37) H 02/14/20 06:30 ALT 21 U/L (13-61) 02/14/20 06:30 Alkaline Phosphatase 95 U/L (45-117) 02/14/20 06:30 Ammonia 20.80 umol/L (11-32) 02/13/20 08:45 Creatine Kinase 527 U/L (26-308) H 02/12/20 19:46 Creatine Kinase Index 1.1 % (0.0-5.0) 02/12/20 19:46 CK-MB (CK-2) 5.9 ng/mL (0.5-3.6) H 02/12/20 19:46 Troponin I 0.14 ng/ml (0.00-0.05) H 02/13/20 02:19 C-Reactive Protein 9.1 MG/DL (0.00-0.3) H 02/14/20 06:30 Total Protein 5.9 g/dl (6.4-8.2) L 02/14/20 06:30 Albumin 2.5 g/dl (3.4-5.0) L 02/14/20 06:30 Vitamin B12 1821 pg/ml (193-986) H 02/12/20 19:46 Serum Folate 15 ng/mL (3.1-17.5) 02/13/20 08:45 Urine Color Yellow 02/13/20 11:00 Urine Appearance Clear 02/13/20 11:00 Urine pH 5.5 (5.0-8.0) 02/13/20 11:00 Ur Specific [place] 1.024 (1.010-1.035) 02/13/20 11:00 Urine Protein 1+ (NEGATIVE) H 02/13/20 11:00 Urine Glucose (UA) Negative (NEGATIVE) 02/13/20 11:00 Urine Ketones Trace (NEGATIVE) H 02/13/20 11:00 Urine Blood Trace (NEGATIVE) 02/13/20 11:00 Urine Nitrite Negative (NEGATIVE) 02/13/20 11:00 Urine Bilirubin Negative (NEGATIVE) 02/13/20 11:00 Urine Urobilinogen 1.0 mg/dL (0.2-1.0) 02/13/20 11:00 Ur Leukocyte Esterase Negative (NEGATIVE) 02/13/20 11:00 Urine WBC (Auto) 8 /uL (0-25.8) 02/13/20 11:00 Urine RBC (Auto) 34 /uL (0-23.9) 02/13/20 11:00 Urine Casts (Auto) 0 /uL (0-3.1) 02/13/20 11:00 U Epithel Cells (Auto) 36 /uL (0-25.1) 02/13/20 11:00 Urine Bacteria (Auto) 4 /uL (0-1359) 02/13/20 11:00 Urine Yeast (Auto) Non seen (NEGATIVE) 02/13/20 11:00 Salicylates < 1.7 mg/dL (2.8-20) L 02/12/20 19:46 Acetaminophen < 2.0 ug/ml 02/12/20 19:46 Alcohol, Quantitative < 3 mg/dL (0.0-5.0) 02/12/20 19:46 Syphilis Serology Non-reactive (NONREACTIVE) 02/13/20 08:45 COVID-19 (JOVITA) Not detected (Not Detected) 02/12/20 22:20 Microbiology 02/12/20 19:18 Foot - Right Gram Stain - Final 02/12/20 19:18 Foot - Right Wound Culture - Preliminary Staphylococcus Species Proteus Species Pseudomonas Species 02/12/20 21:20 Blood - Peripheral Venous Blood Culture - Preliminary NO GROWTH OBTAINED AFTER 24 HOURS, INCUBATION TO CONTINUE FOR 4 DAYS. 02/12/20 21:20 Blood - Peripheral Venous Blood Culture - Preliminary NO GROWTH OBTAINED AFTER 24 HOURS, INCUBATION TO CONTINUE FOR 4 DAYS. - ....Imaging MRI: Pending Problem List - Problems (1) AMS (altered mental status) Code(s): R41.82 - ALTERED MENTAL STATUS, UNSPECIFIED Qualifiers: Altered mental status type: unspecified Qualified Code(s): R41.82 - Altered mental status, unspecified (2) Cellulitis Code(s): L03.90 - CELLULITIS, UNSPECIFIED Qualifiers: Site of cellulitis of extremity: lower extremity Laterality: right (3) HALEY (acute kidney injury) Code(s): N17.9 - ACUTE KIDNEY FAILURE, UNSPECIFIED (4) Bladder malignancy Code(s): C67.9 - MALIGNANT NEOPLASM OF BLADDER, UNSPECIFIED (5) Confusion Code(s): R41.0 - DISORIENTATION, UNSPECIFIED (6) HTN (hypertension) Code(s): I10 - ESSENTIAL (PRIMARY) HYPERTENSION (7) Parkinson disease Code(s): G20 - PARKINSON'S DISEASE Assessment/Plan RLE extremity cellulitis Rt heel infected ulcer r/o OM AMS/confusion/hallucinations Leukocytosis Parkinson's Hx of Bladder CA Hx of Nephrolithiasis -- wound culture prelim isolates noted. Will switch current antibiotics to Zosyn. Follow up final results. -- follow up MRI result -- continue wound care/offloading -- monitor AMS, currently alert, conversive, appears lucid -- DVT ruled out -- wbc now normal. Pt afebrile.
[2020-02-14] MEDS ORDERED: PIPERACILLIN/TAZOBACTAM 3.375 GM VIAL IVPB ONE (18:50)
[2020-02-14] MEDS: PIPERACILLIN/TAZOB 3.375 GM 3.375 GM in DEXTROSE 5%-WATER - 50 ML IVPB SCH (19:02)
[2020-02-14] MEDS: GABAPENTIN 100 MG CAPSULE PO SCH (21:00)
[2020-02-15] MEDS ORDERED: PIPERACILLIN/TAZOBACTAM 3.375 GM VIAL IVPB ONE ×3 (01:58→18:40)
[2020-02-15] MEDS ORDERED: DEXTROSE 5%-WATER - 50 ML IVPB ONE ×3 (01:59→18:40)
[2020-02-15] MEDS: PIPERACILLIN/TAZOB 3.375 GM 3.375 GM in DEXTROSE 5%-WATER - 50 ML IVPB SCH ×3 (02:11→18:51)
[2020-02-15] MEDS: CARBIDOPA/LEVODOPA 25/250 TABLET (FP) PO SCH ×2 (07:00→15:06)
[2020-02-15] MEDS: GABAPENTIN 300 MG CAPSULE PO SCH (07:00)
[2020-02-15] MEDS: ENOXAPARIN NA (PORCINE) 40 MG/0.4 ML DISP.SYRIN SQ SCH (09:36)
[2020-02-15] MEDS: CYANOCOBALAMIN 1,000 MCG TABLET (FP) PO SCH (09:36)
[2020-02-15] MEDS: FUROSEMIDE 20 MG TABLET (FP) PO SCH (09:36)
[2020-02-15 09:53] LABS: HEMATOCRIT 33.8 % (35.4-49); HEMOGLOBIN 11.5 GM/dL (11.7-16.9); MCH 37.4 pg (25.7-33.7); MEAN CELL VOLUME 110.1 fl (80-96); MEAN PLT VOLUME 8.2 fl (7.5-11.1); PLATELET COUNT 214 K/MM3 (134-434); RBC 3.07 M/mm3 (4.00-5.60); RDW 13.9 % (11.9-15.9)
[2020-02-15 10:17] LABS: BLOOD UREA NITROGEN 25.1 mg/dL (7-18); CALCIUM 7.5 mg/dL (8.5-10.1); MAGNESIUM 1.9 mg/dL (1.8-2.4); POTASSIUM 4.1 mmol/L (3.5-5.1)
--- NOTE | 2020-02-15 12:59 | PN ---
Progress Note, Physician History of Present Illness: stable still confusion podiatry on case - Current Medication List Current Medications: Active Medications Carbidopa/Levodopa (Sinemet 25/250 -) 1 each PO TID [facility] Last Admin: 02/15/20 07:00 Dose: 1 each Documented by: Cyanocobalamin (Vitamin B12 -) 1,000 mcg PO DAILY [facility] Last Admin: 02/15/20 09:36 Dose: 1,000 mcg Documented by: Enoxaparin Sodium (Lovenox -) 40 mg SQ DAILY [facility] Last Admin: 02/15/20 09:36 Dose: 40 mg Documented by: Furosemide (Lasix -) 20 mg PO DAILY [facility] Last Admin: 02/15/20 09:36 Dose: 20 mg Documented by: Gabapentin (Neurontin -) 300 mg PO AM [facility] Last Admin: 02/15/20 07:00 Dose: 300 mg Documented by: Gabapentin (Neurontin -) 200 mg PO HS [facility] Last Admin: 02/14/20 21:00 Dose: 200 mg Documented by: Piperacillin Sod/Tazobactam (Sod 3.375 gm/ Dextrose) 50 mls @ 100 mls/hr IVPB Q8H-IV [facility]; Protocol Last Admin: 02/15/20 09:36 Dose: 100 mls/hr Documented by: Non-Formulary Medication (Brinzolamide/Brimonidine Tart [Simbrinza 1%-0.2% Eye Drops]) 8 ml OP DAILY [facility] Vancomycin HCl (Vancomycin (Pre-Docked)) 1,000 mg IVPB ONCE ONE; Protocol Stop: 02/15/20 10:39 - Objective Vital Signs: Vital Signs Temperature 98.8 F 02/15/20 09:45 Pulse Rate 76 02/15/20 09:45 Respiratory Rate 18 02/15/20 09:45 Blood Pressure 106/53 L 02/15/20 09:45 O2 Sat by Pulse Oximetry (%) 95 02/15/20 09:45 Constitutional: Yes: No Distress, Calm Cardiovascular: Yes: S1, S2 Respiratory: Yes: Regular, CTA Bilaterally Gastrointestinal: Yes: Normal Bowel Sounds, Soft Musculoskeletal: Yes: WNL Extremities: Yes: Other Integumentary: Yes: WNL Wound/Incision: Yes: Other Neurological: Yes: Alert, Confusion Labs: CBC, BMP 02/15/20 07:15 02/15/20 07:15 INR, PTT INR 1.29 (0.83-1.09) H 02/12/20 19:46 Assessment/Plan Problem List - Problems (1) AMS (altered mental status) Code(s): R41.82 - ALTERED MENTAL STATUS, UNSPECIFIED Qualifiers: Altered mental status type: unspecified Qualified Code(s): R41.82 - Altered mental status, unspecified (2) Cellulitis Code(s): L03.90 - CELLULITIS, UNSPECIFIED Qualifiers: Site of cellulitis of extremity: lower extremity Laterality: right (3) HALEY (acute kidney injury) Code(s): N17.9 - ACUTE KIDNEY FAILURE, UNSPECIFIED (4) Bladder malignancy Code(s): C67.9 - MALIGNANT NEOPLASM OF BLADDER, UNSPECIFIED (5) Confusion Code(s): R41.0 - DISORIENTATION, UNSPECIFIED (6) HTN (hypertension) Code(s): I10 - ESSENTIAL (PRIMARY) HYPERTENSION (7) Parkinson disease Code(s): G20 - PARKINSON'S DISEASE Assessment/Plan RLE extremity cellulitis Rt heel infected ulcer r/o OM AMS/confusion/hallucinations Leukocytosis Parkinson's Hx of Bladder CA Hx of Nephrolithiasis plan cx results noted will add vanco rest as per the team
[2020-02-15] MEDS ORDERED: VANCOMYCIN 1 GM in D5W (PRE-DOCKED) 1,000 MG/250 ML IVPB ONE (13:00)
--- NOTE | 2020-02-15 13:05 | PN ---
Progress Note, Physician Chief Complaint: FUV right heel. Pt alert and oriented. - Current Medication List Current Medications: Active Medications Carbidopa/Levodopa (Sinemet 25/250 -) 1 each PO TID [facility] Last Admin: 02/15/20 07:00 Dose: 1 each Documented by: Cyanocobalamin (Vitamin B12 -) 1,000 mcg PO DAILY [facility] Last Admin: 02/15/20 09:36 Dose: 1,000 mcg Documented by: Enoxaparin Sodium (Lovenox -) 40 mg SQ DAILY [facility] Last Admin: 02/15/20 09:36 Dose: 40 mg Documented by: Furosemide (Lasix -) 20 mg PO DAILY [facility] Last Admin: 02/15/20 09:36 Dose: 20 mg Documented by: Gabapentin (Neurontin -) 300 mg PO AM [facility] Last Admin: 02/15/20 07:00 Dose: 300 mg Documented by: Gabapentin (Neurontin -) 200 mg PO HS [facility] Last Admin: 02/14/20 21:00 Dose: 200 mg Documented by: Piperacillin Sod/Tazobactam (Sod 3.375 gm/ Dextrose) 50 mls @ 100 mls/hr IVPB Q8H-IV [facility]; Protocol Last Admin: 02/15/20 09:36 Dose: 100 mls/hr Documented by: Vancomycin HCl 1,250 mg/ (Dextrose) 250 mls @ 250 mls/2 hr IVPB Q24H [facility]; Protocol Non-Formulary Medication (Brinzolamide/Brimonidine Tart [Simbrinza 1%-0.2% Eye Drops]) 8 ml OP DAILY [facility] - Objective Vital Signs: Vital Signs Temperature 98.8 F 02/15/20 09:45 Pulse Rate 76 02/15/20 09:45 Respiratory Rate 18 02/15/20 09:45 Blood Pressure 106/53 L 02/15/20 09:45 O2 Sat by Pulse Oximetry (%) 95 02/15/20 09:45 Wound/Incision: Yes: Other (normalized wbc, +dry clean dressing in place, -for om) Labs: CBC, BMP 02/15/20 07:15 02/15/20 07:15 INR, PTT INR 1.29 (0.83-1.09) H 02/12/20 19:46 Assessment/Plan heel decubitis right cellulitis Betadine dressing change done by nursing. Continue elevate heels with a pillow. Abx as per ID. Will follow. No debridement at this time. Rest as per team.
--- NOTE | 2020-02-15 13:08 | CONSULT ---
- Consultation REQUESTING PROVIDER: CONSULT REQUEST: We have been asked to surgically evaluate this patient for right heel ulcer. Hospitalist:Jac Kahn MD HISTORY OF PRESENT ILLNESS: 89 y/o M w/ PMHx parkinsons disease, bladder cancer, glaucoma, and new onset hallucinations a/w altered mental status. vascular consulted for right heel blister. Pt reports he noted right heel blister a few days ago. States he is unsure how he got it. Was seen by his PCP, cannot recall if any treatment was recommended. Denies any pain, fevers, chills. No history of tobacco abuse or known PAD. Denies cp/sob, n/v/d. PMHx: as above PSHx: knee replacement Home Medications Medication Instructions Recorded Carbidopa/Levodopa 1 each PO TID 09/14/18 [Carbidopa-Levodopa 25-250 Tab] Cyanocobalamin [Vitamin B12 -] 1,000 mcg PO DAILY 09/14/18 Gabapentin [Neurontin] 200 mg PO HS 09/14/18 Brinzolamide/Brimonidine Tart 8 ml OP DAILY 02/12/20 [Simbrinza 1%-0.2% Eye Drops] Furosemide 20 mg PO DAILY 02/12/20 Gabapentin 300 mg PO AM 02/12/20 Allergies Allergy/AdvReac Type Severity Reaction Status Date / Time No Known Drug Allergies Allergy Verified 02/12/20 18:25 REVIEW OF SYSTEMS: CONSTITUTIONAL: Absent: fever, chills CARDIOVASCULAR: Absent: chest pain, syncope RESPIRATORY: Absent: cough, shortness of breath GASTROINTESTINAL: Absent: abdominal pain PHYSICAL EXAM: GENERAL: Awake, alert, and oriented x3, in no acute distress. HEAD: Normal with no signs of trauma. LOWER EXTREMITIES: L heel with no wounds, no wounds noted on L foot, R foot with approx 4x4cm circular ulcer at medial aspect of heel, some skin noted at edge of wound consistent with a denuded blister. Wound bed clean laterall, approx 2x2cm area of soft eschar medially. +ttp at ulcer. Leg with some wrinkled skin due to decreased edema, mild erythema noted to mild calf. No other wounds noted Vasc: L dp 2+, pt with biphasic signal. R dp 1+ (biphasic signal) pt with biphasic signal. feet warm, well perfused. 5/5 dorsi/plantarflexion Vital Signs Temperature 98.8 F 02/15/20 09:45 Pulse Rate 76 02/15/20 09:45 Respiratory Rate 18 02/15/20 09:45 Blood Pressure 106/53 L 02/15/20 09:45 O2 Sat by Pulse Oximetry (%) 95 02/15/20 09:45 Lab Results WBC 7.0 K/mm3 (4.0-10.0) 02/15/20 07:15 RBC 3.07 M/mm3 (4.00-5.60) L 02/15/20 07:15 Hgb 11.5 GM/dL (11.7-16.9) L 02/15/20 07:15 Hct 33.8 % (35.4-49) L 02/15/20 07:15 MCV 110.1 fl (80-96) H 02/15/20 07:15 MCHC 34.0 g/dl (32.0-35.9) 02/15/20 07:15 RDW 13.9 % (11.9-15.9) 02/15/20 07:15 Plt Count 214 K/MM3 (134-434) 02/15/20 07:15 INR 1.29 (0.83-1.09) H 02/12/20 19:46 Sodium 138 mmol/L (136-145) 02/15/20 07:15 Potassium 4.1 mmol/L (3.5-5.1) 02/15/20 07:15 Chloride 105 mmol/L (98-107) 02/15/20 07:15 Carbon Dioxide 26 mmol/L (21-32) 02/15/20 07:15 Anion Gap 7 MMOL/L (8-16) L 02/15/20 07:15 BUN 25.1 mg/dL (7-18) H 02/15/20 07:15 Creatinine 1.0 mg/dL (0.55-1.3) 02/15/20 07:15 Random Glucose 102 mg/dL (74-106) 02/15/20 07:15 Calcium 7.5 mg/dL (8.5-10.1) L 02/15/20 07:15 A/P: 89 y/o M w/ PMHx parkinsons disease, bladder cancer, glaucoma, and new onset hallucinations a/w altered mental status. vascular consulted for right heel blister. mri with no evidence of osteomyelitis heel with small area of soft eschar, remainder with granulation tissue present -no acute vascular intervention at this time -recommend betadine to area of soft eschar, bacitracin to remainder of wound -offloading at all times -please call with questions/concerns
--- NOTE | 2020-02-15 14:09 | EKG ---
Test Reason : Blood Pressure : / mmHG Vent. Rate : 092 BPM Atrial Rate : 092 BPM P-R Int : 152 ms QRS Dur : 126 ms QT Int : 406 ms P-R-T Axes : 033 -06 -25 degrees QTc Int : 502 ms SINUS RHYTHM WITH FREQUENT PREMATURE VENTRICULAR COMPLEXES RIGHT BUNDLE BRANCH BLOCK INFERIOR INFARCT , AGE UNDETERMINED ABNORMAL ECG WHEN COMPARED WITH ECG OF 09-FEB-2020 18:01, LIKELY NO SIGNIFICANT CHANGES Confirmed by ALESSIO MENDOZA, MELODY ([id number]) on 02/15/2020 2:08:41 PM Referred By: Confirmed By:MELODY MCCALLUM MD
--- NOTE | 2020-02-15 14:55 | PN ---
Teaching Attending Note Name of Resident: Silviano Lang ATTENDING PHYSICIAN STATEMENT I saw and evaluated the patient. I reviewed the resident's note and discussed the case with the resident. I agree with the resident's findings and plan as documented. SUBJECTIVE: Feels well except for pain R heel. No fever/chills. OBJECTIVE: Afebrile, Hemodynamically Stable. AAO x 3 Last Vital Signs Temp Pulse Resp BP Pulse Ox 98.8 F 76 18 106/53 L 95 02/15/20 09:45 02/15/20 09:45 02/15/20 09:45 02/15/20 09:45 02/15/20 09:45 Heart - S1, S2, RRR Lungs - clear to auscultation Abdomen- Soft, non-tender. Bowel Sounds normal. Extremities - mild edema, erythema/tenderness surrounding Grade 2/3 heel ulcer R foot. Neuro - AAO x 3. Increased rigidity/decreased power bilateral LEs. Laboratory Results - last 24 hr 02/15/20 02/15/20 07:15 07:15 WBC 7.0 RBC 3.07 L Hgb 11.5 L Hct 33.8 L MCV 110.1 H MCH 37.4 H MCHC 34.0 RDW 13.9 Plt Count 214 MPV 8.2 Sodium 138 Potassium 4.1 Chloride 105 Carbon Dioxide 26 Anion Gap 7 L BUN 25.1 H Creatinine 1.0 Est GFR (CKD-EPI)AfAm 78.08 Est GFR (CKD-EPI)NonAf 67.37 Random Glucose 102 Calcium 7.5 L Magnesium 1.9 TSH 1.04 D Free T4 1.20 H Current Medications Generic Name Dose Route Start Last Admin Trade Name Jose PRN Reason Stop Dose Admin Carbidopa/Levodopa 1 each 02/13/20 14:00 02/15/20 07:00 Sinemet 25/250 - PO 1 each TID [facility]KE Administration Cyanocobalamin 1,000 mcg 02/14/20 10:00 02/15/20 09:36 Vitamin B12 - PO 1,000 mcg DAILY [facility] Administration Enoxaparin Sodium 40 mg 02/13/20 10:00 02/15/20 09:36 Lovenox - SQ 40 mg DAILY [facility] Administration Furosemide 20 mg 02/14/20 10:00 02/15/20 09:36 Lasix - PO 20 mg DAILY [facility] Administration Gabapentin 300 mg 02/14/20 07:00 02/15/20 07:00 Neurontin - PO 300 mg AM [facility] Administration Gabapentin 200 mg 02/13/20 22:00 02/14/20 21:00 Neurontin - PO 200 mg HS [facility] Administration Piperacillin Sod/Tazobactam 50 mls @ 100 mls/hr 02/14/20 18:30 02/15/20 09:36 Sod 3.375 gm/ Dextrose IVPB 100 mls/hr Q8H-IV [facility] Administration Protocol Vancomycin HCl 1,250 mg/ 250 mls @ 250 mls/2 hr 02/15/20 13:15 Dextrose IVPB Q24H [facility] Protocol Non-Formulary Medication 8 ml 02/14/20 10:00 Brinzolamide/Brimonidine Tart [Simbrinza 1%-0.2% Eye Drops] OP DAILY [facility] Home Medications Medication Instructions Recorded Carbidopa/Levodopa 1 each PO TID 09/14/18 [Carbidopa-Levodopa 25-250 Tab] Cyanocobalamin [Vitamin B12 -] 1,000 mcg PO DAILY 09/14/18 Gabapentin [Neurontin] 200 mg PO HS 09/14/18 Furosemide 20 mg PO DAILY 02/12/20 Gabapentin 300 mg PO AM 02/12/20 Latanoprost 0.005% Eye Drops 1 drop HS 02/15/20 [Xalatan 0.005% Eye Drops -] ASSESSMENT AND PLAN: 89 year old male with history of Parkinson's Disease, Bladder cancer, Glaucoma, sent to the ED for increasing confusion/hallucinations and worsening ulcer R heel. 1. Acute Encephalopathy secondary to foot infection vs toxic due to recent change in PD medications vs progression of PD with Dementia. CT Head - no acute intracranial findings. Urine Cx negative On Carbidopa/Levodopa TID for PD (apparently recently changed to QID by Neuro) Neurology consulted for clarification on recommended dosage, awaiting evaluation 2. Infected RLE heel ulcer/cellulitis Wound Cx - polymicrobial: MRSA, Pseudomonas, Proteus and Blood Cx negative. Leukocytosis improved Duplex LEs - negative for DVT. MRI foot - no OM or abscess Podiatry evaluated - dressings as suggested by Podiatry. Zosyn/Vanco as per ID - further abx titration as per ID pending final ID and Sensitivities. 3. Troponin Egression - baseline elevation in Troponin. No CP or ECG changes Prior Troponin levels 0.16, 0.2 Evaluated by Cardio 09/06 for troponin elevation - no need for ischemic work-up. 4. Elevated LFTs - resolving. Abdo US - cholelithiasis Clinically no evidence of cholecystitis. 5. Parkinson's Disease - on Carbidopa/Levodopa Mental Status changes after recent change in dosages Neurology consult requested. 6. Macrocytosis - etiology unclear. MCV 110, B12/Folate levels non-deficient. Hematology consulted - ?MDS vs medication. Liver US ordered by Hematology. Further recommendations as per Hematology. 7. Chronic Diastolic CHF - no evidence of acute exacerbation - Continue Lasix. 8. Hypomagnesemia - repleted. DVT Px - Lovenox SQ
[2020-02-15] MEDS ORDERED: PT OWN MED DRAWER 7, Y5N ONE ×2 (15:00→20:34)
[2020-02-15] MEDS: VANCOMYCIN HCL 1,250 MG in DEXTROSE 5%-WATER - 250 ML IVPB SCH (15:06)
--- NOTE | 2020-02-15 15:21 | PN ---
Physical Exam: SUBJECTIVE: Patient seen and examined. OBJECTIVE: Vital Signs Period Temp Pulse Resp BP Sys/Velazco Pulse Ox Last 24 Hr 98 F-98.8 F 68-76 16-18 96-114/53-69 95-96 GENERAL: The patient is awake, alert, and fully oriented, in no acute distress. HEAD: Normal with no signs of trauma. EYES: PERRL, extraocular movements intact, sclera anicteric, conjunctiva clear. No ptosis. ENT: Ears normal, nares patent, oropharynx clear without exudates, moist mucous membranes. NECK: Trachea midline, full range of motion, supple. LUNGS: Breath sounds equal, clear to auscultation bilaterally, no wheezes, no crackles, no accessory muscle use. HEART: Regular rate and rhythm, S1, S2 without murmur, rub or gallop. ABDOMEN: Soft, nontender, nondistended, normoactive bowel sounds, no guarding, no rebound, no hepatosplenomegaly, no masses. EXTREMITIES: 2+ pulses, warm, well-perfused. Mild edema, erythema, tenderness surrounding Grade 2/3 heel ulcer R foot. NEUROLOGICAL: Cranial nerves II through XII grossly intact. Normal speech, gait not observed. Increased rigidity/decreased power bilateral LEs. PSYCH: Normal mood, normal affect. SKIN: Warm, dry, normal turgor, no rashes or lesions noted Laboratory Results - last 24 hr 02/15/20 02/15/20 07:15 07:15 WBC 7.0 RBC 3.07 L Hgb 11.5 L Hct 33.8 L MCV 110.1 H MCH 37.4 H MCHC 34.0 RDW 13.9 Plt Count 214 MPV 8.2 Sodium 138 Potassium 4.1 Chloride 105 Carbon Dioxide 26 Anion Gap 7 L BUN 25.1 H Creatinine 1.0 Est GFR (CKD-EPI)AfAm 78.08 Est GFR (CKD-EPI)NonAf 67.37 Random Glucose 102 Calcium 7.5 L Magnesium 1.9 TSH 1.04 D Free T4 1.20 H Active Medications Generic Name Dose Route Start Last Admin Trade Name Freq PRN Reason Stop Dose Admin Carbidopa/Levodopa 1 each 02/13/20 14:00 02/15/20 15:06 Sinemet 25/250 - PO 1 each TID MIKE Administration Cyanocobalamin 1,000 mcg 02/14/20 10:00 02/15/20 09:36 Vitamin B12 - PO 1,000 mcg DAILY MIKE Administration Enoxaparin Sodium 40 mg 02/13/20 10:00 02/15/20 09:36 Lovenox - SQ 40 mg DAILY MIKE Administration Furosemide 20 mg 02/14/20 10:00 02/15/20 09:36 Lasix - PO 20 mg DAILY MIKE Administration Gabapentin 300 mg 02/14/20 07:00 02/15/20 07:00 Neurontin - PO 300 mg AM MIKE Administration Gabapentin 200 mg 02/13/20 22:00 02/14/20 21:00 Neurontin - PO 200 mg HS MIKE Administration Piperacillin Sod/Tazobactam 50 mls @ 100 mls/hr 02/14/20 18:30 02/15/20 09:36 Sod 3.375 gm/ Dextrose IVPB 100 mls/hr Q8H-IV MIKE Administration Protocol Vancomycin HCl 1,250 mg/ 250 mls @ 250 mls/2 hr 02/15/20 13:15 02/15/20 15:06 Dextrose IVPB 250 mls/2 hr Q24H MIKE Administration Protocol Non-Formulary Medication 8 ml 02/14/20 10:00 Brinzolamide/Brimonidine Tart [Simbrinza 1%-0.2% Eye Drops] OP DAILY MIKE ASSESSMENT/PLAN: Pt is a 89 year old male with PMHx of PD, bladder cancer, glaucoma sent to the ED for change in mental status and and worsening R ulcer heel. #Acute encephalopathy 2/2 to R foot infection vs. recent change in PD med s/progression of PD with dementia -CT head negative for acute changes -UCx negative for acute changes -Carbidopa/Levodopa TID, was recently changed back from QID to TID due to alterations; awaiting recommendations -improved mentation, A&O x 3 #Infected R heel cellulitis -Wound cx polymicrobial: MRSA positive, Pseudomonas, proteus preliminarily -On vanc/zosyn per ID -Improving leukocytosis (8.3) -MRI foot negative for osteo/abscess -Podiatry consulted, changed dressings #Parkinson's Disease -On carbidopa/levodopa; recently altered dosage by neuro -Per pt, returned to TID from QID recently -awaiting recs by neurology #Macrocytosis -MCV 110; normal folate/B12 -hematology consulted -hem/onc ordered tests for myelodysplastic syndrome #HFpEF -continue Lasix #Chronically elevated troponin -0.14 x2, chronically elevated -cardio evaluated, no need for ischemic work up FEN -No standing fluids -Monitor electrolytes -Regular diet PPx -Lovenox 40mg SQ Dispo Admit to med surg. Altered on arrival. Improved mentation. Vanc/zosyn for R foot ulcer. Visit type - Emergency Visit Emergency Visit: Yes ED Registration Date: 02/12/20 Care time: The patient presented to the Emergency Department on the above date and was hospitalized for further evaluation of their emergent condition. - New Patient This patient is new to me today: No - Critical Care Critical Care patient: No - Medication Review Med list reviewed for High Risk Meds patients 65 and older: Yes ATTENDING PHYSICIAN STATEMENT I saw and evaluated the patient. I reviewed the resident's note and discussed the case with the resident. I agree with the resident's findings and plan as documented. SUBJECTIVE: OBJECTIVE: ASSESSMENT AND PLAN:
--- NOTE | 2020-02-15 17:25 | CON.NEURO ---
Consult Consult Specialty:: [facility] Referred by:: PCP Reason for Consultation:: AMS - History of Present Illness History of Present Illness: this is a 89-year-old right-handed man with history of Parkinson's disease well known to me for many years on the carbidopa chronic low back pain with spinal stenosis history of bladder cancer in remission supposedly comes into the hospital for her second visit with a chief complaint of confusion according to the daughter patient was noted with abnormal behavior and counseling her regarding questionable hallucination I so the patient last week and the office a few weeks ago we increased his carbidopa due to increasing difficulty with walking and patient slipped and fell at home. Patient was increased on the carbidopa to 4 times daily which made him hallucinating. 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 recent dysphagia) Renal/: Yes: BPH, Cancer (Bladder Ca RX in past; Saw MD recently Also BPH), Renal Calculi Psych: Yes: Other (some agitation and is asking to go home ) Musculoskeletal: Yes: Chronic low back pain, Other (weakness both legs) - Alcohol/Substance Use Hx Alcohol Use: Yes (OCCAS) History of Substance Use: reports: None - Smoking History Smoking history: Smoker current status UNK Have you smoked in the past 12 months: No - Social History Usual Living Arrangement: Alone ADL: Support Services ([employer]) Occupation: retired History of Recent Travel: No Home Medications - Allergies Allergies/Adverse Reactions: Allergies Allergy/AdvReac Type Severity Reaction Status Date / Time No Known Drug Allergies Allergy Verified 02/12/20 18:25 - Home Medications Home Medications: Ambulatory Orders Carbidopa/Levodopa [Carbidopa-Levodopa 25-250 Tab] 1 each PO TID 09/14/18 Cyanocobalamin [Vitamin B12 -] 1,000 mcg PO DAILY 09/14/18 Gabapentin [Neurontin] 200 mg PO HS 09/14/18 Furosemide 20 mg PO DAILY 02/12/20 Gabapentin 300 mg PO AM 02/12/20 Latanoprost 0.005% Eye Drops [Xalatan 0.005% Eye Drops -] 1 drop HS 02/15/20 Family Medical History Family History: Unremarkable Review of Systems - Review of Systems Musculoskeletal: reports: Back Pain, Decreased ROM, Joint Pain Neurological: reports: Dizziness, Headache, Incoordination Physical Exam-Neuro Vital Signs: Vital Signs Temperature 98.8 F 02/15/20 09:45 Pulse Rate 76 02/15/20 09:45 Respiratory Rate 18 02/15/20 09:45 Blood Pressure 106/53 L 02/15/20 09:45 O2 Sat by Pulse Oximetry (%) 95 02/15/20 12:00 Constitutional: Yes: Well Nourished Neck: Yes: WNL Cardiovascular: Yes: WNL Labs: CBC, BMP 02/15/20 07:15 02/15/20 07:15 INR, PTT INR 1.29 (0.83-1.09) H 02/12/20 19:46 - Neuro Exam Level Of Consciousness: Yes: Oriented to Person, Oriented to Place, Oriented to Time Eyes: Yes: PERRLA Speech: WNL Dominant Hand: Right Cranial Nerves II-XII Intact: Yes Gag: Present DTR's: 1+ Left Bicep, 1+ Right Bicep, 1+ Left Tricep, 1+ Right Tricep Response to light touch: Normal Response to pain prick: Normal Response to temperature: Normal Motor Strength: 3/5: Left Arm, Right Arm, Left Leg, Right Leg Gait: Deferred Imaging - Results Cat Scan: Image Reviewed Problem List - Problems (1) AMS (altered mental status) Code(s): R41.82 - ALTERED MENTAL STATUS, UNSPECIFIED Qualifiers: Altered mental status type: unspecified Qualified Code(s): R41.82 - Altered mental status, unspecified (2) BPH (benign prostatic hyperplasia) Code(s): N40.0 - BENIGN PROSTATIC HYPERPLASIA WITHOUT LOWER URINRY TRACT SYMP (3) Back pain Code(s): M54.9 - DORSALGIA, UNSPECIFIED (4) Parkinson disease Code(s): G20 - PARKINSON'S DISEASE Assessment/Plan 1. Fall precautions. 2. IV hydration. 3. Change carbidopa to Stalevo 37/150/20 3 times daily. 4. Seroquel 25 mg half a tablet at bedtime. 5. DVT prophylaxis. 6. No need for B12 shots. 7. Physical therapy Thank you very much for allowing me to be part of this patient's neurological care
[2020-02-15] MEDS: GABAPENTIN 100 MG CAPSULE PO SCH (22:10)
[2020-02-15] MEDS: CARBIDOP 37.5MG/LEVODOPA 150MG/ENTACAPONE 200MG TABLET PO SCH (22:11)
[2020-02-16] MEDS ORDERED: PIPERACILLIN/TAZOBACTAM 3.375 GM VIAL IVPB ONE ×4 (00:57→23:29)
[2020-02-16] MEDS ORDERED: DEXTROSE 5%-WATER - 50 ML IVPB ONE ×4 (00:58→23:30)
[2020-02-16] MEDS: PIPERACILLIN/TAZOB 3.375 GM 3.375 GM in DEXTROSE 5%-WATER - 50 ML IVPB SCH ×3 (01:28→17:05)
[2020-02-16] MEDS ORDERED: PT OWN MED DRAWER 7, Y5N ONE (05:19)
[2020-02-16] MEDS: CARBIDOP 37.5MG/LEVODOPA 150MG/ENTACAPONE 200MG TABLET PO SCH ×3 (06:01→21:31)
[2020-02-16] MEDS: GABAPENTIN 300 MG CAPSULE PO SCH (06:01)
[2020-02-16 06:53] LABS: HEMATOCRIT 34.2 % (35.4-49); HEMOGLOBIN 11.6 GM/dL (11.7-16.9); MEAN CELL VOLUME 108.9 fl (80-96); MEAN PLT VOLUME 7.8 fl (7.5-11.1); PLATELET COUNT 234 K/MM3 (134-434); RBC 3.14 M/mm3 (4.00-5.60); RDW 13.6 % (11.9-15.9); WHITE BLOOD COUNT 7.7 K/mm3 (4.0-10.0)
[2020-02-16 07:20] LABS: BILIRUBIN,TOTAL 0.8 mg/dL (0.2-1); POTASSIUM 4.1 mmol/L (3.5-5.1); TOT PROT 6.1 g/dl (6.4-8.2)
[2020-02-16 07:25] LABS: ALBUMIN 2.4 g/dl (3.4-5.0); BLOOD UREA NITROGEN 22.2 mg/dL (7-18); CREATININE 0.9 mg/dL (0.55-1.3); MAGNESIUM 1.8 mg/dL (1.8-2.4); PHOSPHOROUS 3.4 mg/dL (2.5-4.9)
[2020-02-16] MEDS: CYANOCOBALAMIN 1,000 MCG TABLET (FP) PO SCH (09:21)
[2020-02-16] MEDS: FUROSEMIDE 20 MG TABLET (FP) PO SCH (09:21)
[2020-02-16] MEDS: QUEtiapine FUMARATE 25 MG TABLET PO SCH (09:21)
[2020-02-16] MEDS: ENOXAPARIN NA (PORCINE) 40 MG/0.4 ML DISP.SYRIN SQ SCH (09:22)
--- NOTE | 2020-02-16 09:37 | PN ---
Progress Note, Physician Chief Complaint: FUV right heel. Pt alert and oriented. - Current Medication List Current Medications: Active Medications Carbidopa/Levodopa/Entacapone (Stalevo 150) 1 tab PO TID [facility] Last Admin: 02/16/20 06:01 Dose: 1 tab Documented by: Cyanocobalamin (Vitamin B12 -) 1,000 mcg PO DAILY [facility] Last Admin: 02/16/20 09:21 Dose: 1,000 mcg Documented by: Enoxaparin Sodium (Lovenox -) 40 mg SQ DAILY MIKE Last Admin: 02/16/20 09:22 Dose: 40 mg Documented by: Furosemide (Lasix -) 20 mg PO DAILY [facility] Last Admin: 02/16/20 09:21 Dose: 20 mg Documented by: Gabapentin (Neurontin -) 300 mg PO AM MIKE Last Admin: 02/16/20 06:01 Dose: 300 mg Documented by: Gabapentin (Neurontin -) 200 mg PO HS [facility] Last Admin: 02/15/20 22:10 Dose: 200 mg Documented by: Piperacillin Sod/Tazobactam (Sod 3.375 gm/ Dextrose) 50 mls @ 100 mls/hr IVPB Q8H-IV MIKE; Protocol Last Admin: 02/16/20 09:23 Dose: 100 mls/hr Documented by: Vancomycin HCl 1,250 mg/ (Dextrose) 250 mls @ 250 mls/2 hr IVPB Q24H MIKE; Protocol Last Admin: 02/15/20 15:06 Dose: 250 mls/2 hr Documented by: Non-Formulary Medication (Brinzolamide/Brimonidine Tart [Simbrinza 1%-0.2% Eye Drops]) 8 ml OP DAILY [facility] Quetiapine Fumarate (Seroquel -) 12.5 mg PO DAILY [facility] Last Admin: 02/16/20 09:21 Dose: 12.5 mg Documented by: - Objective Vital Signs: Vital Signs Temperature 97.5 F L 02/16/20 08:26 Pulse Rate 77 02/16/20 08:26 Respiratory Rate 18 02/16/20 08:26 Blood Pressure 103/54 L 02/16/20 08:26 O2 Sat by Pulse Oximetry (%) 95 02/16/20 08:26 Wound/Incision: Yes: Other (+dry eschar right heel, -drainage, -mal odor) Labs: CBC, BMP 09/29/20 05:35 02/16/20 05:35 INR, PTT INR 1.29 (0.83-1.09) H 02/12/20 19:46 Assessment/Plan heel decubitis right cellulitis DC Betadine dressing change. Change dressing to Santyl. Continue elevate heels with a pillow. Abx as per ID. Will follow. No debridement at this time. Rest as per team.
[2020-02-16] MEDS ORDERED: COLLAGENASE CLOSTRIDIUM HIST. 30 GRAMS TUBE TP SCH (10:00)
[2020-02-16] MEDS: VANCOMYCIN HCL 1,250 MG in DEXTROSE 5%-WATER - 250 ML IVPB SCH (12:27)
--- NOTE | 2020-02-16 13:44 | PN ---
Progress Note, Physician History of Present Illness: stable no new issues wound looked at necrotic eschar - Current Medication List Current Medications: Active Medications Carbidopa/Levodopa/Entacapone (Stalevo 150) 1 tab PO TID [facility] Last Admin: 02/16/20 13:14 Dose: 1 tab Documented by: Collagenase (Santyl -) 1 applic TP DAILY MIKE; Protocol Cyanocobalamin (Vitamin B12 -) 1,000 mcg PO DAILY MIKE Last Admin: 02/16/20 09:21 Dose: 1,000 mcg Documented by: Enoxaparin Sodium (Lovenox -) 40 mg SQ DAILY MIKE Last Admin: 02/16/20 09:22 Dose: 40 mg Documented by: Furosemide (Lasix -) 20 mg PO DAILY MIKE Last Admin: 02/16/20 09:21 Dose: 20 mg Documented by: Gabapentin (Neurontin -) 300 mg PO AM MIKE Last Admin: 02/16/20 06:01 Dose: 300 mg Documented by: Gabapentin (Neurontin -) 200 mg PO HS MIKE Last Admin: 02/15/20 22:10 Dose: 200 mg Documented by: Piperacillin Sod/Tazobactam (Sod 3.375 gm/ Dextrose) 50 mls @ 100 mls/hr IVPB Q8H-IV MIKE; Protocol Last Admin: 02/16/20 09:23 Dose: 100 mls/hr Documented by: Vancomycin HCl 1,250 mg/ (Dextrose) 250 mls @ 250 mls/2 hr IVPB Q24H MIKE; Protocol Last Admin: 02/16/20 12:27 Dose: 250 mls/2 hr Documented by: Non-Formulary Medication (Brinzolamide/Brimonidine Tart [Simbrinza 1%-0.2% Eye Drops]) 8 ml OP DAILY [facility] Quetiapine Fumarate (Seroquel -) 12.5 mg PO DAILY MIKE Last Admin: 02/16/20 09:21 Dose: 12.5 mg Documented by: - Objective Vital Signs: Vital Signs Temperature 97.5 F L 02/16/20 08:26 Pulse Rate 77 02/16/20 08:26 Respiratory Rate 18 02/16/20 09:00 Blood Pressure 103/54 L 02/16/20 08:26 O2 Sat by Pulse Oximetry (%) 95 02/16/20 09:00 Constitutional: Yes: No Distress, Calm Cardiovascular: Yes: S1, S2 Respiratory: Yes: Regular, CTA Bilaterally Gastrointestinal: Yes: Normal Bowel Sounds, Soft Musculoskeletal: Yes: WNL Extremities: Yes: WNL Neurological: Yes: Alert Psychiatric: Yes: Alert Labs: CBC, BMP 02/16/20 05:35 02/16/20 05:35 INR, PTT INR 1.29 (0.83-1.09) H 02/12/20 19:46 Assessment/Plan Problem List - Problems (1) AMS (altered mental status) Code(s): R41.82 - ALTERED MENTAL STATUS, UNSPECIFIED Qualifiers: Altered mental status type: unspecified Qualified Code(s): R41.82 - Altered mental status, unspecified (2) Cellulitis Code(s): L03.90 - CELLULITIS, UNSPECIFIED Qualifiers: Site of cellulitis of extremity: lower extremity Laterality: right (3) HALEY (acute kidney injury) Code(s): N17.9 - ACUTE KIDNEY FAILURE, UNSPECIFIED (4) Bladder malignancy Code(s): C67.9 - MALIGNANT NEOPLASM OF BLADDER, UNSPECIFIED (5) Confusion Code(s): R41.0 - DISORIENTATION, UNSPECIFIED (6) HTN (hypertension) Code(s): I10 - ESSENTIAL (PRIMARY) HYPERTENSION (7) Parkinson disease Code(s): G20 - PARKINSON'S DISEASE Assessment/Plan RLE extremity cellulitis Rt heel infected ulcer r/o OM AMS/confusion/hallucinations Leukocytosis Parkinson's Hx of Bladder CA Hx of Nephrolithiasis plan cx results noted ct abx wound care rest as per the team
--- NOTE | 2020-02-16 13:58 | PN ---
Teaching Attending Note Name of Resident: Silviano Lang ATTENDING PHYSICIAN STATEMENT I saw and evaluated the patient. I reviewed the resident's note and discussed the case with the resident. I agree with the resident's findings and plan as documented. SUBJECTIVE: pt seen and examined, sleepy OBJECTIVE: Last Vital Signs Temp Pulse Resp BP Pulse Ox 97.5 F L 77 18 103/54 L 95 02/16/20 08:26 02/16/20 08:26 02/16/20 09:00 02/16/20 08:26 02/16/20 09:00 GENERAL: sleepy, in no acute distress. HEAD: Normal with no signs of trauma. EYES: Pupils equal, round and reactive to light, sclera anicteric, conjunctiva clear. LUNGS: Breath sounds equal, clear to auscultation bilaterally. No wheezes, and no crackles. No accessory muscle use. HEART: Regular rate and rhythm, normal S1 and S2 ABDOMEN: Soft, nontender, not distended MUSCULOSKELETAL: Normal range of motion at all joints. No bony deformities or tenderness. No CVA tenderness. LOWER EXTREMITIES: mild edema, erythema/tenderness surrounding Grade 2/3 heel ulcer R foot NEUROLOGICAL: Cranial nerves II-XII intact. Normal speech. CBCD WBC 7.7 K/mm3 (4.0-10.0) 02/16/20 05:35 RBC 3.14 M/mm3 (4.00-5.60) L 02/16/20 05:35 Hgb 11.6 GM/dL (11.7-16.9) L 02/16/20 05:35 Hct 34.2 % (35.4-49) L 02/16/20 05:35 MCV 108.9 fl (80-96) H 02/16/20 05:35 MCHC 34.0 g/dl (32.0-35.9) 02/16/20 05:35 RDW 13.6 % (11.9-15.9) 02/16/20 05:35 Plt Count 234 K/MM3 (134-434) 02/16/20 05:35 MPV 7.8 fl (7.5-11.1) 02/16/20 05:35 CMP Sodium 137 mmol/L (136-145) 02/16/20 05:35 Potassium 4.1 mmol/L (3.5-5.1) 02/16/20 05:35 Chloride 102 mmol/L (98-107) 02/16/20 05:35 Carbon Dioxide 30 mmol/L (21-32) 02/16/20 05:35 Anion Gap 5 MMOL/L (8-16) L 02/16/20 05:35 BUN 22.2 mg/dL (7-18) H 02/16/20 05:35 Creatinine 0.9 mg/dL (0.55-1.3) 02/16/20 05:35 Calcium 8.0 mg/dL (8.5-10.1) L 02/16/20 05:35 Total Bilirubin 0.8 mg/dL (0.2-1) 02/16/20 05:35 AST 41 U/L (15-37) H 02/16/20 05:35 ALT 21 U/L (13-61) 02/16/20 05:35 Alkaline Phosphatase 125 U/L (45-117) H 02/16/20 05:35 Total Protein 6.1 g/dl (6.4-8.2) L 02/16/20 05:35 Albumin 2.4 g/dl (3.4-5.0) L 02/16/20 05:35 Active Medications Carbidopa/Levodopa/Entacapone (Stalevo 150) 1 tab PO TID [facility] Last Admin: 02/16/20 13:14 Dose: 1 tab Documented by: Collagenase (Santyl -) 1 applic TP DAILY MIKE; Protocol Cyanocobalamin (Vitamin B12 -) 1,000 mcg PO DAILY MIKE Last Admin: 02/16/20 09:21 Dose: 1,000 mcg Documented by: Enoxaparin Sodium (Lovenox -) 40 mg SQ DAILY MIKE Last Admin: 02/16/20 09:22 Dose: 40 mg Documented by: Furosemide (Lasix -) 20 mg PO DAILY MIKE Last Admin: 02/16/20 09:21 Dose: 20 mg Documented by: Gabapentin (Neurontin -) 300 mg PO AM MIKE Last Admin: 02/16/20 06:01 Dose: 300 mg Documented by: Gabapentin (Neurontin -) 200 mg PO HS MIKE Last Admin: 02/15/20 22:10 Dose: 200 mg Documented by: Piperacillin Sod/Tazobactam (Sod 3.375 gm/ Dextrose) 50 mls @ 100 mls/hr IVPB Q8H-IV MIKE; Protocol Last Admin: 02/16/20 09:23 Dose: 100 mls/hr Documented by: Vancomycin HCl 1,250 mg/ (Dextrose) 250 mls @ 250 mls/2 hr IVPB Q24H MIKE; Protocol Last Admin: 02/16/20 12:27 Dose: 250 mls/2 hr Documented by: Non-Formulary Medication (Brinzolamide/Brimonidine Tart [Simbrinza 1%-0.2% Eye Drops]) 8 ml OP DAILY MIKE Quetiapine Fumarate (Seroquel -) 12.5 mg PO DAILY [facility]KE Last Admin: 02/16/20 09:21 Dose: 12.5 mg Documented by: ASSESSMENT AND PLAN: 89 YO man with Mhx of Parkinson's Disease, Bladder cancer, Glaucoma, sent to the ED for increasing confusion/hallucinations and worsening ulcer R heel. # Delirium causes: foot infection vs toxic due to recent change in PD medications vs progression of PD with Dementia. CT Head no acute intracranial findings. Urine Cx negative his medications adjusted to Stalevo 150 TID, quetiapine 12.5 avoid sedatives. redirect/re-orientation Neurology consult appreciated # Infected RLE heel ulcer/cellulitis Wound Cx - polymicrobial: MRSA, Pseudomonas, Proteus and Blood Cx negative. Leukocytosis improved Duplex LEs - negative for DVT. MRI foot - no OM or abscess Podiatry consult appreciated Abx per ID will discuss duration of Abx, need for PiCC line with ID Elevated LFTs - resolving Parkinson disease Macrocytosis HFpEF DVT Px - Lovenox SQ
[2020-02-16] MEDS: COLLAGENASE CLOSTRIDIUM HIST. 30 GRAMS TUBE TP SCH (14:15)
--- NOTE | 2020-02-16 14:27 | PN ---
Physical Exam: SUBJECTIVE: Patient seen and examined. Denies any fever, chills. Slightly confused in the AM. OBJECTIVE: Vital Signs Period Temp Pulse Resp BP Sys/Velazco Pulse Ox Last 24 Hr 97.5 F-99.0 F 62-77 18-18 103-122/45-62 94-95 GENERAL: The patient is awake, alert, and fully oriented, in no acute distress. HEAD: Normal with no signs of trauma. EYES: PERRL, extraocular movements intact, sclera anicteric, conjunctiva clear. No ptosis. ENT: Ears normal, nares patent, oropharynx clear without exudates, moist mucous membranes. NECK: Trachea midline, full range of motion, supple. LUNGS: Breath sounds equal, clear to auscultation bilaterally, no wheezes, no crackles, no accessory muscle use. HEART: Regular rate and rhythm, S1, S2 without murmur, rub or gallop. ABDOMEN: Soft, nontender, nondistended, normoactive bowel sounds, no guarding, no rebound, no hepatosplenomegaly, no masses. EXTREMITIES: 2+ pulses, warm, well-perfused. Grade 2/3 heel ulcer R foot. Erythema and edema improved. NEUROLOGICAL: Cranial nerves II through XII grossly intact. Normal speech, gait not observed. Increased rigidity/decreased power bilateral LEs. PSYCH: Normal mood, normal affect. SKIN: Warm, dry, normal turgor, no rashes or lesions noted Laboratory Results - last 24 hr 02/16/20 02/16/20 05:35 05:35 WBC 7.7 RBC 3.14 L Hgb 11.6 L Hct 34.2 L MCV 108.9 H MCH 37.0 H MCHC 34.0 RDW 13.6 Plt Count 234 MPV 7.8 Sodium 137 Potassium 4.1 Chloride 102 Carbon Dioxide 30 Anion Gap 5 L BUN 22.2 H Creatinine 0.9 Est GFR (CKD-EPI)AfAm 88.69 Est GFR (CKD-EPI)NonAf 76.52 Random Glucose 110 H Calcium 8.0 L Phosphorus 3.4 Magnesium 1.8 Total Bilirubin 0.8 AST 41 H ALT 21 Alkaline Phosphatase 125 H Total Protein 6.1 L Albumin 2.4 L Active Medications Generic Name Dose Route Start Last Admin Trade Name Freq PRN Reason Stop Dose Admin Carbidopa/Levodopa/Entacapone 1 tab 02/15/20 22:00 02/16/20 13:14 Stalevo 150 PO 1 tab TID MIKE Administration Collagenase 1 applic 02/16/20 14:00 02/16/20 14:15 Santyl - TP 1 applic DAILY MIKE Administration Protocol Cyanocobalamin 1,000 mcg 02/14/20 10:00 02/16/20 09:21 Vitamin B12 - PO 1,000 mcg DAILY MIKE Administration Enoxaparin Sodium 40 mg 02/13/20 10:00 02/16/20 09:22 Lovenox - SQ 40 mg DAILY MIKE Administration Furosemide 20 mg 02/14/20 10:00 02/16/20 09:21 Lasix - PO 20 mg DAILY MIKE Administration Gabapentin 300 mg 02/14/20 07:00 02/16/20 06:01 Neurontin - PO 300 mg AM MIKE Administration Gabapentin 200 mg 02/13/20 22:00 02/15/20 22:10 Neurontin - PO 200 mg HS MIKE Administration Piperacillin Sod/Tazobactam 50 mls @ 100 mls/hr 02/14/20 18:30 02/16/20 09:23 Sod 3.375 gm/ Dextrose IVPB 100 mls/hr Q8H-IV MIKE Administration Protocol Vancomycin HCl 1,250 mg/ 250 mls @ 250 mls/2 hr 02/15/20 13:15 02/16/20 12:27 Dextrose IVPB 250 mls/2 hr Q24H MIKE Administration Protocol Non-Formulary Medication 8 ml 02/14/20 10:00 Brinzolamide/Brimonidine Tart [Simbrinza 1%-0.2% Eye Drops] OP DAILY MIKE Quetiapine Fumarate 12.5 mg 02/16/20 10:00 02/16/20 09:21 Seroquel - PO 12.5 mg DAILY MIKE Administration ASSESSMENT/PLAN: Pt is a 89 year old male with PMHx of PD, bladder cancer, glaucoma sent to the ED for change in mental status and and worsening R ulcer heel. #Acute encephalopathy 2/2 to R foot infection vs. recent change in PD med s/progression of PD with dementia -CT head negative for acute changes -UCx negative for acute changes -Carbidopa/Levodopa TID, was recently changed back from QID to TID ; now Stalevo 150mg TID -improved mentation, A&O x 3 #Infected R heel cellulitis -Wound cx polymicrobial: MRSA positive, Pseudomonas, proteus preliminarily -On vanc/zosyn per ID -MRI foot negative for osteo/abscess -Podiatry consulted #Parkinson's Disease -Consulted neuro (Dr. Moran); changed to Stalevo 150 mg TID and Seroquel 12.5mg #Macrocytosis -MCV 110; normal folate/B12 -hematology consulted -hem/onc ordered tests for myelodysplastic syndrome #HFpEF -continue Lasix #Chronically elevated troponin -0.14 x2, chronically elevated -cardio evaluated, no need for ischemic work up FEN -No standing fluids -Monitor electrolytes -Regular diet PPx -Lovenox 40mg SQ Dispo Admit to med surg. Altered on arrival. Improved mentation. Vanc/zosyn for R foot ulcer. ATTENDING PHYSICIAN STATEMENT I saw and evaluated the patient. I reviewed the resident's note and discussed the case with the resident. I agree with the resident's findings and plan as documented. SUBJECTIVE: OBJECTIVE: ASSESSMENT AND PLAN:
[2020-02-16] MEDS: GABAPENTIN 100 MG CAPSULE PO SCH (21:30)
[2020-02-17] MEDS: PIPERACILLIN/TAZOB 3.375 GM 3.375 GM in DEXTROSE 5%-WATER - 50 ML IVPB SCH ×3 (00:59→17:09)
[2020-02-17] MEDS: CARBIDOP 37.5MG/LEVODOPA 150MG/ENTACAPONE 200MG TABLET PO SCH ×3 (05:42→21:04)
[2020-02-17] MEDS: GABAPENTIN 300 MG CAPSULE PO SCH (06:07)
[2020-02-17 07:38] LABS: HEMATOCRIT 37.9 % (35.4-49); HEMOGLOBIN 12.8 GM/dL (11.7-16.9); MCH 37.2 pg (25.7-33.7); MCHC 33.9 g/dl (32.0-35.9); MEAN CELL VOLUME 109.6 fl (80-96); MEAN PLT VOLUME 7.2 fl (7.5-11.1); PLATELET COUNT 250 K/MM3 (134-434); RBC 3.46 M/mm3 (4.00-5.60); RDW 14.2 % (11.9-15.9); WHITE BLOOD COUNT 7.3 K/mm3 (4.0-10.0)
[2020-02-17 07:48] LABS: ALBUMIN 2.6 g/dl (3.4-5.0); BILIRUBIN,TOTAL 1.2 mg/dL (0.2-1); BLOOD UREA NITROGEN 20.5 mg/dL (7-18); MAGNESIUM 1.6 mg/dL (1.8-2.4); POTASSIUM 4.3 mmol/L (3.5-5.1); TOT PROT 6.5 g/dl (6.4-8.2)
[2020-02-17] MEDS ORDERED: MAGNESIUM 2GM/50ML STERILE WATER IVPB IVPB ONE (08:45)
[2020-02-17] MEDS ORDERED: MAGNESIUM SULF 50% (8.12 MEQ/2 ML-1 GM VIAL) IVPB ONE (08:45)
--- NOTE | 2020-02-17 09:03 | PN ---
Progress Note, Physician History of Present Illness: stable no new issues - Current Medication List Current Medications: Active Medications Carbidopa/Levodopa/Entacapone (Stalevo 150) 1 tab PO TID [facility] Last Admin: 02/17/20 05:42 Dose: 1 tab Documented by: Jessica (Santyl -) 1 applic TP DAILY [facility]; Protocol Last Admin: 02/16/20 14:15 Dose: 1 applic Documented by: Cyanocobalamin (Vitamin B12 -) 1,000 mcg PO DAILY [facility] Last Admin: 02/16/20 09:21 Dose: 1,000 mcg Documented by: Enoxaparin Sodium (Lovenox -) 40 mg SQ DAILY [facility] Last Admin: 02/16/20 09:22 Dose: 40 mg Documented by: Furosemide (Lasix -) 20 mg PO DAILY [facility] Last Admin: 02/16/20 09:21 Dose: 20 mg Documented by: Gabapentin (Neurontin -) 300 mg PO AM [facility] Last Admin: 02/17/20 06:07 Dose: 300 mg Documented by: Gabapentin (Neurontin -) 200 mg PO HS [facility] Last Admin: 02/16/20 21:30 Dose: 200 mg Documented by: Piperacillin Sod/Tazobactam (Sod 3.375 gm/ Dextrose) 50 mls @ 100 mls/hr IVPB Q8H-IV [facility]; Protocol Last Admin: 02/17/20 00:59 Dose: 100 mls/hr Documented by: Vancomycin HCl 1,250 mg/ (Dextrose) 250 mls @ 250 mls/2 hr IVPB Q24H [facility]; Protocol Last Admin: 02/16/20 12:27 Dose: 250 mls/2 hr Documented by: Non-Formulary Medication (Brinzolamide/Brimonidine Tart [Simbrinza 1%-0.2% Eye Drops]) 8 ml OP DAILY [facility] Quetiapine Fumarate (Seroquel -) 12.5 mg PO DAILY [facility] Last Admin: 02/16/20 09:21 Dose: 12.5 mg Documented by: - Objective Vital Signs: Vital Signs Temperature 97.5 F L 02/17/20 06:00 Pulse Rate 51 L 02/17/20 06:00 Respiratory Rate 20 02/17/20 06:00 Blood Pressure 109/61 02/17/20 06:00 O2 Sat by Pulse Oximetry (%) 95 02/17/20 06:00 Constitutional: Yes: No Distress, Calm Cardiovascular: Yes: S1, S2 Respiratory: Yes: Regular, CTA Bilaterally Gastrointestinal: Yes: Normal Bowel Sounds, Soft Musculoskeletal: Yes: WNL Extremities: Yes: Other Neurological: Yes: Alert Psychiatric: Yes: Other Labs: CBC, BMP 02/17/20 06:57 02/17/20 06:57 INR, PTT INR 1.29 (0.83-1.09) H 02/12/20 19:46 Assessment/Plan Problem List - Problems (1) AMS (altered mental status) Code(s): R41.82 - ALTERED MENTAL STATUS, UNSPECIFIED Qualifiers: Altered mental status type: unspecified Qualified Code(s): R41.82 - Altered mental status, unspecified (2) Cellulitis Code(s): L03.90 - CELLULITIS, UNSPECIFIED Qualifiers: Site of cellulitis of extremity: lower extremity Laterality: right (3) HALEY (acute kidney injury) Code(s): N17.9 - ACUTE KIDNEY FAILURE, UNSPECIFIED (4) Bladder malignancy Code(s): C67.9 - MALIGNANT NEOPLASM OF BLADDER, UNSPECIFIED (5) Confusion Code(s): R41.0 - DISORIENTATION, UNSPECIFIED (6) HTN (hypertension) Code(s): I10 - ESSENTIAL (PRIMARY) HYPERTENSION (7) Parkinson disease Code(s): G20 - PARKINSON'S DISEASE Assessment/Plan RLE extremity cellulitis Rt heel infected ulcer r/o OM AMS/confusion/hallucinations Leukocytosis Parkinson's Hx of Bladder CA Hx of Nephrolithiasis plan cx results noted ct abx wound care rest as per the team
[2020-02-17] MEDS: QUEtiapine FUMARATE 25 MG TABLET PO SCH (09:07)
[2020-02-17] MEDS: ENOXAPARIN NA (PORCINE) 40 MG/0.4 ML DISP.SYRIN SQ SCH (09:07)
[2020-02-17] MEDS: FUROSEMIDE 20 MG TABLET (FP) PO SCH (09:09)
[2020-02-17] MEDS: CYANOCOBALAMIN 1,000 MCG TABLET (FP) PO SCH (09:09)
[2020-02-17] MEDS ORDERED: DEXTROSE 5%-WATER - 50 ML IVPB ONE ×2 (09:16→17:04)
[2020-02-17] MEDS ORDERED: PIPERACILLIN/TAZOBACTAM 3.375 GM VIAL IVPB ONE ×2 (09:16→17:04)
[2020-02-17] MEDS: COLLAGENASE CLOSTRIDIUM HIST. 30 GRAMS TUBE TP SCH (10:52)
[2020-02-17] MEDS ORDERED: PT OWN MED DRAWER 7, Y5N ONE ×3 (12:35→20:57)
[2020-02-17] MEDS: VANCOMYCIN HCL 1,250 MG in DEXTROSE 5%-WATER - 250 ML IVPB SCH (12:40)
--- NOTE | 2020-02-17 13:00 | PN ---
Teaching Attending Note Name of Resident: Silviano Lang ATTENDING PHYSICIAN STATEMENT I saw and evaluated the patient. I reviewed the resident's note and discussed the case with the resident. I agree with the resident's findings and plan as documented. SUBJECTIVE: pt seen and examined at bedside, more alert today OBJECTIVE: Last Vital Signs Temp Pulse Resp BP Pulse Ox 97.5 F L 51 L 20 109/61 95 02/17/20 06:00 02/17/20 06:00 02/17/20 06:00 02/17/20 06:00 02/17/20 06:00 GENERAL: AAOx3 in no acute distress. HEAD: Normal with no signs of trauma. EYES: Pupils equal, round and reactive to light, sclera anicteric, conjunctiva clear. LUNGS: Breath sounds equal, clear to auscultation bilaterally. No wheezes, and no crackles. No accessory muscle use. HEART: Regular rate and rhythm, normal S1 and S2 ABDOMEN: Soft, nontender, not distended MUSCULOSKELETAL: Normal range of motion at all joints. No bony deformities or tenderness. No CVA tenderness. LOWER EXTREMITIES: mild edema, erythema/tenderness surrounding Grade 2/3 heel ulcer R foot NEUROLOGICAL: Cranial nerves II-XII intact. Normal speech. CBCD WBC 7.3 K/mm3 (4.0-10.0) 02/17/20 06:57 RBC 3.46 M/mm3 (4.00-5.60) L 02/17/20 06:57 Hgb 12.8 GM/dL (11.7-16.9) 02/17/20 06:57 Hct 37.9 % (35.4-49) 02/17/20 06:57 MCV 109.6 fl (80-96) H 02/17/20 06:57 MCHC 33.9 g/dl (32.0-35.9) 02/17/20 06:57 RDW 14.2 % (11.9-15.9) 02/17/20 06:57 Plt Count 250 K/MM3 (134-434) 02/17/20 06:57 MPV 7.2 fl (7.5-11.1) L 02/17/20 06:57 CMP Sodium 138 mmol/L (136-145) 02/17/20 06:57 Potassium 4.3 mmol/L (3.5-5.1) 02/17/20 06:57 Chloride 102 mmol/L (98-107) 02/17/20 06:57 Carbon Dioxide 31 mmol/L (21-32) 02/17/20 06:57 Anion Gap 5 MMOL/L (8-16) L 02/17/20 06:57 BUN 20.5 mg/dL (7-18) H 02/17/20 06:57 Creatinine 1.0 mg/dL (0.55-1.3) 02/17/20 06:57 Random Glucose 108 mg/dL (74-106) H 02/17/20 06:57 Calcium 8.0 mg/dL (8.5-10.1) L 02/17/20 06:57 Total Bilirubin 1.2 mg/dL (0.2-1) H 02/17/20 06:57 AST 33 U/L (15-37) 02/17/20 06:57 ALT 14 U/L (13-61) 02/17/20 06:57 Alkaline Phosphatase 124 U/L (45-117) H 02/17/20 06:57 Total Protein 6.5 g/dl (6.4-8.2) 02/17/20 06:57 Albumin 2.6 g/dl (3.4-5.0) L 02/17/20 06:57 CARDIAC ENZYMES Creatine Kinase 527 U/L (26-308) H 02/12/20 19:46 Troponin I 0.14 ng/ml (0.00-0.05) H 02/13/20 02:19 Active Medications Carbidopa/Levodopa/Entacapone (Stalevo 150) 1 tab PO TID [facility] Last Admin: 02/17/20 05:42 Dose: 1 tab Documented by: Collagenase (Santyl -) 1 applic TP DAILY [facility]; Protocol Last Admin: 02/17/20 10:52 Dose: 1 applic Documented by: Cyanocobalamin (Vitamin B12 -) 1,000 mcg PO DAILY [facility] Last Admin: 02/17/20 09:09 Dose: 1,000 mcg Documented by: Enoxaparin Sodium (Lovenox -) 40 mg SQ DAILY [facility] Last Admin: 02/17/20 09:07 Dose: 40 mg Documented by: Furosemide (Lasix -) 20 mg PO DAILY [facility] Last Admin: 02/17/20 09:09 Dose: 20 mg Documented by: Gabapentin (Neurontin -) 300 mg PO AM [facility] Last Admin: 02/17/20 06:07 Dose: 300 mg Documented by: Gabapentin (Neurontin -) 200 mg PO HS [facility] Last Admin: 02/16/20 21:30 Dose: 200 mg Documented by: Piperacillin Sod/Tazobactam (Sod 3.375 gm/ Dextrose) 50 mls @ 100 mls/hr IVPB Q8H-IV [facility]; Protocol Last Admin: 02/17/20 09:21 Dose: 100 mls/hr Documented by: Vancomycin HCl 1,250 mg/ (Dextrose) 250 mls @ 250 mls/2 hr IVPB Q24H [facility]; Protocol Last Admin: 02/17/20 12:40 Dose: 250 mls/2 hr Documented by: Non-Formulary Medication (Brinzolamide/Brimonidine Tart [Simbrinza 1%-0.2% Eye Drops]) 8 ml OP DAILY [facility] Quetiapine Fumarate (Seroquel -) 12.5 mg PO DAILY [facility] Last Admin: 02/17/20 09:07 Dose: 12.5 mg Documented by: ASSESSMENT AND PLAN: 89 YO man with Mhx of Parkinson's Disease, Bladder cancer, Glaucoma, sent to the ED for increasing confusion/hallucinations and worsening ulcer R heel. # Delirium causes: foot infection vs recent change in PD medications CT Head no acute intracranial findings. Urine Cx negative his medications adjusted to Stalevo 150 TID, quetiapine 12.5 avoid sedatives. redirect/re-orientation Neurology consult appreciated speech and swallow eval # Infected RLE heel ulcer/cellulitis Wound Cx - polymicrobial: MRSA, Pseudomonas, Proteus and Blood Cx negative. Leukocytosis improved Duplex LEs - negative for DVT. MRI foot - no OM or abscess Podiatry consult appreciated Abx per ID Elevated LFTs - resolving Parkinson disease Macrocytosis HFpEF DVT Px - Lovenox SQ discharge planning
--- NOTE | 2020-02-17 13:24 | CONSULT ---
Admitting History and Physical - Admission History of Present Illness: 89 YO man with Mhx of Parkinson's Disease, Bladder cancer, Glaucoma, sent to the ED for increasing confusion/hallucinations and worsening ulcer R heel. # Delirium Selected Entries 02/17/20 02/17/20 02/17/20 01:22 06:00 09:41 Breakfast 75% Diet Tolerated Temperature 98 F 97.5 F L Pulse Rate 73 51 L Blood Pressure 109/52 L 109/61 O2 Sat by Pulse 95 95 Oximetry (%) 02/17/20 12:25 Breakfast Diet Tolerated Well Temperature Pulse Rate Blood Pressure O2 Sat by Pulse Oximetry (%) Laboratory Tests 02/17/20 06:57 WBC 7.3 Laboratory Tests 02/12/20 02/13/20 22:20 08:45 Syphilis Serology Non-reactive COVID-19 (JOVITA) Not detected On reg diet/thin liquids Known to me from August 2018 admission. Stasis noted during mbs with chopped diet/nectar thick rec and d/c plan was [facility] for swallowing rehab. Swallowing exercises reviewed with pt and daughter for self practice b/n meals Suggested they purchase EMST for improved and maintained speech and swallowing function. Pt has been on reg diet/thin liquid at [facility], with good appetite. Per staff, he had trouble with his hamburger/coleslaw today,coughing frequently, but finished it and enjoyed it. The rest of the tray was removed for safety. He denies Dysphagia. He does not recall MBS inn 2018 or if/where he went for tx. He reports living alone, grossly oriented but not completely ([facility], November), forgetful, impaired insight. Message left for his [id number] to determine if pt had swallowing rehab and if diet had been upgraded, tolerated before admission. 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 Dys Chopped/nectar at that time.) - General Mental Status: Awake and Alert, Able to Follow Commands, Forgetful Attention: Intact Ability to Follow Directions: Fair Head/Neck Control: Fair - Hearing Hearing: Functional Hearing: Normal Hearing Aide: No Speech Evaluation - Communication Primary Language: SAMI Communication: Yes: Within Normal Limits - Speech Production Able to Make Needs Known: Yes: WNL Intelligibility: Yes: WNL - Speech Characteristics Voice Loudness: Normal Voice Pitch: Yes: Normal Voice Phonatory-based Quality: Yes: Normal Speech Clarity: < 100% Nasal Resonance: Normal Articulation: Yes: Precise Rate of Speech: Intact - Language/Auditory Comprehension Follows: Yes: 1 Stage Simple Commands Observation: Able to respond to yes/no queries: Yes, Comprehends Conversational Speech: Yes - Language/Verbal Expression Able to Communicate Wants and Needs: Yes: WNL - Swallow Evaluation/Bedside Assessment Current Nutritional Intake: Regular, Thin Liquids, Other (coughing today lunchtime.) Oral Secretions: Yes: WFL Dentition: Yes: Adequate Facial Symmetry at Rest: Symmetrical Facial Symmetry on Retraction: Symmetrical Against Resistance Opening: Normal Against Resistance Closing: Normal Pucker Lips: Normal Smile: Normal Lingual Movement: Normal, Symmetric Lingual Speed of Movement: Normal Lingual Movement Strgth Against Opposition: Normal Lingual Movement Characteristics: Normal Velopharyngeal Movement: Normal Laryngeal Movement: Reduced Excursion Rate of Intake: Impulsive (suspected, but nmot demonstrated with me) Labial Seal: WFL Chewing: WFL A-P Transit: WFL Coughing/Throat Clear: Yes (solids) Recommendations - Speech Evaluation, Impression/Plan Impression: h/o abnormal MBS a year ago. Coughing noted on solids lunchtime by nursing. Forgetful. Denoes difficulty - Disposition Discharge to: Senior Care Facility - Dysphagia Impressions/Plan Swallowing Skills: Impaired Dysphagia Impressions: Risk of Aspiration, Ongoing Evaluation *Silent aspiration: cannot be R/O at bedside Dysphagia Treatment Plan: Small Bites, Chin Tuck/Down, Facilitative Feeding, Safe Rate, Elevate HOB during feed, Other (supervision mealtime) Recommendations: MBS w Esophagus - Recommendations Diet Consistency: Other (Reg, chopped, extra gravy) Liquids: Thin Liquids Supplement: Magic Cup, Ensure Pudding
--- NOTE | 2020-02-17 16:58 | PN ---
Physical Exam: SUBJECTIVE: Patient seen and examined. Alert and oriented this AM. No fever, chills, foot pain. OBJECTIVE: Vital Signs Period Temp Pulse Resp BP Sys/Velazco Pulse Ox Last 24 Hr 97.4 F-98.4 F 51-73 18-20 109-112/52-63 95-96 GENERAL: The patient is awake, alert, and fully oriented, in no acute distress. HEAD: Normal with no signs of trauma. EYES: PERRL, extraocular movements intact, sclera anicteric, conjunctiva clear. No ptosis. ENT: Ears normal, nares patent, oropharynx clear without exudates, moist mucous membranes. NECK: Trachea midline, full range of motion, supple. LUNGS: Breath sounds equal, clear to auscultation bilaterally, no wheezes, no crackles, no accessory muscle use. HEART: Regular rate and rhythm, S1, S2 without murmur, rub or gallop. ABDOMEN: Soft, nontender, nondistended, normoactive bowel sounds, no guarding, no rebound, no hepatosplenomegaly, no masses. EXTREMITIES: 2+ pulses, warm, well-perfused. Grade 2/3 heel ulcer R foot. Erythema and edema improved. NEUROLOGICAL: Cranial nerves II through XII grossly intact. Normal speech, gait not observed. Increased rigidity/decreased power bilateral LEs. PSYCH: Normal mood, normal affect. SKIN: Warm, dry, normal turgor, no rashes or lesions noted Laboratory Results - last 24 hr 02/17/20 02/17/20 06:57 06:57 WBC 7.3 RBC 3.46 L Hgb 12.8 Hct 37.9 MCV 109.6 H MCH 37.2 H MCHC 33.9 RDW 14.2 Plt Count 250 MPV 7.2 L Sodium 138 Potassium 4.3 Chloride 102 Carbon Dioxide 31 Anion Gap 5 L BUN 20.5 H Creatinine 1.0 Est GFR (CKD-EPI)AfAm 78.08 Est GFR (CKD-EPI)NonAf 67.37 Random Glucose 108 H Calcium 8.0 L Phosphorus 3.0 Magnesium 1.6 L Total Bilirubin 1.2 H AST 33 ALT 14 Alkaline Phosphatase 124 H Total Protein 6.5 Albumin 2.6 L Active Medications Generic Name Dose Route Start Last Admin Trade Name Freq PRN Reason Stop Dose Admin Amino Acids 30 ml 02/18/20 08:00 Prosource No Carb Liquid Pkt PO DAILY@0800 [facility] Carbidopa/Levodopa/Entacapone 1 tab 02/15/20 22:00 02/17/20 14:24 Stalevo 150 PO 1 tab TID [facility]KE Administration Collagenase 1 applic 02/16/20 14:00 02/17/20 10:52 Santyl - TP 1 applic DAILY [facility]KE Administration Protocol Cyanocobalamin 1,000 mcg 02/14/20 10:00 02/17/20 09:09 Vitamin B12 - PO 1,000 mcg DAILY [facility]KE Administration Enoxaparin Sodium 40 mg 02/13/20 10:00 02/17/20 09:07 Lovenox - SQ 40 mg DAILY [facility]KE Administration Furosemide 20 mg 02/14/20 10:00 02/17/20 09:09 Lasix - PO 20 mg DAILY [facility]KE Administration Gabapentin 300 mg 02/14/20 07:00 02/17/20 06:07 Neurontin - PO 300 mg AM MIKE Administration Gabapentin 200 mg 02/13/20 22:00 02/16/20 21:30 Neurontin - PO 200 mg HS MIKE Administration Piperacillin Sod/Tazobactam 50 mls @ 100 mls/hr 02/14/20 18:30 02/17/20 09:21 Sod 3.375 gm/ Dextrose IVPB 100 mls/hr Q8H-IV [facility]KE Administration Protocol Vancomycin HCl 1,250 mg/ 250 mls @ 250 mls/2 hr 02/15/20 13:15 02/17/20 12:40 Dextrose IVPB 250 mls/2 hr Q24H MIKE Administration Protocol Multivitamins/Minerals/Vitamin C 1 tab 02/18/20 10:00 Tab-A-Vit - PO DAILY [facility] Non-Formulary Medication 8 ml 02/14/20 10:00 Brinzolamide/Brimonidine Tart [Simbrinza 1%-0.2% Eye Drops] OP DAILY [facility] Quetiapine Fumarate 12.5 mg 02/16/20 10:00 02/17/20 09:07 Seroquel - PO 12.5 mg DAILY [facility]KE Administration ASSESSMENT/PLAN: Pt is a 89 year old male with PMHx of PD, bladder cancer, glaucoma sent to the ED for change in mental status and and worsening R ulcer heel. #Acute encephalopathy 2/2 to R foot infection and recent change in PD meds/progression of PD with dementia -CT head negative for acute changes -UCx negative for acute changes -Carbidopa/Levodopa TID, was recently changed back from QID to TID ; now Stalevo 150mg TID -improved mentation, A&O x 3 #Infected R heel cellulitis -Wound cx polymicrobial: MRSA positive, Pseudomonas, proteus preliminarily -On vanc/zosyn per ID -MRI foot negative for osteo/abscess -Podiatry consulted -Requires offloading shoe on dc #Parkinson's Disease -Consulted neuro (Dr. Moran); changed to Stalevo 150 mg TID and Seroquel 12.5mg #Macrocytosis -MCV 110; normal folate/B12 -hematology consulted -hem/onc ordered tests for myelodysplastic syndrome #HFpEF -continue Lasix #Chronically elevated troponin -0.14 x2, chronically elevated -cardio evaluated, no need for ischemic work up FEN -No standing fluids -Monitor electrolytes -Regular diet PPx -Lovenox 40mg SQ Dispo Admit to med surg. Altered on arrival. Improved mentation. Vanc/zosyn for R foot ulcer. ATTENDING PHYSICIAN STATEMENT I saw and evaluated the patient. I reviewed the resident's note and discussed the case with the resident. I agree with the resident's findings and plan as documented. SUBJECTIVE: OBJECTIVE: ASSESSMENT AND PLAN:
[2020-02-17] MEDS: GABAPENTIN 100 MG CAPSULE PO SCH (21:05)
--- NOTE | 2020-02-17 21:22 | PN ---
Progress Note, Physician Chief Complaint: Pt seen this morning. No new complaints. Nursing had just changed dressing. - Current Medication List Current Medications: Active Medications Amino Acids (Prosource No Carb Liquid Pkt) 30 ml PO DAILY@0800 [facility] Carbidopa/Levodopa/Entacapone (Stalevo 150) 1 tab PO TID [facility] Last Admin: 02/17/20 21:04 Dose: 1 tab Documented by: Collagenase (Santyl -) 1 applic TP DAILY [facility]; Protocol Last Admin: 02/17/20 10:52 Dose: 1 applic Documented by: Cyanocobalamin (Vitamin B12 -) 1,000 mcg PO DAILY [facility] Last Admin: 02/17/20 09:09 Dose: 1,000 mcg Documented by: Enoxaparin Sodium (Lovenox -) 40 mg SQ DAILY [facility] Last Admin: 02/17/20 09:07 Dose: 40 mg Documented by: Furosemide (Lasix -) 20 mg PO DAILY [facility] Last Admin: 02/17/20 09:09 Dose: 20 mg Documented by: Gabapentin (Neurontin -) 300 mg PO AM [facility] Last Admin: 02/17/20 06:07 Dose: 300 mg Documented by: Gabapentin (Neurontin -) 200 mg PO HS [facility] Last Admin: 02/17/20 21:05 Dose: 200 mg Documented by: Piperacillin Sod/Tazobactam (Sod 3.375 gm/ Dextrose) 50 mls @ 100 mls/hr IVPB Q8H-IV [facility]; Protocol Last Admin: 02/17/20 17:09 Dose: 100 mls/hr Documented by: Vancomycin HCl 1,250 mg/ (Dextrose) 250 mls @ 250 mls/2 hr IVPB Q24H [facility]; Protocol Last Admin: 02/17/20 12:40 Dose: 250 mls/2 hr Documented by: Multivitamins/Minerals/Vitamin C (Tab-A-Vit -) 1 tab PO DAILY [facility] Non-Formulary Medication (Brinzolamide/Brimonidine Tart [Simbrinza 1%-0.2% Eye Drops]) 8 ml OP DAILY [facility] Quetiapine Fumarate (Seroquel -) 12.5 mg PO DAILY [facility] Last Admin: 02/17/20 09:07 Dose: 12.5 mg Documented by: - Objective Vital Signs: Vital Signs Temperature 97.9 F 09/30/20 21:15 Pulse Rate 75 02/17/20 21:15 Respiratory Rate 18 02/17/20 21:15 Blood Pressure 100/54 L 02/17/20 21:15 O2 Sat by Pulse Oximetry (%) 96 02/17/20 21:15 Wound/Incision: Yes: Other (+dry intact wound, +serosanguinous drainage noted by nursing, no purulence) Labs: CBC, BMP 02/17/20 06:57 02/17/20 06:57 INR, PTT INR 1.29 (0.83-1.09) H 02/12/20 19:46 Assessment/Plan heel decubitis right cellulitis improved Santyl dressing change daily. Continue elevate heels with a pillow. Abx as per ID. Will follow.
[2020-02-18] MEDS ORDERED: PIPERACILLIN/TAZOBACTAM 3.375 GM VIAL IVPB ONE ×2 (00:56→09:50)
[2020-02-18] MEDS ORDERED: DEXTROSE 5%-WATER - 50 ML IVPB ONE ×2 (00:57→09:50)
[2020-02-18] MEDS: PIPERACILLIN/TAZOB 3.375 GM 3.375 GM in DEXTROSE 5%-WATER - 50 ML IVPB SCH ×2 (01:20→09:55)
[2020-02-18] MEDS: GABAPENTIN 300 MG CAPSULE PO SCH (06:42)
[2020-02-18] MEDS: CARBIDOP 37.5MG/LEVODOPA 150MG/ENTACAPONE 200MG TABLET PO SCH ×2 (06:43→15:43)
[2020-02-18 07:32] LABS: HEMATOCRIT 36.5 % (35.4-49); HEMOGLOBIN 12.6 GM/dL (11.7-16.9); MCH 37.9 pg (25.7-33.7); MCHC 34.4 g/dl (32.0-35.9); MEAN CELL VOLUME 110.3 fl (80-96); MEAN PLT VOLUME 7.2 fl (7.5-11.1); PLATELET COUNT 247 K/MM3 (134-434); RBC 3.31 M/mm3 (4.00-5.60); RDW 13.7 % (11.9-15.9); WHITE BLOOD COUNT 9.2 K/mm3 (4.0-10.0)
[2020-02-18 08:00] LABS: BLOOD UREA NITROGEN 21.3 mg/dL (7-18); CALCIUM 8.2 mg/dL (8.5-10.1); MAGNESIUM 1.9 mg/dL (1.8-2.4); PHOSPHOROUS 3.1 mg/dL (2.5-4.9); POTASSIUM 4.4 mmol/L (3.5-5.1)
[2020-02-18] MEDS ORDERED: AMINO ACIDS/PROTEIN HYDROLYS 30 ML LIQUID.PKT PO SCH (08:00)
--- NOTE | 2020-02-18 08:09 | PN ---
Progress Note, Physician History of Present Illness: stable no new issues - Current Medication List Current Medications: Active Medications Amino Acids (Prosource No Carb Liquid Pkt) 30 ml PO DAILY@0800 [facility] Carbidopa/Levodopa/Entacapone (Stalevo 150) 1 tab PO TID [facility] Last Admin: 02/18/20 06:43 Dose: 1 tab Documented by: Collagenase (Santyl -) 1 applic TP DAILY [facility]; Protocol Last Admin: 02/17/20 10:52 Dose: 1 applic Documented by: Cyanocobalamin (Vitamin B12 -) 1,000 mcg PO DAILY [facility] Last Admin: 02/17/20 09:09 Dose: 1,000 mcg Documented by: Enoxaparin Sodium (Lovenox -) 40 mg SQ DAILY [facility] Last Admin: 02/17/20 09:07 Dose: 40 mg Documented by: Furosemide (Lasix -) 20 mg PO DAILY [facility] Last Admin: 02/17/20 09:09 Dose: 20 mg Documented by: Gabapentin (Neurontin -) 300 mg PO AM [facility] Last Admin: 02/18/20 06:42 Dose: 300 mg Documented by: Gabapentin (Neurontin -) 200 mg PO HS [facility] Last Admin: 02/17/20 21:05 Dose: 200 mg Documented by: Piperacillin Sod/Tazobactam (Sod 3.375 gm/ Dextrose) 50 mls @ 100 mls/hr IVPB Q8H-IV [facility]; Protocol Last Admin: 02/18/20 01:20 Dose: 100 mls/hr Documented by: Vancomycin HCl 1,250 mg/ (Dextrose) 250 mls @ 250 mls/2 hr IVPB Q24H [facility]; Protocol Last Admin: 02/17/20 12:40 Dose: 250 mls/2 hr Documented by: Multivitamins/Minerals/Vitamin C (Tab-A-Vit -) 1 tab PO DAILY [facility] Non-Formulary Medication (Brinzolamide/Brimonidine Tart [Simbrinza 1%-0.2% Eye Drops]) 8 ml OP DAILY [facility] Quetiapine Fumarate (Seroquel -) 12.5 mg PO DAILY [facility] Last Admin: 02/17/20 09:07 Dose: 12.5 mg Documented by: - Objective Vital Signs: Vital Signs Temperature 98.2 F 02/18/20 06:00 Pulse Rate 71 02/18/20 06:00 Respiratory Rate 18 10/01/20 06:00 Blood Pressure 122/68 02/18/20 06:00 O2 Sat by Pulse Oximetry (%) 98 02/18/20 06:00 Constitutional: Yes: No Distress, Calm Cardiovascular: Yes: S1, S2 Respiratory: Yes: Regular, CTA Bilaterally Gastrointestinal: Yes: Normal Bowel Sounds, Soft Musculoskeletal: Yes: WNL Extremities: Yes: Other Integumentary: Yes: Other Wound/Incision: Yes: Dressing Dry and Intact Neurological: Yes: Alert Psychiatric: Yes: Alert Labs: CBC, BMP 02/18/20 07:07 02/18/20 07:07 INR, PTT INR 1.29 (0.83-1.09) H 02/12/20 19:46 Assessment/Plan Problem List - Problems (1) AMS (altered mental status) Code(s): R41.82 - ALTERED MENTAL STATUS, UNSPECIFIED Qualifiers: Altered mental status type: unspecified Qualified Code(s): R41.82 - Altered mental status, unspecified (2) Cellulitis Code(s): L03.90 - CELLULITIS, UNSPECIFIED Qualifiers: Site of cellulitis of extremity: lower extremity Laterality: right (3) HALEY (acute kidney injury) Code(s): N17.9 - ACUTE KIDNEY FAILURE, UNSPECIFIED (4) Bladder malignancy Code(s): C67.9 - MALIGNANT NEOPLASM OF BLADDER, UNSPECIFIED (5) Confusion Code(s): R41.0 - DISORIENTATION, UNSPECIFIED (6) HTN (hypertension) Code(s): I10 - ESSENTIAL (PRIMARY) HYPERTENSION (7) Parkinson disease Code(s): G20 - PARKINSON'S DISEASE Assessment/Plan RLE extremity cellulitis Rt heel infected ulcer r/o OM AMS/confusion/hallucinations Leukocytosis Parkinson's Hx of Bladder CA Hx of Nephrolithiasis plan patientcan be changed to doxy 100 mg po bid for 2 more weeks and levaquin 500 mg po daily for 10 days
[2020-02-18] MEDS: CYANOCOBALAMIN 1,000 MCG TABLET (FP) PO SCH (09:55)
[2020-02-18] MEDS: FUROSEMIDE 20 MG TABLET (FP) PO SCH (09:55)
[2020-02-18] MEDS: QUEtiapine FUMARATE 25 MG TABLET PO SCH (09:55)
[2020-02-18] MEDS: ENOXAPARIN NA (PORCINE) 40 MG/0.4 ML DISP.SYRIN SQ SCH (09:55)
[2020-02-18] MEDS ORDERED: MULTIVITAMINS (DAILY MVI) TABLET (FP) PO SCH (10:00)
--- NOTE | 2020-02-18 10:21 | PN ---
Teaching Attending Note Name of Resident: Silviano Lang ATTENDING PHYSICIAN STATEMENT I saw and evaluated the patient. I reviewed the resident's note and discussed the case with the resident. I agree with the resident's findings and plan as documented. SUBJECTIVE: pt seen and examined, confused OBJECTIVE: Last Vital Signs Temp Pulse Resp BP Pulse Ox 98.2 F 71 18 122/68 98 02/18/20 06:00 02/18/20 06:00 02/18/20 06:00 02/18/20 06:00 02/18/20 06:00 GENERAL: AAOx2, in no acute distress. HEAD: Normal with no signs of trauma. EYES: Pupils equal, round and reactive to light, sclera anicteric, conjunctiva clear. LUNGS: Breath sounds equal, clear to auscultation bilaterally. No wheezes, and no crackles. No accessory muscle use. HEART: Regular rate and rhythm, normal S1 and S2 ABDOMEN: Soft, nontender, not distended MUSCULOSKELETAL: Normal range of motion at all joints. No bony deformities or tenderness. No CVA tenderness. LOWER EXTREMITIES: mild edema, erythema/tenderness surrounding Grade 2/3 heel ulcer R foot NEUROLOGICAL: Cranial nerves II-XII intact. Normal speech. CBCD WBC 9.2 K/mm3 (4.0-10.0) 02/18/20 07:07 RBC 3.31 M/mm3 (4.00-5.60) L 02/18/20 07:07 Hgb 12.6 GM/dL (11.7-16.9) 02/18/20 07:07 Hct 36.5 % (35.4-49) 02/18/20 07:07 MCV 110.3 fl (80-96) H 02/18/20 07:07 MCHC 34.4 g/dl (32.0-35.9) 02/18/20 07:07 RDW 13.7 % (11.9-15.9) 02/18/20 07:07 Plt Count 247 K/MM3 (134-434) 02/18/20 07:07 MPV 7.2 fl (7.5-11.1) L 02/18/20 07:07 CMP Sodium 137 mmol/L (136-145) 02/18/20 07:07 Potassium 4.4 mmol/L (3.5-5.1) 02/18/20 07:07 Chloride 102 mmol/L (98-107) 02/18/20 07:07 Carbon Dioxide 29 mmol/L (21-32) 02/18/20 07:07 Anion Gap 6 MMOL/L (8-16) L 02/18/20 07:07 BUN 21.3 mg/dL (7-18) H 02/18/20 07:07 Creatinine 1.0 mg/dL (0.55-1.3) 02/18/20 07:07 Random Glucose 109 mg/dL (74-106) H 02/18/20 07:07 Calcium 8.2 mg/dL (8.5-10.1) L 02/18/20 07:07 Total Bilirubin 1.2 mg/dL (0.2-1) H 02/17/20 06:57 AST 33 U/L (15-37) 02/17/20 06:57 ALT 14 U/L (13-61) 02/17/20 06:57 Alkaline Phosphatase 124 U/L (45-117) H 02/17/20 06:57 Total Protein 6.5 g/dl (6.4-8.2) 02/17/20 06:57 Albumin 2.6 g/dl (3.4-5.0) L 02/17/20 06:57 CARDIAC ENZYMES Creatine Kinase 527 U/L (26-308) H 02/12/20 19:46 Troponin I 0.14 ng/ml (0.00-0.05) H 02/13/20 02:19 Active Medications Amino Acids (Prosource No Carb Liquid Pkt) 30 ml PO DAILY@0800 [facility] Last Admin: 02/18/20 08:22 Dose: Not Given Documented by: Carbidopa/Levodopa/Entacapone (Stalevo 150) 1 tab PO TID [facility] Last Admin: 02/18/20 06:43 Dose: 1 tab Documented by: Collagenase (Santyl -) 1 applic TP DAILY [facility]; Protocol Last Admin: 02/17/20 10:52 Dose: 1 applic Documented by: Cyanocobalamin (Vitamin B12 -) 1,000 mcg PO DAILY [facility] Last Admin: 02/17/20 09:09 Dose: 1,000 mcg Documented by: Enoxaparin Sodium (Lovenox -) 40 mg SQ DAILY [facility] Last Admin: 02/17/20 09:07 Dose: 40 mg Documented by: Furosemide (Lasix -) 20 mg PO DAILY [facility] Last Admin: 02/17/20 09:09 Dose: 20 mg Documented by: Gabapentin (Neurontin -) 300 mg PO AM [facility] Last Admin: 02/18/20 06:42 Dose: 300 mg Documented by: Gabapentin (Neurontin -) 200 mg PO HS [facility] Last Admin: 02/17/20 21:05 Dose: 200 mg Documented by: Piperacillin Sod/Tazobactam (Sod 3.375 gm/ Dextrose) 50 mls @ 100 mls/hr IVPB Q8H-IV [facility]; Protocol Last Admin: 02/18/20 01:20 Dose: 100 mls/hr Documented by: Vancomycin HCl 1,250 mg/ (Dextrose) 250 mls @ 250 mls/2 hr IVPB Q24H [facility]; Protocol Last Admin: 02/17/20 12:40 Dose: 250 mls/2 hr Documented by: Multivitamins/Minerals/Vitamin C (Tab-A-Vit -) 1 tab PO DAILY [facility] Non-Formulary Medication (Brinzolamide/Brimonidine Tart [Simbrinza 1%-0.2% Eye Drops]) 8 ml OP DAILY [facility] Quetiapine Fumarate (Seroquel -) 12.5 mg PO DAILY [facility] Last Admin: 02/17/20 09:07 Dose: 12.5 mg Documented by: ASSESSMENT AND PLAN: 89 YO man with Mhx of Parkinson's Disease, Bladder cancer, Glaucoma, sent to the ED for increasing confusion/hallucinations and worsening ulcer R heel. # Delirium causes: foot infection vs recent change in PD medications CT Head no acute intracranial findings. Urine Cx negative his medications adjusted to Stalevo 150 TID, quetiapine 12.5 avoid sedatives. redirect/re-orientation Neurology consult appreciated speech and swallow eval appreciated will need Barium swallow inpatient vs outpatient # Infected RLE heel ulcer/cellulitis Wound Cx - polymicrobial: MRSA, Pseudomonas, Proteus and Blood Cx negative. Leukocytosis improved Abx changed to PO levaquin and doxycycline Duplex LEs - negative for DVT. MRI foot - no OM or abscess Podiatry consult appreciated Abx per ID Elevated LFTs - resolving Parkinson disease Macrocytosis HFpEF DVT Px - Lovenox SQ discharge planning
--- NOTE | 2020-02-18 10:58 | DS ---
Physical Exam: SUBJECTIVE: Patient seen and examined. OBJECTIVE: Vital Signs Period Temp Pulse Resp BP Sys/Velazco Pulse Ox Last 24 Hr 97.4 F-98.2 F 70-75 18-18 100-122/54-68 96-98 PHYSICAL EXAM GENERAL: The patient is A&O x 2, in no acute distress. EAD: Normal with no signs of trauma. EYES: PERRL, extraocular movements intact, sclera anicteric, conjunctiva clear. No ptosis. ENT: Ears normal, nares patent, oropharynx clear without exudates, moist mucous membranes. NECK: Trachea midline, full range of motion, supple. LUNGS: Breath sounds equal, clear to auscultation bilaterally, no wheezes, no crackles, no accessory muscle use. HEART: Regular rate and rhythm, S1, S2 without murmur, rub or gallop. ABDOMEN: Soft, nontender, nondistended, normoactive bowel sounds, no guarding, no rebound, no hepatosplenomegaly, no masses. EXTREMITIES: 2+ pulses, warm, well-perfused. Grade 2/3 heel ulcer R foot. Erythema and edema improved. NEUROLOGICAL: Cranial nerves II through XII grossly intact. Normal speech, gait not observed. Increased rigidity/decreased power bilateral LEs. PSYCH: Normal mood, normal affect. SKIN: Warm, dry, normal turgor, no rashes or lesions noted LABS Laboratory Results - last 24 hr 02/18/20 02/18/20 07:07 07:07 WBC 9.2 RBC 3.31 L Hgb 12.6 Hct 36.5 MCV 110.3 H MCH 37.9 H MCHC 34.4 RDW 13.7 Plt Count 247 MPV 7.2 L Sodium 137 Potassium 4.4 Chloride 102 Carbon Dioxide 29 Anion Gap 6 L BUN 21.3 H Creatinine 1.0 Est GFR (CKD-EPI)AfAm 78.08 Est GFR (CKD-EPI)NonAf 67.37 Random Glucose 109 H Calcium 8.2 L Phosphorus 3.1 Magnesium 1.9 HOSPITAL COURSE: Date of Admission:02/12/20 Date of Discharge: 02/18/20 Minutes to complete discharge: 36 Discharge Summary Problems reviewed: Yes Reason For Visit: CELLULITIS,ALTERED MENTAL STATUS Condition: Improved - Instructions Diet, Activity, Other Instructions: You came into the hospital because you had an infection on the heel of your foot that was worsening. MRI was done and infection of the bone was ruled out, and were treated with IV antibiotics. You were also found to have a change in your mentation. Your Parkinson Disease drugs were altered to help. Please START and complete your antibiotics for your foot infection, Doxycycline 100mg twice a day for 14 days AND Levaquin 500mg once daily for 10 days. Please START Stalevo 150mg three times a day for your Parkinson's Disease. Please START Seroquel 12.5mg (half of one 25mg tablet) nightly. Please STOP carbidopa/levodopa. Follow up: 1. Primary care physician, Dr. Hale, in 1 week for overall health care management. 2. Squad Boss, Dr. Lopez, in 1 week for follow up on your foot infection. 3. Neurologist, Dr. Moran, in 1 week for management of your Parkinson's Disease. Maintain a chopped diet with thin liquids. If you have any new, worsening or change in symptoms please call 911 or return to the ED. Referrals: Paul Hale MD [Staff Physician] - 1 Week Brittani Moran MD [Staff Physician] - 1 Week Angel Lopez DPM [Staff Physician] - 1 Week Disposition: [facility] - Home Medications Comprehensive Discharge Medication List: Ambulatory Orders Cyanocobalamin [Vitamin B12 -] 1,000 mcg PO DAILY 09/14/18 Gabapentin [Neurontin] 200 mg PO HS 09/14/18 Furosemide 20 mg PO DAILY 02/12/20 Gabapentin 300 mg PO AM 02/12/20 Latanoprost 0.005% Eye Drops [Xalatan 0.005% Eye Drops -] 1 drop HS 02/15/20 Carbidopa/Levodopa/Entacapone [Stalevo 150] 1 tab PO TID #90 tablet 02/18/20 Doxycycline Hyclate 100 mg PO BID #28 tablet 02/18/20 Levofloxacin [Levaquin] 500 mg PO DAILY #10 tablet 02/18/20 Quetiapine Fumarate [Seroquel -] 12.5 mg PO HS #30 tablet 02/18/20 - Discharge Referral Referred to [facility] No ATTENDING PHYSICIAN STATEMENT I saw and evaluated the patient. I reviewed the resident's note and discussed the case with the resident. I agree with the resident's findings and plan as documented. SUBJECTIVE: OBJECTIVE: ASSESSMENT AND PLAN:
--- NOTE | 2020-02-18 11:25 | PN ---
Progress Note, [employer] - Note Progress Note: Selected Entries 02/17/20 02/17/20 02/17/20 06:00 09:41 12:25 Breakfast 75% Lunch 0 75% Supper Temperature Pulse Rate Blood Pressure 02/17/20 02/18/20 18:14 06:00 Breakfast Lunch Supper 75% Temperature 98.2 F Pulse Rate 71 Blood Pressure 122/68 Laboratory Tests 02/18/20 07:07 WBC 9.2 Case reviewed with medical team, nursing,SW. Tolerated Chopped food last night. Pt has been on a reg diet/thin liquids at home, with occasional cough, per pt's daughter. For MBS today, pending d/c to follow.
[2020-02-18] MEDS: VANCOMYCIN HCL 1,250 MG in DEXTROSE 5%-WATER - 250 ML IVPB SCH (15:12)
[2020-02-18 15:14] VITALS: BP 143/70; PULSE 76; TEMP 98.6
[2020-02-18] MEDS ORDERED: PT OWN MED DRAWER 7, Y5N ONE (15:23)
[2020-02-18] MEDS: COLLAGENASE CLOSTRIDIUM HIST. 30 GRAMS TUBE TP SCH (15:43)
--- NOTE | 2020-02-18 16:34 | PN ---
Progress Note, Physician Chief Complaint: Pt going to [facility] today. - Current Medication List Current Medications: Active Medications Amino Acids (Prosource No Carb Liquid Pkt) 30 ml PO DAILY@0800 [facility] Last Admin: 02/18/20 08:22 Dose: Not Given Documented by: Carbidopa/Levodopa/Entacapone (Stalevo 150) 1 tab PO TID [facility] Last Admin: 02/18/20 15:43 Dose: 1 tab Documented by: Collagenase (Santyl -) 1 applic TP DAILY [facility]; Protocol Last Admin: 02/18/20 15:43 Dose: 1 applic Documented by: Cyanocobalamin (Vitamin B12 -) 1,000 mcg PO DAILY [facility] Last Admin: 02/18/20 09:55 Dose: 1,000 mcg Documented by: Enoxaparin Sodium (Lovenox -) 40 mg SQ DAILY [facility] Last Admin: 02/18/20 09:55 Dose: 40 mg Documented by: Furosemide (Lasix -) 20 mg PO DAILY [facility] Last Admin: 02/18/20 09:55 Dose: 20 mg Documented by: Gabapentin (Neurontin -) 300 mg PO AM [facility] Last Admin: 02/18/20 06:42 Dose: 300 mg Documented by: Gabapentin (Neurontin -) 200 mg PO HS [facility] Last Admin: 02/17/20 21:05 Dose: 200 mg Documented by: Multivitamins/Minerals/Vitamin C (Tab-A-Vit -) 1 tab PO DAILY [facility] Last Admin: 02/18/20 09:55 Dose: 1 tab Documented by: Quetiapine Fumarate (Seroquel -) 12.5 mg PO DAILY [facility] Last Admin: 02/18/20 09:55 Dose: 12.5 mg Documented by: - Objective Vital Signs: Vital Signs Temperature 98.6 F 02/18/20 14:00 Pulse Rate 76 02/18/20 14:00 Respiratory Rate 18 02/18/20 14:00 Blood Pressure 143/70 02/18/20 14:00 O2 Sat by Pulse Oximetry (%) 98 02/18/20 14:00 Wound/Incision: Yes: Other (+clean dry and intact, +improved according to nursing) Labs: CBC, BMP 02/18/20 07:07 02/18/20 07:07 INR, PTT INR 1.29 (0.83-1.09) H 02/12/20 19:46 Assessment/Plan heel decubitis right cellulitis improved Santyl dressing change daily. Continue elevate heels with a pillow. Abx as per ID. Being DC today. Follow up in [facility] on .
== END 2020-02-18 16:30 | DRG 602 ==
LOC: JER 18:07 → JERBED 21:16 → J7W 02-13 12:56
PROVIDERS: ADMIT Internal Medicine; ATTEND Student in an Organized Health Care Education/Training Program
DX: L03.115 Cellulitis of right lower limb (principal); L89.613 Pressure ulcer of right heel, stage 3; G92 Toxic encephalopathy; L97.518 Non-pressure chronic ulcer of other part of right foot with other specified severity; R44.3 Hallucinations, unspecified; E46 Unspecified protein-calorie malnutrition; I50.32 Chronic diastolic (congestive) heart failure; G20 Parkinson's disease; R41.82 Altered mental status, unspecified; H40.9 Unspecified glaucoma; T42.8X5A Adverse effect of antiparkinsonism drugs and other central muscle-tone depressants, initial encounter; E88.09 Other disorders of plasma-protein metabolism, not elsewhere classified; Z68.27 Body mass index [BMI] 27.0-27.9, adult; D72.829 Elevated white blood cell count, unspecified; I45.10 Unspecified right bundle-branch block; N40.0 Benign prostatic hyperplasia without lower urinary tract symptoms; R94.5 Abnormal results of liver function studies; M54.5 Low back pain; L08.89 Other specified local infections of the skin and subcutaneous tissue; B96.5 Pseudomonas (aeruginosa) (mallei) (pseudomallei) as the cause of diseases classified elsewhere; B95.62 Methicillin resistant Staphylococcus aureus infection as the cause of diseases classified elsewhere; B96.4 Proteus (mirabilis) (morganii) as the cause of diseases classified elsewhere; E83.42 Hypomagnesemia; Z85.51 Personal history of malignant neoplasm of bladder; Z87.442 Personal history of urinary calculi; Z96.651 Presence of right artificial knee joint
CPT/HCPCS: 36415; 70450-TC; 71046-TC-FY; 72125-TC; 73630-TC-RT-FY; 73721-RT-TC; 74230-TC-FY; 76705-TC; 80048; 80053; 80307; 81003; 82140; 82248; 82550; 82553; 82607; 82746; 82962; 83036; 83605; 83735; 84100; 84439; 84443; 84484; 85025; 85027; 85610; 85651; 85730; 86140; 86780; 87040; 87070; 87086; 87205; 92611-GN; 93005; 93010; 93970-TC; 97116-GP; 97162-GP; 99285-25; J0131; U0003

== ENCOUNTER 2021-04-26 05:29 | Day surgery (SDC) | payer OTHER, BC ==
[2021-04-24 10:52] VITALS: BMI 27.3
[2021-04-26] MEDS ORDERED: MIDAZOLAM HCL 2 MG/2 ML SINGLE DOSE VIAL ONE (07:19)
[2021-04-26] MEDS ORDERED: PROPOFOL 20 ML ONE ×3 (07:20)
[2021-04-26] MEDS ORDERED: LIDOCAINE HCL/PF 2% SDV 5ML VIAL ONE (07:20)
[2021-04-26] MEDS ORDERED: SUCCINYLCHOLINE CHLORIDE 200 MG/10 ML SYRINGE ONE (07:21)
[2021-04-26] MEDS ORDERED: LIDOCAINE HCL 1%, 10 MG/ML (20ML VIAL) ONE (07:23)
[2021-04-26] MEDS ORDERED: BUPIVACAINE HCL/PF 0.25% (2.5MG/ML) 10 ML VIAL ONE (07:23)
[2021-04-26] MEDS ORDERED: methylPREDNISolone ACET (DEPO) 80 MG/1 ML VIAL ONE (07:24)
[2021-04-26] MEDS ORDERED: LIDOCAINE HCL 1%, 10 MG/ML (20ML VIAL) INF ONE (08:05)
[2021-04-26] MEDS ORDERED: BUPIVACAINE HCL/PF 0.25% (2.5MG/ML) 10 ML VIAL IJ ONE (08:05)
[2021-04-26] MEDS ORDERED: methylPREDNISolone ACET (DEPO) 80 MG/1 ML VIAL IM ONE (08:05)
[2021-04-26] MEDS ORDERED: ACETAMINOPHEN 500 MG TABLET (FP) PO PRN (08:18)
[2021-04-26] MEDS ORDERED: ONDANSETRON 4 MG/2 ML VIAL IVPUSH PRN (08:18)
[2021-04-26] MEDS ORDERED: LACTATED RINGERS SOLUTION 1,000 ML IV SCH (08:30)
[2021-04-26 09:20] VITALS: BP 149/73; PULSE 69; TEMP 97.8
== END 2021-04-26 09:45 | disposition home or self-care (01) ==
LOC: JASU-SURG 05:29
PROVIDERS: ATTEND Neurological Surgery
PROC: 3E0R3BZ Introduction of Anesthetic Agent into Spinal Canal, Percutaneous Approach (ICD-10-PCS; 2021-04-26)
PROC: B01BYZZ Fluoroscopy of Spinal Cord using Other Contrast (ICD-10-PCS; 2021-04-26)
PROC: 3E0R33Z Introduction of Anti-inflammatory into Spinal Canal, Percutaneous Approach (ICD-10-PCS; principal; 2021-04-26 07:30)
DX: M48.061 Spinal stenosis, lumbar region without neurogenic claudication (principal); M54.16 Radiculopathy, lumbar region; M54.50 Low back pain, unspecified
CPT/HCPCS: 76000-TC-FY

== ENCOUNTER 2021-11-03 15:11 | Emergency (ER) | payer OTHER, BC ==
[2021-11-03 15:49] VITALS: TEMP 97.9; BMI 27.3
[2021-11-03 17:35] LABS: BASO % 0.9 % (0-2.0); EOS % 1.2 % (0-4.5); HEMATOCRIT 38.5 % (35.4-49); HEMOGLOBIN 12.8 GM/dL (11.7-16.9); LYMPH % 34.1 % (8-40); MCH 37.5 pg (25.7-33.7); MCHC 33.3 g/dl (32.0-35.9); MEAN CELL VOLUME 112.7 fl (80-96); MEAN PLT VOLUME 7.7 fl (7.5-11.1); MONO % 8.6 % (3.8-10.2); NEUT % 55.2 % (42.8-82.8); PLATELET COUNT 255 10^3/uL (134-434); RBC 3.42 M/mm3 (4.00-5.60); RDW 14.7 % (11.9-15.9); WHITE BLOOD COUNT 6.4 K/mm3 (4.0-10.0)
[2021-11-03 17:39] LABS: EPI CELLS 12 /uL (0-25.1); HYALINE CASTS 1 /uL (0-3.1); URINE APPEARANCE CLOUDY; URINE BACTERIA 522 /uL (0-1359); URINE BILIRUBIN NEGATIVE (NEGATIVE); URINE COLOR YELLOW; URINE GLUCOSE (UA) NEGATIVE (NEGATIVE); URINE KETONE TRACE (NEGATIVE); URINE LEUK ESTERASE 2+ (NEGATIVE); URINE NITRITE NEGATIVE (NEGATIVE); URINE PROTEIN 2+ (NEGATIVE); URINE RBC 195 /uL (0-23.9); URINE WBC 227 /uL (0-25.8)
[2021-11-03 17:43] LABS: INR 1.25 (0.83-1.09); PROTHROMBIN TIME (PATIENT) 14.4 SEC (9.7-13.0)
[2021-11-03 17:45] LABS: ACTIVATED PTT 27.7 SECONDS (25.2-36.5)
[2021-11-03 17:54] LABS: CALCIUM 9.1 mg/dL (8.5-10.1)
[2021-11-03 17:55] LABS: ALBUMIN 3.5 g/dl (3.4-5.0); BLOOD UREA NITROGEN 22.7 mg/dL (7-18); MAGNESIUM 1.8 mg/dL (1.8-2.4)
[2021-11-03 17:58] LABS: CREATININE 1.1 mg/dL (0.55-1.3)
[2021-11-03 17:59] LABS: BILIRUBIN,TOTAL 1.1 mg/dL (0.2-1); TOT PROT 7.7 g/dl (6.4-8.2)
[2021-11-03 18:03] LABS: N-TERMINAL BNP 2147.2 pg/ml (5-450)
[2021-11-03] MEDS ORDERED: CEFTRIAXONE 1 GM/50 ML BAG ONE (18:09)
[2021-11-03] MEDS ORDERED: FUROSEMIDE 40 MG/4 ML INJECTABLE VIAL IVPUSH ONE (18:10)
[2021-11-03] MEDS ORDERED: FUROSEMIDE 40 MG/4 ML INJECTABLE VIAL ONE (18:15)
[2021-11-03 18:58] VITALS: BP 148/75; PULSE 60
[2021-11-03 19:42] LABS: YEAST NONE SEEN (NEGATIVE)
[2021-11-03 20:00] LABS: ANISOCYTOSIS 1+; MACROCYTOSIS 2+; OVALOCYTE 1+
== END 2021-11-03 19:58 | disposition home or self-care (01) ==
LOC: JER 15:11
PROC: 3E03329 Introduction of Other Anti-infective into Peripheral Vein, Percutaneous Approach (ICD-10-PCS; principal; 2021-11-03)
PROC: 3E033GC Introduction of Other Therapeutic Substance into Peripheral Vein, Percutaneous Approach (ICD-10-PCS; 2021-11-03)
DX: R22.42 Localized swelling, mass and lump, left lower limb (principal); R22.41 Localized swelling, mass and lump, right lower limb; N39.0 Urinary tract infection, site not specified
CPT/HCPCS: 36415; 71045-TC-FY; 80053; 81003; 83735; 83880; 84484; 85025; 85610; 85730; 87086; 93005; 93010; 99285-25